=== PATIENT | male | born 1965 | race Caucasian/White ===

== ENCOUNTER 2016-08-02 16:49 | Emergency (ER) | payer SELFPAY ==
[~2016-08-02] VITALS: Ht 170.2 cm; Wt 97.5 kg
[~2016-08-02 16:49] MED LIST: CARV6.2579 PO; FURO40TA4 PO; POTA20TA96 PO
[2016-08-02 17:20] VITALS: Ht 170.2 cm; Wt 97.5 kg
[2016-08-03] MEDS ORDERED: DOXY100T20 PO (07:58)
== END 2016-08-02 18:42 | disposition left against medical advice (07) ==
LOC: E/R 16:49
DX: Z53.21 Procedure and treatment not carried out due to patient leaving prior to being seen by health care provider (principal)

== ENCOUNTER 2016-08-03 07:05 | Inpatient (IN) | payer MEDICAID ==
[~2016-08-03] VITALS: Ht 170.2 cm; Wt 97.5 kg
[~2016-08-03 07:05] MED LIST changes: +ETOMIDATE 20 MG INJ ONE; +VECURONIUM 10 MG VIAL ONE
[2016-08-03] MEDS ORDERED: DOXY100T20 PO (07:58)
[2016-08-03] MEDS ORDERED: KETOROLAC 15 MG INJ IV STA (08:29)
[2016-08-03] MEDS ORDERED: ASPIRIN 325 MG TAB PO ONE (08:30)
[2016-08-03] MEDS ORDERED: ENALAPRILAT 1.25 MG INJ IV ONE (08:30)
[2016-08-03] MEDS ORDERED: FUROSEMIDE 40 MG INJ IV ONE (08:30)
[2016-08-03 08:47] LABS: ADD SCAN DIFF NO
--- NOTE | 2016-08-03 08:54 | RADRPT ---
PROCEDURE: XR Chest. CLINICAL INDICATION: Chest pain TECHNIQUE: Chest AP portable. COMPARISON: 04/21/2016 FINDINGS: The mediastinal structures are unremarkable. There is moderate cardiomegaly. The pulmonary vascula rity is normal. There is bibasilar subsegmental atelectasis. No consolidation is identified. The pleural spaces are unremarkable. The axial skeleton is unremarkable. IMPRESSION: Moderate cardiomegaly Mild bibasilar subsegmental atelectasis RPTAT: HGDB .Ponce Mathew MD, MD Date Time Electronically viewed and signed by .Ponce Mathew MD, on 08/03/2016 08:53 .B/
[2016-08-03 08:57] LABS: BASOPHIL # 0.1 10^3/ul (0.0-0.1); BASOPHILS % 0.7 % (0.0-2.0); EOSINOPHILS # 0.2 10^3/ul (0.0-0.5); EOSINOPHILS % 2.2 % (0.0-7.0); HEMATOCRIT 44.9 % (42.0-52.0); HEMOGLOBIN 15.1 g/dl (14.0-18.0); LYMPHOCYTES # 2.3 10^3/ul (0.8-2.9); MEAN CORPUSCULAR HEMOGLOBIN 26.8 pg (29.0-33.0); MEAN CORPUSCULAR HGB CONC 33.6 g/dl (32.0-37.0); MEAN CORPUSCULAR VOLUME 79.8 fl (82.0-101.0); MEAN PLATELET VOLUME 10.6 fl (7.4-10.4); MONOCYTE # 1.2 10^3/ul (0.3-0.9); MONOCYTES % 12.1 % (0.0-11.0); NEUTROPHIL # 5.8 10^3/ul (1.6-7.5); NEUTROPHILS % 60.8 % (39.0-77.0); PLATELET COUNT 281 10^3/UL (140-415); RED BLOOD COUNT 5.63 10^6/ul (4.70-6.10); RED CELL DISTRIBUTION WIDTH 21.5 % (11.5-14.5); WHITE BLOOD COUNT 9.5 10^3/ul (4.8-10.8)
[2016-08-03 09:03] LABS: ALBUMIN 3.7 g/dl (3.3-4.9)
[2016-08-03 09:04] LABS: POTASSIUM 3.5 mmol/L (3.5-5.1)
[2016-08-03 09:06] LABS: ALBUMIN/GLOBULIN RATIO 0.88; BILIRUBIN,DIRECT 0.5 mg/dl (0.00-0.20); BILIRUBIN,INDIRECT 0.8 mg/dl (0-1.1); BILIRUBIN,TOTAL 1.3 mg/dl (0.2-1.3); CALCIUM 8.9 mg/dl (8.4-10.2); CREATININE 1.34 mg/dl (0.61-1.24); TOTAL PROTEIN 7.9 g/dl (6.1-8.1)
[2016-08-03 09:16] LABS: TROPONIN-I 0.064 ng/ml (0.00-0.12)
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
[2016-08-03] MEDS ORDERED: ONDANSETRON 4 MG TAB PO PRN (10:30)
[2016-08-03] MEDS ORDERED: NITROGLYCERIN (SL) 0.4 MG TAB SL PRN (10:30)
[2016-08-03] MEDS ORDERED: NACL 0.9% 3 ML SYG IV SCH (10:30)
[2016-08-03] MEDS ORDERED: DOCUSATE SODIUM 100 MG CAP PO PRN (10:30)
[2016-08-03] MEDS: ASPIRIN 81 MG TAB PO SCH (11:00)
[2016-08-03] MEDS ORDERED: FUROSEMIDE 40 MG TAB PO SCH (11:00)
[2016-08-03 11:40] LABS: INR 1.6; PROTIME 19.2 Sec (12.2-14.2); PT RATIO 1.5
[2016-08-03] MEDS: FAMOTIDINE 20 MG TAB PO SCH (11:54)
[2016-08-03] MEDS: SPIRONOLACTONE 25 MG TAB PO SCH (12:05)
[2016-08-03 13:34] VITALS: TEMP 98
[2016-08-03 14:46] LABS: CK-MB 4.06 ng/ml (0.0-2.4)
[2016-08-03 14:50] VITALS: BP 108/70; PULSE 78; RESP 18
--- NOTE | 2016-08-03 14:57 | CONS ---
DATE OF ADMISSION: 08/03/2016 DATE OF CONSULTATION: 08/03/2016 REASON FOR CONSULTATION: Congestive heart failure exacerbation, cardiomyopathy with severely depres sed left ventricular ejection fraction. REQUESTING PHYSICIAN: Dr. Holley from the hospitalist service. HISTORY OF PRESENT ILLNESS: Mr. Snell is a 50-year-old male well known to myself due to multiple [facility] admissions with a history of cardiomyopathy with last known ejection fraction approxim ately March 2016, history of polysubstance abuse with methamphetamines, hypertension, medical no ncompliance, who presents with complaints of worsening shortness of breath, lower extremity edema. Initially upon arrival this morning in the emergency department, temperature 98.1, blood pressure 13 6/80, pulse 114, respiratory rate 20, saturating 99%. The patient's labs revealed a white count of 9.5, hemoglobin 15.1, platelet count 281. Sodium 140, potassium 3.5, creatinine 1.34, BUN of 27, A ST 55, ALT 27. Troponin negative. INR 1.6. The patient underwent a chest x-ray revealing moderate cardiomegaly and mild bibasilar subsegmental atelectasis. Patient's electrocardiogram reveals sinu s tachycardia at a rate of 105 with left axis deviation and nonspecific ST-T abnormalities and a sin gle PVC. The patient thus far ____heart failure. The patient at this time remains in the emergency department and treated with a dose of Lasix 80 mg IV x1, aspirin, given a dose of IV push Vasotec and now awaits admit to the floor. At this time, the patient continues to have shortness breath. D enies chest pain. PAST MEDICAL HISTORY: As above in HPI. MEDICATIONS CURRENTLY IN HOSPITAL: 1. Lasix 20 mg IV b.i.d. 2. Aldactone 25 mg daily. 3. Aspirin 81 mg daily. 4. Ativan p.r.n. 5. Zofran p.r.n. 6. Sublingual nitroglycerin p.r.n. 7. Tylenol p.r.n. 8. Colace p.r.n. ALLERGIES: NO KNOWN DRUG ALLERGIES. SOCIAL HISTORY: Positive substance abuse with known methamphetamine use. FAMILY HISTORY: No history of sudden cardiac or early CAD. REVIEW OF SYSTEMS: As above in HPI. CONSTITUTIONAL: No fevers, chills. PULMONARY: Shortness of breath. CARDIOVASCULAR: Congestive heart failure, cardiomyopathy. GASTROINTESTINAL: No vomiting. GENITOURINARY: No hematuria. MUSCULOSKELETAL: Degenerative joint disease. PSYCHIATRIC: The patient denies depression. NEUROLOGIC: No documented history of CVA. ENDOCRINE: No documented history of thyroid disease, diabetes mellitus. PHYSICAL EXAMINATION: VITAL SIGNS: Temperature 98, blood pressure 93/71, pulse 92, respiratory rate 18, saturating 99%. GENERAL: Patient is sleeping but arousable. NECK: JVP approximately 9 to 10 cm water. CHEST: Bibasilar crackles. HEART: Regular rate and rhythm. Normal S1, increased S2. Laterally displaced PMI. ABDOMEN: Positive bowel sounds, soft, distended. EXTREMITIES: 1+ edema bilaterally. Erythema of the stent and lower extremities bilaterally, 1+ pul ses bilaterally, posterior tibial. LABORATORY DATA: As above in HPI. No further labs for my review at this time. IMAGING STUDIES: As above in HPI with chest x-ray revealing bibasilar infiltrates. IMPRESSION: 1. Congestive heart failure exacerbation, systolic, acute on chronic. 2. Cardiomyopathy with severely depressed left ventricular ejection fraction ____ approximately 15% . 3. Abnormal electrocardiogram, assess for acute coronary syndrome. 4. Hypotension, borderline. 5. Lower extremity edema. 6. Possible lower extremity cellulitis. 7. Renal failure. 8. Substance abuse. 9. Coagulopathy. RECOMMENDATIONS: 1. At this time, would admit patient to telemetry monitoring to follow rhythm and rate closely. 2. Would check serial EKGs to assess for any significant ongoing changes. EKG in the morning, EKG for any complaints of chest pain or change in rhythm. 3. Continue the patient's current Lasix diuresis along with Aldactone. 4. Continue the patient's aspirin at this time, but follow for any signs of bleeding complications, given coagulopathy. 5. Continue to follow the patient's coagulopathy and recheck an INR in a.m. 6. Will complete a rule out for myocardial infarction to ensure the patient's constellation of symp toms are not due to any recent acute coronary syndrome such as acute myocardial infarction. 7. Will initiate patient on low dose hydralazine afterload reduction and low-dose beta mary as t olerated, withhold parameters following closely. 8. Cessation of substance abuse. Thank you for allowing me to take part in the care of this patient. I will continue to follow along very closely with you. Further recommendations will be made as the patient progresses through his inpatient hospital clinical course. Dictated By: DEANA KEMP/ARMANDO Conf#: [id number] DID#: [id number] CC: JACEK HOLLEY MD;*End*
[2016-08-03 15:08] VITALS: Ht 170.2 cm; Wt 97.5 kg
[2016-08-03 17:15] VITALS: PULSE 93
--- NOTE | 2016-08-03 17:42 | HP ---
DATE OF ADMISSION: 08/03/2016 CARTON STENCILER: Abdirizak Richard MD, Cardiology. CHIEF COMPLAINT: Shortness of breath and abdominal distention. HISTORY OF PRESENT ILLNESS: This is a 50-year-old gentleman with past medical history of cardiomyop athy with ejection fraction of 15%, anxiety, substance abuse known as methamphetamine and heroin abu se, cirrhosis, congestive heart failure, pulmonary hypertension, who presents to [facility] secondary to having abdominal pain, abdominal distention and worsening of shortness of grecia ath and lower extremity edema. Initially upon arrival, he was found to have a temperature of 98.1, blood pressure 136/80, pulse of 114, respiratory rate 20, oxygen saturation 99%. The patient's WBC was 9.5, hemoglobin 15.1, platelets 281. Sodium 140, potassium 3.5, creatinine 1.34, BUN 27. INR 1 .06. Chest x-ray revealed moderate cardiomegaly and mild basilar segmental atelectasis. The patien t's EKG shows sinus tachycardia with a ventricular rate of 105, left axis deviation, nonspecific ST- T wave abnormality with single PVC. The patient was treated with diuresis via Lasix and has been ad mitted to telemetry floor for further evaluation and treatment. At this time, patient denies having any chest pain, although he does complain of having shortness of breath and abdominal discomfort. No fever, chills, weight gain, weight loss, anorexia. No chest pain, palpitations. Positive for ed karina bilateral lower extremities. No dysuria, hematuria, urgency, incontinence. His last drug use w as heroin, which he smoked yesterday. PAST MEDICAL AND SURGICAL HISTORY: As above per HPI. MEDICATIONS: 1. Doxycycline. 2. Lasix. 3. Potassium chloride. ALLERGIES: NO KNOWN DRUG ALLERGIES. FAMILY HISTORY: Noncontributory. SOCIAL HISTORY: Positive for drug abuse and smoking cigarettes. Denies any use of alcohol. He is noncompliant with medications REVIEW OF SYSTEMS: As above per HPI, otherwise 12 review of systems has been found to be negative PHYSICAL EXAMINATION VITAL SIGNS: Temperature 98.4, pulse 78, respirations 18, blood pressure 108/79, oxygen saturation 98% on room air. GENERAL APPEARANCE: The patient is lying in bed comfortably without any distress. He is awake, jose daniel rt, oriented. He is able to answer my questions properly. EYES AND ENT: Conjunctivae and lids are normal. Pupils are normal. Extraocular normal. Hearing g rossly normal. Lips, teeth and gums are normal. Oral mucosa is mildly dry. NECK: Supple. Trachea is midline. No lymphadenopathy. RESPIRATORY: Effort is normal. Clear to auscultation bilaterally. CARDIOVASCULAR: Normal S1, S2. Positive edema bilateral lower extremities. No gallop. ABDOMEN: Contour is morbidly obese and also the patient is found to have ascites. Bowel sounds are distant secondary to body habitus and ascites. No guarding, no rebound. GENITOURINARY: Deferred. MUSCULOSKELETAL: Upper and lower extremities within normal limits except edema bilateral lower extr emities. NEUROLOGIC: Cranial nerves II through XII are grossly intact. He is awake, alert, oriented. LABORATORY WORK WBC 9.5, hemoglobin 15.1, hematocrit 44.9, platelets 281. Sodium 140, potassium 3.5 , chloride 95, bicarbonate 29, BUN 27, creatinine 1.34, glucose 79. Total bilirubin 1.3, direct pipo irubin 0.5. Troponin is 0.064. ASSESSMENT AND PLAN: 1. Acute on chronic congestive heart failure. 2. Fluid overload. 3. Ascites. 4. Continued and current use of amphetamine and heroin. 4. Noncompliance with medications. 5. History of cirrhosis. The patient will be admitted to telemetry floor. Cardiology has been consulted. We will place the patient on diuretics such as Lasix and I also have placed the patient on Aldactone. We will follow cardiology recommendations. Regarding his abdominal distention and ascites, I have ordered an ultra sound-guided paracentesis and follow up the fluid. The patient is afebrile. We also will obtain he patitis panel. For deep venous thrombosis prophylaxis, place the patient on SCDs. The patient's IN R is greater than 1.5. Dictated By: JACEK PAGAN/NTS Conf#: [id number] DID#: [id number]
[2016-08-03] MEDS: LORAZEPAM 2 MG INJ IV PRN (18:44)
[2016-08-03] MEDS: FUROSEMIDE 20 MG INJ IV SCH (18:44)
[2016-08-03 18:49] LABS: TROPONIN-I 0.04 ng/ml (0.00-0.12)
[2016-08-03 18:53] LABS: CK-MB 3.28 ng/ml (0.0-2.4)
[2016-08-03 20:17] VITALS: PULSE 90
[2016-08-03 20:56] VITALS: BP 108/72; RESP 19
[2016-08-03] MEDS: ZOLPIDEM 5 MG TAB PO PRN (21:14)
[2016-08-03 23:00] LABS: TROPONIN-I 0.029 ng/ml (0.00-0.12)
[2016-08-03 23:01] LABS: CK-MB 3.24 ng/ml (0.0-2.4)
[2016-08-04] VITALS (10 sets, daily range): BP systolic 117–145; BP diastolic 63–79; PULSE 100–111; RESP 18–22
[2016-08-04] MEDS: LORAZEPAM 2 MG INJ IV PRN ×2 (00:46→23:33)
[2016-08-04 02:51] LABS: ADD SCAN DIFF NO; HAAIG REFLEX REFLEX FILED
[2016-08-04 03:35] LABS: POTASSIUM 3.3 mmol/L (3.5-5.1)
[2016-08-04 03:38] LABS: CREATININE 1.34 mg/dl (0.61-1.24)
[2016-08-04 03:39] LABS: CALCIUM 8.4 mg/dl (8.4-10.2); CHOL/HDL RATIO 11.9 RATIO; MAGNESIUM 1.7 mg/dl (1.7-2.5)
[2016-08-04 03:57] LABS: BASOPHIL # 0.1 10^3/ul (0.0-0.1); BASOPHILS % 0.7 % (0.0-2.0); EOSINOPHILS # 0.4 10^3/ul (0.0-0.5); EOSINOPHILS % 5.5 % (0.0-7.0); HEMATOCRIT 42.2 % (42.0-52.0); HEMOGLOBIN 13.6 g/dl (14.0-18.0); LYMPHOCYTES # 1.9 10^3/ul (0.8-2.9); LYMPHOCYTES % 23.1 % (15.0-51.0); MEAN CORPUSCULAR HEMOGLOBIN 26.2 pg (29.0-33.0); MEAN CORPUSCULAR HGB CONC 32.2 g/dl (32.0-37.0); MEAN CORPUSCULAR VOLUME 81.3 fl (82.0-101.0); MEAN PLATELET VOLUME 10.6 fl (7.4-10.4); MONOCYTE # 0.8 10^3/ul (0.3-0.9); MONOCYTES % 9.9 % (0.0-11.0); NEUTROPHIL # 4.9 10^3/ul (1.6-7.5); NEUTROPHILS % 60.4 % (39.0-77.0); PLATELET COUNT 276 10^3/UL (140-415); RED BLOOD COUNT 5.19 10^6/ul (4.70-6.10); RED CELL DISTRIBUTION WIDTH 21.7 % (11.5-14.5)
[2016-08-04] MEDS ORDERED: POTASSIUM CHLORIDE (SR) 20 MEQ TAB PO ONE (04:39)
[2016-08-04] MEDS ORDERED: LORAZEPAM 1 MG TAB PO ONE (05:00)
[2016-08-04] MEDS ORDERED: MAGNESIUM SULFATE 1 GM/D5W 100 ML IVPB ONE (05:00)
[2016-08-04 05:12] LABS: THYROID STIMULATING HORMONE 5.04 MIU/L (0.465-4.680)
[2016-08-04 05:25] LABS: HEPATITIS B CORE ANTIBODY NEGATIVE (NEGATIVE)
[2016-08-04] MEDS: FUROSEMIDE 20 MG INJ IV SCH ×2 (05:49→18:41)
[2016-08-04] MEDS ORDERED: LORAZEPAM 2 MG INJ IV ONE (06:30)
[2016-08-04] MEDS ORDERED: LORAZEPAM 2 MG INJ IV PRN ×2 (08:30→10:30)
[2016-08-04] MEDS: ASPIRIN 81 MG TAB PO SCH (08:40)
[2016-08-04] MEDS: FAMOTIDINE 20 MG TAB PO SCH (08:40)
[2016-08-04] MEDS: SPIRONOLACTONE 25 MG TAB PO SCH (08:40)
[2016-08-04 12:35] LABS: POTASSIUM 4.1 mmol/L (3.5-5.1)
[2016-08-04 12:38] LABS: MAGNESIUM 1.7 mg/dl (1.7-2.5)
--- NOTE | 2016-08-04 13:48 | RADRPT ---
PROCEDURE: US Abdomen. CLINICAL INDICATION: Ascites TECHNIQUE: Multiple real-time images were acquired of the patient's abdomen using a high resolutio n linear transducer. COMPARISON: February 02, 2016 FINDINGS: There are scattered, small pockets of fluid within the right lower and left lower quadrants of the a bdomen. The bowel loops are within 1-2 cm of the small pockets of fluid. In addition, the patient was combative, and climbing from the bed. At this time, it is not safe for the patient, for ultraso und-guided thoracentesis to be performed. IMPRESSION: Overall, mild scattered small pockets of fluid, adjacent to bowel loops. In addition, the patient w as combative, and climbing from his bed. At this time, it is not safe for the patient for ultrasoun d-guided thoracentesis to be performed. RPTAT: QQ .Allyssa Mann MD, Date Time Electronically viewed and signed by .Allyssa Mann MD, on 08/04/2016 11:56 .F/
--- NOTE | 2016-08-04 13:51 | PN ---
Date/Time of Note Date/Time of Note DATE: 08/04/16 TIME: 13:48 Assessment/Plan VTE Prophylaxis VTE Prophylaxis Intervention: SCD's Lines/Catheters IV [facility] Saline Lock Assessment/Plan Chief Complaint/Hosp Course ASSESSMENT AND PLAN: 1. Acute on chronic congestive heart failure. Cardiology has been consulted, continue diuresis 2. Fluid overload. 3. Ascites. Plan for paracentesis today 4. Continued and current use of amphetamine and heroin. Palliative care/pain management has been consulted 4. Noncompliance with medications. 5. History of cirrhosis. 6. Dyslipidemia. Patient is not a candidate for statin secondary to his history of cirrhosis For deep venous thrombosis prophylaxis, place the patient on SCDs. The patient 's INR is greater than 1.5. We will continue monitor patient closely for recommendation management treatment as clinical course Problems: Subjective 24 Hr Interval Summary Free Text/Dictation Patient denies of any chest pain or shortness of breath Although he complains of having agitation which is likely secondary to heroin withdrawal No nausea vomiting diarrhea Exam/Review of Systems Vital Signs Vitals Vital Signs Date Time Temp Pulse Resp B/P Pulse Ox O2 Delivery O2 Flow Rate FiO2 08/04/16 12:23 98.3 110 19 125/79 98 08/03/16 14:50 Room Air Intake and Output 08/03/16 08/03/16 08/04/16 14:59 22:59 06:59 Intake Total 400 ml 1400 ml Output Total 400 ml Balance 400 ml 1000 ml Exam General: The patient is well-developed, in minimal distress. HEENT: Atraumatic, normocephalic. The pupils are equal and round . Neck: Supple with full range of motion. Chest: Normal expansion of the thorax during inspiration Lungs: Clear to auscultation bilaterally Heart: Normal S1-S2, Regular rhythm and rate. Abdomen: Soft , nontender, distended , bowel sounds are present. Extremities: Normal to inspection, no edema no cyanosis Neurologic: ,The patient is awake, alert Results Result Diagram: 08/04/16 0238 08/04/16 1215 Results 24 hrs Laboratory Tests Test 08/03/16 17:37 08/03/16 22:08 08/04/16 02:38 08/04/16 12:15 Creatine Kinase 119 96 Creatine Kinase Index 2.8 3.4 Creatinine Kinase MB (Mass) 3.28 H 3.24 H Troponin I 0.040 0.029 Anion Gap 17 H Basophils # 0.1 Basophils % 0.7 Blood Urea Nitrogen 27 H Calcium Level 8.4 Carbon Dioxide Level 26 Chloride Level 100 Cholesterol Level 203 H Cholesterol/HDL Ratio 11.9 Creatinine 1.34 H Eosinophils # 0.4 Eosinophils % 5.5 Glucose Level 86 HDL Cholesterol 17 L Hematocrit 42.2 Hemoglobin 13.6 L Hepatitis B Core Total Antibody NEGATIVE Hepatitis B Surface Antigen NEGATIVE Hepatitis C Antibody NEGATIVE LDL Cholesterol, Calculated 168 Lymphocytes # 1.9 Lymphocytes % 23.1 Magnesium Level 1.7 1.7 Mean Corpuscular Hemoglobin 26.2 L Mean Corpuscular Hemoglobin Concent 32.2 Mean Corpuscular Volume 81.3 L Mean Platelet Volume 10.6 H Monocytes # 0.8 Monocytes % 9.9 Neutrophils # 4.9 Neutrophils % 60.4 Nucleated Red Blood Cells # 0.0 Nucleated Red Blood Cells % 0.0 Platelet Count 276 Potassium Level 3.3 L 4.1 Red Blood Count 5.19 Red Cell Distribution Width 21.7 H Sodium Level 140 Thyroid Stimulating Hormone (TSH) 5.040 H Triglycerides Level 91 White Blood Count 8.0 Medications Medications Current Medications Spironolactone (Aldactone) 25 mg DAILY PO Last administered on 08/04/16 08:40 ; Admin Dose 25 MG; Start 08/03/16 at 11:00 Ondansetron HCl (Zofran Tab) 4 mg Q6H PRN PO NAUSEA AND/OR VOMITING; Start 03/12 at 10:30 Aspirin (Aspirin) 81 mg DAILY PO Last administered on 08/04/16 08:40; Admin Dose 81 MG; Start 08/03/16 at 11:00 Nitroglycerin (Nitroglycerin (Sl Tab) 0.4 Mg) 1 tab Q5M PRN SL CHEST PAIN; Start 08/03/16 at 10:30 Acetaminophen (Tylenol Tab) 650 mg Q6H PRN PO PAIN LEVEL 1-3 OR FEVER; Start at 10:30 Docusate Sodium (Colace) 100 mg Q12H PRN PO CONSTIPATION; Start 08/03/16 at 10: 30 Famotidine (Pepcid) 20 mg DAILY PO Last administered on 08/04/16 08:40; Admin Dose 20 MG; Start 08/03/16 at 11:00 Hydralazine HCl (Apresoline) 10 mg Q8 PO Last administered on 08/04/16 05:49; Admin Dose 10 MG; Start 08/03/16 at 22:00 Carvedilol (Coreg) 3.125 mg BID PO Last administered on 08/04/16 08:41; Admin Dose 3.125 MG; Start 08/03/16 at 21:00 Zolpidem Tartrate (Ambien) 5 mg HS PRN PO INSOMNIA Last administered on 21:14; Admin Dose 5 MG; Start 08/03/16 at 21:00 Lorazepam (Ativan) 1 mg Q6H PRN IV ANXIETY Last administered on 08/04/16 08:41 ; Admin Dose 1 MG; Start 08/04/16 at 08:30 JACEK HOLLEY MD Aug 04, 2016 13:51
[2016-08-04] MEDS: METHADONE 10 MG TAB PO SCH (15:32)
--- NOTE | 2016-08-04 16:57 | CONS ---
Date/Time of Note Date/Time of Note DATE: 08/04/16 TIME: 16:53 Assessment/Plan Assessment/Plan Chief Complaint/Hosp Course IMPRESSION: 1. Congestive heart failure exacerbation, systolic, acute on chronic. 2. Cardiomyopathy with severely depressed left ventricular ejection fraction approximately 15%. 3. Abnormal electrocardiogram, assess for acute coronary syndrome.-negative troponin x 3 4. Hypotension, borderline. 5. Lower extremity edema. 6. Possible lower extremity cellulitis. 7. Renal failure. 8. Substance abuse-ongoing 9. Coagulopathy. 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 PULMONARY: mild sob CARDIOVASCULAR: No chest pain/palpitations GASTROINTESTINAL: No nausea/vomiting. GENITOURINARY: No hematuria/dysuria. MUSCULOSKELETAL: No myagias/arthalgias. PSYCHIATRIC: The patient denies depression. NEUROLOGIC: generalized weakness Constitutional: alert Psych: no complaints Head: normocephalic ENMT: mucosa pink and moist Neck: jvd (9 cm water), supple Respiratory: diminished breath sounds (at bases/B) Cardiovascular: regular rate and rhythm Gastrointestinal: non-tender, soft Musculoskeletal: muscle weakness (generalized) Extremities: edema (trace/B) Neurological: other (No focal deficits) Results Result Diagram: 08/04/16 0238 08/04/16 1215 Results 24 hrs Laboratory Tests Test 08/03/16 17:37 08/03/16 22:08 08/04/16 02:38 08/04/16 12:15 Creatine Kinase 119 96 Creatine Kinase Index 2.8 3.4 Creatinine Kinase MB (Mass) 3.28 H 3.24 H Troponin I 0.040 0.029 Anion Gap 17 H Basophils # 0.1 Basophils % 0.7 Blood Urea Nitrogen 27 H Calcium Level 8.4 Carbon Dioxide Level 26 Chloride Level 100 Cholesterol Level 203 H Cholesterol/HDL Ratio 11.9 Creatinine 1.34 H Eosinophils # 0.4 Eosinophils % 5.5 Glucose Level 86 HDL Cholesterol 17 L Hematocrit 42.2 Hemoglobin 13.6 L Hepatitis B Core Total Antibody NEGATIVE Hepatitis B Surface Antigen NEGATIVE Hepatitis C Antibody NEGATIVE LDL Cholesterol, Calculated 168 Lymphocytes # 1.9 Lymphocytes % 23.1 Magnesium Level 1.7 1.7 Mean Corpuscular Hemoglobin 26.2 L Mean Corpuscular Hemoglobin Concent 32.2 Mean Corpuscular Volume 81.3 L Mean Platelet Volume 10.6 H Monocytes # 0.8 Monocytes % 9.9 Neutrophils # 4.9 Neutrophils % 60.4 Nucleated Red Blood Cells # 0.0 Nucleated Red Blood Cells % 0.0 Platelet Count 276 Potassium Level 3.3 L 4.1 Red Blood Count 5.19 Red Cell Distribution Width 21.7 H Sodium Level 140 Thyroid Stimulating Hormone (TSH) 5.040 H Triglycerides Level 91 White Blood Count 8.0 Medications Medications Current Medications Spironolactone (Aldactone) 25 mg DAILY PO Last administered on 08/04/16 08:40 ; Admin Dose 25 MG; Start 08/03/16 at 11:00 Ondansetron HCl (Zofran Tab) 4 mg Q6H PRN PO NAUSEA AND/OR VOMITING; Start 03/12 at 10:30 Aspirin (Aspirin) 81 mg DAILY PO Last administered on 08/04/16 08:40; Admin Dose 81 MG; Start 08/03/16 at 11:00 Nitroglycerin (Nitroglycerin (Sl Tab) 0.4 Mg) 1 tab Q5M PRN SL CHEST PAIN; Start 08/03/16 at 10:30 Acetaminophen (Tylenol Tab) 650 mg Q6H PRN PO PAIN LEVEL 1-3 OR FEVER; Start at 10:30 Docusate Sodium (Colace) 100 mg Q12H PRN PO CONSTIPATION; Start 08/03/16 at 10: 30 Famotidine (Pepcid) 20 mg DAILY PO Last administered on 08/04/16 08:40; Admin Dose 20 MG; Start 08/03/16 at 11:00 Hydralazine HCl (Apresoline) 10 mg Q8 PO Last administered on 08/04/16 14:30; Admin Dose 10 MG; Start 08/03/16 at 22:00 Carvedilol (Coreg) 3.125 mg BID PO Last administered on 08/04/16 08:41; Admin Dose 3.125 MG; Start 08/03/16 at 21:00 Zolpidem Tartrate (Ambien) 5 mg HS PRN PO INSOMNIA Last administered on 21:14; Admin Dose 5 MG; Start 08/03/16 at 21:00 Methadone HCl (Methadone) 50 mg DAILY PO Last administered on 08/04/16 15:32; Admin Dose 50 MG; Start 08/04/16 at 15:15 Lorazepam (Ativan) 1 mg Q4 PRN IV ANXIETY; Start 08/04/16 at 17:00 DEANA ALBERTO Aug 04, 2016 16:57
--- NOTE | 2016-08-04 17:35 | RADRPT ---
Vent Rate: 111 bpm RR Interval: 0 msec AK Interval: 144 msec QRS Duration: 100 msec QT Interval: 354 msec QTC Interval: 481 msec P-R-T Bruce: 62 - -8 - 144 degrees Sinus tachycardia Anterolateral infarct , age undetermined Abnormal ECG Electronically Signed By: Abdirizak Richard [id number]
[2016-08-04] MEDS: ZOLPIDEM 5 MG TAB PO PRN (21:21)
[2016-08-05] VITALS (41 sets, daily range): BP systolic 84–151; BP diastolic 54–129; PULSE 93–110; RESP 12–25
[2016-08-05] MEDS: FUROSEMIDE 20 MG INJ IV SCH ×2 (05:17→18:26)
[2016-08-05 07:17] LABS: ADD SCAN DIFF NO
[2016-08-05 07:20] LABS: BASOPHIL # 0.1 10^3/ul (0.0-0.1); BASOPHILS % 0.7 % (0.0-2.0); EOSINOPHILS % 0.2 % (0.0-7.0); HEMATOCRIT 50.7 % (42.0-52.0); HEMOGLOBIN 16.5 g/dl (14.0-18.0); LYMPHOCYTES % 18.7 % (15.0-51.0); MEAN CORPUSCULAR HEMOGLOBIN 26.7 pg (29.0-33.0); MEAN CORPUSCULAR HGB CONC 32.5 g/dl (32.0-37.0); MEAN CORPUSCULAR VOLUME 82.2 fl (82.0-101.0); MEAN PLATELET VOLUME 10.6 fl (7.4-10.4); MONOCYTE # 1.2 10^3/ul (0.3-0.9); MONOCYTES % 11.2 % (0.0-11.0); NEUTROPHIL # 7.2 10^3/ul (1.6-7.5); NEUTROPHILS % 68.7 % (39.0-77.0); PLATELET COUNT 300 10^3/UL (140-415); RED BLOOD COUNT 6.17 10^6/ul (4.70-6.10); WHITE BLOOD COUNT 10.5 10^3/ul (4.8-10.8)
[2016-08-05 07:28] LABS: INR 2.09; PROTIME 23.7 Sec (12.2-14.2); PT RATIO 1.9
[2016-08-05 07:40] LABS: CHLORIDE 98 mmol/L (97-110)
[2016-08-05 07:41] LABS: ALBUMIN 3.5 g/dl (3.3-4.9); SODIUM 139 mmol/L (135-144)
[2016-08-05 07:42] LABS: POTASSIUM 5.9 mmol/L (3.5-5.1)
[2016-08-05 07:56] LABS: BILIRUBIN,TOTAL 2.1 mg/dl (0.2-1.3); CREATININE 1.79 mg/dl (0.61-1.24)
[2016-08-05 07:57] LABS: ALANINE AMINOTRANSFERASE 29 IU/L (13-69); ALBUMIN/GLOBULIN RATIO 0.81; ALKALINE PHOSPHATASE 263 IU/L (42-121); ANION GAP 24 (8-16); ASPARTATE AMINO TRANSFERASE 64 IU/L (15-46); BLOOD UREA NITROGEN 34 mg/dl (7-20); CARBON DIOXIDE 23 mmol/L (21-31); TOTAL PROTEIN 7.8 g/dl (6.1-8.1)
[2016-08-05 07:58] LABS: MAGNESIUM 1.9 mg/dl (1.7-2.5)
[2016-08-05 08:12] LABS: GLUCOSE < 20 mg/dl (70-220)
[2016-08-05] MEDS ORDERED: DEXTROSE 50% 50 ML SYRINGE ONE (08:13)
[2016-08-05 08:18] LABS: FREE T3 3.87 pg/ml (2.77-5.27)
[2016-08-05] MEDS ORDERED: DEXTROSE 5%-0.45% NACL 1,000 ML IV SCH (08:30)
[2016-08-05] MEDS: DEXTROSE 50% 50 ML SYRINGE IV PRN ×3 (08:34→09:47)
[2016-08-05] MEDS: ASPIRIN 81 MG TAB PO SCH (09:00)
[2016-08-05] MEDS: SPIRONOLACTONE 25 MG TAB PO SCH (09:00)
[2016-08-05] MEDS: FAMOTIDINE 20 MG TAB PO SCH (09:00)
[2016-08-05] MEDS: METHADONE 10 MG TAB PO SCH (09:00)
[2016-08-05] MEDS: ACCU-CHEK XX SCH ×4 (09:20→21:00)
[2016-08-05 10:05] LABS: Allen Test ACCEPTAB; Arterial Base Excess -9.1 mmol/L (-3.0-3); Arterial Fraction of Oxyhgb 88.5 % (93.0-99.0); Arterial MetHb 0.5 % (0.0-1.5); Arterial Total Hemglobin 14.9 g/dl (12.0-18.0); MODE HFFI
[2016-08-05] MEDS: PROPOFOL 100 ML IV SCH (10:48)
[2016-08-05] MEDS ORDERED: LIDOCAINE 1% (MDV) 20 ML INJ SC ONE (11:00)
--- NOTE | 2016-08-05 11:12 | RADRPT ---
PROCEDURE: XR Chest AP portable CLINICAL INDICATION: Status post intubation TECHNIQUE: An AP portable radiograph of the chest was submitted. COMPARISON: 08/03/2016 FINDINGS: Support Hardware: An endotracheal tube is in satisfactorily placed with the tip at the level of T3. An NG tube has been placed with the tip in the stomach. Cardiovascular: The heart remains moderately enlarged and the pulmonary vasculature now appears more congested. Lung Cruz: Subsegmental atelectasis or infiltrate is seen within both lung bases. Pleural Spaces: There is a small moderate right pleural fluid accumulation with fluid tracking into the minor fissure. No pneumothorax is evident. Osseous Structures: The osseous structures appear intact. Soft Tissues: The soft tissues appear unremarkable. IMPRESSION: 1. Interval satisfactory intubation and placement of an NG tube, 2. Moderate cardiomegaly with increasing pulmonary vascular congestion. 3. Development of bilateral lower lung zone infiltrate/atelectasis. 4. Development of a moderate right pleural fluid accumulation with fluid tracking into the minor fi ssure. Physician Georgi Date Time Electronically viewed and signed by Physician Georgi on 08/05/2016 11:11 /
[2016-08-05] MEDS: DEXTROSE 10% 1,000 ML IV SCH ×2 (11:52→22:01)
[2016-08-05 12:19] LABS: AADO2 Arterial 415.1 mmHg (7.0-24.0); Allen Test ACCEPTAB; Arterial Base Excess -8.8 mmol/L (-3.0-3); Arterial Fraction of Oxyhgb 94.7 % (93.0-99.0); Arterial HCO3 19.9 mmol/L (22.0-26.0); Arterial MetHb 0.4 % (0.0-1.5); Arterial Total Hemglobin 15.4 g/dl (12.0-18.0); MODE VENT - AC
--- NOTE | 2016-08-05 12:24 | CONS ---
Date/Time of Note Date/Time of Note DATE: 08/05/16 TIME: 12:15 Assessment/Plan Assessment/Plan Additional Assessment/Plan Chest x-ray was reviewed from yesterday which is showing cardio megaly without any overt CHF however chest x-ray after intubation was obtained revealed significant increase in congestive heart failure pattern. Next Current ventilator settings AC of 18, tidal volume 500, PEEP of 5, 80% FiO2. ABG was reviewed from today earlier prior to intubation which is showing acute respiratory failure with severe hypercapnia. Post intubation ABG revealing a respiratory and metabolic acidosis. Assessment recommendations; 1. Patient admitted for shortness of breath of underlying cardia myopathy then developing respiratory failure. 2. Underlying history of substance abuse. 3. Renal insufficiency. Likely from renal hypoperfusion. 4. Hyperkalemia. Continue current supportive care. Ventilator settings have been adjusted, assist control rate has been increased to 22, patient also given sodium bicarb for correction of acidosis. Will obtain a follow-up chest x-ray in 24 hours. Obtain follow-up serum chemistry to ascertain level of potassium. Prognosis is guarded. Consultation Date/Type/Reason Admit Date/Time Aug 03, 2016 at 14:46 Date of Consultation: Aug 05, 2016 Reason for Consultation Pulmonary consultation obtained for patient with impending respiratory failure. Next History presenting; patient is a 50-year-old male who came into the emergency room yesterday with complaints of not feeling well for the last 2 days. Upon evaluation chest x-ray was done which showed cardiomegaly the patient was found to be mild CHF was admitted to medical floor however the patient decompensated earlier this morning and was rushed over to ICU the patient was immediately attended to at bedside and because of respiratory failure was intubated without difficulty with 7.5 endotracheal tube. History was obtained from medical records. Next Past medical history; 1. History of substance abuse. With intravenous drug use as well . 2. Severe cardiac myopathy with EF of around 15%. 3. History of cholecystectomy as evidenced by right upper quadrant scar. Medications; were reviewed. Allergies; none. Social history; positive for substance abuse. Family history, occupational history are not available. Review of systems; unobtainable. General exam; young male, now orally intubated, sedated. Psychological: no complaints Past Surgical History Past Surgical Hx: cholecystectomy Social History Smoking Status: Current every day smoker Exam/Review of Systems Vital Signs Vitals Vital Signs Date Time Temp Pulse Resp B/P Pulse Ox O2 Delivery O2 Flow Rate FiO2 08/05/16 12:04 100 08/05/16 11:54 120 08/05/16 10:30 14 100 08/05/16 08:15 98.2 106/54 08/05/16 08:00 Nasal Cannula 2.0 Intake and Output 08/04/16 08/04/16 08/05/16 15:00 23:00 07:00 Intake Total 650 ml Balance 650 ml Exam H EENT exam is; supple neck, JVD difficult to see. No lymphadenopathy. Midsize pupils. Patient has fair dentition. No neck masses. Now orally intubated. Chest examination a micro diminished breath sounds throughout. S1-S2 audible, no murmurs. Regular rhythm. Abdomen examination; protuberant, no organomegaly. Bowel sounds audible. There is a well-healed right upper quadrant scar. Extremity exam is; no peripheral edema. Pulses are diminished in lower extremities. REGISTERED PHLEBOTOMIST PART TIME examination; patient is currently sedated. Results Result Diagram: 08/05/16 0615 08/05/16 0906 Results 24 hrs Laboratory Tests Test 08/05/16 06:15 08/05/16 08:07 08/05/16 08:30 08/05/16 08:42 Alanine Aminotransferase (ALT/SGPT) 29 Albumin 3.5 Albumin/Globulin Ratio 0.81 Alkaline Phosphatase 263 H Anion Gap 24 #H Aspartate Amino Transf (AST/SGOT) 64 H Basophils # 0.1 Basophils % 0.7 Blood Urea Nitrogen 34 H Calcium Level 9.0 Carbon Dioxide Level 23 Chloride Level 98 Creatinine 1.79 H Direct Bilirubin 1.10 #H Eosinophils # 0.0 Eosinophils % 0.2 Free Thyroxine 1.73 Free Triiodothyronine (T3) pg/mL 3.87 Globulin 4.30 H Glucose Level < 20 #*L Hematocrit 50.7 # Hemoglobin 16.5 # INR International Normalized Ratio 2.09 Indirect Bilirubin 1.0 Lymphocytes # 2.0 Lymphocytes % 18.7 Magnesium Level 1.9 Mean Corpuscular Hemoglobin 26.7 L Mean Corpuscular Hemoglobin Concent 32.5 Mean Corpuscular Volume 82.2 Mean Platelet Volume 10.6 H Monocytes # 1.2 H Monocytes % 11.2 H Neutrophils # 7.2 Neutrophils % 68.7 Nucleated Red Blood Cells # 0.0 Nucleated Red Blood Cells % 0.0 Platelet Count 300 Potassium Level 5.9 H Prothrombin Time 23.7 #H Prothrombin Time Ratio 1.9 Red Blood Count 6.17 H Red Cell Distribution Width 22.0 H Sodium Level 139 Total Bilirubin 2.1 H Total Protein 7.8 White Blood Count 10.5 # Bedside Glucose 17 *L 66 L 46 *L Test 08/05/16 08:57 08/05/16 09:06 08/05/16 09:29 08/05/16 09:47 Bedside Glucose 40 *L 100 69 L Glucose Level 36 #*L Test 08/05/16 09:50 08/05/16 09:52 08/05/16 10:58 Arterial Blood HCO3 23.0 Arterial Blood Base Excess -9.1 L Arterial Blood Oxygen Saturation 89.8 L Parviz Test ACCEPTAB Arterial Blood Gas Puncture Site Right Radial Arterial Blood Carboxyhemoglobin 1.0 Arterial Blood Date Drawn 08/05/2016 9:58:37 AM Arterial Blood Methemoglobin 0.5 Arterial Blood pCO2 (Temp correct) 81.5 *H Arterial Blood pH (Temp corrected) 7.068 *L Arterial Blood pO2 (Temp corrected) 80.5 Blood Gas A-a O2 Differential 551.0 H Blood Gas Critical Value Read Back DR PHLILIPS Blood Gas Modality [facility] Blood Gas Notified Time 08/05/2016 10:04:33 AM Blood Gas Notified Whom TM Blood Gas Specimen Source Blood arterial Blood Gas Temperature 37.0 FiO2 100.0 Oxyhemoglobin Percent 88.5 L Total Hemoglobin 14.9 Bedside Glucose 227 H 118 Medications Medications Current Medications Spironolactone (Aldactone) 25 mg DAILY PO Last administered on 08/04/16 08:40 ; Admin Dose 25 MG; Start 08/03/16 at 11:00 Ondansetron HCl (Zofran Tab) 4 mg Q6H PRN PO NAUSEA AND/OR VOMITING; Start 03/12 at 10:30 Aspirin (Aspirin) 81 mg DAILY PO Last administered on 08/04/16 08:40; Admin Dose 81 MG; Start 08/03/16 at 11:00 Nitroglycerin (Nitroglycerin (Sl Tab) 0.4 Mg) 1 tab Q5M PRN SL CHEST PAIN; Start 08/03/16 at 10:30 Acetaminophen (Tylenol Tab) 650 mg Q6H PRN PO PAIN LEVEL 1-3 OR FEVER; Start at 10:30 Docusate Sodium (Colace) 100 mg Q12H PRN PO CONSTIPATION; Start 08/03/16 at 10: 30 Famotidine (Pepcid) 20 mg DAILY PO Last administered on 08/04/16 08:40; Admin Dose 20 MG; Start 08/03/16 at 11:00 Hydralazine HCl (Apresoline) 10 mg Q8 PO Last administered on 08/05/16 05:17; Admin Dose 10 MG; Start 08/03/16 at 22:00 Carvedilol (Coreg) 3.125 mg BID PO Last administered on 08/04/16 21:22; Admin Dose 3.125 MG; Start 08/03/16 at 21:00 Zolpidem Tartrate (Ambien) 5 mg HS PRN PO INSOMNIA Last administered on 21:21; Admin Dose 5 MG; Start 08/03/16 at 21:00 Methadone HCl (Methadone) 50 mg DAILY PO Last administered on 08/04/16 15:32; Admin Dose 50 MG; Start 08/04/16 at 15:15 Lorazepam (Ativan) 1 mg Q4 PRN IV ANXIETY Last administered on 08/04/16 23:33 ; Admin Dose 1 MG; Start 08/04/16 at 17:00 Diagnostic Test (Pha) 1 ea 1 ea Q4 XX Last administered on 08/05/16 09:20; Admin Dose 1 EA; Start 08/05/16 at 09:00 Propofol 100 ml @ 2.925 mls/ hr Q12H IV Last administered on 08/05/16 10:48; Admin Dose 2.925 MLS/HR; Start 08/05/16 at 11:00 Dextrose (D10w) 1,000 ml @ 100 mls/hr Q10H IV Last administered on 08/05/16 11:52; Admin Dose 100 MLS/HR; Start 08/05/16 at 11:00 YOUSUF MILNER Aug 05, 2016 12:24
[2016-08-05] MEDS ORDERED: NA BICARBONATE 8.4% 50 ML SYG IV ONE ×2 (12:30)
--- NOTE | 2016-08-05 12:54 | CONS ---
Date/Time of Note Date/Time of Note DATE: 08/05/16 TIME: 12:49 Assessment/Plan Assessment/Plan Chief Complaint/Hosp Course IMPRESSION: 1. Congestive heart failure exacerbation, systolic, acute on chronic-worsening by cxr 2. Cardiomyopathy with severely depressed left ventricular ejection fraction approximately 15%. 3. Abnormal electrocardiogram, assess for acute coronary syndrome.-negative troponin x 3 4. Hypotension, borderline. 5. Lower extremity edema. 6. Possible lower extremity cellulitis. 7. Renal failureworsening 8. Substance abuse-ongoing 9. Coagulopathy. 10. Resp failure s/p intubation 11.Hypoglycemia-? etiology liver failure Recc: -Tele -Continue coreg/hydralazine as tolerated only -s/p dose of digoxin to increase contractility -Gentle daily lasix diuresis as tolerated only -Continue asa -Hold aldactone given hyperkalemia -possible need for pressor support -Follow BS closely Problems: Consultation Date/Type/Reason Admit Date/Time Aug 03, 2016 at 14:46 Initial Consult Date 08/03/2016 Type of Consultation: Cardiology Reason for Consultation CHF/cardiomyopathy Referring Provider: JACEK HOLLEY MD Exam/Review of Systems Vital Signs Vitals Vital Signs Date Time Temp Pulse Resp B/P Pulse Ox O2 Delivery O2 Flow Rate FiO2 08/05/16 12:39 93 22 99 80 08/05/16 12:30 88/63 Mechanical Ventilator 08/05/16 11:45 96.0 08/05/16 08:00 2.0 Intake and Output 08/04/16 08/04/16 08/05/16 15:00 23:00 07:00 Intake Total 650 ml Balance 650 ml Exam Review of Systems: CONSTITUTIONAL: No fevers, chills. PULMONARY: intubated CARDIOVASCULAR: No obvious chest pain/palpitations GASTROINTESTINAL: No nausea/vomiting. GENITOURINARY: No hematuria/dysuria. MUSCULOSKELETAL: No obvious myagias/arthalgias. PSYCHIATRIC: No documented depression. NEUROLOGIC: sedated Constitutional: other (sedated) ENMT: intubated Neck: jvd (10 cm water), supple Respiratory: diminished breath sounds (at bases/B) Cardiovascular: regular rate and rhythm Gastrointestinal: non-tender, soft Musculoskeletal: muscle tone (normal) Extremities: edema (trace/B) Neurological: other (sedATED) Results Result Diagram: 08/05/16 0615 08/05/16 0906 Results 24 hrs Laboratory Tests Test 08/05/16 06:15 08/05/16 08:07 08/05/16 08:30 08/05/16 08:42 Alanine Aminotransferase (ALT/SGPT) 29 Albumin 3.5 Albumin/Globulin Ratio 0.81 Alkaline Phosphatase 263 H Anion Gap 24 #H Aspartate Amino Transf (AST/SGOT) 64 H Basophils # 0.1 Basophils % 0.7 Blood Urea Nitrogen 34 H Calcium Level 9.0 Carbon Dioxide Level 23 Chloride Level 98 Creatinine 1.79 H Direct Bilirubin 1.10 #H Eosinophils # 0.0 Eosinophils % 0.2 Free Thyroxine 1.73 Free Triiodothyronine (T3) pg/mL 3.87 Globulin 4.30 H Glucose Level < 20 #*L Hematocrit 50.7 # Hemoglobin 16.5 # INR International Normalized Ratio 2.09 Indirect Bilirubin 1.0 Lymphocytes # 2.0 Lymphocytes % 18.7 Magnesium Level 1.9 Mean Corpuscular Hemoglobin 26.7 L Mean Corpuscular Hemoglobin Concent 32.5 Mean Corpuscular Volume 82.2 Mean Platelet Volume 10.6 H Monocytes # 1.2 H Monocytes % 11.2 H Neutrophils # 7.2 Neutrophils % 68.7 Nucleated Red Blood Cells # 0.0 Nucleated Red Blood Cells % 0.0 Platelet Count 300 Potassium Level 5.9 H Prothrombin Time 23.7 #H Prothrombin Time Ratio 1.9 Red Blood Count 6.17 H Red Cell Distribution Width 22.0 H Sodium Level 139 Total Bilirubin 2.1 H Total Protein 7.8 White Blood Count 10.5 # Bedside Glucose 17 *L 66 L 46 *L Test 08/05/16 08:57 08/05/16 09:06 08/05/16 09:29 08/05/16 09:47 Bedside Glucose 40 *L 100 69 L Glucose Level 36 #*L Test 08/05/16 09:50 08/05/16 09:52 08/05/16 10:58 08/05/16 12:00 Arterial Blood HCO3 23.0 19.9 L Arterial Blood Base Excess -9.1 L -8.8 L Arterial Blood Oxygen Saturation 89.8 L 96.0 Parviz Test ACCEPTAB ACCEPTAB Arterial Blood Gas Puncture Site Right Radial Right Radial Arterial Blood Carboxyhemoglobin 1.0 1.0 Arterial Blood Date Drawn 08/05/2016 9:58:37 AM 08/05/2016 12:00:51 PM Arterial Blood Methemoglobin 0.5 0.4 Arterial Blood pCO2 (Temp correct) 81.5 *H 53.4 H Arterial Blood pH (Temp corrected) 7.068 *L 7.189 *L Arterial Blood pO2 (Temp corrected) 80.5 99.2 Blood Gas A-a O2 Differential 551.0 H 415.1 H Blood Gas Critical Value Read Back DR JACQUELINE ESPINAL RN Blood Gas Modality [facility] V[facility] - AC Blood Gas Notified Time 08/05/2016 10:04:33 AM 08/05/2016 12:17:54 PM Blood Gas Notified Whom TM DTAYLOR Blood Gas Specimen Source Blood arterial Blood arterial Blood Gas Temperature 37.0 37.0 FiO2 100.0 80.0 Oxyhemoglobin Percent 88.5 L 94.7 Total Hemoglobin 14.9 15.4 Bedside Glucose 227 H 118 Blood Gas Actual Respiration Rate 17 Blood Gas Low PEEP Setting 5.0 Blood Gas Respiration Rate 14.0 Blood Gas Tidal Volume 500.0 Medications Medications Current Medications Spironolactone (Aldactone) 25 mg DAILY PO Last administered on 08/04/16 08:40 ; Admin Dose 25 MG; Start 08/03/16 at 11:00 Ondansetron HCl (Zofran Tab) 4 mg Q6H PRN PO NAUSEA AND/OR VOMITING; Start 03/12 at 10:30 Aspirin (Aspirin) 81 mg DAILY PO Last administered on 08/04/16 08:40; Admin Dose 81 MG; Start 08/03/16 at 11:00 Nitroglycerin (Nitroglycerin (Sl Tab) 0.4 Mg) 1 tab Q5M PRN SL CHEST PAIN; Start 08/03/16 at 10:30 Acetaminophen (Tylenol Tab) 650 mg Q6H PRN PO PAIN LEVEL 1-3 OR FEVER; Start at 10:30 Docusate Sodium (Colace) 100 mg Q12H PRN PO CONSTIPATION; Start 08/03/16 at 10: 30 Famotidine (Pepcid) 20 mg DAILY PO Last administered on 08/04/16 08:40; Admin Dose 20 MG; Start 08/03/16 at 11:00 Hydralazine HCl (Apresoline) 10 mg Q8 PO Last administered on 08/05/16 05:17; Admin Dose 10 MG; Start 08/03/16 at 22:00 Carvedilol (Coreg) 3.125 mg BID PO Last administered on 08/04/16 21:22; Admin Dose 3.125 MG; Start 08/03/16 at 21:00 Zolpidem Tartrate (Ambien) 5 mg HS PRN PO INSOMNIA Last administered on 21:21; Admin Dose 5 MG; Start 08/03/16 at 21:00 Methadone HCl (Methadone) 50 mg DAILY PO Last administered on 08/04/16 15:32; Admin Dose 50 MG; Start 08/04/16 at 15:15 Lorazepam (Ativan) 1 mg Q4 PRN IV ANXIETY Last administered on 08/04/16 23:33 ; Admin Dose 1 MG; Start 08/04/16 at 17:00 Diagnostic Test (Pha) 1 ea 1 ea Q4 XX Last administered on 08/05/16 09:20; Admin Dose 1 EA; Start 08/05/16 at 09:00 Propofol 100 ml @ 2.925 mls/ hr Q12H IV Last administered on 08/05/16 10:48; Admin Dose 2.925 MLS/HR; Start 08/05/16 at 11:00 Dextrose (D10w) 1,000 ml @ 100 mls/hr Q10H IV Last administered on 08/05/16 11:52; Admin Dose 100 MLS/HR; Start 08/05/16 at 11:00 Enoxaparin Sodium (Lovenox) 30 mg DAILY SC ; Start 08/06/16 at 09:00 DEANA ALBERTO Aug 05, 2016 12:53
[2016-08-05] MEDS: LORAZEPAM 2 MG INJ IV PRN (14:46)
[2016-08-05] MEDS ORDERED: VANCOMYCIN IV PER PHARMACY XX SCH (15:00)
[2016-08-05] MEDS: SOD CHLORIDE 0.9% 1,000 ML IV SCH (16:12)
--- NOTE | 2016-08-05 16:25 | PN ---
DATE: 08/05/2016 I was called to the patient by nursing staff because of severe hypoglycemia. SUBJECTIVE: Apparently, lab had reported a glucose level of 20, and the patient's daily labs, when nurses rechecked at the bedside, it was found to be 117. Based on this, the nurse had notified me, and I had given instructions to commence the hypoglycemia protocol, give 1 amp of D50, start patient on D5 infusion. I also rushed to the patient's bedside where I found him somewhat agonal, drooling pink-yellowish secretions from his mouth, and very quite obtunded, but will arouse by opening his e yes to deep stimulation without speech. It is my understanding that the patient was awake, alert, a nd conversant the day before. A repeat check of his blood sugar showed that it had come down to 69; whereas, before after the initial amp of D50, he had come up to just over 100. Based on this, I im mediately initiated a rapid response, and I ordered a repeat D50 amp to be given. Patient was aggre ssively suctioned. I also called for respiratory therapy to perform deep suctioning with a pink cat heter. Despite all our efforts, the patient's mentation never came back to baseline, and based on t hat, I made the decision that patient needed immediate endotracheal intubation, and I contacted the emergency room physician for that. Patient was immediately transferred to the intensive care unit w here he ended up being intubated by the guest service host. At this time, the patient is comfortable on the ventilator. He is requiring low dose pressor support, but not a lot of sedation. PHYSICAL EXAMINATION VITAL SIGNS: Temperature 96.4, pulse 100, respirations 14, blood pressure 105/53, saturations 100% on mechanical ventilator, requiring FIO2 of 80%. GENERAL: Obese male, not alert, intubated and sedated. CHEST: Diminished breath sounds with lots of secretions of crackly sounds. CARDIOVASCULAR: S1, S2 with grade III/ systolic murmur. ABDOMEN: Protuberant, soft, hypoactive bowel sounds. EXTREMITIES: Trace edema bilaterally. NEUROLOGIC: Obtunded. LABS: A review of his lab values today, sodium 139, potassium 5.9, which is high, BUN 34, creatinin e 1.7, which is up from 1.3 yesterday. As mentioned earlier, he was hypoglycemic with a glucose of less than 20. Magnesium was normal at 1.9, but his total bilirubin was elevated at 2.1, indirect 1. 1. AST was elevated at 64, increased from yesterday. AST 764, ALT was normal. Alkaline phosphatas e 263. CK-MB was elevated at 3.2. Total creatinine was normal. His troponin was normal as well. T otal cholesterol 203, HDL low at 17. TSH was elevated at 5, but his free T4 was normal, and triglyc erides are normal as well. Coag profile was consistent with a coagulopathy with an INR of 2.9. Hep atitis serology was negative. Blood gas that was done did come back with a pH of 7.0, pCO2 of 81, p O2 of 80. IMAGING STUDIES: He had a chest x-ray post-intubation that showed interval satisfactory intubation and placement of an NG tube, moderate cardiomegaly with increasing pulmonary vascular congestion, de velopment of bilateral lower lungs with infiltrates, atelectasis, development of moderate right-side d , with fluid tracking into the minor fissure. He did have cardiomegaly on arrival with mild bibasilar subsegmental atelectasis 2 days ago. ASSESSMENT: A 50-year-old unfortunate male who presented to the emergency room with shortness of br eath and abdominal distention, now admitted for the following. Also with a history of substance abus e and alcohol abuse. 1. Acute encephalopathy secondary to hypoglycemia. 2. Acute respiratory failure, now ventilator dependent, secondary to #1. 3. Acute on chronic congestive heart failure with fluid overload. 4. Chronic alcoholic with cirrhosis. 5. Chronic substance abuse with amphetamines and heroin. 6. Noncompliance with medication. 7. Subclinical hypothyroidism. 8. Dyslipidemia. 9. Chronic coagulopathy associated with cirrhosis. 10. Severe acidosis, likely respiratory. 11. Hypokalemia. 12. Bilateral infiltrates concerning for bilateral pneumonia. 13. Patient with active gastrointestinal bleed noted via suction catheter. PLAN: The patient is going to require intensive care unit care. 1. Intensive care unit monitoring and support. 2. Pulmonary consultation, ventilator management, sedation as indicated. 3. Commence broad spectrum antibiotics to cover for bilateral pneumonia. Send mathew-cultures blood, urine, and respiratory. 4. Continue diuresis per cardiology, and continue daily aspirin. All other medications as indicate d. 5. Hold methadone for now as patient is going to be on sedation and continue monitoring for withdra wal symptoms, which could have been the precipitant of hypoglycemia in the first place. 6. Hold Lovenox for active GI bleeding, coagulopathy, and use SCDs alone for deep venous thrombosis prophylaxis. Further interventions will depend on the patient's clinical course. Interventions have been institu lacy consistently. For further information, review the patient's chart and my orders. Evaluation ti me so far today has been more than an hour and a half, of which the whole time has been CRITICAL CAR E TIME. He is going to need a PICC line placed, in addition to all other measures instituted, and t his needs to be done medical necessity as patient has no family members available and is unable to g abhi consent. Dictated By: COLTON PHILLIPS MD BA/NTS Conf#: [id number] DID#: [id number]
--- NOTE | 2016-08-05 17:51 | QN ---
Documentation Comment To Whom It May Concern, Patient needs emergent lifesaving transfusion of blood and blood products. All attempt to reach family have been unsuccessful. Patient is unable to verbalize consent. To our knowledge after extensive research, patient has no conservator or DPOA, hence we will proceed with life saving interventions out of medical neccesity. COLTON PHILLIPS. Aug 05, 2016 17:51
--- NOTE | 2016-08-05 17:56 | RADRPT ---
PROCEDURE: XR Chest. CLINICAL INDICATION: PICC placement. TECHNIQUE: Chest x-ray, single view. COMPARISON: 08/05/2016 and 1040 hours. FINDINGS: The cardiac silhouette is enlarged and unchanged in size and configuration. Low lung volumes are pr esent. Basilar parenchymal opacification is present and unchanged. A left upper extremity PICC is in place and terminates at the SVC/right atrial junction , which is satisfactory in position. The endotracheal tube terminates within the mid trachea. The enteric tube enters the stomach. Skeletal structures and upper abdomen are unremarkable. IMPRESSION: Satisfactory positioning of left upper extremity PICC. Cardiomegaly with basilar opacification, unchanged. RPTAT: QQ .Jen Daly MD, MD Date Time Electronically viewed and signed by .Jen Daly MD, on 08/05/2016 17:55 .T/
[2016-08-05] MEDS ORDERED: VANCOMYCIN 2 GM in SOD CHLORIDE 0.9% 500 ML IVPB SCH (18:00)
[2016-08-05] MEDS: OCULAR LUBRICANT 3.5 GM OPH OINT BOTH EYES SCH ×2 (18:25→21:48)
[2016-08-05] MEDS: PANTOPRAZOLE 40 MG INJ IV SCH (18:26)
[2016-08-05] MEDS ORDERED: HEPARIN (10 UNITS/ML) 5ML SYG IV ONE (18:30)
[2016-08-05 18:38] LABS: AADO2 Arterial 297.6 mmHg (7.0-24.0); Allen Test ACCEPTAB; Arterial Base Excess -2.6 mmol/L (-3.0-3); Arterial COHb 0.6 % (0.0-3.0); Arterial Fraction of Oxyhgb 98.2 % (93.0-99.0); Arterial HCO3 22.3 mmol/L (22.0-26.0); Arterial MetHb 0.3 % (0.0-1.5); Arterial Total Hemglobin 14.7 g/dl (12.0-18.0); MODE VENT - AC
[2016-08-05] MEDS: CEFEPIME 1GM/50 ML (PMX) 50 ML IVPB SCH (21:48)
[2016-08-06] VITALS (90 sets, daily range): BP systolic 58–140; BP diastolic 28–98; PULSE 82–119; RESP 19–57
[2016-08-06] MEDS: ACCU-CHEK XX SCH ×6 (01:00→21:00)
[2016-08-06] MEDS: PROPOFOL 100 ML IV SCH ×3 (01:50→23:00)
[2016-08-06] MEDS ORDERED: NORepinephrine 4 MG INJ ONE (02:25)
[2016-08-06] MEDS ORDERED: NORepinephrine 8MG/250 ML (PMX 250 ML IV SCH (02:30)
[2016-08-06 02:40] LABS: Allen Test ACCEPTAB; Arterial Base Excess -11.1 mmol/L (-3.0-3); Arterial COHb 0.5 % (0.0-3.0); Arterial Fraction of Oxyhgb 88.4 % (93.0-99.0); Arterial HCO3 18.4 mmol/L (22.0-26.0); Arterial MetHb 0.4 % (0.0-1.5); Arterial Total Hemglobin 14.5 g/dl (12.0-18.0); MODE VENT - AC
[2016-08-06 04:41] LABS: ADD SCAN DIFF NO
[2016-08-06 04:51] LABS: ALBUMIN 2.7 g/dl (3.3-4.9)
[2016-08-06 04:52] LABS: POTASSIUM 4.6 mmol/L (3.5-5.1)
[2016-08-06 04:53] LABS: BASOPHIL # 0.1 10^3/ul (0.0-0.1); BASOPHILS % 0.3 % (0.0-2.0); EOSINOPHILS % 0.2 % (0.0-7.0); HEMATOCRIT 41.6 % (42.0-52.0); HEMOGLOBIN 13.6 g/dl (14.0-18.0); LYMPHOCYTES # 1.1 10^3/ul (0.8-2.9); MEAN CORPUSCULAR HEMOGLOBIN 26.6 pg (29.0-33.0); MEAN CORPUSCULAR HGB CONC 32.7 g/dl (32.0-37.0); MEAN CORPUSCULAR VOLUME 81.4 fl (82.0-101.0); MEAN PLATELET VOLUME 10.4 fl (7.4-10.4); MONOCYTE # 0.9 10^3/ul (0.3-0.9); MONOCYTES % 5.9 % (0.0-11.0); NEUTROPHIL # 13.6 10^3/ul (1.6-7.5); NEUTROPHILS % 86.1 % (39.0-77.0); PLATELET COUNT 182 10^3/UL (140-415); RED BLOOD COUNT 5.11 10^6/ul (4.70-6.10); RED CELL DISTRIBUTION WIDTH 20.9 % (11.5-14.5); WHITE BLOOD COUNT 15.8 10^3/ul (4.8-10.8)
[2016-08-06 04:54] LABS: ALBUMIN/GLOBULIN RATIO 0.84; BILIRUBIN,DIRECT 0.5 mg/dl (0.00-0.20); BILIRUBIN,INDIRECT 0.5 mg/dl (0-1.1); CREATININE 2.57 mg/dl (0.61-1.24); TOTAL PROTEIN 5.9 g/dl (6.1-8.1)
[2016-08-06 04:55] LABS: CALCIUM 8.6 mg/dl (8.4-10.2); MAGNESIUM 1.8 mg/dl (1.7-2.5)
[2016-08-06] MEDS: PANTOPRAZOLE 40 MG INJ IV SCH ×2 (06:38→17:47)
[2016-08-06] MEDS: FUROSEMIDE 20 MG INJ IV SCH ×2 (06:38→17:47)
[2016-08-06] MEDS: CEFEPIME 1GM/50 ML (PMX) 50 ML IVPB SCH (08:58)
[2016-08-06] MEDS: ASPIRIN 81 MG TAB PO SCH (08:58)
[2016-08-06] MEDS ORDERED: ENOXAPARIN 30 MG/0.3 ML SYG SC SCH (09:00)
[2016-08-06] MEDS: SOD CHLORIDE 0.9% 1,000 ML IV SCH (09:03)
[2016-08-06] MEDS: OCULAR LUBRICANT 3.5 GM OPH OINT BOTH EYES SCH ×3 (09:04→21:45)
--- NOTE | 2016-08-06 09:52 | RADRPT ---
PROCEDURE: XR Chest. CLINICAL INDICATION: CHF TECHNIQUE: Single frontal chest x-ray. COMPARISON: 08/05/2016 FINDINGS: Endotracheal tube, nasogastric tube and left-sided PICC line remain in place. There is stable moder ate cardiomegaly and mild pulmonary vascular congestion. Bibasilar atelectasis and/or mild to moder ate pleural effusions are grossly stable. No pneumothorax is identified. The osseous structures ar e unremarkable. IMPRESSION: 1. Lines and tubes remain in place. 2. Stable moderate cardiomegaly and mild pulmonary vascular congestion. 3. Grossly stable bibasilar atelectasis and/or mild to moderate pleural effusions. RPTAT: EE .Alistair Marino MD, MD Date Time Electronically viewed and signed by .Ailstair Marino MD, on 08/06/2016 09:51 .R/
[2016-08-06 10:56] LABS: AADO2 Arterial 242.5 mmHg (7.0-24.0); Allen Test ACCEPTAB; Arterial Base Excess 0 mmol/L (-3.0-3); Arterial COHb 0.7 % (0.0-3.0); Arterial Fraction of Oxyhgb 94.6 % (93.0-99.0); Arterial HCO3 22.8 mmol/L (22.0-26.0); Arterial MetHb 0.4 % (0.0-1.5); MODE VENT - AC
--- NOTE | 2016-08-06 11:47 | RADRPT ---
PROCEDURE: Ultrasound proximal upper extremity for PICC placement CLINICAL INDICATION: PICC placement TECHNIQUE: Sonographic evaluation of the proximal left upper extremity vessels was performed utilizi ng a high-frequency linear transducer. COMPARISON: None available FINDINGS: Limited evaluation of the proximal upper extremity for vascular access for PICC placement. Grossly, no abnormality is seen. IMPRESSION: 1. Unremarkable limited proximal left upper extremity ultrasound for PICC placement. RPTAT: EE .Alistair Marino MD, MD Date Time Electronically viewed and signed by .Alistair Marino MD, MD on 08/06/2016 11:46 .R/
[2016-08-06] MEDS: DEXTROSE 10% 1,000 ML IV SCH (11:59)
--- NOTE | 2016-08-06 12:07 | PN ---
DATE: 08/06/2016 PULMONARY FOLLOWUP NOTE The patient, Mr. Snell, remains intubated, stable on mechanical ventilation. PHYSICAL EXAMINATION: VITAL SIGNS: Temperature 98, pulse is 95, blood pressure 134/90, O2 saturation 96%, FIO2 of 40%. NECK: Supple. No JVD or lymphadenopathy. CARDIAC: S1, S2, no added sounds or murmurs. CHEST: Diminished air entry bilaterally. ABDOMEN: Soft, nontender. No guarding or rebound. EXTREMITIES: No cyanosis, clubbing, edema. NEUROLOGIC: Generalized weakness. LABORATORY DATA: White count 15.8, hemoglobin 13.6, platelets 182. BUN 46, creatinine 2.57. Arter ial blood gas pH 7.47, pCO2 of 32, PaO2 of 78. IMAGING: Chest x-ray was reviewed, shows cardiomegaly and vascular congestion, mild to moderate pipo ateral pleural effusions. IMPRESSION AND PLAN: 1. ____ respiratory failure. 2. Possible aspiration pneumonia. 3. Encephalopathy, toxic metabolic, likely secondary to polysubstance abuse. 4. History of cardiomyopathy. 5. Acute renal failure. Patient will need: 1. Continued mechanical ventilation. 2. Continue tube feeding. 3. Continue renal recommendations. 4. Deep vein thrombosis and GI prophylaxis. Overall prognosis remains guarded. Dictated By: POLO PALOMO/ARMANDO Conf#: [id number] DID#: [id number]
--- NOTE | 2016-08-06 14:56 | CONS ---
Date/Time of Note Date/Time of Note DATE: 08/06/16 TIME: 14:53 Assessment/Plan Assessment/Plan Chief Complaint/Hosp Course IMPRESSION: 1. Congestive heart failure exacerbation, systolic, acute on chronic-worsening by cxr 2. Cardiomyopathy with severely depressed left ventricular ejection fraction approximately 15%. 3. Abnormal electrocardiogram, assess for acute coronary syndrome.-negative troponin x 3 4. Hypotension, borderline. 5. Lower extremity edema. 6. Possible lower extremity cellulitis. 7. Renal failureworsening 8. Substance abuse-ongoing 9. Coagulopathy. 10. Resp failure s/p intubation 11.Hypoglycemia-? etiology liver failure Recc: -Tele -Continue coreg/hydralazine as tolerated only -s/p dose of digoxin to increase contractility -Gentle daily lasix diuresis as tolerated only -Continue asa -Holding aldactone in setting of ARF and prior hyperkalemia -Follow BS closely Problems: Consultation Date/Type/Reason Admit Date/Time Aug 03, 2016 at 14:46 Initial Consult Date 08/03/2016 Type of Consultation: Cardiology Reason for Consultation CHF Referring Provider: JACEK HOLLEY MD Exam/Review of Systems Vital Signs Vitals Vital Signs Date Time Temp Pulse Resp B/P Pulse Ox O2 Delivery O2 Flow Rate FiO2 08/06/16 14:15 91 22 118/82 99 08/06/16 13:21 50 08/06/16 12:00 99.1 08/06/16 08:00 Nasal Cannula 2.0 Intake and Output 08/05/16 08/05/16 08/06/16 15:00 23:00 07:00 Intake Total 217.62 ml 1059.32 ml 1139 ml Output Total 405 ml 205 ml 210 ml Balance -187.38 ml 854.32 ml 929 ml Exam Review of Systems: CONSTITUTIONAL: No fevers, chills. PULMONARY: intubated CARDIOVASCULAR: No obvious chest pain/palpitations GASTROINTESTINAL: No nausea/vomiting. GENITOURINARY: No hematuria/dysuria. MUSCULOSKELETAL: No obvious myagias/arthalgias. PSYCHIATRIC: The patient denies depression. NEUROLOGIC: sedated Constitutional: other (sedated) Psych: no complaints Head: normocephalic ENMT: mucosa pink and moist Neck: jvd (9-10 cm water), supple Respiratory: other (upper airway rhoncherous sounds) Cardiovascular: regular rate and rhythm Gastrointestinal: non-tender, soft Musculoskeletal: muscle tone (normal) Extremities: edema (trace/B) Neurological: other (sedated) Results Result Diagram: 08/06/16 0357 08/06/16 0357 Results 24 hrs Laboratory Tests Test 08/05/16 17:14 08/05/16 18:00 08/05/16 21:50 08/06/16 02:23 Bedside Glucose 127 93 101 Arterial Blood HCO3 22.3 Arterial Blood Base Excess -2.6 Arterial Blood Oxygen Saturation 99.1 H Parviz Test ACCEPTAB Arterial Blood Gas Puncture Site Right Radial Arterial Blood Carboxyhemoglobin 0.6 Arterial Blood Date Drawn 08/05/2016 6:20:00 PM Arterial Blood Methemoglobin 0.3 Arterial Blood pCO2 (Temp correct) 39.0 Arterial Blood pH (Temp corrected) 7.375 Arterial Blood pO2 (Temp corrected) 159.6 H Blood Gas A-a O2 Differential 297.6 H Blood Gas Actual Respiration Rate 23 Blood Gas Low PEEP Setting 5.0 Blood Gas Modality VENT - AC Blood Gas Notified Time 08/05/2016 6:37:59 PM Blood Gas Notified Whom DT Blood Gas Respiration Rate 22.0 Blood Gas Specimen Source Blood arterial Blood Gas Temperature 37.0 Blood Gas Tidal Volume 500.0 FiO2 70.0 Oxyhemoglobin Percent 98.2 Total Hemoglobin 14.7 Test 08/06/16 02:31 08/06/16 03:57 08/06/16 09:11 08/06/16 09:56 Arterial Blood HCO3 18.4 L 22.8 Arterial Blood Base Excess -11.1 L 0 Arterial Blood Oxygen Saturation 89.2 L 95.7 Parviz Test ACCEPTAB ACCEPTAB Arterial Blood Gas Puncture Site Right Radial Right Radial Arterial Blood Carboxyhemoglobin 0.5 0.7 Arterial Blood Date Drawn 08/06/2016 2:30:29 AM 08/06/2016 10:30:30 AM Arterial Blood Methemoglobin 0.4 0.4 Arterial Blood pCO2 (Temp correct) 55.9 H 32.0 L Arterial Blood pH (Temp corrected) 7.136 *L 7.470 H Arterial Blood pO2 (Temp corrected) 76.1 L 78.0 L Blood Gas A-a O2 Differential 581.0 H 242.5 H Blood Gas Actual Respiration Rate 22 24 Blood Gas Critical Value Read Back TERIKS RN Blood Gas Modality VENT - AC VENT - AC Blood Gas Notified Time 08/06/2016 2:40:42 AM 08/06/2016 10:56:16 AM Blood Gas Notified Whom RILEY HUFF Blood Gas Respiration Rate 22.0 22.0 Blood Gas Specimen Source Blood arterial Blood arterial Blood Gas Temperature 37.0 37.0 Blood Gas Tidal Volume 500.0 500.0 FiO2 100.0 50.0 Oxyhemoglobin Percent 88.4 L 94.6 Total Hemoglobin 14.5 15.0 Alanine Aminotransferase (ALT/SGPT) 559 H Albumin 2.7 L Albumin/Globulin Ratio 0.84 Alkaline Phosphatase 198 H Anion Gap 21 H Aspartate Amino Transf (AST/SGOT) Basophils # 0.1 Basophils % 0.3 Blood Urea Nitrogen 46 #H Calcium Level 8.6 Carbon Dioxide Level 24 Chloride Level 96 L Creatinine 2.57 H Direct Bilirubin 0.50 #H Eosinophils # 0.0 Eosinophils % 0.2 Globulin 3.20 Glucose Level 136 # Hematocrit 41.6 L Hemoglobin 13.6 L Indirect Bilirubin 0.5 Lymphocytes # 1.1 Lymphocytes % 7.0 L Magnesium Level 1.8 Mean Corpuscular Hemoglobin 26.6 L Mean Corpuscular Hemoglobin Concent 32.7 Mean Corpuscular Volume 81.4 L Mean Platelet Volume 10.4 Monocytes # 0.9 Monocytes % 5.9 Neutrophils # 13.6 H Neutrophils % 86.1 H Nucleated Red Blood Cells # 0.0 Nucleated Red Blood Cells % 0.0 Platelet Count 182 # Potassium Level 4.6 Red Blood Count 5.11 Red Cell Distribution Width 20.9 H Sodium Level 136 Total Bilirubin 1.0 Total Protein 5.9 #L White Blood Count 15.8 #H Bedside Glucose 150 Blood Gas Low PEEP Setting 5.0 Test 08/06/16 12:57 Bedside Glucose 120 Medications Medications Current Medications Spironolactone (Aldactone) 25 mg DAILY PO Last administered on 08/04/16 08:40 ; Admin Dose 25 MG; Start 08/03/16 at 11:00; Status Future Hold Ondansetron HCl (Zofran Tab) 4 mg Q6H PRN PO NAUSEA AND/OR VOMITING; Start 03/12 at 10:30 Aspirin (Aspirin) 81 mg DAILY PO Last administered on 08/06/16 08:58; Admin Dose 81 MG; Start 08/03/16 at 11:00 Nitroglycerin (Nitroglycerin (Sl Tab) 0.4 Mg) 1 tab Q5M PRN SL CHEST PAIN; Start 08/03/16 at 10:30 Acetaminophen (Tylenol Tab) 650 mg Q6H PRN PO PAIN LEVEL 1-3 OR FEVER; Start at 10:30 Docusate Sodium (Colace) 100 mg Q12H PRN PO CONSTIPATION; Start 08/03/16 at 10: 30 Hydralazine HCl (Apresoline) 10 mg Q8 PO Last administered on 08/06/16 14:32; Admin Dose 10 MG; Start 08/03/16 at 22:00 Carvedilol (Coreg) 3.125 mg BID PO Last administered on 08/06/16 08:57; Admin Dose 3.125 MG; Start 08/03/16 at 21:00 Zolpidem Tartrate (Ambien) 5 mg HS PRN PO INSOMNIA Last administered on 21:21; Admin Dose 5 MG; Start 08/03/16 at 21:00 Lorazepam (Ativan) 1 mg Q4 PRN IV ANXIETY Last administered on 08/05/16 14:46 ; Admin Dose 1 MG; Start 08/04/16 at 17:00 Diagnostic Test (Pha) 1 ea 1 ea Q4 XX Last administered on 08/06/16 01:00; Admin Dose 1 EA; Start 08/05/16 at 09:00 Propofol 100 ml @ 2.925 mls/ hr Q12H IV Last administered on 08/06/16 14:28; Admin Dose 5.85 MLS/HR; Start 08/05/16 at 11:00 Dextrose 1,000 ml @ 80 mls/hr [id number] IV Last administered on 08/06/16 11:59 ; Admin Dose 80 MLS/HR; Start 08/05/16 at 11:00 Norepinephrine/ Dextrose (Levophed/D5W) 500 ml @ 1.87 mls/hr TITRATE IV Last administered on 08/06/16 12:56; Admin Dose 30 MLS/HR; Start 08/05/16 at 13:00 Pantoprazole 40 mg 40 mg BID@,18 IV Last administered on 08/06/16 06:38; Admin Dose 40 MG; Start 3/12/17 at 18:00 Sodium Chloride (NS) 1,000 ml @ 60 mls/hr [id number] IV Last administered on 08/06 09:03; Admin Dose 60 MLS/HR; Start 08/05/16 at 15:30 Eye Lubricant 1 applic 1 applic TID BOTH EYES Last administered on 08/06/16 14 :29; Admin Dose 1 APPLIC; Start 08/05/16 at 16:00 Cefepime HCl 50 ml @ 100 mls/hr Q24H IVPB ; Start 08/07/16 at 09:00 Vancomycin HCl/ Sodium Chloride (Vancocin/NS) 250 ml @ 83.333 mls/ hr Q36H IVPB ; Start 08/07/16 at 06:00 DEANA ALBERTO Aug 06, 2016 14:56
--- NOTE | 2016-08-06 17:48 | PN ---
Date/Time of Note Date/Time of Note DATE: 08/06/16 TIME: 17:40 Assessment/Plan VTE Prophylaxis VTE Prophylaxis Intervention: SCD's Lines/Catheters IV Catheter Type (from Nrs): Peripheral IV Assessment/Plan Chief Complaint/Hosp Course 1. Acute encephalopathy secondary to hypoglycemia and substance abuse 2. Acute respiratory failure, now ventilator dependent, secondary to #1 and CHF exacerbation Pulmonology in the case, continue vent support 3. Acute on chronic congestive heart failure exacerbation with an ejection fraction of 15% Cardiology on the case, continue diuresis 4. Chronic alcoholic with cirrhosis and coagulopathy 5. Chronic substance abuse with amphetamines and heroin. 6. Leukocytosis possibly secondary to pneumonia Continue antibiotics for now 7. Subclinical hypothyroidism. Prophylaxis: SCDs Problems: Subjective 24 Hr Interval Summary Subjective hx not possible: pt non-verbal Exam/Review of Systems Vital Signs Vitals Vital Signs Date Time Temp Pulse Resp B/P Pulse Ox O2 Delivery O2 Flow Rate FiO2 08/06/16 17:32 85 22 98 50 08/06/16 17:15 106/68 08/06/16 16:00 98.3 08/06/16 08:00 Nasal Cannula 2.0 Intake and Output 08/05/16 08/05/16 08/06/16 15:00 23:00 07:00 Intake Total 217.62 ml 1059.32 ml 1139 ml Output Total 405 ml 205 ml 210 ml Balance -187.38 ml 854.32 ml 929 ml Exam Constitutional: non-verbal ENMT: intubated Respiratory: clear to auscultation Cardiovascular: regular rate and rhythm Gastrointestinal: soft, No distended Musculoskeletal: nl extremities to inspection Results Result Diagram: 08/06/16 0357 08/06/16 0357 Results 24 hrs Laboratory Tests Test 08/05/16 18:00 08/05/16 21:50 08/06/16 02:23 08/06/16 02:31 Arterial Blood HCO3 22.3 18.4 L Arterial Blood Base Excess -2.6 -11.1 L Arterial Blood Oxygen Saturation 99.1 H 89.2 L Parviz Test ACCEPTAB ACCEPTAB Arterial Blood Gas Puncture Site Right Radial Right Radial Arterial Blood Carboxyhemoglobin 0.6 0.5 Arterial Blood Date Drawn 08/05/2016 6:20:00 PM 08/06/2016 2:30:29 AM Arterial Blood Methemoglobin 0.3 0.4 Arterial Blood pCO2 (Temp correct) 39.0 55.9 H Arterial Blood pH (Temp corrected) 7.375 7.136 *L Arterial Blood pO2 (Temp corrected) 159.6 H 76.1 L Blood Gas A-a O2 Differential 297.6 H 581.0 H Blood Gas Actual Respiration Rate 23 22 Blood Gas Low PEEP Setting 5.0 Blood Gas Modality VENT - AC VENT - AC Blood Gas Notified Time 08/05/2016 6:37:59 PM 08/06/2016 2:40:42 AM Blood Gas Notified Whom DT MA Blood Gas Respiration Rate 22.0 22.0 Blood Gas Specimen Source Blood arterial Blood arterial Blood Gas Temperature 37.0 37.0 Blood Gas Tidal Volume 500.0 500.0 FiO2 70.0 100.0 Oxyhemoglobin Percent 98.2 88.4 L Total Hemoglobin 14.7 14.5 Bedside Glucose 93 101 Blood Gas Critical Value Read Back HUMAIRA RN Test 08/06/16 03:57 08/06/16 09:11 08/06/16 09:56 08/06/16 12:57 Alanine Aminotransferase (ALT/SGPT) 559 H Albumin 2.7 L Albumin/Globulin Ratio 0.84 Alkaline Phosphatase 198 H Anion Gap 21 H Aspartate Amino Transf (AST/SGOT) Basophils # 0.1 Basophils % 0.3 Blood Urea Nitrogen 46 #H Calcium Level 8.6 Carbon Dioxide Level 24 Chloride Level 96 L Creatinine 2.57 H Direct Bilirubin 0.50 #H Eosinophils # 0.0 Eosinophils % 0.2 Globulin 3.20 Glucose Level 136 # Hematocrit 41.6 L Hemoglobin 13.6 L Indirect Bilirubin 0.5 Lymphocytes # 1.1 Lymphocytes % 7.0 L Magnesium Level 1.8 Mean Corpuscular Hemoglobin 26.6 L Mean Corpuscular Hemoglobin Concent 32.7 Mean Corpuscular Volume 81.4 L Mean Platelet Volume 10.4 Monocytes # 0.9 Monocytes % 5.9 Neutrophils # 13.6 H Neutrophils % 86.1 H Nucleated Red Blood Cells # 0.0 Nucleated Red Blood Cells % 0.0 Platelet Count 182 # Potassium Level 4.6 Red Blood Count 5.11 Red Cell Distribution Width 20.9 H Sodium Level 136 Total Bilirubin 1.0 Total Protein 5.9 #L White Blood Count 15.8 #H Bedside Glucose 150 120 Arterial Blood HCO3 22.8 Arterial Blood Base Excess 0 Arterial Blood Oxygen Saturation 95.7 Parviz Test ACCEPTAB Arterial Blood Gas Puncture Site Right Radial Arterial Blood Carboxyhemoglobin 0.7 Arterial Blood Date Drawn 08/06/2016 10:30:30 AM Arterial Blood Methemoglobin 0.4 Arterial Blood pCO2 (Temp correct) 32.0 L Arterial Blood pH (Temp corrected) 7.470 H Arterial Blood pO2 (Temp corrected) 78.0 L Blood Gas A-a O2 Differential 242.5 H Blood Gas Actual Respiration Rate 24 Blood Gas Low PEEP Setting 5.0 Blood Gas Modality VENT - AC Blood Gas Notified Time 08/06/2016 10:56:16 AM Blood Gas Notified Whom JLD Blood Gas Respiration Rate 22.0 Blood Gas Specimen Source Blood arterial Blood Gas Temperature 37.0 Blood Gas Tidal Volume 500.0 FiO2 50.0 Oxyhemoglobin Percent 94.6 Total Hemoglobin 15.0 Test 08/06/16 17:06 Bedside Glucose 197 Medications Medications Current Medications Spironolactone (Aldactone) 25 mg DAILY PO Last administered on 08/04/16 08:40 ; Admin Dose 25 MG; Start 08/03/16 at 11:00; Status Future Hold Ondansetron HCl (Zofran Tab) 4 mg Q6H PRN PO NAUSEA AND/OR VOMITING; Start 03/12 at 10:30 Aspirin (Aspirin) 81 mg DAILY PO Last administered on 08/06/16 08:58; Admin Dose 81 MG; Start 08/03/16 at 11:00 Nitroglycerin (Nitroglycerin (Sl Tab) 0.4 Mg) 1 tab Q5M PRN SL CHEST PAIN; Start 08/03/16 at 10:30 Acetaminophen (Tylenol Tab) 650 mg Q6H PRN PO PAIN LEVEL 1-3 OR FEVER; Start at 10:30 Docusate Sodium (Colace) 100 mg Q12H PRN PO CONSTIPATION; Start 08/03/16 at 10: 30 Hydralazine HCl (Apresoline) 10 mg Q8 PO Last administered on 08/06/16 14:32; Admin Dose 10 MG; Start 08/03/16 at 22:00 Carvedilol (Coreg) 3.125 mg BID PO Last administered on 08/06/16 08:57; Admin Dose 3.125 MG; Start 08/03/16 at 21:00 Zolpidem Tartrate (Ambien) 5 mg HS PRN PO INSOMNIA Last administered on 21:21; Admin Dose 5 MG; Start 08/03/16 at 21:00 Lorazepam (Ativan) 1 mg Q4 PRN IV ANXIETY Last administered on 08/05/16 14:46 ; Admin Dose 1 MG; Start 08/04/16 at 17:00 Diagnostic Test (Pha) 1 ea 1 ea Q4 XX Last administered on 08/06/16 01:00; Admin Dose 1 EA; Start 08/05/16 at 09:00 Propofol 100 ml @ 2.925 mls/ hr Q12H IV Last administered on 08/06/16 14:28; Admin Dose 5.85 MLS/HR; Start 08/05/16 at 11:00 Dextrose 1,000 ml @ 80 mls/hr [id number] IV Last administered on 08/06/16 11:59 ; Admin Dose 80 MLS/HR; Start 08/05/16 at 11:00 Norepinephrine/ Dextrose (Levophed/D5W) 500 ml @ 1.87 mls/hr TITRATE IV Last administered on 08/06/16 12:56; Admin Dose 30 MLS/HR; Start 08/05/16 at 13:00 Pantoprazole 40 mg 40 mg BID@06,18 IV Last administered on 08/06/16 06:38; Admin Dose 40 MG; Start 08/05/16 at 18:00 Sodium Chloride (NS) 1,000 ml @ 60 mls/hr [id number] IV Last administered on 08/06 09:03; Admin Dose 60 MLS/HR; Start 08/05/16 at 15:30 Eye Lubricant 1 applic 1 applic TID BOTH EYES Last administered on 08/06/16 14 :29; Admin Dose 1 APPLIC; Start 08/05/16 at 16:00 Cefepime HCl 50 ml @ 100 mls/hr Q24H IVPB ; Start 08/07/16 at 09:00 Vancomycin HCl/ Sodium Chloride (Vancocin/NS) 250 ml @ 83.333 mls/ hr Q36H IVPB ; Start 08/07/16 at 06:00 OREN RODRIGUEZ Aug 06, 2016 17:48
[2016-08-06] MEDS ORDERED: VANCOMYCIN 1.25 GM in SOD CHLORIDE 0.9% 250 ML IVPB SCH (18:00)
[2016-08-07] VITALS (65 sets, daily range): BP systolic 90–139; BP diastolic 55–109; PULSE 86–163; RESP 19–29
[2016-08-07] MEDS: ACCU-CHEK XX SCH ×6 (01:00→21:00)
[2016-08-07] MEDS: PANTOPRAZOLE 40 MG INJ IV SCH ×2 (05:27→17:45)
[2016-08-07] MEDS: FUROSEMIDE 20 MG INJ IV SCH ×2 (05:27→17:45)
[2016-08-07 05:50] LABS: ADD SCAN DIFF NO
[2016-08-07] MEDS ORDERED: VANCOMYCIN 1.25 GM in SOD CHLORIDE 0.9% 250 ML IVPB SCH (06:00)
[2016-08-07 06:08] LABS: ALBUMIN 2.4 g/dl (3.3-4.9)
[2016-08-07] MEDS: DEXTROSE 10% 1,000 ML IV SCH ×2 (06:08→12:31)
[2016-08-07] MEDS: SOD CHLORIDE 0.9% 1,000 ML IV SCH ×2 (06:08→17:30)
[2016-08-07 06:11] LABS: BILIRUBIN,DIRECT 0.2 mg/dl (0.00-0.20); BILIRUBIN,INDIRECT 0.7 mg/dl (0-1.1); BILIRUBIN,TOTAL 0.9 mg/dl (0.2-1.3); CREATININE 2.31 mg/dl (0.61-1.24)
[2016-08-07 06:12] LABS: ALBUMIN/GLOBULIN RATIO 0.77; BASOPHIL # 0.1 10^3/ul (0.0-0.1); BASOPHILS % 0.5 % (0.0-2.0); CALCIUM 8.1 mg/dl (8.4-10.2); EOSINOPHILS # 0.3 10^3/ul (0.0-0.5); EOSINOPHILS % 2.6 % (0.0-7.0); HEMOGLOBIN 13.3 g/dl (14.0-18.0); LYMPHOCYTES # 1.3 10^3/ul (0.8-2.9); LYMPHOCYTES % 9.8 % (15.0-51.0); MEAN CORPUSCULAR HEMOGLOBIN 26.3 pg (29.0-33.0); MEAN CORPUSCULAR HGB CONC 34.1 g/dl (32.0-37.0); MEAN CORPUSCULAR VOLUME 77.1 fl (82.0-101.0); MEAN PLATELET VOLUME 11.3 fl (7.4-10.4); MONOCYTE # 1.2 10^3/ul (0.3-0.9); MONOCYTES % 9.1 % (0.0-11.0); NEUTROPHIL # 10.2 10^3/ul (1.6-7.5); NEUTROPHILS % 77.5 % (39.0-77.0); PLATELET COUNT 177 10^3/UL (140-415); RED BLOOD COUNT 5.06 10^6/ul (4.70-6.10); RED CELL DISTRIBUTION WIDTH 20.9 % (11.5-14.5); TOTAL PROTEIN 5.5 g/dl (6.1-8.1); WHITE BLOOD COUNT 13.1 10^3/ul (4.8-10.8)
[2016-08-07 08:17] LABS: AADO2 Arterial 234.9 mmHg (7.0-24.0); Allen Test ACCEPTAB; Arterial Base Excess 3.1 mmol/L (-3.0-3); Arterial COHb 1.1 % (0.0-3.0); Arterial Fraction of Oxyhgb 94.8 % (93.0-99.0); Arterial HCO3 26.1 mmol/L (22.0-26.0); Arterial MetHb 0.4 % (0.0-1.5); MODE VENT - AC
[2016-08-07] MEDS: OCULAR LUBRICANT 3.5 GM OPH OINT BOTH EYES SCH ×3 (09:17→21:14)
[2016-08-07] MEDS: ASPIRIN 81 MG TAB PO SCH (09:17)
--- NOTE | 2016-08-07 09:22 | CONS ---
Date/Time of Note Date/Time of Note DATE: 08/07/16 TIME: 09:20 Assessment/Plan Assessment/Plan Additional Assessment/Plan 1. Congestive heart failure exacerbation, systolic, acute on chronic-worsening by cxr - difficult to remove fluid with ARF - will diureses as tolerated. 2. Cardiomyopathy with severely depressed left ventricular ejection fraction approximately 15%. Con't to optimize fluid status. 3. Abnormal electrocardiogram, assess for acute coronary syndrome.-negative troponin x 3 4. Hypotension, borderline. 5. Lower extremity edema. 6. Possible lower extremity cellulitis - on anti-bx 7. Renal failureworsening- renal team follows 8. Substance abuse-ongoing 9. Coagulopathy. 10. Resp failure s/p intubation - con't resp care 11.Hypoglycemia-? etiology liver failure Consultation Date/Type/Reason Admit Date/Time Aug 03, 2016 at 14:46 Initial Consult Date 08/05/16 Type of Consultation: Cardiology Referring Provider: JACEK HOLLEY MD 24 HR Interval Summary Free Text/Dictation NO acute change- critically - con't resp rx - remove fluid as tolerated. ROS: No fever, no chills, no nausea, no vomiting, no diarrhea/constipation No recent weight changes No chest pain, no PND, no orthopnea No dizziness, blurred vision No thirst, no heat or cold intolerance (per nurse) Exam/Review of Systems Vital Signs Vitals Vital Signs Date Time Temp Pulse Resp B/P Pulse Ox O2 Delivery O2 Flow Rate FiO2 08/07/16 07:30 100.2 91 19 122/75 100 Mechanical Ventilator 08/07/16 04:43 50 08/06/16 20:25 2.0 Intake and Output 08/06/16 08/06/16 08/07/16 15:00 23:00 07:00 Intake Total 2078.40 ml 1885.90 ml 1609.683 ml Output Total 620 ml 540 ml 1535 ml Balance 1458.40 ml 1345.90 ml 74.683 ml Exam General: WN/WD/NAD, AOx 0 HEENT: Unicetric/atraumatic/EOMI (does not follow commands) NECK: JVD elevated, no thyromegaly, intub Lymph: no lymphadenopathy HEART: regular with no S3, II/ systolic murmur at apex LUNGS: Coarse sounds ABD: soft, NT, ND, +BS : Intact Neuro: non focal SKIN: chronic changes EXT: trace edema Results Result Diagram: 08/07/16 0530 08/07/16 0530 Results 24 hrs Laboratory Tests Test 08/06/16 09:56 08/06/16 12:57 08/06/16 17:06 08/06/16 23:26 Arterial Blood HCO3 22.8 Arterial Blood Base Excess 0 Arterial Blood Oxygen Saturation 95.7 Parviz Test ACCEPTAB Arterial Blood Gas Puncture Site Right Radial Arterial Blood Carboxyhemoglobin 0.7 Arterial Blood Date Drawn 08/06/2016 10:30:30 AM Arterial Blood Methemoglobin 0.4 Arterial Blood pCO2 (Temp correct) 32.0 L Arterial Blood pH (Temp corrected) 7.470 H Arterial Blood pO2 (Temp corrected) 78.0 L Blood Gas A-a O2 Differential 242.5 H Blood Gas Actual Respiration Rate 24 Blood Gas Low PEEP Setting 5.0 Blood Gas Modality VENT - AC Blood Gas Notified Time 08/06/2016 10:56:16 AM Blood Gas Notified Whom JLD Blood Gas Respiration Rate 22.0 Blood Gas Specimen Source Blood arterial Blood Gas Temperature 37.0 Blood Gas Tidal Volume 500.0 FiO2 50.0 Oxyhemoglobin Percent 94.6 Total Hemoglobin 15.0 Bedside Glucose 120 197 184 Test 08/07/16 01:38 08/07/16 05:30 08/07/16 05:51 08/07/16 07:00 Bedside Glucose 170 157 Alanine Aminotransferase (ALT/SGPT) 509 H Albumin 2.4 L Albumin/Globulin Ratio 0.77 Alkaline Phosphatase 191 H Anion Gap 12 # Aspartate Amino Transf (AST/SGOT) 1080 H Basophils # 0.1 Basophils % 0.5 Blood Urea Nitrogen 50 H Calcium Level 8.1 L Carbon Dioxide Level 30 Chloride Level 99 Creatinine 2.31 H Direct Bilirubin 0.20 # Eosinophils # 0.3 Eosinophils % 2.6 Globulin 3.10 Glucose Level 138 Hematocrit 39.0 L Hemoglobin 13.3 L Indirect Bilirubin 0.7 Lymphocytes # 1.3 Lymphocytes % 9.8 L Mean Corpuscular Hemoglobin 26.3 L Mean Corpuscular Hemoglobin Concent 34.1 Mean Corpuscular Volume 77.1 L Mean Platelet Volume 11.3 H Monocytes # 1.2 H Monocytes % 9.1 Neutrophils # 10.2 H Neutrophils % 77.5 H Nucleated Red Blood Cells # 0.0 Nucleated Red Blood Cells % 0.0 Platelet Count 177 Potassium Level 3.0 L Red Blood Count 5.06 Red Cell Distribution Width 20.9 H Sodium Level 138 Total Bilirubin 0.9 Total Protein 5.5 L White Blood Count 13.1 H Arterial Blood HCO3 26.1 H Arterial Blood Base Excess 3.1 H Arterial Blood Oxygen Saturation 96.2 Parviz Test ACCEPTAB Arterial Blood Gas Puncture Site Right Radial Arterial Blood Carboxyhemoglobin 1.1 Arterial Blood Date Drawn 08/07/2016 7:42:37 AM Arterial Blood Methemoglobin 0.4 Arterial Blood pCO2 (Temp correct) 35.1 Arterial Blood pH (Temp corrected) 7.490 H Arterial Blood pO2 (Temp corrected) 82.1 Blood Gas A-a O2 Differential 234.9 H Blood Gas Actual Respiration Rate 22 Blood Gas Low PEEP Setting 5.0 Blood Gas Modality VENT - AC Blood Gas Notified Time 08/07/2016 8:17:14 AM Blood Gas Notified Whom JLD Blood Gas Respiration Rate 22.0 Blood Gas Specimen Source Blood arterial Blood Gas Temperature 37.0 Blood Gas Tidal Volume 500.0 FiO2 50.0 Oxyhemoglobin Percent 94.8 Total Hemoglobin 15.0 Medications Medications Current Medications Spironolactone (Aldactone) 25 mg DAILY PO Last administered on 08/04/16 08:40 ; Admin Dose 25 MG; Start 08/03/16 at 11:00; Status Future Hold Ondansetron HCl (Zofran Tab) 4 mg Q6H PRN PO NAUSEA AND/OR VOMITING; Start 03/12 at 10:30 Aspirin (Aspirin) 81 mg DAILY PO Last administered on 08/07/16 09:17; Admin Dose 81 MG; Start 08/03/16 at 11:00 Nitroglycerin (Nitroglycerin (Sl Tab) 0.4 Mg) 1 tab Q5M PRN SL CHEST PAIN; Start 08/03/16 at 10:30 Acetaminophen (Tylenol Tab) 650 mg Q6H PRN PO PAIN LEVEL 1-3 OR FEVER; Start at 10:30 Docusate Sodium (Colace) 100 mg Q12H PRN PO CONSTIPATION; Start 08/03/16 at 10: 30 Hydralazine HCl (Apresoline) 10 mg Q8 PO Last administered on 08/06/16 14:32; Admin Dose 10 MG; Start 08/03/16 at 22:00 Carvedilol (Coreg) 3.125 mg BID PO Last administered on 08/06/16 08:57; Admin Dose 3.125 MG; Start 08/03/16 at 21:00 Zolpidem Tartrate (Ambien) 5 mg HS PRN PO INSOMNIA Last administered on 21:21; Admin Dose 5 MG; Start 08/03/16 at 21:00 Lorazepam (Ativan) 1 mg Q4 PRN IV ANXIETY Last administered on 08/05/16 14:46 ; Admin Dose 1 MG; Start 08/04/16 at 17:00 Diagnostic Test (Pha) 1 ea 1 ea Q4 XX Last administered on 08/07/16 05:00; Admin Dose 1 EA; Start 08/05/16 at 09:00 Propofol 100 ml @ 2.925 mls/ hr Q12H IV Last administered on 08/06/16 14:28; Admin Dose 5.85 MLS/HR; Start 08/05/16 at 11:00 Dextrose 1,000 ml @ 80 mls/hr [id number] IV Last administered on 08/07/16 06:08 ; Admin Dose 80 MLS/HR; Start 08/05/16 at 11:00 Norepinephrine/ Dextrose (Levophed/D5W) 500 ml @ 1.87 mls/hr TITRATE IV Last administered on 08/06/16 12:56; Admin Dose 30 MLS/HR; Start 08/05/16 at 13:00 Pantoprazole 40 mg 40 mg BID@06,18 IV Last administered on 08/07/16 05:27; Admin Dose 40 MG; Start 08/05/16 at 18:00 Sodium Chloride (NS) 1,000 ml @ 60 mls/hr [id number] IV Last administered on 08/07 06:08; Admin Dose 60 MLS/HR; Start 08/05/16 at 15:30 Eye Lubricant 1 applic 1 applic TID BOTH EYES Last administered on 08/07/16 09 :17; Admin Dose 1 APPLIC; Start 08/05/16 at 16:00 Cefepime HCl 50 ml @ 100 mls/hr Q24H IVPB ; Start 08/07/16 at 09:00 Vancomycin HCl 1.25 gm/Sodium Chloride 250 ml @ 83.333 mls/ hr Q36H IVPB Last administered on 08/07/16t 06:08; Admin Dose 83.333 MLS/HR; Start 08/07/16 at 06: 00 Potassium Chloride (KCl 40 MEQ/250 ML NS) 250 ml @ 62.5 mls/hr ONCE ONCE IVPB ; Start 08/07/16 at 09:30; Stop 08/07/16 at 13:29 ABDIFATAH JONES MD Aug 07, 2016 09:22
[2016-08-07] MEDS: CEFEPIME 2GM/50 ML IVPB SCH (09:26)
[2016-08-07] MEDS ORDERED: POTASSIUM CHLORIDE 250 ML IVPB ONE ×2 (09:30→21:00)
--- NOTE | 2016-08-07 09:54 | RADRPT ---
PROCEDURE: XR Chest 1 view. CLINICAL INDICATION: Shortness of breath TECHNIQUE: AP views of the chest were obtained. COMPARISON: Yesterday FINDINGS: The heart is large. Calcified atherosclerosis is noted in the aorta. Endotracheal and nasogastric t ubes are stable and appear in grossly appropriate location. Central pulmonary vascular congestion a nd interstitial prominence in both lungs is unchanged. Retrocardiac opacity is stable. Patchy alve olar infiltrates throughout the right lung combined with moderate pleural effusion are stable The o sseous structures are unchanged. IMPRESSION: Cardiomegaly with calcified atherosclerosis in the aorta. Stable central pulmonary vascular congestion and interstitial prominence in both lungs. Stable retrocardiac opacity that may reflect left lower lobe atelectasis or infiltrate combined with small pleural effusion. Stable infiltrates throughout the right lung combined with moderate pleural effusion. RPTAT: AA .Reese Cosby MD, Date Time Electronically viewed and signed by .Reese Cosby MD, on 08/07/2016 09:54 .P/
[2016-08-07] MEDS: PROPOFOL 100 ML IV SCH ×2 (11:00→19:56)
--- NOTE | 2016-08-07 11:08 | PN ---
DATE: 08/07/2016 SUBJECTIVE: The patient, Mr. Snell, is stable this morning, intubated on mechanical ventilation, c ontinues Levophed. Chest x-ray shows significant right pleural effusion. PHYSICAL EXAMINATION: VITAL SIGNS: Temperature 100.2, pulse is 91, blood pressure 122/75, O2 saturation 96%, FIO2 of 40%. NECK: Supple. No JVD or lymphadenopathy. CARDIAC: S1, S2, no added sounds or murmurs. CHEST: Diminished air entry bilaterally. ABDOMEN: Soft, nontender. No guarding or rebound. EXTREMITIES: No cyanosis, clubbing, 1+ edema. NEUROLOGIC: Unable to assess. LABORATORY DATA: White count 13.1, hemoglobin 13.3, platelets 177, BUN 50, creatinine 2.31. INR wa s 2.09. IMPRESSION AND PLAN: 1. Hypoxemic respiratory failure. 2. Aspiration pneumonia. 3. Progressive right pleural effusion. 4. History of polysubstance abuse. PLAN: 1. Continue mechanical ventilation. 2. Check coagulopathy. 3. May require correction of elevated INR. 4. Likely will require thoracentesis of right pleural effusion. 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 Dictated By: POLO PALOMO/ARMANDO Conf#: [id number] DID#: [id number]
[2016-08-07 12:16] LABS: INR 2.02; PARTIAL THROMBOPLASTIN TIME 34.9 Sec (25.0-35.0); PROTIME 23.1 Sec (12.2-14.2); PT RATIO 1.8; THROMBIN TIME 16.3 SEC (13.8-19.1)
[2016-08-07] MEDS: PHYTONADIONE 5 MG in DEXTROSE 5% 50 ML IVPB SCH (12:31)
--- NOTE | 2016-08-07 16:37 | PN ---
Date/Time of Note Date/Time of Note DATE: 08/07/16 TIME: 16:36 Assessment/Plan VTE Prophylaxis VTE Prophylaxis Intervention: SCD's Assessment/Plan Chief Complaint/Hosp Course 1. Acute encephalopathy secondary to hypoglycemia and substance abuse 2. Acute respiratory failure, now ventilator dependent, secondary to #1 and CHF exacerbation Pulmonology in the case, continue vent support 3. Acute on chronic congestive heart failure exacerbation with an ejection fraction of 15% Cardiology on the case, continue diuresis 4. Chronic alcoholic with cirrhosis and coagulopathy 5. Chronic substance abuse with amphetamines and heroin. 6. Leukocytosis possibly secondary to pneumonia Continue antibiotics for now 7. Subclinical hypothyroidism. Prophylaxis: SCDs Problems: Subjective 24 Hr Interval Summary Subjective hx not possible: pt non-verbal Exam/Review of Systems Vital Signs Vitals Vital Signs Date Time Temp Pulse Resp B/P Pulse Ox O2 Delivery O2 Flow Rate FiO2 08/07/16 14:30 97 25 101/82 100 Mechanical Ventilator 08/07/16 13:05 50 08/07/16 12:00 99.6 08/06/16 20:25 2.0 Intake and Output 08/06/16 08/06/16 08/07/16 15:00 23:00 07:00 Intake Total 2078.40 ml 1885.90 ml 1609.683 ml Output Total 620 ml 540 ml 1535 ml Balance 1458.40 ml 1345.90 ml 74.683 ml Exam Constitutional: non-verbal Respiratory: clear to auscultation Cardiovascular: regular rate and rhythm Gastrointestinal: soft, No distended Musculoskeletal: nl extremities to inspection Results Result Diagram: 08/07/16 1130 08/07/16 0530 Results 24 hrs Laboratory Tests Test 08/06/16 17:06 08/06/16 23:26 08/07/16 01:38 08/07/16 05:30 Bedside Glucose 197 184 170 Alanine Aminotransferase (ALT/SGPT) 509 H Albumin 2.4 L Albumin/Globulin Ratio 0.77 Alkaline Phosphatase 191 H Anion Gap 12 # Aspartate Amino Transf (AST/SGOT) 1080 H Basophils # 0.1 Basophils % 0.5 Blood Urea Nitrogen 50 H Calcium Level 8.1 L Carbon Dioxide Level 30 Chloride Level 99 Creatinine 2.31 H Direct Bilirubin 0.20 # Eosinophils # 0.3 Eosinophils % 2.6 Globulin 3.10 Glucose Level 138 Hematocrit 39.0 L Hemoglobin 13.3 L Indirect Bilirubin 0.7 Lymphocytes # 1.3 Lymphocytes % 9.8 L Mean Corpuscular Hemoglobin 26.3 L Mean Corpuscular Hemoglobin Concent 34.1 Mean Corpuscular Volume 77.1 L Mean Platelet Volume 11.3 H Monocytes # 1.2 H Monocytes % 9.1 Neutrophils # 10.2 H Neutrophils % 77.5 H Nucleated Red Blood Cells # 0.0 Nucleated Red Blood Cells % 0.0 Platelet Count 177 Potassium Level 3.0 L Red Blood Count 5.06 Red Cell Distribution Width 20.9 H Sodium Level 138 Total Bilirubin 0.9 Total Protein 5.5 L White Blood Count 13.1 H Test 08/07/16 05:51 08/07/16 07:00 08/07/16 09:27 08/07/16 11:30 Bedside Glucose 157 175 Arterial Blood HCO3 26.1 H Arterial Blood Base Excess 3.1 H Arterial Blood Oxygen Saturation 96.2 Parviz Test ACCEPTAB Arterial Blood Gas Puncture Site Right Radial Arterial Blood Carboxyhemoglobin 1.1 Arterial Blood Date Drawn 08/07/2016 7:42:37 AM Arterial Blood Methemoglobin 0.4 Arterial Blood pCO2 (Temp correct) 35.1 Arterial Blood pH (Temp corrected) 7.490 H Arterial Blood pO2 (Temp corrected) 82.1 Blood Gas A-a O2 Differential 234.9 H Blood Gas Actual Respiration Rate 22 Blood Gas Low PEEP Setting 5.0 Blood Gas Modality VENT - AC Blood Gas Notified Time 08/07/2016 8:17:14 AM Blood Gas Notified Whom JLD Blood Gas Respiration Rate 22.0 Blood Gas Specimen Source Blood arterial Blood Gas Temperature 37.0 Blood Gas Tidal Volume 500.0 FiO2 50.0 Oxyhemoglobin Percent 94.8 Total Hemoglobin 15.0 Activated Partial Thromboplast Time 34.9 INR International Normalized Ratio 2.02 Platelet Count 155 Prothrombin Time 23.1 H Prothrombin Time Ratio 1.8 Thrombin Time 16.3 Test 08/07/16 12:39 Bedside Glucose 118 Medications Medications Current Medications Spironolactone (Aldactone) 25 mg DAILY PO Last administered on 08/04/16t 08:40 ; Admin Dose 25 MG; Start 08/03/16 at 11:00; Status Future Hold Ondansetron HCl (Zofran Tab) 4 mg Q6H PRN PO NAUSEA AND/OR VOMITING; Start 03/12 at 10:30 Aspirin (Aspirin) 81 mg DAILY PO Last administered on 08/07/16 09:17; Admin Dose 81 MG; Start 08/03/16 at 11:00 Nitroglycerin (Nitroglycerin (Sl Tab) 0.4 Mg) 1 tab Q5M PRN SL CHEST PAIN; Start 08/03/16 at 10:30 Acetaminophen (Tylenol Tab) 650 mg Q6H PRN PO PAIN LEVEL 1-3 OR FEVER; Start at 10:30 Docusate Sodium (Colace) 100 mg Q12H PRN PO CONSTIPATION; Start 08/03/16 at 10: 30 Hydralazine HCl (Apresoline) 10 mg Q8 PO Last administered on 08/06/16 14:32; Admin Dose 10 MG; Start 08/03/16 at 22:00 Carvedilol (Coreg) 3.125 mg BID PO Last administered on 08/06/16 08:57; Admin Dose 3.125 MG; Start 08/03/16 at 21:00 Zolpidem Tartrate (Ambien) 5 mg HS PRN PO INSOMNIA Last administered on 21:21; Admin Dose 5 MG; Start 08/03/16 at 21:00 Lorazepam (Ativan) 1 mg Q4 PRN IV ANXIETY Last administered on 08/05/16 14:46 ; Admin Dose 1 MG; Start 08/04/16 at 17:00 Diagnostic Test (Pha) 1 ea 1 ea Q4 XX Last administered on 08/07/16 12:38; Admin Dose 1 EA; Start 08/05/16 at 09:00 Propofol 100 ml @ 2.925 mls/ hr Q12H IV Last administered on 08/06/16 14:28; Admin Dose 5.85 MLS/HR; Start 08/05/16 at 11:00 Dextrose 1,000 ml @ 80 mls/hr [id number] IV Last administered on 08/07/16 12:31 ; Admin Dose 80 MLS/HR; Start 08/05/16 at 11:00 Norepinephrine/ Dextrose (Levophed/D5W) 500 ml @ 1.87 mls/hr TITRATE IV Last administered on 08/06/16 12:56; Admin Dose 30 MLS/HR; Start 08/05/16 at 13:00 Pantoprazole 40 mg 40 mg BID@06,18 IV Last administered on 08/07/16 05:27; Admin Dose 40 MG; Start 08/05/16 at 18:00 Sodium Chloride (NS) 1,000 ml @ 60 mls/hr [id number] IV Last administered on 08/07 06:08; Admin Dose 60 MLS/HR; Start 08/05/16 at 15:30 Eye Lubricant 1 applic 1 applic TID BOTH EYES Last administered on 08/07/16 12 :32; Admin Dose 1 APPLIC; Start 08/05/16 at 16:00 Cefepime HCl 50 ml @ 100 mls/hr Q24H IVPB Last administered on 08/07/16 09:26 ; Admin Dose 100 MLS/HR; Start 08/07/16 at 09:00 Vancomycin HCl 1.25 gm/Sodium Chloride 250 ml @ 83.333 mls/ hr Q36H IVPB Last administered on 08/07/16 06:08; Admin Dose 83.333 MLS/HR; Start 08/07/16 at 06: 00 Phytonadione/ Dextrose (Vitamin K/D5W) 50.5 ml @ 101 mls/hr Q24H IVPB Last administered on 08/07/16 12:31; Admin Dose 101 MLS/HR; Start 08/07/16 at 12:00 ; Stop 08/09/16 at 12:29 OREN RODRIGUEZ Aug 07, 2016 16:37
[2016-08-07 20:18] LABS: POTASSIUM 2.9 mmol/L (3.5-5.1)
[2016-08-07 20:19] LABS: CREATININE 1.89 mg/dl (0.61-1.24)
[2016-08-07 20:20] LABS: CALCIUM 8.2 mg/dl (8.4-10.2); MAGNESIUM 1.6 mg/dl (1.7-2.5)
[2016-08-08] VITALS (34 sets, daily range): BP systolic 89–124; BP diastolic 51–110; PULSE 87–106; RESP 18–25
[2016-08-08] MEDS: ACCU-CHEK XX SCH ×6 (01:00→21:10)
[2016-08-08] MEDS: SOD CHLORIDE 0.9% 1,000 ML IV SCH (01:36)
[2016-08-08] MEDS: DEXTROSE 10% 1,000 ML IV SCH ×2 (01:36→12:23)
[2016-08-08 05:31] LABS: ADD SCAN DIFF NO
[2016-08-08 05:50] LABS: BASOPHIL # 0.1 10^3/ul (0.0-0.1); BASOPHILS % 0.5 % (0.0-2.0); EOSINOPHILS # 0.4 10^3/ul (0.0-0.5); EOSINOPHILS % 3.4 % (0.0-7.0); HEMATOCRIT 38.5 % (42.0-52.0); LYMPHOCYTES # 1.2 10^3/ul (0.8-2.9); LYMPHOCYTES % 11.3 % (15.0-51.0); MEAN CORPUSCULAR HEMOGLOBIN 26.4 pg (29.0-33.0); MEAN CORPUSCULAR HGB CONC 33.8 g/dl (32.0-37.0); MEAN CORPUSCULAR VOLUME 78.1 fl (82.0-101.0); MONOCYTE # 1.3 10^3/ul (0.3-0.9); MONOCYTES % 12.6 % (0.0-11.0); NEUTROPHIL # 7.5 10^3/ul (1.6-7.5); NEUTROPHILS % 71.6 % (39.0-77.0); PLATELET COUNT 145 10^3/UL (140-415); RED BLOOD COUNT 4.93 10^6/ul (4.70-6.10); RED CELL DISTRIBUTION WIDTH 20.2 % (11.5-14.5); WHITE BLOOD COUNT 10.5 10^3/ul (4.8-10.8)
[2016-08-08 05:57] LABS: INR 1.81; PROTIME 21.1 Sec (12.2-14.2); PT RATIO 1.6
[2016-08-08 05:58] LABS: PARTIAL THROMBOPLASTIN TIME 32.5 Sec (25.0-35.0)
[2016-08-08 06:03] LABS: MAGNESIUM 1.5 mg/dl (1.7-2.5); PHOSPHORUS 2.6 mg/dl (2.5-4.9)
[2016-08-08] MEDS: PANTOPRAZOLE 40 MG INJ IV SCH ×2 (06:33→18:05)
[2016-08-08] MEDS: FUROSEMIDE 20 MG INJ IV SCH ×2 (06:34→18:05)
[2016-08-08 06:36] LABS: ALBUMIN 2.3 g/dl (3.3-4.9); POTASSIUM 3.1 mmol/L (3.5-5.1)
[2016-08-08 06:38] LABS: CREATININE 1.56 mg/dl (0.61-1.24)
[2016-08-08 06:39] LABS: ALBUMIN/GLOBULIN RATIO 0.71; BILIRUBIN,DIRECT 0.4 mg/dl (0.00-0.20); BILIRUBIN,TOTAL 1.4 mg/dl (0.2-1.3); CALCIUM 7.6 mg/dl (8.4-10.2); TOTAL PROTEIN 5.5 g/dl (6.1-8.1)
[2016-08-08] MEDS ORDERED: POTASSIUM CHLORIDE 250 ML IVPB ONE (07:00)
[2016-08-08 07:04] LABS: THROMBIN TIME 17.6 SEC (13.8-19.1)
[2016-08-08] MEDS: OCULAR LUBRICANT 3.5 GM OPH OINT BOTH EYES SCH ×3 (08:43→21:24)
[2016-08-08] MEDS: ASPIRIN 81 MG TAB PO SCH (08:43)
[2016-08-08] MEDS: CEFEPIME 2GM/50 ML IVPB SCH ×2 (08:45→21:24)
--- NOTE | 2016-08-08 09:04 | RADRPT ---
PROCEDURE: XR Chest AP portable CLINICAL INDICATION: Pneumonia, CHF TECHNIQUE: An AP portable radiograph of the chest was submitted. COMPARISON: 08/07/2016 FINDINGS: Support Hardware: The endotracheal tube and the NG tube are stable in positioning. Cardiovascular: The heart remains mildly enlarged and the pulmonary vasculature appears congested. Lung Cruz: Infiltrate/atelectasis is again seen within both lower lung zones. Pleural Spaces: Bilateral pleural fluid accumulations cannot be excluded as the costophrenic angles are obscured. Osseous Structures: The osseous structures appear intact. Soft Tissues: The soft tissues appear generous. IMPRESSION: 1. The tubes and lines are stable in positioning. 2. Persistent cardiomegaly with pulmonary vascular congestion. 3. Worsening infiltrate/atelectasis involving the lower lobes bilaterally. Pleural fluid accumulat ions cannot be excluded. Physician Georgi Date Time Electronically viewed and signed by Physician Georgi on 08/08/2016 09:04 /
[2016-08-08] MEDS: PROPOFOL 100 ML IV SCH ×2 (10:25→21:31)
--- NOTE | 2016-08-08 11:03 | PN ---
DATE: 08/08/2016 SUBJECTIVE: The patient remains stable on mechanical ventilation, intubated, currently off vasopres sors. VITAL SIGNS: Temperature 98, pulse is 100, blood pressure 119/87, O2 saturation 99% on 50% FIO2, or ally intubated. HEENT: Dry mucous membranes. Pupils equal and reactive to light. CARDIAC: S1, S2, no added sounds or murmurs. CHEST: Diminished air entry bilaterally, right side greater than left. ABDOMEN: Distended, soft, nontender. No guarding or rebound. EXTREMITIES: No cyanosis, clubbing, 1+ edema. NEUROLOGIC: Generalized weakness. LABORATORY DATA: White count 10.5, hemoglobin 13.0, platelets of 145. BUN 37, creatinine 1.56. IN R was 1.81. IMAGING: Chest x-ray was reviewed, shows moderate right pleural effusions. IMPRESSION AND PLAN: 1. Right pleural effusion. 2. Aspiration pneumonia. 3. Hypoxemic respiratory failure. 4. Polysubstance abuse. 5. Encephalopathy, toxic metabolic, likely secondary to above. 6. History of cirrhosis with coagulopathy. The patient will require: 1. Continue vitamin K. 2. Thoracentesis right lung. 3. Continue mechanical ventilation. 4. Continue tube feeding as tolerated. 5. Attempt to contact next of kin regarding goals of care. Dictated By: POLO PALOMO/ARMANDO Conf#: [id number] DID#: [id number]
--- NOTE | 2016-08-08 11:22 | CONS ---
Date/Time of Note Date/Time of Note DATE: 08/08/16 TIME: 11:20 Assessment/Plan Assessment/Plan Chief Complaint/Hosp Course IMPRESSION: 1. Congestive heart failure exacerbation, systolic, acute on chronic-worsening by cxr 2. Cardiomyopathy with severely depressed left ventricular ejection fraction approximately 15%. 3. Abnormal electrocardiogram, assess for acute coronary syndrome.-negative troponin x 3 4. Hypotension, borderline. 5. Lower extremity edema. 6. Possible lower extremity cellulitis. 7. Renal failure-improving 8. Substance abuse-ongoing 9. Coagulopathy.receiving vit K 10. Resp failure s/p intubation 11.Hypoglycemia-? etiology liver failure Recc: -Tele -Continue coreg/hydralazine as tolerated only -s/p dose of digoxin to increase contractility -Gentle daily lasix diuresis as tolerated only -Continue asa -Holding aldactone in setting of ARF and prior hyperkalemia -Follow BS closely -Wean vent as tolerated Problems: Consultation Date/Type/Reason Admit Date/Time Aug 03, 2016 at 14:46 Initial Consult Date 08/03/2016 Type of Consultation: Cardiology Reason for Consultation Cardiomyopathy/CHF Referring Provider: JACEK HOLLEY MD 24 HR Interval Summary Subjective hx not possible: pt non-verbal Exam/Review of Systems Vital Signs Vitals Vital Signs Date Time Temp Pulse Resp B/P Pulse Ox O2 Delivery O2 Flow Rate FiO2 08/08/16 10:08 97 22 100 50 08/08/16 06:00 119/87 Mechanical Ventilator 08/08/16 04:00 97.7 08/06/16 20:25 2.0 Intake and Output 08/07/16 08/07/16 08/08/16 14:59 22:59 06:59 Intake Total 2081.253 ml 1460 ml 1660 ml Output Total 2375 ml 3375 ml 1400 ml Balance -293.747 ml -1915 ml 260 ml Exam Review of Systems: CONSTITUTIONAL: No fevers, chills. PULMONARY: intubated CARDIOVASCULAR: No chest pain/palpitations GASTROINTESTINAL: No nausea/vomiting. GENITOURINARY: No hematuria/dysuria. MUSCULOSKELETAL: No obvious myagias/arthalgias. PSYCHIATRIC: The patient denies depression. NEUROLOGIC: sedated Constitutional: other (sedated) Psych: no complaints Head: normocephalic ENMT: intubated Neck: jvd (9-10 cm water), supple Respiratory: other (upper airway rhonchi) Cardiovascular: regular rate and rhythm Gastrointestinal: non-tender, soft Musculoskeletal: muscle tone (normal) Extremities: edema (trace/B) Neurological: other (sedated) Results Result Diagram: 08/08/16 0500 08/08/16 0500 Results 24 hrs Laboratory Tests Test 08/07/16 11:30 08/07/16 12:39 08/07/16 17:44 08/07/16 19:49 Activated Partial Thromboplast Time 34.9 INR International Normalized Ratio 2.02 Platelet Count 155 Prothrombin Time 23.1 H Prothrombin Time Ratio 1.8 Thrombin Time 16.3 Bedside Glucose 118 103 Anion Gap 13 Blood Urea Nitrogen 43 H Calcium Level 8.2 L Carbon Dioxide Level 32 H Chloride Level 99 Creatinine 1.89 H Glucose Level 117 Magnesium Level 1.6 L Phosphorus Level 3.0 Potassium Level 2.9 *L Sodium Level 141 Test 08/08/16 01:32 08/08/16 05:00 08/08/16 08:14 Bedside Glucose 121 119 Activated Partial Thromboplast Time 32.5 Alanine Aminotransferase (ALT/SGPT) 390 H Albumin 2.3 L Albumin/Globulin Ratio 0.71 Alkaline Phosphatase 185 H Anion Gap 10 Aspartate Amino Transf (AST/SGOT) 645 H Basophils # 0.1 Basophils % 0.5 Blood Urea Nitrogen 37 H Calcium Level 7.6 L Carbon Dioxide Level 33 H Chloride Level 100 Creatinine 1.56 H Direct Bilirubin 0.40 #H Eosinophils # 0.4 Eosinophils % 3.4 Globulin 3.20 Glucose Level 118 Hematocrit 38.5 L Hemoglobin 13.0 L INR International Normalized Ratio 1.81 Indirect Bilirubin 1.0 Lactic Acid Level 1.8 Lymphocytes # 1.2 Lymphocytes % 11.3 L Magnesium Level 1.5 L Mean Corpuscular Hemoglobin 26.4 L Mean Corpuscular Hemoglobin Concent 33.8 Mean Corpuscular Volume 78.1 L Mean Platelet Volume 11.0 H Monocytes # 1.3 H Monocytes % 12.6 H Neutrophils # 7.5 Neutrophils % 71.6 Nucleated Red Blood Cells # 0.0 Nucleated Red Blood Cells % 0.0 Phosphorus Level 2.6 Platelet Count 148 Potassium Level 3.1 L Prothrombin Time 21.1 H Prothrombin Time Ratio 1.6 Red Blood Count 4.93 Red Cell Distribution Width 20.2 H Sodium Level 140 Thrombin Time 17.6 Total Bilirubin 1.4 H Total Protein 5.5 L White Blood Count 10.5 Medications Medications Current Medications Spironolactone (Aldactone) 25 mg DAILY PO Last administered on 08/04/16 08:40 ; Admin Dose 25 MG; Start 08/03/16 at 11:00; Status Future Hold Ondansetron HCl (Zofran Tab) 4 mg Q6H PRN PO NAUSEA AND/OR VOMITING; Start 03/12 at 10:30 Aspirin (Aspirin) 81 mg DAILY PO Last administered on 08/08/16 08:43; Admin Dose 81 MG; Start 08/03/16 at 11:00 Nitroglycerin (Nitroglycerin (Sl Tab) 0.4 Mg) 1 tab Q5M PRN SL CHEST PAIN; Start 08/03/16 at 10:30 Acetaminophen (Tylenol Tab) 650 mg Q6H PRN PO PAIN LEVEL 1-3 OR FEVER; Start at 10:30 Docusate Sodium (Colace) 100 mg Q12H PRN PO CONSTIPATION; Start 08/03/16 at 10: 30 Hydralazine HCl (Apresoline) 10 mg Q8 PO Last administered on 08/08/16 06:34; Admin Dose 10 MG; Start 08/03/16 at 22:00 Carvedilol (Coreg) 3.125 mg BID PO Last administered on 08/08/16 08:44; Admin Dose 3.125 MG; Start 08/03/16 at 21:00 Zolpidem Tartrate (Ambien) 5 mg HS PRN PO INSOMNIA Last administered on 21:21; Admin Dose 5 MG; Start 08/03/16 at 21:00 Lorazepam (Ativan) 1 mg Q4 PRN IV ANXIETY Last administered on 08/05/16 14:46 ; Admin Dose 1 MG; Start 08/04/16 at 17:00 Diagnostic Test (Pha) 1 ea 1 ea Q4 XX Last administered on 08/08/16 08:44; Admin Dose 1 EA; Start 08/05/16 at 09:00 Propofol 100 ml @ 2.925 mls/ hr Q12H IV Last administered on 08/06/16 14:28; Admin Dose 5.85 MLS/HR; Start 08/05/16 at 11:00 Dextrose 1,000 ml @ 80 mls/hr [id number] IV Last administered on 08/08/16 01:36 ; Admin Dose 80 MLS/HR; Start 08/05/16 at 11:00 Norepinephrine/ Dextrose (Levophed/D5W) 500 ml @ 1.87 mls/hr TITRATE IV Last administered on 08/06/16 12:56; Admin Dose 30 MLS/HR; Start 08/05/16 at 13:00 Pantoprazole 40 mg 40 mg BID@06,18 IV Last administered on 08/08/16 06:33; Admin Dose 40 MG; Start 08/05/16 at 18:00 Sodium Chloride (NS) 1,000 ml @ 60 mls/hr [id number] IV Last administered on 08/08 01:36; Admin Dose 60 MLS/HR; Start 08/05/16 at 15:30 Eye Lubricant 1 applic 1 applic TID BOTH EYES Last administered on 08/08/16 08 :43; Admin Dose 1 APPLIC; Start 08/05/16 at 16:00 Cefepime HCl 50 ml @ 100 mls/hr Q24H IVPB Last administered on 08/08/16 08:45 ; Admin Dose 100 MLS/HR; Start 08/07/16 at 09:00 Vancomycin HCl 1.25 gm/Sodium Chloride 250 ml @ 83.333 mls/ hr Q36H IVPB Last administered on 08/07/16 06:08; Admin Dose 83.333 MLS/HR; Start 08/07/16 at 06: 00 Phytonadione 5 mg/ Dextrose 50.5 ml @ 101 mls/hr Q24H IVPB Last administered on 08/07/16 12:31; Admin Dose 101 MLS/HR; Start 08/07/16 at 12:00; Stop at 12:29 Magnesium Sulfate (Magnesium Sulfate 4 Gm/100 ml) 100 ml @ 25 mls/hr ONCE ONCE IVPB ; Start 08/08/16 at 12:00; Stop 08/08/16 at 15:59 DEANA ALBERTO 15, 2017 11:22
[2016-08-08] MEDS ORDERED: MAGNESIUM SULFATE 4 GM/100 ML 100 ML IVPB ONE (12:00)
[2016-08-08] MEDS: PHYTONADIONE 5 MG in DEXTROSE 5% 50 ML IVPB SCH (12:23)
[2016-08-08] MEDS ORDERED: VANCOMYCIN 1.5 GM in SOD CHLORIDE 0.9% 250 ML IVPB SCH (13:00)
--- NOTE | 2016-08-08 14:00 | PN ---
Date/Time of Note Date/Time of Note DATE: 08/08/16 TIME: 13:59 Assessment/Plan VTE Prophylaxis VTE Prophylaxis Intervention: SCD's Assessment/Plan Chief Complaint/Hosp Course 1. Acute encephalopathy secondary to hypoglycemia and substance abuse 2. Acute respiratory failure, now ventilator dependent, secondary to #1 and CHF exacerbation Pulmonology in the case, continue vent support 3. Acute on chronic congestive heart failure exacerbation with an ejection fraction of 15% Cardiology on the case, continue diuresis 4. Chronic alcoholic with cirrhosis and coagulopathy 5. Chronic substance abuse with amphetamines and heroin. 6. Leukocytosis possibly secondary to pneumonia Continue antibiotics for now 7. Subclinical hypothyroidism. Prophylaxis: SCDs Problems: Subjective 24 Hr Interval Summary Subjective hx not possible: pt non-verbal Exam/Review of Systems Vital Signs Vitals Vital Signs Date Time Temp Pulse Resp B/P Pulse Ox O2 Delivery O2 Flow Rate FiO2 08/08/16 10:08 97 22 100 50 08/08/16 06:00 119/87 Mechanical Ventilator 08/08/16 04:00 97.7 08/06/16 20:25 2.0 Intake and Output 08/07/16 08/07/16 08/08/16 15:00 23:00 07:00 Intake Total 2029.57 ml 1460 ml 1490 ml Output Total 2500 ml 3375 ml 1100 ml Balance -470.43 ml -1915 ml 390 ml Exam Constitutional: non-verbal ENMT: intubated Respiratory: clear to auscultation Cardiovascular: regular rate and rhythm Gastrointestinal: soft, No distended Musculoskeletal: nl extremities to inspection Results Result Diagram: 08/08/16 0500 08/08/16 0500 Results 24 hrs Laboratory Tests Test 08/07/16 17:44 08/07/16 19:49 08/08/16 01:32 08/08/16 05:00 Bedside Glucose 103 121 Anion Gap 13 10 Blood Urea Nitrogen 43 H 37 H Calcium Level 8.2 L 7.6 L Carbon Dioxide Level 32 H 33 H Chloride Level 99 100 Creatinine 1.89 H 1.56 H Glucose Level 117 118 Magnesium Level 1.6 L 1.5 L Phosphorus Level 3.0 2.6 Potassium Level 2.9 *L 3.1 L Sodium Level 141 140 Activated Partial Thromboplast Time 32.5 Alanine Aminotransferase (ALT/SGPT) 390 H Albumin 2.3 L Albumin/Globulin Ratio 0.71 Alkaline Phosphatase 185 H Aspartate Amino Transf (AST/SGOT) 645 H Basophils # 0.1 Basophils % 0.5 Direct Bilirubin 0.40 #H Eosinophils # 0.4 Eosinophils % 3.4 Globulin 3.20 Hematocrit 38.5 L Hemoglobin 13.0 L INR International Normalized Ratio 1.81 Indirect Bilirubin 1.0 Lactic Acid Level 1.8 Lymphocytes # 1.2 Lymphocytes % 11.3 L Mean Corpuscular Hemoglobin 26.4 L Mean Corpuscular Hemoglobin Concent 33.8 Mean Corpuscular Volume 78.1 L Mean Platelet Volume 11.0 H Monocytes # 1.3 H Monocytes % 12.6 H Neutrophils # 7.5 Neutrophils % 71.6 Nucleated Red Blood Cells # 0.0 Nucleated Red Blood Cells % 0.0 Platelet Count 148 Prothrombin Time 21.1 H Prothrombin Time Ratio 1.6 Red Blood Count 4.93 Red Cell Distribution Width 20.2 H Thrombin Time 17.6 Total Bilirubin 1.4 H Total Protein 5.5 L White Blood Count 10.5 Test 08/08/16 08:14 08/08/16 11:25 08/08/16 12:40 Bedside Glucose 119 106 Ammonia < 9 L Medications Medications Current Medications Spironolactone (Aldactone) 25 mg DAILY PO Last administered on 08/04/16 08:40 ; Admin Dose 25 MG; Start 08/03/16 at 11:00; Status Future Hold Ondansetron HCl (Zofran Tab) 4 mg Q6H PRN PO NAUSEA AND/OR VOMITING; Start 03/12 at 10:30 Aspirin (Aspirin) 81 mg DAILY PO Last administered on 08/08/16 08:43; Admin Dose 81 MG; Start 08/03/16 at 11:00 Nitroglycerin (Nitroglycerin (Sl Tab) 0.4 Mg) 1 tab Q5M PRN SL CHEST PAIN; Start 08/03/16 at 10:30 Acetaminophen (Tylenol Tab) 650 mg Q6H PRN PO PAIN LEVEL 1-3 OR FEVER; Start at 10:30 Docusate Sodium (Colace) 100 mg Q12H PRN PO CONSTIPATION; Start 08/03/16 at 10: 30 Hydralazine HCl (Apresoline) 10 mg Q8 PO Last administered on 08/08/16 06:34; Admin Dose 10 MG; Start 08/03/16 at 22:00 Carvedilol (Coreg) 3.125 mg BID PO Last administered on 08/08/16 08:44; Admin Dose 3.125 MG; Start 08/03/16 at 21:00 Zolpidem Tartrate (Ambien) 5 mg HS PRN PO INSOMNIA Last administered on 21:21; Admin Dose 5 MG; Start 08/03/16 at 21:00 Lorazepam (Ativan) 1 mg Q4 PRN IV ANXIETY Last administered on 08/05/16 14:46 ; Admin Dose 1 MG; Start 08/04/16 at 17:00 Diagnostic Test (Pha) 1 ea 1 ea Q4 XX Last administered on 08/08/16 12:24; Admin Dose 1 EA; Start 08/05/16 at 09:00 Propofol 100 ml @ 2.925 mls/ hr Q12H IV Last administered on 08/06/16 14:28; Admin Dose 5.85 MLS/HR; Start 08/05/16 at 11:00 Dextrose 1,000 ml @ 80 mls/hr [id number] IV Last administered on 08/08/16 12:23 ; Admin Dose 80 MLS/HR; Start 08/05/16 at 11:00 Norepinephrine/ Dextrose (Levophed/D5W) 500 ml @ 1.87 mls/hr TITRATE IV Last administered on 08/06/16 12:56; Admin Dose 30 MLS/HR; Start 08/05/16 at 13:00 Pantoprazole 40 mg 40 mg BID@06,18 IV Last administered on 08/08/16 06:33; Admin Dose 40 MG; Start 08/05/16 at 18:00 Sodium Chloride (NS) 1,000 ml @ 60 mls/hr [id number] IV Last administered on 08/08 01:36; Admin Dose 60 MLS/HR; Start 08/05/16 at 15:30 Eye Lubricant 1 applic 1 applic TID BOTH EYES Last administered on 08/08/16 12 :24; Admin Dose 1 APPLIC; Start 08/05/16 at 16:00 Phytonadione 5 mg/ Dextrose 50.5 ml @ 101 mls/hr Q24H IVPB Last administered on 08/08/16 12:23; Admin Dose 101 MLS/HR; Start 08/07/16 at 12:00; Stop at 12:29 Magnesium Sulfate 100 ml @ 25 mls/hr ONCE ONCE IVPB Last administered on 08/08 12:23; Admin Dose 25 MLS/HR; Start 08/08/16 at 12:00; Stop 08/08/16 at 15: 59 Cefepime HCl 50 ml @ 100 mls/hr Q12 IVPB ; Start 08/08/16 at 21:00 Vancomycin HCl/ Sodium Chloride (Vancocin/NS) 250 ml @ 83.333 mls/ hr Q24H IVPB Last administered on 08/08/16 12:23; Admin Dose 83.333 MLS/HR; Start at 13:00 OREN RODRIGUEZ Aug 08, 2016 14:00
--- NOTE | 2016-08-08 17:25 | RADRPT ---
PROCEDURE: US Chest. CLINICAL INDICATION: Shortness of breath. TECHNIQUE: Ultrasound of the right hemithorax was performed in the axial and sagittal planes. COMPARISON: No prior study is available for comparison. FINDINGS: There is a very small right pleural effusion. There is not enough fluid to safely aspirate. Thorac entesis was not performed. IMPRESSION: 1. Very small right pleural effusion. Thoracentesis was not performed. RPTAT: QQ .Robson Tellez MD, MD Date Time Electronically viewed and signed by .Robson Tellez MD, on 08/08/2016 17:25 .R/
[2016-08-09] VITALS (36 sets, daily range): BP systolic 93–121; BP diastolic 54–90; PULSE 82–109; RESP 17–34
[2016-08-09] MEDS: DEXTROSE 10% 1,000 ML IV SCH ×2 (00:30→12:25)
[2016-08-09] MEDS: SOD CHLORIDE 0.9% 1,000 ML IV SCH ×2 (00:30→19:30)
[2016-08-09] MEDS: ACCU-CHEK XX SCH ×6 (00:38→21:06)
[2016-08-09 04:51] LABS: ADD SCAN DIFF NO
[2016-08-09 05:05] LABS: INR 1.56; PROTIME 18.8 Sec (12.2-14.2); PT RATIO 1.5
[2016-08-09 05:06] LABS: PARTIAL THROMBOPLASTIN TIME 30.3 Sec (25.0-35.0); THROMBIN TIME 17.7 SEC (13.8-19.1)
[2016-08-09 05:13] LABS: CREATININE 1.15 mg/dl (0.61-1.24)
[2016-08-09 05:14] LABS: CALCIUM 7.5 mg/dl (8.4-10.2); PHOSPHORUS 1.7 mg/dl (2.5-4.9)
[2016-08-09 05:19] LABS: POTASSIUM 2.6 mmol/L (3.5-5.1)
[2016-08-09 05:30] LABS: BASOPHIL # 0.1 10^3/ul (0.0-0.1); BASOPHILS % 0.7 % (0.0-2.0); EOSINOPHILS # 0.4 10^3/ul (0.0-0.5); EOSINOPHILS % 4.8 % (0.0-7.0); HEMATOCRIT 39.1 % (42.0-52.0); HEMOGLOBIN 13.3 g/dl (14.0-18.0); LYMPHOCYTES # 1.4 10^3/ul (0.8-2.9); MEAN CORPUSCULAR HEMOGLOBIN 26.6 pg (29.0-33.0); MEAN CORPUSCULAR VOLUME 78.2 fl (82.0-101.0); MEAN PLATELET VOLUME 11.6 fl (7.4-10.4); MONOCYTE # 1.3 10^3/ul (0.3-0.9); NEUTROPHILS % 65.2 % (39.0-77.0); PLATELET COUNT 167 10^3/UL (140-415); RED CELL DISTRIBUTION WIDTH 20.6 % (11.5-14.5); WHITE BLOOD COUNT 9.2 10^3/ul (4.8-10.8)
[2016-08-09] MEDS ORDERED: POTASSIUM CHLORIDE 250 ML IVPB ONE (05:30)
[2016-08-09] MEDS: PANTOPRAZOLE 40 MG INJ IV SCH ×2 (06:02→17:22)
[2016-08-09] MEDS: FUROSEMIDE 20 MG INJ IV SCH ×2 (06:03→17:22)
[2016-08-09] MEDS: OCULAR LUBRICANT 3.5 GM OPH OINT BOTH EYES SCH ×3 (08:39→21:04)
[2016-08-09] MEDS: ASPIRIN 81 MG TAB PO SCH (08:40)
[2016-08-09] MEDS: CEFEPIME 2GM/50 ML IVPB SCH ×2 (08:40→21:05)
--- NOTE | 2016-08-09 09:28 | RADRPT ---
PROCEDURE: XR Chest. CLINICAL INDICATION: Shortness of breath. TECHNIQUE: Single frontal view. COMPARISON: 08/08/2016. FINDINGS: The endotracheal tube, nasogastric tube, and left arm PICC line remain in satisfactory position. Pu lmonary edema and atelectasis at the lung bases is unchanged. The heart is enlarged. There are moderate bilateral pleural effusions. There is no pneumothorax. IMPRESSION: 1. No change from 08/08/2016. RPTAT: QQ .Robson Tellez MD, MD Date Time Electronically viewed and signed by .Robson Tellez MD, MD on 08/09/2016 09:28 .R/
[2016-08-09] MEDS ORDERED: POTASSIUM CHLORIDE 20 MEQ POWDER FOR ORAL SOLN NGT STA (09:57)
--- NOTE | 2016-08-09 09:57 | CONS ---
Date/Time of Note Date/Time of Note DATE: 08/09/16 TIME: 09:52 Assessment/Plan Assessment/Plan Additional Assessment/Plan Ventilator settings; AC of 22, tidal volume 500, PEEP of 5, 40% FiO2. Chest x-ray was reviewed from yesterday which is showing bibasilar infiltrative changes, cardio megaly, Assessment recommendations; 1. Patient admitted for respiratory failure. 2. History of cirrhosis of liver. 3. Alcoholic encephalopathy. 4. She has significant hyperkalemia and renal insufficiency on admission with interval correction. Next 5. Hypokalemia. Next 6. Congestive heart failure. Continue to hold sedation. Continue current ventilator settings. Continue other supportive measures. Obtain a serum ammonia level. Add lactulose 20 g 3 times daily. Potassium to be replaced. Prognosis is guarded. Consultation Date/Type/Reason Admit Date/Time Aug 03, 2016 at 14:46 Initial Consult Date 08/05/16 Type of Consultation: Pulmonary/critical care Referring Provider: JACEK HOLLEY MD 24 HR Interval Summary Free Text/Dictation Patient condition remains critical. Has been off sedation for more than 48 hours now with extremely poor mental status. Patient only grimaces on deep sternal rubbing. Patient however has remained hemodynamically stable. General exam; middle-aged man, orally intubated, unresponsive. Exam/Review of Systems Vital Signs Vitals Vital Signs Date Time Temp Pulse Resp B/P Pulse Ox O2 Delivery O2 Flow Rate FiO2 08/09/16 08:00 94 08/09/16 06:00 22 119/75 100 Mechanical Ventilator 08/09/16 05:35 40 08/09/16 04:00 99.6 08/06/16 20:25 2.0 Intake and Output 08/08/16 08/08/16 08/09/16 15:00 23:00 07:00 Intake Total 2110.5 ml 1340 ml 1120 ml Output Total 2775 ml 2970 ml 1005 ml Balance -664.5 ml -1630 ml 115 ml Exam H EENT exam is; supple neck, no JVD. No lymphadenopathy. Midline trachea. No thyromegaly. Patient is orally intubated. Dentition is fair. Pupils are midsize and reactive to light. Chest examination; diminished breath on lung bases bilaterally. S1-S2 audible, no murmurs. Regular rhythm. Upper lobes are clear to auscultation. Abdomen examination; soft, protuberant, no organomegaly. Bowel sounds are audible. Extremity exam is; 1+ anasarca. Pulses 1+ bilaterally. [employer] examination; patient remains unresponsive. Results Result Diagram: 08/09/16 0400 08/09/16 0400 Results 24 hrs Laboratory Tests Test 08/08/16 11:25 08/08/16 12:40 08/08/16 16:04 08/08/16 21:06 Ammonia < 9 L Bedside Glucose 106 96 136 Test 08/09/16 00:36 08/09/16 04:00 08/09/16 08:05 Bedside Glucose 114 118 Activated Partial Thromboplast Time 30.3 Anion Gap 12 Basophils # 0.1 Basophils % 0.7 Blood Urea Nitrogen 26 #H Calcium Level 7.5 L Carbon Dioxide Level 33 H Chloride Level 100 Creatinine 1.15 Eosinophils # 0.4 Eosinophils % 4.8 Glucose Level 129 Hematocrit 39.1 L Hemoglobin 13.3 L INR International Normalized Ratio 1.56 Lymphocytes # 1.4 Lymphocytes % 15.0 Magnesium Level 2.0 Mean Corpuscular Hemoglobin 26.6 L Mean Corpuscular Hemoglobin Concent 34.0 Mean Corpuscular Volume 78.2 L Mean Platelet Volume 11.6 H Monocytes # 1.3 H Monocytes % 14.0 H Neutrophils # 6.0 Neutrophils % 65.2 Nucleated Red Blood Cells # 0.0 Nucleated Red Blood Cells % 0.0 Phosphorus Level 1.7 L Platelet Count 170 Potassium Level 2.6 *L Prothrombin Time 18.8 H Prothrombin Time Ratio 1.5 Red Blood Count 5.00 Red Cell Distribution Width 20.6 H Sodium Level 142 Thrombin Time 17.7 White Blood Count 9.2 Medications Medications Current Medications Spironolactone (Aldactone) 25 mg DAILY PO Last administered on 08/04/16 08:40 ; Admin Dose 25 MG; Start 08/03/16 at 11:00; Status Future Hold Ondansetron HCl (Zofran Tab) 4 mg Q6H PRN PO NAUSEA AND/OR VOMITING; Start 03/12 at 10:30 Aspirin (Aspirin) 81 mg DAILY PO Last administered on 08/09/16 08:40; Admin Dose 81 MG; Start 08/03/16 at 11:00 Nitroglycerin (Nitroglycerin (Sl Tab) 0.4 Mg) 1 tab Q5M PRN SL CHEST PAIN; Start 08/03/16 at 10:30 Acetaminophen (Tylenol Tab) 650 mg Q6H PRN PO PAIN LEVEL 1-3 OR FEVER; Start at 10:30 Docusate Sodium (Colace) 100 mg Q12H PRN PO CONSTIPATION; Start 08/03/16 at 10: 30 Hydralazine HCl (Apresoline) 10 mg Q8 PO Last administered on 08/08/16 06:34; Admin Dose 10 MG; Start 08/03/16 at 22:00 Carvedilol (Coreg) 3.125 mg BID PO Last administered on 08/09/16 08:40; Admin Dose 3.125 MG; Start 08/03/16 at 21:00 Zolpidem Tartrate (Ambien) 5 mg HS PRN PO INSOMNIA Last administered on 21:21; Admin Dose 5 MG; Start 08/03/16 at 21:00 Lorazepam (Ativan) 1 mg Q4 PRN IV ANXIETY Last administered on 08/05/16 14:46 ; Admin Dose 1 MG; Start 08/04/16 at 17:00 Diagnostic Test (Pha) 1 ea 1 ea Q4 XX Last administered on 08/09/16 08:40; Admin Dose 1 EA; Start 08/05/16 at 09:00 Propofol 100 ml @ 2.925 mls/ hr Q12H IV Last administered on 08/06/16 14:28; Admin Dose 5.85 MLS/HR; Start 08/05/16 at 11:00 Dextrose 1,000 ml @ 80 mls/hr [id number] IV Last administered on 08/09/16 00:30 ; Admin Dose 80 MLS/HR; Start 08/05/16 at 11:00 Norepinephrine/ Dextrose (Levophed/D5W) 500 ml @ 1.87 mls/hr TITRATE IV Last administered on 08/06/16 12:56; Admin Dose 30 MLS/HR; Start 08/05/16 at 13:00 Pantoprazole 40 mg 40 mg BID@06,18 IV Last administered on 08/09/16 06:02; Admin Dose 40 MG; Start 08/05/16 at 18:00 Sodium Chloride (NS) 1,000 ml @ 60 mls/hr [id number] IV Last administered on 08/09 00:30; Admin Dose 60 MLS/HR; Start 08/05/16 at 15:30 Eye Lubricant 1 applic 1 applic TID BOTH EYES Last administered on 08/09/16 08 :39; Admin Dose 1 APPLIC; Start 08/05/16 at 16:00 Phytonadione 5 mg/ Dextrose 50.5 ml @ 101 mls/hr Q24H IVPB Last administered on 08/08/16 12:23; Admin Dose 101 MLS/HR; Start 08/07/16 at 12:00; Stop at 12:29 Cefepime HCl 50 ml @ 100 mls/hr Q12 IVPB Last administered on 08/09/16 08:40 ; Admin Dose 100 MLS/HR; Start 08/08/16 at 21:00 Vancomycin HCl/ Sodium Chloride (Vancocin/NS) 250 ml @ 83.333 mls/ hr Q24H IVPB Last administered on 08/08/16 12:23; Admin Dose 83.333 MLS/HR; Start at 13:00 YOUSUF MILNER Aug 09, 2016 09:57
--- NOTE | 2016-08-09 10:38 | CONS ---
Date/Time of Note Date/Time of Note DATE: 08/09/16 TIME: 10:35 Assessment/Plan Assessment/Plan Chief Complaint/Hosp Course IMPRESSION: 1. Congestive heart failure exacerbation, systolic, acute on chronic-worsening by cxr 2. Cardiomyopathy with severely depressed left ventricular ejection fraction approximately 15%. 3. Abnormal electrocardiogram, assess for acute coronary syndrome.-negative troponin x 3 4. Hypotension, borderline. 5. Lower extremity edema. 6. Possible lower extremity cellulitis. 7. Renal failure-improving 8. Substance abuse-ongoing 9. Coagulopathy.receiving vit K 10. Resp failure s/p intubation 11.Hypoglycemia-? etiology liver failure 12.Encephalopathy Recc: -Tele -Continue coreg/hydralazine as tolerated only -s/p dose of digoxin to increase contractility -Gentle lasix diuresis as tolerated only -Continue asa -Holding aldactone in setting of ARF and prior hyperkalemia -Follow BS closely -Wean vent as tolerated Problems: Consultation Date/Type/Reason Admit Date/Time Aug 03, 2016 at 14:46 Initial Consult Date 08/03/2016 Type of Consultation: Cardiology Reason for Consultation CHF Referring Provider: JACEK HOLLEY MD Exam/Review of Systems Vital Signs Vitals Vital Signs Date Time Temp Pulse Resp B/P Pulse Ox O2 Delivery O2 Flow Rate FiO2 08/09/16 09:15 83 22 96 40 08/09/16 06:00 119/75 Mechanical Ventilator 08/09/16 04:00 99.6 08/06/16 20:25 2.0 Intake and Output 08/08/16 08/08/16 08/09/16 15:00 23:00 07:00 Intake Total 2110.5 ml 1340 ml 1120 ml Output Total 2775 ml 2970 ml 1005 ml Balance -664.5 ml -1630 ml 115 ml Exam Review of Systems: CONSTITUTIONAL: No fevers, chills. PULMONARY: No sob CARDIOVASCULAR: No chest pain/palpitations GASTROINTESTINAL: No nausea/vomiting. GENITOURINARY: No hematuria/dysuria. MUSCULOSKELETAL: No myagias/arthalgias. PSYCHIATRIC: The patient denies depression. NEUROLOGIC: No weakness Constitutional: other (non-responsive) Psych: no complaints Head: normocephalic ENMT: intubated Neck: jvd, supple Respiratory: diminished breath sounds Cardiovascular: regular rate and rhythm Gastrointestinal: non-tender, soft Musculoskeletal: muscle tone Extremities: edema, normal pulses Neurological: unresponsive Results Result Diagram: 08/09/16 0400 08/09/16 0400 Results 24 hrs Laboratory Tests Test 08/08/16 11:25 08/08/16 12:40 08/08/16 16:04 08/08/16 21:06 Ammonia < 9 L Bedside Glucose 106 96 136 Test 08/09/16 00:36 08/09/16 04:00 08/09/16 08:05 Bedside Glucose 114 118 Activated Partial Thromboplast Time 30.3 Anion Gap 12 Basophils # 0.1 Basophils % 0.7 Blood Urea Nitrogen 26 #H Calcium Level 7.5 L Carbon Dioxide Level 33 H Chloride Level 100 Creatinine 1.15 Eosinophils # 0.4 Eosinophils % 4.8 Glucose Level 129 Hematocrit 39.1 L Hemoglobin 13.3 L INR International Normalized Ratio 1.56 Lymphocytes # 1.4 Lymphocytes % 15.0 Magnesium Level 2.0 Mean Corpuscular Hemoglobin 26.6 L Mean Corpuscular Hemoglobin Concent 34.0 Mean Corpuscular Volume 78.2 L Mean Platelet Volume 11.6 H Monocytes # 1.3 H Monocytes % 14.0 H Neutrophils # 6.0 Neutrophils % 65.2 Nucleated Red Blood Cells # 0.0 Nucleated Red Blood Cells % 0.0 Phosphorus Level 1.7 L Platelet Count 170 Potassium Level 2.6 *L Prothrombin Time 18.8 H Prothrombin Time Ratio 1.5 Red Blood Count 5.00 Red Cell Distribution Width 20.6 H Sodium Level 142 Thrombin Time 17.7 White Blood Count 9.2 Medications Medications Current Medications Spironolactone (Aldactone) 25 mg DAILY PO Last administered on 08/04/16 08:40 ; Admin Dose 25 MG; Start 08/03/16 at 11:00; Status Future Hold Ondansetron HCl (Zofran Tab) 4 mg Q6H PRN PO NAUSEA AND/OR VOMITING; Start 03/12 at 10:30 Aspirin (Aspirin) 81 mg DAILY PO Last administered on 08/09/16 08:40; Admin Dose 81 MG; Start 08/03/16 at 11:00 Nitroglycerin (Nitroglycerin (Sl Tab) 0.4 Mg) 1 tab Q5M PRN SL CHEST PAIN; Start 08/03/16 at 10:30 Acetaminophen (Tylenol Tab) 650 mg Q6H PRN PO PAIN LEVEL 1-3 OR FEVER; Start at 10:30 Docusate Sodium (Colace) 100 mg Q12H PRN PO CONSTIPATION; Start 08/03/16 at 10: 30 Hydralazine HCl (Apresoline) 10 mg Q8 PO Last administered on 08/08/16 06:34; Admin Dose 10 MG; Start 08/03/16 at 22:00 Carvedilol (Coreg) 3.125 mg BID PO Last administered on 08/09/16 08:40; Admin Dose 3.125 MG; Start 08/03/16 at 21:00 Zolpidem Tartrate (Ambien) 5 mg HS PRN PO INSOMNIA Last administered on 21:21; Admin Dose 5 MG; Start 08/03/16 at 21:00 Lorazepam (Ativan) 1 mg Q4 PRN IV ANXIETY Last administered on 08/05/16 14:46 ; Admin Dose 1 MG; Start 08/04/16 at 17:00 Diagnostic Test (Pha) 1 ea 1 ea Q4 XX Last administered on 08/09/16 08:40; Admin Dose 1 EA; Start 08/05/16 at 09:00 Propofol 100 ml @ 2.925 mls/ hr Q12H IV Last administered on 08/06/16 14:28; Admin Dose 5.85 MLS/HR; Start 08/05/16 at 11:00 Dextrose 1,000 ml @ 80 mls/hr [id number] IV Last administered on 08/09/16 00:30 ; Admin Dose 80 MLS/HR; Start 08/05/16 at 11:00 Norepinephrine/ Dextrose (Levophed/D5W) 500 ml @ 1.87 mls/hr TITRATE IV Last administered on 08/06/16 12:56; Admin Dose 30 MLS/HR; Start 08/05/16 at 13:00 Pantoprazole 40 mg 40 mg BID@06,18 IV Last administered on 08/09/16 06:02; Admin Dose 40 MG; Start 08/05/16 at 18:00 Sodium Chloride (NS) 1,000 ml @ 60 mls/hr [id number] IV Last administered on 08/09 00:30; Admin Dose 60 MLS/HR; Start 08/05/16 at 15:30 Eye Lubricant 1 applic 1 applic TID BOTH EYES Last administered on 08/09/16 08 :39; Admin Dose 1 APPLIC; Start 08/05/16 at 16:00 Phytonadione 5 mg/ Dextrose 50.5 ml @ 101 mls/hr Q24H IVPB Last administered on 08/08/16 12:23; Admin Dose 101 MLS/HR; Start 08/07/16 at 12:00; Stop at 12:29 Cefepime HCl (Maxipime 2gm/50 ml (Pmx)) 50 ml @ 100 mls/hr Q12 IVPB Last administered on 08/09/16 08:40; Admin Dose 100 MLS/HR; Start 08/08/16 at 21:00 Lactulose 20 gm 20 gm Q8 PO ; Start 08/09/16 at 10:00 Potassium Phosphate 40 meq/ Sodium Chloride 259.0909 ml @ 43.182 m... ONCE ONCE IVPB ; Start 08/09/16 at 11:00; Stop 08/09/16 at 16:59 Vancomycin HCl (Vancocin) 250 ml @ 125 mls/hr Q12H IVPB ; Start 08/09/16 at 11: 00 DEANA ALBERTO Aug 09, 2016 10:38
[2016-08-09] MEDS ORDERED: POTASSIUM PHOSPHATE 40 MEQ in SOD CHLORIDE 0.9% 250 ML IVPB ONE (11:00)
[2016-08-09] MEDS: PROPOFOL 100 ML IV SCH ×2 (11:00→20:34)
[2016-08-09] MEDS: LACTULOSE 30ML CUP PO SCH ×3 (11:02→21:04)
[2016-08-09] MEDS: VANCOMYCIN 1 GM in NS 250 ML IVPB SCH ×2 (11:32→22:59)
[2016-08-09] MEDS ORDERED: DILTIAZEM 25 MG INJ IV ONE (12:00)
[2016-08-09] MEDS: PHYTONADIONE 5 MG in DEXTROSE 5% 50 ML IVPB SCH (12:24)
--- NOTE | 2016-08-09 15:05 | PN ---
Date/Time of Note Date/Time of Note DATE: 08/09/16 TIME: 15:03 Assessment/Plan VTE Prophylaxis VTE Prophylaxis Intervention: SCD's Assessment/Plan Chief Complaint/Hosp Course 1. Acute encephalopathy secondary to hypoglycemia and substance abuse EEG and neuro consult 2. Acute respiratory failure, now ventilator dependent, secondary to #1 and CHF exacerbation Pulmonology in the case, continue vent support 3. Acute on chronic congestive heart failure exacerbation with an ejection fraction of 15% Cardiology on the case, continue diuresis 4. Chronic alcoholic with cirrhosis and coagulopathy 5. Chronic substance abuse with amphetamines and heroin. 6. Leukocytosis possibly secondary to pneumonia-resolved Continue antibiotics for now, consider discontinuation of antibiotics tomorrow as patient is still having low-grade fevers today 7. Subclinical hypothyroidism. Prophylaxis: SCDs Problems: Subjective 24 Hr Interval Summary Subjective hx not possible: pt non-verbal Exam/Review of Systems Vital Signs Vitals Vital Signs Date Time Temp Pulse Resp B/P Pulse Ox O2 Delivery O2 Flow Rate FiO2 08/09/16 12:00 93 08/09/16 09:15 22 96 40 08/09/16 06:00 119/75 Mechanical Ventilator 08/09/16 04:00 99.6 08/06/16 20:25 2.0 Intake and Output 08/08/16 08/08/16 08/09/16 15:00 23:00 07:00 Intake Total 2110.5 ml 1340 ml 1120 ml Output Total 2775 ml 2970 ml 1005 ml Balance -664.5 ml -1630 ml 115 ml Exam Constitutional: non-verbal ENMT: intubated Respiratory: clear to auscultation Cardiovascular: regular rate and rhythm Gastrointestinal: soft, No distended Musculoskeletal: nl extremities to inspection Results Result Diagram: 08/09/16 0400 08/09/16 0400 Results 24 hrs Laboratory Tests Test 08/08/16 16:04 08/08/16 21:06 08/09/16 00:36 08/09/16 04:00 Bedside Glucose 96 136 114 Activated Partial Thromboplast Time 30.3 Anion Gap 12 Basophils # 0.1 Basophils % 0.7 Blood Urea Nitrogen 26 #H Calcium Level 7.5 L Carbon Dioxide Level 33 H Chloride Level 100 Creatinine 1.15 Eosinophils # 0.4 Eosinophils % 4.8 Glucose Level 129 Hematocrit 39.1 L Hemoglobin 13.3 L INR International Normalized Ratio 1.56 Lymphocytes # 1.4 Lymphocytes % 15.0 Magnesium Level 2.0 Mean Corpuscular Hemoglobin 26.6 L Mean Corpuscular Hemoglobin Concent 34.0 Mean Corpuscular Volume 78.2 L Mean Platelet Volume 11.6 H Monocytes # 1.3 H Monocytes % 14.0 H Neutrophils # 6.0 Neutrophils % 65.2 Nucleated Red Blood Cells # 0.0 Nucleated Red Blood Cells % 0.0 Phosphorus Level 1.7 L Platelet Count 170 Potassium Level 2.6 *L Prothrombin Time 18.8 H Prothrombin Time Ratio 1.5 Red Blood Count 5.00 Red Cell Distribution Width 20.6 H Sodium Level 142 Thrombin Time 17.7 White Blood Count 9.2 Test 08/09/16 08:05 08/09/16 10:20 08/09/16 13:47 Bedside Glucose 118 137 Ammonia < 9 L Medications Medications Current Medications Spironolactone (Aldactone) 25 mg DAILY PO Last administered on 08/04/16 08:40 ; Admin Dose 25 MG; Start 08/03/16 at 11:00; Status Future Hold Ondansetron HCl (Zofran Tab) 4 mg Q6H PRN PO NAUSEA AND/OR VOMITING; Start 03/12 at 10:30 Aspirin (Aspirin) 81 mg DAILY PO Last administered on 08/09/16 08:40; Admin Dose 81 MG; Start 08/03/16 at 11:00 Nitroglycerin (Nitroglycerin (Sl Tab) 0.4 Mg) 1 tab Q5M PRN SL CHEST PAIN; Start 08/03/16 at 10:30 Acetaminophen (Tylenol Tab) 650 mg Q6H PRN PO PAIN LEVEL 1-3 OR FEVER; Start at 10:30 Docusate Sodium (Colace) 100 mg Q12H PRN PO CONSTIPATION; Start 08/03/16 at 10: 30 Hydralazine HCl (Apresoline) 10 mg Q8 PO Last administered on 08/09/16 14:20; Admin Dose 10 MG; Start 08/03/16 at 22:00 Carvedilol (Coreg) 3.125 mg BID PO Last administered on 08/09/16 08:40; Admin Dose 3.125 MG; Start 08/03/16 at 21:00 Zolpidem Tartrate (Ambien) 5 mg HS PRN PO INSOMNIA Last administered on 21:21; Admin Dose 5 MG; Start 08/03/16 at 21:00 Lorazepam (Ativan) 1 mg Q4 PRN IV ANXIETY Last administered on 08/05/16 14:46 ; Admin Dose 1 MG; Start 08/04/16 at 17:00 Diagnostic Test (Pha) 1 ea 1 ea Q4 XX Last administered on 08/09/16 12:24; Admin Dose 1 EA; Start 08/05/16 at 09:00 Propofol 100 ml @ 2.925 mls/ hr Q12H IV Last administered on 08/06/16 14:28; Admin Dose 5.85 MLS/HR; Start 08/05/16 at 11:00 Dextrose 1,000 ml @ 80 mls/hr [id number] IV Last administered on 08/09/16 12:25 ; Admin Dose 80 MLS/HR; Start 08/05/16 at 11:00 Norepinephrine/ Dextrose (Levophed/D5W) 500 ml @ 1.87 mls/hr TITRATE IV Last administered on 08/06/16 12:56; Admin Dose 30 MLS/HR; Start 08/05/16 at 13:00 Pantoprazole 40 mg 40 mg BID@06,18 IV Last administered on 08/09/16 06:02; Admin Dose 40 MG; Start 08/05/16 at 18:00 Sodium Chloride (NS) 1,000 ml @ 60 mls/hr [id number] IV Last administered on 08/09 00:30; Admin Dose 60 MLS/HR; Start 08/05/16 at 15:30 Eye Lubricant 1 applic 1 applic TID BOTH EYES Last administered on 08/09/16 12 :24; Admin Dose 1 APPLIC; Start 08/05/16 at 16:00 Cefepime HCl (Maxipime 2gm/50 ml (Pmx)) 50 ml @ 100 mls/hr Q12 IVPB Last administered on 08/09/16 08:40; Admin Dose 100 MLS/HR; Start 08/08/16 at 21:00 Lactulose 20 gm 20 gm Q8 PO Last administered on 08/09/16 14:19; Admin Dose 20 GM; Start 08/09/16 at 10:00 Potassium Phosphate 40 meq/ Sodium Chloride 259.0909 ml @ 43.182 m... ONCE ONCE IVPB Last administered on 08/09/16 11:32; Admin Dose 43.182 MLS/HR; Start 08/09/16 at 11:00; Stop 08/09/16 at 16:59 Vancomycin HCl (Vancocin) 250 ml @ 125 mls/hr Q12H IVPB Last administered on 11:32; Admin Dose 125 MLS/HR; Start 08/09/16 at 11:00 Miscellaneous Information (*Rx Drug Level Order Reminder*) VANCO TROUGH @ 1, 000 ON... ONCE ONCE XX ; Start 08/10/16 at 10:00; Stop 08/10/16 at 10:01 OREN RODRIGUEZ Aug 09, 2016 15:05
--- NOTE | 2016-08-09 19:20 | NEURPT ---
DATE: 08/08/2016 INDICATION: A 50-year-old with substance abuse; cardiomyopathy; respiratory failure, intubated; asc ites; cirrhosis; unresponsive. DESCRIPTION OF PROCEDURE: Routine EEG was recorded digitally. [id number] and irbvc-xt-tuj az ages were recorded and reviewed. All impedances were measured and recorded. Cap electrodes were pl aced in accordance to International 10-20 system of electrode placement. FINDINGS: Symmetrically distributed background activity ranging in frequency between 4 to 6 cycles per second of medium amplitude was seen most of the recording, at times slows down to 3 cycles per s econd, at times a little bit faster up to 8 cycles per second. No epileptiform transients were seen . No signs of ongoing electrographic seizures or lateralized slowing. IMPRESSION: Abnormal study secondary to background slowing which could reflect presence of encephal opathy, possibly toxic metabolic in etiology. Please correlate clinically. The EEG findings are no t specific. Dictated By: OG CAGLE/ARMANDO Conf#: [id number] DID#: [id number]
[2016-08-10] VITALS (38 sets, daily range): BP systolic 102–144; BP diastolic 60–108; PULSE 88–116; RESP 20–27
[2016-08-10] MEDS: ACCU-CHEK XX SCH ×6 (01:11→20:58)
[2016-08-10] MEDS: SOD CHLORIDE 0.9% 1,000 ML IV SCH (02:50)
[2016-08-10] MEDS: DEXTROSE 10% 1,000 ML IV SCH ×2 (02:51→15:31)
[2016-08-10 04:35] LABS: ADD SCAN DIFF NO
[2016-08-10 04:49] LABS: ABNORMAL IP MESSAGE 1; BASOPHIL # 0.1 10^3/ul (0.0-0.1); BASOPHILS % 0.7 % (0.0-2.0); EOSINOPHILS # 0.6 10^3/ul (0.0-0.5); EOSINOPHILS % 5.8 % (0.0-7.0); LYMPHOCYTES # 1.7 10^3/ul (0.8-2.9); LYMPHOCYTES % 16.7 % (15.0-51.0); MEAN CORPUSCULAR HEMOGLOBIN 26.5 pg (29.0-33.0); MEAN CORPUSCULAR HGB CONC 33.3 g/dl (32.0-37.0); MEAN CORPUSCULAR VOLUME 79.6 fl (82.0-101.0); MEAN PLATELET VOLUME 10.7 fl (7.4-10.4); MONOCYTE # 1.8 10^3/ul (0.3-0.9); MONOCYTES % 17.7 % (0.0-11.0); NEUTROPHILS % 58.7 % (39.0-77.0); PLATELET COUNT 174 10^3/UL (140-415); RED CELL DISTRIBUTION WIDTH 21.2 % (11.5-14.5); WHITE BLOOD COUNT 10.2 10^3/ul (4.8-10.8)
[2016-08-10 04:58] LABS: POTASSIUM 3.4 mmol/L (3.5-5.1)
[2016-08-10 05:00] LABS: CREATININE 1.02 mg/dl (0.61-1.24)
[2016-08-10 05:01] LABS: CALCIUM 7.4 mg/dl (8.4-10.2); MAGNESIUM 1.7 mg/dl (1.7-2.5); PHOSPHORUS 2.9 mg/dl (2.5-4.9)
[2016-08-10] MEDS ORDERED: POTASSIUM CHLORIDE 50 ML IVPB ONE (06:00)
[2016-08-10] MEDS: PANTOPRAZOLE 40 MG INJ IV SCH ×2 (06:19→17:36)
[2016-08-10] MEDS: FUROSEMIDE 20 MG INJ IV SCH ×2 (06:19→17:37)
[2016-08-10] MEDS: LACTULOSE 30ML CUP PO SCH ×3 (06:19→22:20)
--- NOTE | 2016-08-10 07:57 | CONS ---
Date/Time of Note Date/Time of Note DATE: 08/10/16 TIME: 07:54 Assessment/Plan Assessment/Plan Additional Assessment/Plan Ventilator settings are AC of 22, tidal volume 500, PEEP of 5, 40% FiO2. Assessment recommendations; 1. Patient admitted for respiratory failure, bilateral pneumonia and CHF. 2. Hepatic encephalopathy with poor mental status. 3. Poor mental status. Continue current treatment. Patient prognosis is poor. Neurology consult is pending. Consultation Date/Type/Reason Admit Date/Time Aug 03, 2016 at 14:46 Initial Consult Date 08/05/16 Type of Consultation: Pulmonary/critical care Referring Provider: JACEK HOLLEY MD 24 HR Interval Summary Free Text/Dictation Patient condition remains critical. Remains completely unresponsive. However has remained hemodynamically stable. General exam; middle-aged man, orally intubated, unresponsive. Currently in no distress. Exam/Review of Systems Vital Signs Vitals Vital Signs Date Time Temp Pulse Resp B/P Pulse Ox O2 Delivery O2 Flow Rate FiO2 08/10/16 07:21 94 22 97 40 08/10/16 06:00 144/108 Mechanical Ventilator 08/10/16 04:00 98.1 08/06/16 20:25 2.0 Intake and Output 08/09/16 08/09/16 08/10/16 15:00 23:00 07:00 Intake Total 2150.5 ml 1469 ml 1282 ml Output Total 1610 ml 1385 ml 725 ml Balance 540.5 ml 84 ml 557 ml Exam HEENT examination; supple neck, no JVD. No lymphadenopathy. Midline trachea. Pupils are small bilaterally. Patient has fair dentition, orally intubated. Chest exam is; diminished but clear breath sounds bilaterally. S1-S2 audible, no murmurs. Regular rhythm. Abdomen examination; is protuberant. Bowel sounds audible. No organomegaly. Extremity exam is; no peripheral edema. Pulses 1+ bilaterally. There is no clubbing. [employer] examination a micro patient remains unresponsive. Results Result Diagram: 08/10/16 0430 08/10/16 0430 Results 24 hrs Laboratory Tests Test 08/09/16 08:05 08/09/16 10:20 08/09/16 13:47 08/09/16 16:07 Bedside Glucose 118 137 136 Ammonia < 9 L Test 08/09/16 21:04 08/10/16 01:02 08/10/16 04:30 Bedside Glucose 135 113 Anion Gap 7 L Basophils # 0.1 Basophils % 0.7 Blood Urea Nitrogen 20 Calcium Level 7.4 L Carbon Dioxide Level 33 H Chloride Level 102 Creatinine 1.02 Eosinophils # 0.6 H Eosinophils % 5.8 Glucose Level 134 Hematocrit 39.0 L Hemoglobin 13.0 L Lymphocytes # 1.7 Lymphocytes % 16.7 Magnesium Level 1.7 Mean Corpuscular Hemoglobin 26.5 L Mean Corpuscular Hemoglobin Concent 33.3 Mean Corpuscular Volume 79.6 L Mean Platelet Volume 10.7 H Monocytes # 1.8 H Monocytes % 17.7 H Neutrophils # 6.0 Neutrophils % 58.7 Nucleated Red Blood Cells # 0.0 Nucleated Red Blood Cells % 0.0 Phosphorus Level 2.9 Platelet Count 174 Potassium Level 3.4 L Red Blood Count 4.90 Red Cell Distribution Width 21.2 H Sodium Level 139 White Blood Count 10.2 Medications Medications Current Medications Spironolactone (Aldactone) 25 mg DAILY PO Last administered on 08/04/16 08:40 ; Admin Dose 25 MG; Start 08/03/16 at 11:00; Status Future Hold Ondansetron HCl (Zofran Tab) 4 mg Q6H PRN PO NAUSEA AND/OR VOMITING; Start 03/12 at 10:30 Aspirin (Aspirin) 81 mg DAILY PO Last administered on 08/09/16 08:40; Admin Dose 81 MG; Start 08/03/16 at 11:00 Nitroglycerin (Nitroglycerin (Sl Tab) 0.4 Mg) 1 tab Q5M PRN SL CHEST PAIN; Start 08/03/16 at 10:30 Acetaminophen (Tylenol Tab) 650 mg Q6H PRN PO PAIN LEVEL 1-3 OR FEVER; Start at 10:30 Docusate Sodium (Colace) 100 mg Q12H PRN PO CONSTIPATION; Start 08/03/16 at 10: 30 Hydralazine HCl (Apresoline) 10 mg Q8 PO Last administered on 08/10/16 06:19; Admin Dose 10 MG; Start 08/03/16 at 22:00 Carvedilol (Coreg) 3.125 mg BID PO Last administered on 08/09/16 21:06; Admin Dose 3.125 MG; Start 08/03/16 at 21:00 Zolpidem Tartrate (Ambien) 5 mg HS PRN PO INSOMNIA Last administered on 21:21; Admin Dose 5 MG; Start 08/03/16 at 21:00 Lorazepam (Ativan) 1 mg Q4 PRN IV ANXIETY Last administered on 08/05/16 14:46 ; Admin Dose 1 MG; Start 08/04/16 at 17:00 Diagnostic Test (Pha) 1 ea 1 ea Q4 XX Last administered on 08/10/16 05:15; Admin Dose 1 EA; Start 08/05/16 at 09:00 Propofol 100 ml @ 2.925 mls/ hr Q12H IV Last administered on 08/06/16 14:28; Admin Dose 5.85 MLS/HR; Start 08/05/16 at 11:00 Dextrose 1,000 ml @ 80 mls/hr [id number] IV Last administered on 08/10/16 02:51 ; Admin Dose 80 MLS/HR; Start 08/05/16 at 11:00 Norepinephrine/ Dextrose (Levophed/D5W) 500 ml @ 1.87 mls/hr TITRATE IV Last administered on 08/06/16 12:56; Admin Dose 30 MLS/HR; Start 08/05/16 at 13:00 Pantoprazole 40 mg 40 mg BID@06,18 IV Last administered on 08/10/16 06:19; Admin Dose 40 MG; Start 08/05/16 at 18:00 Sodium Chloride (NS) 1,000 ml @ 60 mls/hr [id number] IV Last administered on 08/10 02:50; Admin Dose 60 MLS/HR; Start 08/05/16 at 15:30 Eye Lubricant 1 applic 1 applic TID BOTH EYES Last administered on 08/09/16 21 :04; Admin Dose 1 APPLIC; Start 08/05/16 at 16:00 Cefepime HCl (Maxipime 2gm/50 ml (Pmx)) 50 ml @ 100 mls/hr Q12 IVPB Last administered on 08/09/16 21:05; Admin Dose 100 MLS/HR; Start 08/08/16 at 21:00 Lactulose 20 gm 20 gm Q8 PO Last administered on 08/10/16 06:19; Admin Dose 20 GM; Start 08/09/16 at 10:00 Vancomycin HCl (Vancocin) 250 ml @ 125 mls/hr Q12H IVPB Last administered on 22:59; Admin Dose 125 MLS/HR; Start 08/09/16 at 11:00 Miscellaneous Information VANCO TROUGH @ 1,000 ON... ONCE ONCE XX ; Start at 10:00; Stop 08/10/16 at 10:01 Potassium Chloride (KCl 20 MEQ/50 ML SW) 50 ml @ 25 mls/hr ONCE ONCE IVPB Last administered on 08/10/16 06:19; Admin Dose 25 MLS/HR; Start 08/10/16 at 06 :00; Stop 08/10/16 at 07:59 YOUSUF MILNER 17, 2017 07:57
[2016-08-10] MEDS: CEFEPIME 2GM/50 ML IVPB SCH ×2 (09:03→20:57)
[2016-08-10] MEDS: OCULAR LUBRICANT 3.5 GM OPH OINT BOTH EYES SCH ×3 (09:04→20:57)
[2016-08-10] MEDS: ASPIRIN 81 MG TAB PO SCH (09:04)
--- NOTE | 2016-08-10 09:22 | RADRPT ---
PROCEDURE: XR Chest. CLINICAL INDICATION: Shortness of breath. TECHNIQUE: Single frontal view. COMPARISON: 08/09/2016. FINDINGS: The endotracheal tube, nasogastric tube, and left arm PICC line remain in satisfactory position. Pu lmonary edema and atelectasis at the lung bases is unchanged. The heart is enlarged. There are moderate bilateral pleural effusions. There is no pneumothorax. IMPRESSION: 1. No change from 08/09/2016. RPTAT: QQ .Robson Tellez MD, MD Date Time Electronically viewed and signed by .Robson Tellez MD, MD on 08/10/2016 09:22 .R/
[2016-08-10] MEDS: PROPOFOL 100 ML IV SCH ×2 (11:00→23:00)
--- NOTE | 2016-08-10 11:16 | CONS ---
Date/Time of Note Date/Time of Note DATE: 08/10/16 TIME: 11:11 Assessment/Plan Assessment/Plan Chief Complaint/Hosp Course IMPRESSION: 1. Congestive heart failure exacerbation, systolic, acute on chronic-worsening by cxr 2. Cardiomyopathy with severely depressed left ventricular ejection fraction approximately 15%. 3. Abnormal electrocardiogram, assess for acute coronary syndrome.-negative troponin x 3 4. Hypotension, borderline. 5. Lower extremity edema. 6. Possible lower extremity cellulitis. 7. Renal failure-improving 8. Substance abuse-ongoing 9. Coagulopathy 10. Resp failure s/p intubation 11.Hypoglycemia-? etiology liver failure 12.Encephalopathy Recc: -Tele -Continue coreg/hydralazine as tolerated only -Continue gentle lasix diuresis as tolerated only -Continue asa -Resume aldactone -Follow BS closely -Wean vent as tolerated Problems: Consultation Date/Type/Reason Admit Date/Time Aug 03, 2016 at 14:46 Initial Consult Date 08/03/2016 Type of Consultation: Cardiology Reason for Consultation CHF Referring Provider: JACEK HOLLEY MD Exam/Review of Systems Vital Signs Vitals Vital Signs Date Time Temp Pulse Resp B/P Pulse Ox O2 Delivery O2 Flow Rate FiO2 08/10/16 10:00 93 22 109/65 98 Mechanical Ventilator 08/10/16 09:40 40 08/10/16 08:00 98.8 08/06/16 20:25 2.0 Intake and Output 08/09/16 08/09/16 08/10/16 15:00 23:00 07:00 Intake Total 2150.5 ml 1469 ml 1282 ml Output Total 1610 ml 1385 ml 725 ml Balance 540.5 ml 84 ml 557 ml Exam Review of Systems: CONSTITUTIONAL: No fevers, chills. PULMONARY: intubated CARDIOVASCULAR: No obvious chest pain/palpitations GASTROINTESTINAL: No nausea/vomiting. GENITOURINARY: No hematuria/dysuria. MUSCULOSKELETAL: No obvious myagias/arthalgias. PSYCHIATRIC: The patient denies depression. NEUROLOGIC: encephalopathic Constitutional: other (encephalopathic) Head: normocephalic ENMT: mucosa pink and moist Neck: jvd (9 cm water), supple Respiratory: diminished breath sounds (at bases/B) Cardiovascular: regular rate and rhythm Gastrointestinal: non-tender, soft Musculoskeletal: muscle tone (normal) Extremities: pitting pedal edema (trace/B) Neurological: other (No focal deficits) Results Result Diagram: 08/10/16 0430 08/10/16 0430 Results 24 hrs Laboratory Tests Test 08/09/16 13:47 08/09/16 16:07 08/09/16 21:04 08/10/16 01:02 Bedside Glucose 137 136 135 113 Test 08/10/16 04:30 08/10/16 09:08 08/10/16 09:53 Anion Gap 7 L Basophils # 0.1 Basophils % 0.7 Blood Urea Nitrogen 20 Calcium Level 7.4 L Carbon Dioxide Level 33 H Chloride Level 102 Creatinine 1.02 Eosinophils # 0.6 H Eosinophils % 5.8 Glucose Level 134 Hematocrit 39.0 L Hemoglobin 13.0 L Lymphocytes # 1.7 Lymphocytes % 16.7 Magnesium Level 1.7 Mean Corpuscular Hemoglobin 26.5 L Mean Corpuscular Hemoglobin Concent 33.3 Mean Corpuscular Volume 79.6 L Mean Platelet Volume 10.7 H Monocytes # 1.8 H Monocytes % 17.7 H Neutrophils # 6.0 Neutrophils % 58.7 Nucleated Red Blood Cells # 0.0 Nucleated Red Blood Cells % 0.0 Phosphorus Level 2.9 Platelet Count 174 Potassium Level 3.4 L Red Blood Count 4.90 Red Cell Distribution Width 21.2 H Sodium Level 139 White Blood Count 10.2 Bedside Glucose 114 Vancomycin Level Trough 17.6 Medications Medications Current Medications Spironolactone (Aldactone) 25 mg DAILY PO Last administered on 08/04/16 08:40 ; Admin Dose 25 MG; Start 08/03/16 at 11:00; Status Future Hold Ondansetron HCl (Zofran Tab) 4 mg Q6H PRN PO NAUSEA AND/OR VOMITING; Start 03/12 at 10:30 Aspirin (Aspirin) 81 mg DAILY PO Last administered on 08/10/16 09:04; Admin Dose 81 MG; Start 08/03/16 at 11:00 Nitroglycerin (Nitroglycerin (Sl Tab) 0.4 Mg) 1 tab Q5M PRN SL CHEST PAIN; Start 08/03/16 at 10:30 Acetaminophen (Tylenol Tab) 650 mg Q6H PRN PO PAIN LEVEL 1-3 OR FEVER; Start at 10:30 Docusate Sodium (Colace) 100 mg Q12H PRN PO CONSTIPATION; Start 08/03/16 at 10: 30 Hydralazine HCl (Apresoline) 10 mg Q8 PO Last administered on 08/10/16 06:19; Admin Dose 10 MG; Start 08/03/16 at 22:00 Carvedilol (Coreg) 3.125 mg BID PO Last administered on 08/10/16 09:04; Admin Dose 3.125 MG; Start 08/03/16 at 21:00 Zolpidem Tartrate (Ambien) 5 mg HS PRN PO INSOMNIA Last administered on 21:21; Admin Dose 5 MG; Start 08/03/16 at 21:00 Lorazepam (Ativan) 1 mg Q4 PRN IV ANXIETY Last administered on 08/05/16 14:46 ; Admin Dose 1 MG; Start 08/04/16 at 17:00 Diagnostic Test (Pha) 1 ea 1 ea Q4 XX Last administered on 08/10/16 09:18; Admin Dose 1 EA; Start 08/05/16 at 09:00 Propofol 100 ml @ 2.925 mls/ hr Q12H IV Last administered on 08/06/16 14:28; Admin Dose 5.85 MLS/HR; Start 08/05/16 at 11:00 Dextrose 1,000 ml @ 80 mls/hr [id number] IV Last administered on 08/10/16 02:51 ; Admin Dose 80 MLS/HR; Start 08/05/16 at 11:00 Norepinephrine/ Dextrose (Levophed/D5W) 500 ml @ 1.87 mls/hr TITRATE IV Last administered on 08/06/16 12:56; Admin Dose 30 MLS/HR; Start 08/05/16 at 13:00 Pantoprazole 40 mg 40 mg BID@06,18 IV Last administered on 08/10/16 06:19; Admin Dose 40 MG; Start 08/05/16 at 18:00 Sodium Chloride (NS) 1,000 ml @ 60 mls/hr [id number] IV Last administered on 08/10 02:50; Admin Dose 60 MLS/HR; Start 08/05/16 at 15:30 Eye Lubricant 1 applic 1 applic TID BOTH EYES Last administered on 08/10/16 09 :04; Admin Dose 1 APPLIC; Start 08/05/16 at 16:00 Cefepime HCl (Maxipime 2gm/50 ml (Pmx)) 50 ml @ 100 mls/hr Q12 IVPB Last administered on 08/10/16 09:03; Admin Dose 100 MLS/HR; Start 08/08/16 at 21:00 Lactulose 20 gm 20 gm Q8 PO Last administered on 08/10/16 06:19; Admin Dose 20 GM; Start 08/09/16 at 10:00 Vancomycin HCl (Vancocin) 250 ml @ 125 mls/hr Q12H IVPB Last administered on 22:59; Admin Dose 125 MLS/HR; Start 08/09/16 at 11:00 DEANA ALBERTO Aug 10, 2016 11:15
[2016-08-10] MEDS: VANCOMYCIN 750 MG in SOD CHLORIDE 0.9% 150 ML IVPB SCH (13:15)
--- NOTE | 2016-08-10 15:16 | CONS ---
Date/Time of Note Date/Time of Note DATE: 08/10/16 TIME: 15:03 Assessment/Plan Assessment/Plan Chief Complaint/Hosp Course AMS Problems: Additional Assessment/Plan This is a 50-year-old male with past medical history of cardiomyopathy with ejection fraction of 15%, anxiety, substance abuse, methamphetamine and heroin abuse, cirrhosis, congestive heart failure, pulmonary hypertension, was brought in for abdominal pain, abdominal distention and worsening of shortness of breath and lower extremity edema. He was admitted for evaluation. He progressed to respiratory failure and is currently intubated. He was initially sedated with Diprivan and is currently off it. He has not been waking up. EEG showed generalized background bi hemispheric slowing suggesting encephalopathy. Neurology consult was called to evaluate his mental status. Examination was limited. Pupils are equally reacting, no withdrawal to noxious stimuli. Plan: 1. Avoid sedation 2. Ammonia level 3. CT brain today 4. MRI of brain 5. Will follow Consultation Date/Type/Reason Admit Date/Time Aug 03, 2016 at 14:46 Date of Consultation: Aug 10, 2016 Type of Consultation: Neurology Reason for Consultation Altered mental status Referring Provider: JACEK HOLLEY MD Hx of Present Illness This is a 50-year-old male with past medical history of cardiomyopathy with ejection fraction of 15%, anxiety, substance abuse, methamphetamine and heroin abuse, cirrhosis, congestive heart failure, pulmonary hypertension, was brought in for abdominal pain, abdominal distention and worsening of shortness of breath and lower extremity edema. He was admitted for evaluation. He progreaased to respiratory faluire and is currently intubated. He was initially sedated with Diprivan and is currently off it. He has not been waking up. EEG showed generalized background bi hemispheric slowing suggesting encephalopathy. neurology consult was called to evaluate his mental status. unjable to evaluate Psychological: no complaints Past Medical History Medical History: other (cirrhosis) Past Surgical History Past Surgical Hx: cholecystectomy Social History Smoking Status: Current every day smoker Drug Use: cocaine, heroin Exam/Review of Systems Vital Signs Vitals Vital Signs Date Time Temp Pulse Resp B/P Pulse Ox O2 Delivery O2 Flow Rate FiO2 08/10/16 13:30 91 22 98 40 08/10/16 13:00 102/77 Mechanical Ventilator 08/10/16 12:00 98.7 08/06/16 20:25 2.0 Intake and Output 08/09/16 08/09/16 08/10/16 15:00 23:00 07:00 Intake Total 2150.5 ml 1469 ml 1452 ml Output Total 1610 ml 1385 ml 1725 ml Balance 540.5 ml 84 ml -273 ml Exam Constitutional: other (Intubated, ventilated) Head: atraumatic, normocephalic Eyes: EOMI, nl conjunctiva, nl lids, nl sclera ENMT: nl external ears & nose, nl lips & teeth, nl nasal mucosa & septum Neck: non-tender, supple Respiratory: normal air movement Cardiovascular: nl pulses, regular rate and rhythm Gastrointestinal: soft Extremities: normal pulses, other (Limited exam, intubated, ventilated, pupils are equally reacting, does not follow commands, does not withdraw to noxious stimuli) Results Result Diagram: 08/10/16 0430 08/10/16 1025 Results 24 hrs Laboratory Tests Test 08/09/16 16:07 08/09/16 21:04 08/10/16 01:02 08/10/16 04:30 Bedside Glucose 136 135 113 Anion Gap 7 L Basophils # 0.1 Basophils % 0.7 Blood Urea Nitrogen 20 Calcium Level 7.4 L Carbon Dioxide Level 33 H Chloride Level 102 Creatinine 1.02 Eosinophils # 0.6 H Eosinophils % 5.8 Glucose Level 134 Hematocrit 39.0 L Hemoglobin 13.0 L Lymphocytes # 1.7 Lymphocytes % 16.7 Magnesium Level 1.7 Mean Corpuscular Hemoglobin 26.5 L Mean Corpuscular Hemoglobin Concent 33.3 Mean Corpuscular Volume 79.6 L Mean Platelet Volume 10.7 H Monocytes # 1.8 H Monocytes % 17.7 H Neutrophils # 6.0 Neutrophils % 58.7 Nucleated Red Blood Cells # 0.0 Nucleated Red Blood Cells % 0.0 Phosphorus Level 2.9 Platelet Count 174 Potassium Level 3.4 L Red Blood Count 4.90 Red Cell Distribution Width 21.2 H Sodium Level 139 White Blood Count 10.2 Test 08/10/16 09:08 08/10/16 09:53 08/10/16 10:25 08/10/16 13:19 Bedside Glucose 114 117 Vancomycin Level Trough 17.6 Potassium Level 3.6 Medications Medications Current Medications Spironolactone (Aldactone) 25 mg DAILY PO Last administered on 08/04/16t 08:40 ; Admin Dose 25 MG; Start 08/03/16 at 11:00; Status Future Hold Ondansetron HCl (Zofran Tab) 4 mg Q6H PRN PO NAUSEA AND/OR VOMITING; Start 03/12 at 10:30 Aspirin (Aspirin) 81 mg DAILY PO Last administered on 08/10/16 09:04; Admin Dose 81 MG; Start 08/03/16 at 11:00 Nitroglycerin (Nitroglycerin (Sl Tab) 0.4 Mg) 1 tab Q5M PRN SL CHEST PAIN; Start 08/03/16 at 10:30 Acetaminophen (Tylenol Tab) 650 mg Q6H PRN PO PAIN LEVEL 1-3 OR FEVER; Start at 10:30 Docusate Sodium (Colace) 100 mg Q12H PRN PO CONSTIPATION; Start 08/03/16 at 10: 30 Hydralazine HCl (Apresoline) 10 mg Q8 PO Last administered on 08/10/16 14:34; Admin Dose 10 MG; Start 08/03/16 at 22:00 Carvedilol (Coreg) 3.125 mg BID PO Last administered on 08/10/16 09:04; Admin Dose 3.125 MG; Start 08/03/16 at 21:00 Zolpidem Tartrate (Ambien) 5 mg HS PRN PO INSOMNIA Last administered on 21:21; Admin Dose 5 MG; Start 08/03/16 at 21:00 Lorazepam (Ativan) 1 mg Q4 PRN IV ANXIETY Last administered on 08/05/16 14:46 ; Admin Dose 1 MG; Start 08/04/16 at 17:00 Diagnostic Test (Pha) 1 ea 1 ea Q4 XX Last administered on 08/10/16 13:23; Admin Dose 1 EA; Start 08/05/16 at 09:00 Propofol 100 ml @ 2.925 mls/ hr Q12H IV Last administered on 08/06/16 14:28; Admin Dose 5.85 MLS/HR; Start 08/05/16 at 11:00 Dextrose 1,000 ml @ 80 mls/hr [id number] IV Last administered on 08/10/16 02:51 ; Admin Dose 80 MLS/HR; Start 08/05/16 at 11:00 Norepinephrine/ Dextrose (Levophed/D5W) 500 ml @ 1.87 mls/hr TITRATE IV Last administered on 08/06/16 12:56; Admin Dose 30 MLS/HR; Start 08/05/16 at 13:00 Pantoprazole 40 mg 40 mg BID@06,18 IV Last administered on 08/10/16 06:19; Admin Dose 40 MG; Start 08/05/16 at 18:00 Sodium Chloride (NS) 1,000 ml @ 60 mls/hr [id number] IV Last administered on 08/10 02:50; Admin Dose 60 MLS/HR; Start 08/05/16 at 15:30 Eye Lubricant 1 applic 1 applic TID BOTH EYES Last administered on 08/10/16 13 :15; Admin Dose 1 APPLIC; Start 08/05/16 at 16:00 Cefepime HCl (Maxipime 2gm/50 ml (Pmx)) 50 ml @ 100 mls/hr Q12 IVPB Last administered on 08/10/16 09:03; Admin Dose 100 MLS/HR; Start 08/08/16 at 21:00 Lactulose (Enulose) 20 gm Q8 PO Last administered on 08/10/16 14:32; Admin Dose 20 GM; Start 08/09/16 at 10:00 Spironolactone 12.5 mg 12.5 mg DAILY@06 PO ; Start 08/11/16 at 06:00 Vancomycin HCl/ Sodium Chloride (Vancocin/NS) 150 ml @ 75 mls/hr Q12H IVPB Last administered on 08/10/16 13:15; Admin Dose 75 MLS/HR; Start 08/10/16 at 13 :00 GARY KNOWLES MD Aug 10, 2016 15:15
--- NOTE | 2016-08-10 15:17 | PN ---
Date/Time of Note Date/Time of Note DATE: 08/10/16 TIME: 14:54 Assessment/Plan VTE Prophylaxis VTE Prophylaxis Intervention: SCD's Assessment/Plan Chief Complaint/Hosp Course 1. Acute encephalopathy secondary to hypoglycemia and substance abuse EEG suggests toxic metabolic encephalopathy, neuro consult Family conference held today, family does not feel that patient would have wanted to be trached, we will continue to monitor neuro status on a daily basis` 2. Acute respiratory failure, now ventilator dependent, secondary to #1 and CHF exacerbation Pulmonology in the case, continue vent support 3. Acute on chronic congestive heart failure exacerbation with an ejection fraction of 15% Cardiology on the case, continue diuresis 4. Chronic alcoholic with cirrhosis and coagulopathy 5. Chronic substance abuse with amphetamines and heroin. 6. Leukocytosis possibly secondary to pneumonia-resolved Continue antibiotics for now, consider discontinuation of antibiotics tomorrow as patient is still having low-grade fevers today 7. Subclinical hypothyroidism. Prophylaxis: SCDs Problems: Subjective 24 Hr Interval Summary Subjective hx not possible: pt non-verbal Exam/Review of Systems Vital Signs Vitals Vital Signs Date Time Temp Pulse Resp B/P Pulse Ox O2 Delivery O2 Flow Rate FiO2 08/10/16 13:00 92 22 102/77 98 Mechanical Ventilator 08/10/16 12:00 98.7 08/10/16 11:45 40 08/06/16 20:25 2.0 Intake and Output 08/09/16 08/09/16 08/10/16 15:00 23:00 07:00 Intake Total 2150.5 ml 1469 ml 1422 ml Output Total 1610 ml 1385 ml 725 ml Balance 540.5 ml 84 ml 697 ml Exam Constitutional: non-verbal Respiratory: clear to auscultation Cardiovascular: regular rate and rhythm Gastrointestinal: soft, No distended Musculoskeletal: nl extremities to inspection Results Result Diagram: 08/10/16 0430 08/10/16 1025 Results 24 hrs Laboratory Tests Test 08/09/16 16:07 08/09/16 21:04 08/10/16 01:02 08/10/16 04:30 Bedside Glucose 136 135 113 Anion Gap 7 L Basophils # 0.1 Basophils % 0.7 Blood Urea Nitrogen 20 Calcium Level 7.4 L Carbon Dioxide Level 33 H Chloride Level 102 Creatinine 1.02 Eosinophils # 0.6 H Eosinophils % 5.8 Glucose Level 134 Hematocrit 39.0 L Hemoglobin 13.0 L Lymphocytes # 1.7 Lymphocytes % 16.7 Magnesium Level 1.7 Mean Corpuscular Hemoglobin 26.5 L Mean Corpuscular Hemoglobin Concent 33.3 Mean Corpuscular Volume 79.6 L Mean Platelet Volume 10.7 H Monocytes # 1.8 H Monocytes % 17.7 H Neutrophils # 6.0 Neutrophils % 58.7 Nucleated Red Blood Cells # 0.0 Nucleated Red Blood Cells % 0.0 Phosphorus Level 2.9 Platelet Count 174 Potassium Level 3.4 L Red Blood Count 4.90 Red Cell Distribution Width 21.2 H Sodium Level 139 White Blood Count 10.2 Test 08/10/16 09:08 08/10/16 09:53 08/10/16 10:25 08/10/16 13:19 Bedside Glucose 114 117 Vancomycin Level Trough 17.6 Potassium Level 3.6 Medications Medications Current Medications Spironolactone (Aldactone) 25 mg DAILY PO Last administered on 08/04/16 08:40 ; Admin Dose 25 MG; Start 08/03/16 at 11:00; Status Future Hold Ondansetron HCl (Zofran Tab) 4 mg Q6H PRN PO NAUSEA AND/OR VOMITING; Start 03/12 at 10:30 Aspirin (Aspirin) 81 mg DAILY PO Last administered on 08/10/16 09:04; Admin Dose 81 MG; Start 08/03/16 at 11:00 Nitroglycerin (Nitroglycerin (Sl Tab) 0.4 Mg) 1 tab Q5M PRN SL CHEST PAIN; Start 08/03/16 at 10:30 Acetaminophen (Tylenol Tab) 650 mg Q6H PRN PO PAIN LEVEL 1-3 OR FEVER; Start at 10:30 Docusate Sodium (Colace) 100 mg Q12H PRN PO CONSTIPATION; Start 08/03/16 at 10: 30 Hydralazine HCl (Apresoline) 10 mg Q8 PO Last administered on 08/10/16 14:34; Admin Dose 10 MG; Start 08/03/16 at 22:00 Carvedilol (Coreg) 3.125 mg BID PO Last administered on 08/10/16 09:04; Admin Dose 3.125 MG; Start 08/03/16 at 21:00 Zolpidem Tartrate (Ambien) 5 mg HS PRN PO INSOMNIA Last administered on 21:21; Admin Dose 5 MG; Start 08/03/16 at 21:00 Lorazepam (Ativan) 1 mg Q4 PRN IV ANXIETY Last administered on 08/05/16 14:46 ; Admin Dose 1 MG; Start 08/04/16 at 17:00 Diagnostic Test (Pha) 1 ea 1 ea Q4 XX Last administered on 08/10/16 13:23; Admin Dose 1 EA; Start 08/05/16 at 09:00 Propofol 100 ml @ 2.925 mls/ hr Q12H IV Last administered on 08/06/16 14:28; Admin Dose 5.85 MLS/HR; Start 08/05/16 at 11:00 Dextrose 1,000 ml @ 80 mls/hr [id number] IV Last administered on 08/10/16 02:51 ; Admin Dose 80 MLS/HR; Start 08/05/16 at 11:00 Norepinephrine/ Dextrose (Levophed/D5W) 500 ml @ 1.87 mls/hr TITRATE IV Last administered on 08/06/16 12:56; Admin Dose 30 MLS/HR; Start 08/05/16 at 13:00 Pantoprazole 40 mg 40 mg BID@06,18 IV Last administered on 08/10/16 06:19; Admin Dose 40 MG; Start 08/05/16 at 18:00 Sodium Chloride (NS) 1,000 ml @ 60 mls/hr [id number] IV Last administered on 08/10 02:50; Admin Dose 60 MLS/HR; Start 08/05/16 at 15:30 Eye Lubricant 1 applic 1 applic TID BOTH EYES Last administered on 08/10/16 13 :15; Admin Dose 1 APPLIC; Start 08/05/16 at 16:00 Cefepime HCl (Maxipime 2gm/50 ml (Pmx)) 50 ml @ 100 mls/hr Q12 IVPB Last administered on 08/10/16 09:03; Admin Dose 100 MLS/HR; Start 08/08/16 at 21:00 Lactulose (Enulose) 20 gm Q8 PO Last administered on 08/10/16 14:32; Admin Dose 20 GM; Start 08/09/16 at 10:00 Spironolactone 12.5 mg 12.5 mg DAILY@06 PO ; Start 08/11/16 at 06:00 Vancomycin HCl/ Sodium Chloride (Vancocin/NS) 150 ml @ 75 mls/hr Q12H IVPB Last administered on 08/10/16t 13:15; Admin Dose 75 MLS/HR; Start 08/10/16 at 13 :00 OREN RODRIGUEZ Aug 10, 2016 15:16
--- NOTE | 2016-08-10 22:10 | RADRPT ---
PROCEDURE: CT Head without. CLINICAL INDICATION: Altered mental status. TECHNIQUE: The study was performed utilizing a multi-slice, multidetector CT scanner. Direct spira l 1 mm axial sections were obtained through the head without the use of intravenous contrast materia l. 1 or more of the following dose reduction techniques were utilized: Automated exposure control, adjustment of the mA and/or kV according to patient's size, iterative reconstruction technique. Co vinod and sagittal reformations were obtained. The images were reviewed on a PACS workstation. RADIATION DOSE: CTDIvol: 44.9 mGyDLP: 720.2 mGy-cm COMPARISON: No prior studies are available for comparison. FINDINGS: There is no intracranial hemorrhage, extra-axial fluid collection, mass lesion, midline shift or hyd rocephalus. There is mild prominence of the frontal horns, bodies and occipital horns of both later al ventricles. The temporal horns are normal in size. The cerebral sulci and basal cisterns are wi thin normal limits. The white matter is unremarkable. The pena-white matter differentiation is pre served. The basal cisterns are patent. The midline structures are intact. The orbits, calvarium a nd extracranial soft tissues are normal in appearance. The visualized paranasal sinuses, mastoid air cells and middle ear cavities are normally aerated. IMPRESSION: 1. No acute intracranial abnormality. No intracranial hemorrhage, extra-axial fluid collection, ma ss lesion or hydrocephalous. RPTAT: HGAS .Gaurang Umana MD, Date Time Electronically viewed and signed by .Gaurang Umana MD, MD on 08/10/2016 22:10 .S/
[2016-08-11] VITALS (44 sets, daily range): BP systolic 98–142; BP diastolic 61–106; PULSE 91–112; RESP 16–30
[2016-08-11] MEDS: ACCU-CHEK XX SCH ×6 (01:00→21:46)
[2016-08-11] MEDS: VANCOMYCIN 750 MG in SOD CHLORIDE 0.9% 150 ML IVPB SCH ×2 (01:13→13:13)
[2016-08-11] MEDS: SOD CHLORIDE 0.9% 1,000 ML IV SCH (01:30)
[2016-08-11] MEDS: DEXTROSE 10% 1,000 ML IV SCH (03:27)
[2016-08-11 05:51] LABS: ADD SCAN DIFF NO
[2016-08-11 05:57] LABS: ABNORMAL IP MESSAGE 1; BASOPHIL # 0.1 10^3/ul (0.0-0.1); BASOPHILS % 0.6 % (0.0-2.0); EOSINOPHILS # 0.6 10^3/ul (0.0-0.5); EOSINOPHILS % 4.8 % (0.0-7.0); HEMATOCRIT 42.6 % (42.0-52.0); HEMOGLOBIN 14.1 g/dl (14.0-18.0); LYMPHOCYTES % 15.7 % (15.0-51.0); MEAN CORPUSCULAR HEMOGLOBIN 26.5 pg (29.0-33.0); MEAN CORPUSCULAR HGB CONC 33.1 g/dl (32.0-37.0); MEAN CORPUSCULAR VOLUME 79.9 fl (82.0-101.0); MEAN PLATELET VOLUME 10.9 fl (7.4-10.4); NEUTROPHIL # 7.7 10^3/ul (1.6-7.5); NEUTROPHILS % 62.3 % (39.0-77.0); PLATELET COUNT 223 10^3/UL (140-415); RED BLOOD COUNT 5.33 10^6/ul (4.70-6.10); RED CELL DISTRIBUTION WIDTH 20.8 % (11.5-14.5); WHITE BLOOD COUNT 12.4 10^3/ul (4.8-10.8)
[2016-08-11 06:06] LABS: POTASSIUM 3.4 mmol/L (3.5-5.1)
[2016-08-11 06:09] LABS: CALCIUM 7.7 mg/dl (8.4-10.2); CREATININE 1.01 mg/dl (0.61-1.24)
[2016-08-11] MEDS: SPIRONOLACTONE 25 MG TAB PO SCH (06:26)
[2016-08-11] MEDS: PANTOPRAZOLE 40 MG INJ IV SCH ×2 (06:26→17:37)
[2016-08-11] MEDS: FUROSEMIDE 20 MG INJ IV SCH (06:26)
[2016-08-11] MEDS: LACTULOSE 30ML CUP PO SCH ×3 (06:27→21:43)
[2016-08-11] MEDS: ASPIRIN 81 MG TAB PO SCH (09:42)
[2016-08-11] MEDS: CEFEPIME 2GM/50 ML IVPB SCH ×2 (09:43→21:44)
[2016-08-11] MEDS: OCULAR LUBRICANT 3.5 GM OPH OINT BOTH EYES SCH ×3 (09:44→21:44)
[2016-08-11] MEDS ORDERED: POTASSIUM CHLORIDE 250 ML IVPB ONE (11:00)
[2016-08-11] MEDS: PROPOFOL 100 ML IV SCH ×2 (11:00→23:00)
--- NOTE | 2016-08-11 12:04 | PN ---
DATE: 08/11/2016 SUBJECTIVE: Patient Alis continues mechanical ventilation. He is largely somnolent. OBJECTIVE: VITAL SIGNS: Temperature 98, pulse is 96, blood pressure 124/75, O2 saturation 96%, FIO2 of 40%. NECK: Supple. No JVD or lymphadenopathy. CARDIAC: S1, S2, no added sounds or murmurs. CHEST: Diminished air entry bilaterally. ABDOMEN: Soft, nontender. No guarding or rebound. Obese. EXTREMITIES: No cyanosis, clubbing. 1+ edema. NEUROLOGIC: Generalized weakness. LABORATORY DATA: White count 12.4, hemoglobin 14.1, platelets of 223. BUN 20, creatinine 1.01. La st ABG: pH of 7.49, pCO2 of 35, pO2 of 82. INR 1.56. IMPRESSION AND PLAN: 1. Hypoxemic respiratory failure. 2. Aspiration pneumonia. 3. Polysubstance abuse. 4. Encephalopathy, toxic metabolic. 5. Pleural effusions with congestive cardiac failure. The patient will require 1. Continue mechanical ventilation. 2. Aspiration precautions. 3. Neuro recommendations. 4. Tube feedings as tolerated. 5. Broad-spectrum antibiotic coverage. 6. Gentle diuresis. 7. Deep venous thrombosis and gastrointestinal prophylaxis. Overall prognosis is guarded. Dictated By: POLO PALOMO/ARMANDO Conf#: [id number] DID#: [id number]
--- NOTE | 2016-08-11 12:22 | CONS ---
Date/Time of Note Date/Time of Note DATE: 08/11/16 TIME: 12:17 Assessment/Plan Assessment/Plan Additional Assessment/Plan 1. Congestive heart failure exacerbation, systolic, acute on chronic-worsening by cxr - stable, con't to optimize fluid status. 2. Cardiomyopathy with severely depressed left ventricular ejection fraction approximately 15% - no indication for ICD now. . 3. Abnormal electrocardiogram, assess for acute coronary syndrome.-negative troponin x 3 4. Hypotension, borderline - BP stable, con't Med Rx. 5. Lower extremity edema- con't to remove fluid as tolerated. 6. Possible lower extremity cellulitis. 7. Renal failure-improving 8. Substance abuse-ongoing 9. Coagulopathy 10. Resp failure s/p intubation - con't resp Rx. 11.Hypoglycemia-? etiology liver failure 12.Encephalopathy Consultation Date/Type/Reason Admit Date/Time Aug 03, 2016 at 14:46 Initial Consult Date 08/05/16 Type of Consultation: Neurology Referring Provider: JACEK HOLLEY MD 24 HR Interval Summary Free Text/Dictation NO acute change - occasional SVT - no intervention planned. ROS: No fever, no chills, no nausea, no vomiting, no diarrhea/constipation No recent weight changes No chest pain, no PND, no orthopnea No dizziness, blurred vision No thirst, no heat or cold intolerance (per nurse abasement) Exam/Review of Systems Vital Signs Vitals Vital Signs Date Time Temp Pulse Resp B/P Pulse Ox O2 Delivery O2 Flow Rate FiO2 08/11/16 11:00 98.5 93 23 118/70 98 Mechanical Ventilator 08/11/16 10:07 40 Intake and Output 08/10/16 08/10/16 08/11/16 15:00 23:00 07:00 Intake Total 1540 ml 1170 ml 1360 ml Output Total 2005 ml 2145 ml 575 ml Balance -465 ml -975 ml 785 ml Exam General: WN/WD/NAD, AOx 0 HEENT: Unicetric/atraumatic/EOMI (does not follow commands) NECK: JVD elevated, no thyromegaly, intub Lymph: no lymphadenopathy HEART: regular with no S3, II/ systolic murmur at apex LUNGS: Coarse sounds ABD: soft, NT, ND, +BS : Intact Neuro: non focal SKIN: chronic changes EXT: trace edema Results Result Diagram: 3/18/17 0445 08/11/16 0445 Results 24 hrs Laboratory Tests Test 08/10/16 13:19 08/10/16 17:36 08/10/16 20:33 08/11/16 01:14 Bedside Glucose 117 107 116 128 Test 08/11/16 04:45 08/11/16 04:51 08/11/16 09:43 Anion Gap 13 Basophils # 0.1 Basophils % 0.6 Blood Urea Nitrogen 20 Calcium Level 7.7 L Carbon Dioxide Level 31 Chloride Level 101 Creatinine 1.01 Eosinophils # 0.6 H Eosinophils % 4.8 Glucose Level 123 Hematocrit 42.6 Hemoglobin 14.1 Lymphocytes # 2.0 Lymphocytes % 15.7 Magnesium Level 1.8 Mean Corpuscular Hemoglobin 26.5 L Mean Corpuscular Hemoglobin Concent 33.1 Mean Corpuscular Volume 79.9 L Mean Platelet Volume 10.9 H Monocytes # 2.0 H Monocytes % 16.0 H Neutrophils # 7.7 H Neutrophils % 62.3 Nucleated Red Blood Cells # 0.0 Nucleated Red Blood Cells % 0.0 Platelet Count 223 # Potassium Level 3.4 L Red Blood Count 5.33 Red Cell Distribution Width 20.8 H Sodium Level 142 White Blood Count 12.4 #H Bedside Glucose 121 119 Medications Medications Current Medications Spironolactone (Aldactone) 25 mg DAILY PO Last administered on 08/04/16 08:40 ; Admin Dose 25 MG; Start 08/03/16 at 11:00; Status Future Hold Ondansetron HCl (Zofran Tab) 4 mg Q6H PRN PO NAUSEA AND/OR VOMITING; Start 03/12 at 10:30 Aspirin (Aspirin) 81 mg DAILY PO Last administered on 08/11/16 09:42; Admin Dose 81 MG; Start 08/03/16 at 11:00 Nitroglycerin (Nitroglycerin (Sl Tab) 0.4 Mg) 1 tab Q5M PRN SL CHEST PAIN; Start 08/03/16 at 10:30 Acetaminophen (Tylenol Tab) 650 mg Q6H PRN PO PAIN LEVEL 1-3 OR FEVER; Start at 10:30 Docusate Sodium (Colace) 100 mg Q12H PRN PO CONSTIPATION; Start 08/03/16 at 10: 30 Hydralazine HCl (Apresoline) 10 mg Q8 PO Last administered on 08/11/16 06:26; Admin Dose 10 MG; Start 08/03/16 at 22:00 Carvedilol (Coreg) 3.125 mg BID PO Last administered on 08/11/16 09:42; Admin Dose 3.125 MG; Start 08/03/16 at 21:00 Zolpidem Tartrate (Ambien) 5 mg HS PRN PO INSOMNIA Last administered on 21:21; Admin Dose 5 MG; Start 08/03/16 at 21:00 Lorazepam (Ativan) 1 mg Q4 PRN IV ANXIETY Last administered on 08/05/16 14:46 ; Admin Dose 1 MG; Start 08/04/16 at 17:00 Diagnostic Test (Pha) 1 ea 1 ea Q4 XX Last administered on 08/10/16 20:58; Admin Dose 1 EA; Start 08/05/16 at 09:00 Propofol 100 ml @ 2.925 mls/ hr Q12H IV Last administered on 08/06/16 14:28; Admin Dose 5.85 MLS/HR; Start 08/05/16 at 11:00 Norepinephrine/ Dextrose (Levophed/D5W) 500 ml @ 1.87 mls/hr TITRATE IV Last administered on 08/06/16 12:56; Admin Dose 30 MLS/HR; Start 08/05/16 at 13:00 Pantoprazole (Protonix Iv) 40 mg BID@06,18 IV Last administered on 08/11/16 06 :26; Admin Dose 40 MG; Start 08/05/16 at 18:00 Eye Lubricant 1 applic 1 applic TID BOTH EYES Last administered on 08/11/16 09 :44; Admin Dose 1 APPLIC; Start 08/05/16 at 16:00 Cefepime HCl (Maxipime 2gm/50 ml (Pmx)) 50 ml @ 100 mls/hr Q12 IVPB Last administered on 08/11/16 09:43; Admin Dose 100 MLS/HR; Start 08/08/16 at 21:00 Lactulose (Enulose) 20 gm Q8 PO Last administered on 08/11/16 06:27; Admin Dose 20 GM; Start 08/09/16 at 10:00 Spironolactone 12.5 mg 12.5 mg DAILY@06 PO Last administered on 08/11/16 06:26 ; Admin Dose 12.5 MG; Start 08/11/16 at 06:00 Vancomycin HCl 750 mg/Sodium Chloride 150 ml @ 75 mls/hr Q12H IVPB Last administered on 08/11/16 01:13; Admin Dose 75 MLS/HR; Start 08/10/16 at 13:00 Potassium Chloride (KCl 40 MEQ/250 ML NS) 250 ml @ 62.5 mls/hr ONCE ONCE IVPB Last administered on 08/11/16 11:08; Admin Dose 62.5 MLS/HR; Start 08/11/16 at 11:00; Stop 08/11/16 at 14:59 ABDIFATAH JONES MD Aug 11, 2016 12:21
--- NOTE | 2016-08-11 16:33 | CONS ---
Date/Time of Note Date/Time of Note DATE: 08/11/16 TIME: 16:29 Assessment/Plan Assessment/Plan Chief Complaint/Hosp Course AMS Problems: Additional Assessment/Plan This is a 50-year-old male with past medical history of cardiomyopathy with ejection fraction of 15%, anxiety, substance abuse, methamphetamine and heroin abuse, cirrhosis, congestive heart failure, pulmonary hypertension, was brought in for abdominal pain, abdominal distention and worsening of shortness of breath and lower extremity edema. He was admitted for evaluation. He progressed to respiratory failure and is currently intubated. He was initially sedated with Diprivan and is currently off it. He has not been waking up. EEG showed generalized background bi hemispheric slowing suggesting encephalopathy. Neurology consult was called to evaluate his mental status. Examination was limited. Pupils are equally reacting, no withdrawal to noxious stimuli. CT brain is un remarkable. MRI of brain is pending. Plan: 1. Avoid sedation 2. MRI of brain is pending 4. Will follow Consultation Date/Type/Reason Admit Date/Time Aug 03, 2016 at 14:46 Initial Consult Date 08/10/16 Type of Consultation: Neurology Referring Provider: JACEK HOLLEY MD 24 HR Interval Summary Free Text/Dictation Clinically unchanged. CT brain is unremarkable. MRI brain is pending. Exam/Review of Systems Vital Signs Vitals Vital Signs Date Time Temp Pulse Resp B/P Pulse Ox O2 Delivery O2 Flow Rate FiO2 08/11/16 15:00 98 22 122/86 98 Mechanical Ventilator 08/11/16 11:40 40 08/11/16 11:00 98.5 Intake and Output 08/10/16 08/10/16 08/11/16 15:00 23:00 07:00 Intake Total 1540 ml 1170 ml 1360 ml Output Total 2005 ml 2145 ml 575 ml Balance -465 ml -975 ml 785 ml Exam Constitutional: other (non communicative, intubated, ventilated) Head: atraumatic, normocephalic Eyes: EOMI, nl conjunctiva, nl lids, nl sclera ENMT: mucosa pink and moist, nl external ears & nose, nl lips & teeth, nl nasal mucosa & septum Neck: non-tender, supple Respiratory: clear to auscultation, normal air movement Cardiovascular: nl pulses, regular rate and rhythm Gastrointestinal: nl liver, spleen, non-tender, soft Extremities: normal pulses Neurological: other (Intubated, ventilated, corneal and gag reflexes are present, partial withdrwl to noxious stimuli) Results Result Diagram: 08/11/1644408/11/16 0445 Results 24 hrs Laboratory Tests Test 08/10/16 17:36 08/10/16 20:33 08/11/16 01:14 08/11/16 04:45 Bedside Glucose 107 116 128 Anion Gap 13 Basophils # 0.1 Basophils % 0.6 Blood Urea Nitrogen 20 Calcium Level 7.7 L Carbon Dioxide Level 31 Chloride Level 101 Creatinine 1.01 Eosinophils # 0.6 H Eosinophils % 4.8 Glucose Level 123 Hematocrit 42.6 Hemoglobin 14.1 Lymphocytes # 2.0 Lymphocytes % 15.7 Magnesium Level 1.8 Mean Corpuscular Hemoglobin 26.5 L Mean Corpuscular Hemoglobin Concent 33.1 Mean Corpuscular Volume 79.9 L Mean Platelet Volume 10.9 H Monocytes # 2.0 H Monocytes % 16.0 H Neutrophils # 7.7 H Neutrophils % 62.3 Nucleated Red Blood Cells # 0.0 Nucleated Red Blood Cells % 0.0 Platelet Count 223 # Potassium Level 3.4 L Red Blood Count 5.33 Red Cell Distribution Width 20.8 H Sodium Level 142 White Blood Count 12.4 #H Test 08/11/16 04:51 08/11/16 09:43 08/11/16 13:15 Bedside Glucose 121 119 106 Medications Medications Current Medications Spironolactone (Aldactone) 25 mg DAILY PO Last administered on 08/04/16 08:40 ; Admin Dose 25 MG; Start 08/03/16 at 11:00; Status Future Hold Ondansetron HCl (Zofran Tab) 4 mg Q6H PRN PO NAUSEA AND/OR VOMITING; Start 03/12 at 10:30 Aspirin (Aspirin) 81 mg DAILY PO Last administered on 08/11/16 09:42; Admin Dose 81 MG; Start 08/03/16 at 11:00 Nitroglycerin (Nitroglycerin (Sl Tab) 0.4 Mg) 1 tab Q5M PRN SL CHEST PAIN; Start 08/03/16 at 10:30 Acetaminophen (Tylenol Tab) 650 mg Q6H PRN PO PAIN LEVEL 1-3 OR FEVER; Start at 10:30 Docusate Sodium (Colace) 100 mg Q12H PRN PO CONSTIPATION; Start 08/03/16 at 10: 30 Hydralazine HCl (Apresoline) 10 mg Q8 PO Last administered on 08/11/16 14:47; Admin Dose 10 MG; Start 08/03/16 at 22:00 Carvedilol (Coreg) 3.125 mg BID PO Last administered on 08/11/16 09:42; Admin Dose 3.125 MG; Start 08/03/16 at 21:00 Zolpidem Tartrate (Ambien) 5 mg HS PRN PO INSOMNIA Last administered on 21:21; Admin Dose 5 MG; Start 08/03/16 at 21:00 Lorazepam (Ativan) 1 mg Q4 PRN IV ANXIETY Last administered on 08/05/16 14:46 ; Admin Dose 1 MG; Start 08/04/16 at 17:00 Diagnostic Test (Pha) 1 ea 1 ea Q4 XX Last administered on 08/10/16 20:58; Admin Dose 1 EA; Start 08/05/16 at 09:00 Propofol 100 ml @ 2.925 mls/ hr Q12H IV Last administered on 08/06/16 14:28; Admin Dose 5.85 MLS/HR; Start 08/05/16 at 11:00 Norepinephrine/ Dextrose (Levophed/D5W) 500 ml @ 1.87 mls/hr TITRATE IV Last administered on 08/06/16 12:56; Admin Dose 30 MLS/HR; Start 08/05/16 at 13:00 Pantoprazole (Protonix Iv) 40 mg BID@06,18 IV Last administered on 08/11/16 06 :26; Admin Dose 40 MG; Start 08/05/16 at 18:00 Eye Lubricant 1 applic 1 applic TID BOTH EYES Last administered on 08/11/16 13 :14; Admin Dose 1 APPLIC; Start 08/05/16 at 16:00 Cefepime HCl (Maxipime 2gm/50 ml (Pmx)) 50 ml @ 100 mls/hr Q12 IVPB Last administered on 08/11/16 09:43; Admin Dose 100 MLS/HR; Start 08/08/16 at 21:00 Lactulose (Enulose) 20 gm Q8 PO Last administered on 08/11/16 14:45; Admin Dose 20 GM; Start 08/09/16 at 10:00 Spironolactone 12.5 mg 12.5 mg DAILY@06 PO Last administered on 08/11/16 06:26 ; Admin Dose 12.5 MG; Start 08/11/16 at 06:00 Vancomycin HCl/ Sodium Chloride (Vancocin/NS) 150 ml @ 75 mls/hr Q12H IVPB Last administered on 08/11/16 13:13; Admin Dose 75 MLS/HR; Start 08/10/16 at 13 :00 GARY KNOWLES MD Aug 11, 2016 16:33
--- NOTE | 2016-08-11 16:54 | PN ---
Date/Time of Note Date/Time of Note DATE: 08/11/16 TIME: 16:52 Assessment/Plan VTE Prophylaxis VTE Prophylaxis Intervention: SCD's Assessment/Plan Chief Complaint/Hosp Course 1. Acute encephalopathy secondary to hypoglycemia and/or substance abuse EEG suggests toxic metabolic encephalopathy, neuro consult appreciated CT head shows no significant findings, follow-up with MRI Family conference held and family does not feel that patient would have wanted to be trached, we will continue to monitor neuro status on a daily basis` 2. Acute respiratory failure, now ventilator dependent, secondary to #1 and CHF exacerbation Pulmonology in the case, continue vent support 3. Acute on chronic congestive heart failure exacerbation with an ejection fraction of 15% Cardiology on the case, continue diuresis 4. Chronic alcoholic with cirrhosis and coagulopathy 5. Chronic substance abuse with amphetamines and heroin. 6. Leukocytosis possibly secondary to pneumonia-resolved Continue antibiotics for now, consider discontinuation of antibiotics tomorrow as patient is still having low-grade fevers today 7. Subclinical hypothyroidism. Prophylaxis: SCDs Problems: Subjective 24 Hr Interval Summary Subjective hx not possible: pt non-verbal Exam/Review of Systems Vital Signs Vitals Vital Signs Date Time Temp Pulse Resp B/P Pulse Ox O2 Delivery O2 Flow Rate FiO2 08/11/16 15:00 98 22 122/86 98 Mechanical Ventilator 08/11/16 11:40 40 08/11/16 11:00 98.5 Intake and Output 08/10/16 08/10/16 08/11/16 15:00 23:00 07:00 Intake Total 1540 ml 1170 ml 1360 ml Output Total 2005 ml 2145 ml 575 ml Balance -465 ml -975 ml 785 ml Exam Constitutional: non-verbal, No alert Respiratory: clear to auscultation Cardiovascular: regular rate and rhythm Gastrointestinal: soft, No distended Musculoskeletal: nl extremities to inspection Results Result Diagram: 08/11/16 0445 08/11/16 0445 Results 24 hrs Laboratory Tests Test 08/10/16 17:36 08/10/16 20:33 08/11/16 01:14 08/11/16 04:45 Bedside Glucose 107 116 128 Anion Gap 13 Basophils # 0.1 Basophils % 0.6 Blood Urea Nitrogen 20 Calcium Level 7.7 L Carbon Dioxide Level 31 Chloride Level 101 Creatinine 1.01 Eosinophils # 0.6 H Eosinophils % 4.8 Glucose Level 123 Hematocrit 42.6 Hemoglobin 14.1 Lymphocytes # 2.0 Lymphocytes % 15.7 Magnesium Level 1.8 Mean Corpuscular Hemoglobin 26.5 L Mean Corpuscular Hemoglobin Concent 33.1 Mean Corpuscular Volume 79.9 L Mean Platelet Volume 10.9 H Monocytes # 2.0 H Monocytes % 16.0 H Neutrophils # 7.7 H Neutrophils % 62.3 Nucleated Red Blood Cells # 0.0 Nucleated Red Blood Cells % 0.0 Platelet Count 223 # Potassium Level 3.4 L Red Blood Count 5.33 Red Cell Distribution Width 20.8 H Sodium Level 142 White Blood Count 12.4 #H Test 08/11/16 04:51 08/11/16 09:43 08/11/16 13:15 Bedside Glucose 121 119 106 Medications Medications Current Medications Spironolactone (Aldactone) 25 mg DAILY PO Last administered on 08/04/16 08:40 ; Admin Dose 25 MG; Start 08/03/16 at 11:00; Status Future Hold Ondansetron HCl (Zofran Tab) 4 mg Q6H PRN PO NAUSEA AND/OR VOMITING; Start 03/12 at 10:30 Aspirin (Aspirin) 81 mg DAILY PO Last administered on 08/11/16 09:42; Admin Dose 81 MG; Start 08/03/16 at 11:00 Nitroglycerin (Nitroglycerin (Sl Tab) 0.4 Mg) 1 tab Q5M PRN SL CHEST PAIN; Start 08/03/16 at 10:30 Acetaminophen (Tylenol Tab) 650 mg Q6H PRN PO PAIN LEVEL 1-3 OR FEVER; Start at 10:30 Docusate Sodium (Colace) 100 mg Q12H PRN PO CONSTIPATION; Start 08/03/16 at 10: 30 Hydralazine HCl (Apresoline) 10 mg Q8 PO Last administered on 08/11/16 14:47; Admin Dose 10 MG; Start 08/03/16 at 22:00 Carvedilol (Coreg) 3.125 mg BID PO Last administered on 08/11/16 09:42; Admin Dose 3.125 MG; Start 08/03/16 at 21:00 Zolpidem Tartrate (Ambien) 5 mg HS PRN PO INSOMNIA Last administered on 21:21; Admin Dose 5 MG; Start 08/03/16 at 21:00 Lorazepam (Ativan) 1 mg Q4 PRN IV ANXIETY Last administered on 08/05/16 14:46 ; Admin Dose 1 MG; Start 08/04/16 at 17:00 Diagnostic Test (Pha) 1 ea 1 ea Q4 XX Last administered on 08/10/16 20:58; Admin Dose 1 EA; Start 08/05/16 at 09:00 Propofol 100 ml @ 2.925 mls/ hr Q12H IV Last administered on 08/06/16 14:28; Admin Dose 5.85 MLS/HR; Start 08/05/16 at 11:00 Norepinephrine/ Dextrose (Levophed/D5W) 500 ml @ 1.87 mls/hr TITRATE IV Last administered on 08/06/16 12:56; Admin Dose 30 MLS/HR; Start 08/05/16 at 13:00 Pantoprazole (Protonix Iv) 40 mg BID@,18 IV Last administered on 08/11/16 06 :26; Admin Dose 40 MG; Start 08/05/16 at 18:00 Eye Lubricant 1 applic 1 applic TID BOTH EYES Last administered on 08/11/16 13 :14; Admin Dose 1 APPLIC; Start 08/05/16 at 16:00 Cefepime HCl (Maxipime 2gm/50 ml (Pmx)) 50 ml @ 100 mls/hr Q12 IVPB Last administered on 08/11/16 09:43; Admin Dose 100 MLS/HR; Start 08/08/16 at 21:00 Lactulose (Enulose) 20 gm Q8 PO Last administered on 08/11/16 14:45; Admin Dose 20 GM; Start 08/09/16 at 10:00 Spironolactone 12.5 mg 12.5 mg DAILY@06 PO Last administered on 08/11/16 06:26 ; Admin Dose 12.5 MG; Start 08/11/16 at 06:00 Vancomycin HCl/ Sodium Chloride (Vancocin/NS) 150 ml @ 75 mls/hr Q12H IVPB Last administered on 08/11/16 13:13; Admin Dose 75 MLS/HR; Start 08/10/16 at 13 :00 OREN RODRIGUEZ Aug 11, 2016 16:54
[2016-08-11] MEDS: FUROSEMIDE 40 MG INJ IV SCH (17:37)
[2016-08-12] VITALS (56 sets, daily range): BP systolic 96–131; BP diastolic 55–96; PULSE 84–110; RESP 21–26
[2016-08-12] MEDS: ACCU-CHEK XX SCH ×6 (01:00→21:23)
[2016-08-12] MEDS: VANCOMYCIN 750 MG in SOD CHLORIDE 0.9% 150 ML IVPB SCH ×2 (01:54→13:12)
[2016-08-12 04:52] LABS: ADD SCAN DIFF NO
[2016-08-12 05:01] LABS: ABNORMAL IP MESSAGE 1; BASOPHIL # 0.1 10^3/ul (0.0-0.1); BASOPHILS % 0.7 % (0.0-2.0); EOSINOPHILS # 0.6 10^3/ul (0.0-0.5); EOSINOPHILS % 5.1 % (0.0-7.0); HEMATOCRIT 41.2 % (42.0-52.0); HEMOGLOBIN 13.7 g/dl (14.0-18.0); LYMPHOCYTES # 1.7 10^3/ul (0.8-2.9); LYMPHOCYTES % 14.1 % (15.0-51.0); MEAN CORPUSCULAR HEMOGLOBIN 26.7 pg (29.0-33.0); MEAN CORPUSCULAR HGB CONC 33.3 g/dl (32.0-37.0); MEAN CORPUSCULAR VOLUME 80.2 fl (82.0-101.0); MEAN PLATELET VOLUME 10.1 fl (7.4-10.4); MONOCYTE # 1.6 10^3/ul (0.3-0.9); MONOCYTES % 13.7 % (0.0-11.0); NEUTROPHIL # 7.7 10^3/ul (1.6-7.5); NEUTROPHILS % 65.7 % (39.0-77.0); PLATELET COUNT 221 10^3/UL (140-415); RED BLOOD COUNT 5.14 10^6/ul (4.70-6.10); RED CELL DISTRIBUTION WIDTH 20.8 % (11.5-14.5); WHITE BLOOD COUNT 11.7 10^3/ul (4.8-10.8)
[2016-08-12] MEDS: SPIRONOLACTONE 25 MG TAB PO SCH (06:32)
[2016-08-12] MEDS: FUROSEMIDE 40 MG INJ IV SCH ×2 (06:32→17:41)
[2016-08-12] MEDS: LACTULOSE 30ML CUP PO SCH ×3 (06:33→21:17)
[2016-08-12] MEDS: PANTOPRAZOLE 40 MG INJ IV SCH ×2 (06:33→18:17)
[2016-08-12 06:42] LABS: POTASSIUM 3.5 mmol/L (3.5-5.1)
[2016-08-12 06:45] LABS: CREATININE 0.92 mg/dl (0.61-1.24)
[2016-08-12 06:46] LABS: CALCIUM 7.9 mg/dl (8.4-10.2); MAGNESIUM 1.8 mg/dl (1.7-2.5); PHOSPHORUS 2.3 mg/dl (2.5-4.9)
[2016-08-12] MEDS: ASPIRIN 81 MG TAB PO SCH (08:32)
[2016-08-12] MEDS: OCULAR LUBRICANT 3.5 GM OPH OINT BOTH EYES SCH ×3 (08:53→21:16)
[2016-08-12] MEDS: CEFEPIME 2GM/50 ML IVPB SCH ×2 (09:04→21:17)
[2016-08-12] MEDS ORDERED: POTASSIUM PHOSPHATE 20 MEQ in SOD CHLORIDE 0.9% 250 ML IVPB ONE (10:00)
[2016-08-12] MEDS: PROPOFOL 100 ML IV SCH ×2 (10:14→22:30)
--- NOTE | 2016-08-12 10:46 | RADRPT ---
PROCEDURE: XR Chest. CLINICAL INDICATION: Pneumonia follow up TECHNIQUE: Anterior chest x-ray. COMPARISON: 08/10/2016 FINDINGS: Endotracheal tube and nasogastric tube demonstrates stable and satisfactory position. Moderate size bilateral pleural effusions are unchanged from previous exam. Moderate bibasilar consolidation with obscured hemidiaphragm is unchanged from previous exam. The upper lung zones are clear. There is no evidence of pneumothorax. The heart size is large. The cardiomediastinal silhouette is otherwise unremarkable. The soft tissues are normal. Osseous structures are unremarkable. IMPRESSION: 1. Stable and satisfactory position of lines or lines. 2. Moderate size bilateral pleural effusions, unchanged. 3. Bibasilar atelectasis versus infiltrate, unchanged. RPTAT: QQ .Hiren Gonzalez MD, Date Time Electronically viewed and signed by .Hiren Gonzalez MD, on 08/12/2016 10:46 .M/
--- NOTE | 2016-08-12 12:18 | PN ---
Date/Time of Note Date/Time of Note DATE: 08/12/16 TIME: 12:15 Assessment/Plan VTE Prophylaxis VTE Prophylaxis Intervention: SCD's Assessment/Plan Chief Complaint/Hosp Course 1. Acute encephalopathy secondary to hypoglycemia and/or substance abuse-pt now opening eyes today but not following commands EEG suggests toxic metabolic encephalopathy, neuro consult appreciated CT head shows no significant findings, follow-up with MRI Family conference held and family does not feel that patient would have wanted to be trached, we will continue to monitor neuro status on a daily basis` 2. Acute respiratory failure, now ventilator dependent, secondary to #1 and CHF exacerbation Pulmonology in the case, continue vent support CXR this AM is unchanged 3. Acute on chronic congestive heart failure exacerbation with an ejection fraction of 15% Cardiology on the case, continue diuresis 4. Chronic alcoholic with cirrhosis and coagulopathy 5. Chronic substance abuse with amphetamines and heroin. 6. Leukocytosis possibly secondary to pneumonia-resolved Continue antibiotics for now, consider discontinuation of antibiotics tomorrow as patient is still having low-grade fevers today 7. Subclinical hypothyroidism. Prophylaxis: SCDs Problems: Subjective 24 Hr Interval Summary Subjective hx not possible: pt non-verbal Exam/Review of Systems Vital Signs Vitals Vital Signs Date Time Temp Pulse Resp B/P Pulse Ox O2 Delivery O2 Flow Rate FiO2 08/12/16 08:00 40 08/12/16 08:00 94 08/12/16 07:00 22 117/78 100 08/12/16 04:30 97.5 Mechanical Ventilator Intake and Output 08/11/16 08/11/16 08/12/16 15:00 23:00 07:00 Intake Total 910 ml 550 ml 440 ml Output Total 2250 ml 3100 ml Balance -1340 ml -2550 ml 440 ml Exam Constitutional: non-verbal Respiratory: clear to auscultation Cardiovascular: regular rate and rhythm Gastrointestinal: soft, No distended Musculoskeletal: nl extremities to inspection Results Result Diagram: 08/12/16 0400 08/12/16 0400 Results 24 hrs Laboratory Tests Test 08/11/16 13:15 08/11/16 17:14 08/11/16 21:01 08/12/16 02:00 Bedside Glucose 106 122 110 111 Test 08/12/16 04:00 08/12/16 08:18 Anion Gap 13 Basophils # 0.1 Basophils % 0.7 Blood Urea Nitrogen 21 H Calcium Level 7.9 L Carbon Dioxide Level 30 Chloride Level 104 Creatinine 0.92 Eosinophils # 0.6 H Eosinophils % 5.1 Glucose Level 119 Hematocrit 41.2 L Hemoglobin 13.7 L Lymphocytes # 1.7 Lymphocytes % 14.1 L Magnesium Level 1.8 Mean Corpuscular Hemoglobin 26.7 L Mean Corpuscular Hemoglobin Concent 33.3 Mean Corpuscular Volume 80.2 L Mean Platelet Volume 10.1 Monocytes # 1.6 H Monocytes % 13.7 H Neutrophils # 7.7 H Neutrophils % 65.7 Nucleated Red Blood Cells # 0.0 Nucleated Red Blood Cells % 0.0 Phosphorus Level 2.3 L Platelet Count 221 Potassium Level 3.5 Red Blood Count 5.14 Red Cell Distribution Width 20.8 H Sodium Level 143 White Blood Count 11.7 H Bedside Glucose 111 Medications Medications Current Medications Spironolactone (Aldactone) 25 mg DAILY PO Last administered on 08/04/16 08:40 ; Admin Dose 25 MG; Start 08/03/16 at 11:00; Status Future Hold Ondansetron HCl (Zofran Tab) 4 mg Q6H PRN PO NAUSEA AND/OR VOMITING; Start 03/12 at 10:30 Aspirin (Aspirin) 81 mg DAILY PO Last administered on 08/12/16 08:32; Admin Dose 81 MG; Start 08/03/16 at 11:00 Nitroglycerin (Nitroglycerin (Sl Tab) 0.4 Mg) 1 tab Q5M PRN SL CHEST PAIN; Start 08/03/16 at 10:30 Acetaminophen (Tylenol Tab) 650 mg Q6H PRN PO PAIN LEVEL 1-3 OR FEVER; Start at 10:30 Docusate Sodium (Colace) 100 mg Q12H PRN PO CONSTIPATION; Start 08/03/16 at 10: 30 Hydralazine HCl (Apresoline) 10 mg Q8 PO Last administered on 08/12/16 06:33; Admin Dose 10 MG; Start 08/03/16 at 22:00 Carvedilol (Coreg) 3.125 mg BID PO Last administered on 08/12/16 08:32; Admin Dose 3.125 MG; Start 08/03/16 at 21:00 Zolpidem Tartrate (Ambien) 5 mg HS PRN PO INSOMNIA Last administered on 21:21; Admin Dose 5 MG; Start 08/03/16 at 21:00 Lorazepam (Ativan) 1 mg Q4 PRN IV ANXIETY Last administered on 08/05/16 14:46 ; Admin Dose 1 MG; Start 08/04/16 at 17:00 Diagnostic Test (Pha) 1 ea 1 ea Q4 XX Last administered on 08/12/16 08:53; Admin Dose 1 EA; Start 08/05/16 at 09:00 Propofol 100 ml @ 2.925 mls/ hr Q12H IV Last administered on 08/06/16 14:28; Admin Dose 5.85 MLS/HR; Start 08/05/16 at 11:00 Norepinephrine/ Dextrose (Levophed/D5W) 500 ml @ 1.87 mls/hr TITRATE IV Last administered on 08/06/16 12:56; Admin Dose 30 MLS/HR; Start 08/05/16 at 13:00 Pantoprazole (Protonix Iv) 40 mg BID@06,18 IV Last administered on 08/12/16 06 :33; Admin Dose 40 MG; Start 08/05/16 at 18:00 Eye Lubricant 1 applic 1 applic TID BOTH EYES Last administered on 08/12/16 08 :53; Admin Dose 1 APPLIC; Start 08/05/16 at 16:00 Cefepime HCl (Maxipime 2gm/50 ml (Pmx)) 50 ml @ 100 mls/hr Q12 IVPB Last administered on 08/12/16 09:04; Admin Dose 100 MLS/HR; Start 08/08/16 at 21:00 Lactulose (Enulose) 20 gm Q8 PO Last administered on 08/12/16 06:33; Admin Dose 20 GM; Start 08/09/16 at 10:00 Spironolactone 12.5 mg 12.5 mg DAILY@06 PO Last administered on 08/12/16 06:32 ; Admin Dose 12.5 MG; Start 08/11/16 at 06:00 Vancomycin HCl 750 mg/Sodium Chloride 150 ml @ 75 mls/hr Q12H IVPB Last administered on 08/12/16 01:54; Admin Dose 75 MLS/HR; Start 08/10/16 at 13:00 Potassium Phosphate/Sodium Chloride (K Phos (Meq)/NS) 254.5455 ml @ 63.636 m... ONCE ONCE IVPB Last administered on 08/12/16t 10:14; Admin Dose 63.636 MLS/HR; Start 08/12/16 at 10:00; Stop 08/12/16 at 13:59 OREN RODRIGUEZ Aug 12, 2016 12:17
--- NOTE | 2016-08-12 12:55 | RADRPT ---
PROCEDURE: XR Abdomen CLINICAL INDICATION: Constipation TECHNIQUE: An AP supine radiograph of the abdomen was submitted. COMPARISON: None FINDINGS: An NG tube is seen to be satisfactorily positioned with the tip in the stomach. A Morales catheter is seen in the bladder. The bowel gas pattern reflects an ileus with considerable stool seen within the colon. No organomegaly or discrete mass is identified. No pathological calcification is identified. The osseous elements appear unremarkable. Extensive alveolar infiltrate projects to the heart with in the left lower lobe. IMPRESSION: 1. Extensive alveolar infiltrate involving the left lower lobe. 2. The bowel gas pattern reflects a mild ileus with stool seen to the colon. 3. An NG tube and a Morales catheter are seen to be in place. Physician Georgi Date Time Electronically viewed and signed by Physician Georgi on 08/12/2016 12:55 /
--- NOTE | 2016-08-12 15:13 | PN ---
DATE: 08/12/2016 SUBJECTIVE: The patient Alis remains intubated on mechanical ventilation, slowly opening eyes, bu t not following commands. PHYSICAL EXAMINATION: VITAL SIGNS: Temperature 98, pulse is 100, blood pressure 117/70, O2 saturation 96%, FIO2 of 40%, o rally intubated. NECK: Supple. No JVD or lymphadenopathy. CARDIAC: S1, S2, no added sounds or murmurs. CHEST: Diminished air entry bilaterally. ABDOMEN: Soft, nontender. No guarding or rebound. EXTREMITIES: No cyanosis, clubbing, edema. NEUROLOGIC: Generalized weakness. LABORATORY DATA: White count 11.7, hemoglobin 13.7, platelets of 221. BUN 21, creatinine 0.21. IMAGING: Chest x-ray was reviewed, shows moderate right pleural effusion greater than left, bibasil ar atelectasis. IMPRESSION AND PLAN: 1. Polysubstance abuse. 2. Hypoxemic respiratory failure. 3. Pneumonia and pleural effusions. 4. Encephalopathy, toxic metabolic. PLAN: 1. Continue vent support. 2. Add diuretics as tolerated. 3. Antibiotics. 4. Vasopressors as needed. 5. DVT and GI prophylaxis. Dictated By: POLO PALOMO/ARMANDO Conf#: [id number] DID#: [id number]
--- NOTE | 2016-08-12 16:05 | CONS ---
Date/Time of Note Date/Time of Note DATE: 08/12/16 TIME: 16:02 Assessment/Plan Assessment/Plan Chief Complaint/Hosp Course AMS Problems: Additional Assessment/Plan This is a 50-year-old male with past medical history of cardiomyopathy with ejection fraction of 15%, anxiety, substance abuse, methamphetamine and heroin abuse, cirrhosis, congestive heart failure, pulmonary hypertension, was brought in for abdominal pain, abdominal distention and worsening of shortness of breath and lower extremity edema. He was admitted for evaluation. He progressed to respiratory failure and is currently intubated. He was initially sedated with Diprivan and is currently off it. He has not been waking up. EEG showed generalized background bi hemispheric slowing suggesting encephalopathy. Neurology consult was called to evaluate his mental status. Examination was limited. Pupils are equally reacting, no withdrawal to noxious stimuli. CT brain is un remarkable. MRI of brain is pending. Plan: 1. Avoid sedation 2. MRI of brain is pending 4. Will follow Consultation Date/Type/Reason Admit Date/Time Aug 03, 2016 at 14:46 Initial Consult Date 08/10/16 Type of Consultation: Neurology Referring Provider: JACEK HOLLEY MD 24 HR Interval Summary Free Text/Dictation More awake. Does not follow commands. Still intubated and ventilated. MRI of brain is pending. Exam/Review of Systems Vital Signs Vitals Vital Signs Date Time Temp Pulse Resp B/P Pulse Ox O2 Delivery O2 Flow Rate FiO2 08/12/16 15:00 94 24 113/78 100 Mechanical Ventilator 08/12/16 12:00 98.6 08/12/16 08:00 40 Intake and Output 08/11/16 08/11/16 08/12/16 15:00 23:00 07:00 Intake Total 910 ml 550 ml 470 ml Output Total 2250 ml 3100 ml 1000 ml Balance -1340 ml -2550 ml -530 ml Exam Constitutional: other (Intubated and ventilated) Head: atraumatic, normocephalic Eyes: EOMI, nl conjunctiva, nl lids, nl sclera ENMT: mucosa pink and moist, nl external ears & nose, nl lips & teeth, nl nasal mucosa & septum Neck: non-tender, supple Respiratory: clear to auscultation, normal air movement Cardiovascular: regular rate and rhythm Gastrointestinal: nl liver, spleen, non-tender, soft Musculoskeletal: nl extremities to inspection Extremities: normal pulses Neurological: other (Intubated, ventilated, eyes open but does not follow commands, limited exam) Skin: nl turgor, rash or lesions Lymph: nl lymph nodes Results Result Diagram: 08/12/16 0400 08/12/16 0400 Results 24 hrs Laboratory Tests Test 08/11/16 17:14 08/11/16 21:01 08/12/16 02:00 08/12/16 04:00 Bedside Glucose 122 110 111 Anion Gap 13 Basophils # 0.1 Basophils % 0.7 Blood Urea Nitrogen 21 H Calcium Level 7.9 L Carbon Dioxide Level 30 Chloride Level 104 Creatinine 0.92 Eosinophils # 0.6 H Eosinophils % 5.1 Glucose Level 119 Hematocrit 41.2 L Hemoglobin 13.7 L Lymphocytes # 1.7 Lymphocytes % 14.1 L Magnesium Level 1.8 Mean Corpuscular Hemoglobin 26.7 L Mean Corpuscular Hemoglobin Concent 33.3 Mean Corpuscular Volume 80.2 L Mean Platelet Volume 10.1 Monocytes # 1.6 H Monocytes % 13.7 H Neutrophils # 7.7 H Neutrophils % 65.7 Nucleated Red Blood Cells # 0.0 Nucleated Red Blood Cells % 0.0 Phosphorus Level 2.3 L Platelet Count 221 Potassium Level 3.5 Red Blood Count 5.14 Red Cell Distribution Width 20.8 H Sodium Level 143 White Blood Count 11.7 H Test 08/12/16 08:18 08/12/16 12:43 Bedside Glucose 111 110 Medications Medications Current Medications Spironolactone (Aldactone) 25 mg DAILY PO Last administered on 08/04/16 08:40 ; Admin Dose 25 MG; Start 08/03/16 at 11:00; Status Future Hold Ondansetron HCl (Zofran Tab) 4 mg Q6H PRN PO NAUSEA AND/OR VOMITING; Start 03/12 at 10:30 Aspirin (Aspirin) 81 mg DAILY PO Last administered on 08/12/16 08:32; Admin Dose 81 MG; Start 08/03/16 at 11:00 Nitroglycerin (Nitroglycerin (Sl Tab) 0.4 Mg) 1 tab Q5M PRN SL CHEST PAIN; Start 08/03/16 at 10:30 Acetaminophen (Tylenol Tab) 650 mg Q6H PRN PO PAIN LEVEL 1-3 OR FEVER; Start at 10:30 Docusate Sodium (Colace) 100 mg Q12H PRN PO CONSTIPATION; Start 08/03/16 at 10: 30 Hydralazine HCl (Apresoline) 10 mg Q8 PO Last administered on 08/12/16 13:49; Admin Dose 10 MG; Start 08/03/16 at 22:00 Carvedilol (Coreg) 3.125 mg BID PO Last administered on 08/12/16 08:32; Admin Dose 3.125 MG; Start 08/03/16 at 21:00 Zolpidem Tartrate (Ambien) 5 mg HS PRN PO INSOMNIA Last administered on 21:21; Admin Dose 5 MG; Start 08/03/16 at 21:00 Lorazepam (Ativan) 1 mg Q4 PRN IV ANXIETY Last administered on 08/05/16 14:46 ; Admin Dose 1 MG; Start 08/04/16 at 17:00 Diagnostic Test (Pha) 1 ea 1 ea Q4 XX Last administered on 08/12/16 13:12; Admin Dose 1 EA; Start 08/05/16 at 09:00 Propofol 100 ml @ 2.925 mls/ hr Q12H IV Last administered on 08/06/16 14:28; Admin Dose 5.85 MLS/HR; Start 08/05/16 at 11:00 Norepinephrine/ Dextrose (Levophed/D5W) 500 ml @ 1.87 mls/hr TITRATE IV Last administered on 08/06/16 12:56; Admin Dose 30 MLS/HR; Start 08/05/16 at 13:00 Pantoprazole (Protonix Iv) 40 mg BID@06,18 IV Last administered on 08/12/16 06 :33; Admin Dose 40 MG; Start 08/05/16 at 18:00 Eye Lubricant 1 applic 1 applic TID BOTH EYES Last administered on 08/12/16 13 :11; Admin Dose 1 APPLIC; Start 08/05/16 at 16:00 Cefepime HCl (Maxipime 2gm/50 ml (Pmx)) 50 ml @ 100 mls/hr Q12 IVPB Last administered on 08/12/16 09:04; Admin Dose 100 MLS/HR; Start 08/08/16 at 21:00 Lactulose (Enulose) 20 gm Q8 PO Last administered on 08/12/16 13:49; Admin Dose 20 GM; Start 08/09/16 at 10:00 Spironolactone 12.5 mg 12.5 mg DAILY@06 PO Last administered on 08/12/16 06:32 ; Admin Dose 12.5 MG; Start 08/11/16 at 06:00 Vancomycin HCl/ Sodium Chloride (Vancocin/NS) 150 ml @ 75 mls/hr Q12H IVPB Last administered on 08/12/16 13:12; Admin Dose 75 MLS/HR; Start 08/10/16 at 13 :00 GARY KNOWLES MD Aug 12, 2016 16:04
--- NOTE | 2016-08-12 17:20 | CONS ---
Date/Time of Note Date/Time of Note DATE: 08/12/16 TIME: 17:18 Assessment/Plan Assessment/Plan Additional Assessment/Plan 1. Congestive heart failure exacerbation, systolic, acute on chronic-worsening by cxr - stable, con't to optimize fluid status. STABLE. 2. Cardiomyopathy with severely depressed left ventricular ejection fraction approximately 15% - no indication for ICD now. . 3. Abnormal electrocardiogram, assess for acute coronary syndrome.-negative troponin x 3 4. Hypotension, borderline - BP stable, con't Med Rx. 5. Lower extremity edema- con't to remove fluid as tolerated. 6. Possible lower extremity celluliti- ON ANTiBX now 7. Renal failure-improving 8. Substance abuse-ongoing 9. Coagulopathy 10. Resp failure s/p intubation - con't resp Rx. 11.Hypoglycemia-? etiology liver failure 12.Encephalopathy Consultation Date/Type/Reason Admit Date/Time Aug 03, 2016 at 14:46 Initial Consult Date 08/05/16 Type of Consultation: Neurology Referring Provider: JACEK HOLLEY MD 24 HR Interval Summary Free Text/Dictation No acuter change - overall critically ill. ROS: No fever, no chills, no nausea, no vomiting, no diarrhea/constipation No recent weight changes No chest pain, no PND, no orthopnea No dizziness, blurred vision No thirst, no heat or cold intolerance (per nurse) Exam/Review of Systems Vital Signs Vitals Vital Signs Date Time Temp Pulse Resp B/P Pulse Ox O2 Delivery O2 Flow Rate FiO2 08/12/16 15:00 94 24 113/78 100 Mechanical Ventilator 08/12/16 12:00 98.6 08/12/16 08:00 40 Intake and Output 08/11/16 08/11/16 08/12/16 14:59 22:59 06:59 Intake Total 1050 ml 550 ml 440 ml Output Total 2050 ml 3250 ml 250 ml Balance -1000 ml -2700 ml 190 ml Exam General: WN/WD/NAD, AOx 0 HEENT: Unicetric/atraumatic/EOMI (does not follow commands) NECK: JVD elevated, no thyromegaly Lymph: no lymphadenopathy HEART: regular with no S3, II/ systolic murmur at apex LUNGS: Coarse sounds ABD: soft, NT, ND, +BS : Intact Neuro: non focal SKIN: chronic changes EXT: trace edema Results Result Diagram: 08/12/16 0400 08/12/16 0400 Results 24 hrs Laboratory Tests Test 08/11/16 21:01 08/12/16 02:00 08/12/16 04:00 08/12/16 08:18 Bedside Glucose 110 111 111 Anion Gap 13 Basophils # 0.1 Basophils % 0.7 Blood Urea Nitrogen 21 H Calcium Level 7.9 L Carbon Dioxide Level 30 Chloride Level 104 Creatinine 0.92 Eosinophils # 0.6 H Eosinophils % 5.1 Glucose Level 119 Hematocrit 41.2 L Hemoglobin 13.7 L Lymphocytes # 1.7 Lymphocytes % 14.1 L Magnesium Level 1.8 Mean Corpuscular Hemoglobin 26.7 L Mean Corpuscular Hemoglobin Concent 33.3 Mean Corpuscular Volume 80.2 L Mean Platelet Volume 10.1 Monocytes # 1.6 H Monocytes % 13.7 H Neutrophils # 7.7 H Neutrophils % 65.7 Nucleated Red Blood Cells # 0.0 Nucleated Red Blood Cells % 0.0 Phosphorus Level 2.3 L Platelet Count 221 Potassium Level 3.5 Red Blood Count 5.14 Red Cell Distribution Width 20.8 H Sodium Level 143 White Blood Count 11.7 H Test 08/12/16 12:43 Bedside Glucose 110 Medications Medications Current Medications Spironolactone (Aldactone) 25 mg DAILY PO Last administered on 08/04/16 08:40 ; Admin Dose 25 MG; Start 08/03/16 at 11:00; Status Future Hold Ondansetron HCl (Zofran Tab) 4 mg Q6H PRN PO NAUSEA AND/OR VOMITING; Start 03/12 at 10:30 Aspirin (Aspirin) 81 mg DAILY PO Last administered on 08/12/16 08:32; Admin Dose 81 MG; Start 08/03/16 at 11:00 Nitroglycerin (Nitroglycerin (Sl Tab) 0.4 Mg) 1 tab Q5M PRN SL CHEST PAIN; Start 08/03/16 at 10:30 Acetaminophen (Tylenol Tab) 650 mg Q6H PRN PO PAIN LEVEL 1-3 OR FEVER; Start at 10:30 Docusate Sodium (Colace) 100 mg Q12H PRN PO CONSTIPATION; Start 08/03/16 at 10: 30 Hydralazine HCl (Apresoline) 10 mg Q8 PO Last administered on 08/12/16 13:49; Admin Dose 10 MG; Start 08/03/16 at 22:00 Carvedilol (Coreg) 3.125 mg BID PO Last administered on 08/12/16 08:32; Admin Dose 3.125 MG; Start 08/03/16 at 21:00 Zolpidem Tartrate (Ambien) 5 mg HS PRN PO INSOMNIA Last administered on 21:21; Admin Dose 5 MG; Start 08/03/16 at 21:00 Lorazepam (Ativan) 1 mg Q4 PRN IV ANXIETY Last administered on 08/05/16 14:46 ; Admin Dose 1 MG; Start 08/04/16 at 17:00 Diagnostic Test (Pha) 1 ea 1 ea Q4 XX Last administered on 08/12/16 13:12; Admin Dose 1 EA; Start 08/05/16 at 09:00 Propofol 100 ml @ 2.925 mls/ hr Q12H IV Last administered on 08/06/16 14:28; Admin Dose 5.85 MLS/HR; Start 08/05/16 at 11:00 Norepinephrine/ Dextrose (Levophed/D5W) 500 ml @ 1.87 mls/hr TITRATE IV Last administered on 08/06/16 12:56; Admin Dose 30 MLS/HR; Start 08/05/16 at 13:00 Pantoprazole (Protonix Iv) 40 mg BID@06,18 IV Last administered on 08/12/16 06 :33; Admin Dose 40 MG; Start 08/05/16 at 18:00 Eye Lubricant 1 applic 1 applic TID BOTH EYES Last administered on 08/12/16 13 :11; Admin Dose 1 APPLIC; Start 08/05/16 at 16:00 Cefepime HCl (Maxipime 2gm/50 ml (Pmx)) 50 ml @ 100 mls/hr Q12 IVPB Last administered on 08/12/16 09:04; Admin Dose 100 MLS/HR; Start 08/08/16 at 21:00 Lactulose (Enulose) 20 gm Q8 PO Last administered on 08/12/16 13:49; Admin Dose 20 GM; Start 08/09/16 at 10:00 Spironolactone 12.5 mg 12.5 mg DAILY@06 PO Last administered on 08/12/16 06:32 ; Admin Dose 12.5 MG; Start 08/11/16 at 06:00 Vancomycin HCl/ Sodium Chloride (Vancocin/NS) 150 ml @ 75 mls/hr Q12H IVPB Last administered on 08/12/16 13:12; Admin Dose 75 MLS/HR; Start 08/10/16 at 13 :00 Miscellaneous Information (*Rx Drug Level Order Reminder*) VANCOMYCIN TROUGH AT 0000 ONCE ONCE XX ; Start 08/13/16 at 00:00; Stop 08/13/16 at 00:01 ABDIFATAH JONES MD Aug 12, 2016 17:19
[2016-08-12] MEDS ORDERED: NA PHOSPHATE/BIPHOS 133 ML ENEMA PR ONE ×2 (23:00)
[2016-08-13] VITALS (56 sets, daily range): BP systolic 91–120; BP diastolic 52–82; PULSE 87–115; RESP 22–29
[2016-08-13] MEDS ORDERED: ALTEPLASE (CATHFLO) 2 MG INJ CATHETER PRN (00:30)
[2016-08-13] MEDS: VANCOMYCIN 750 MG in SOD CHLORIDE 0.9% 150 ML IVPB SCH (01:23)
[2016-08-13] MEDS: ACCU-CHEK XX SCH ×6 (01:23→20:32)
[2016-08-13] MEDS: PANTOPRAZOLE 40 MG INJ IV SCH ×2 (05:42→17:44)
[2016-08-13] MEDS: LACTULOSE 30ML CUP PO SCH ×3 (05:43→22:34)
[2016-08-13] MEDS: FUROSEMIDE 40 MG INJ IV SCH ×2 (05:43→17:44)
[2016-08-13] MEDS: SPIRONOLACTONE 25 MG TAB PO SCH (05:43)
[2016-08-13 05:53] LABS: ADD SCAN DIFF NO
[2016-08-13 05:57] LABS: ABNORMAL IP MESSAGE 1; BASOPHIL # 0.1 10^3/ul (0.0-0.1); BASOPHILS % 0.8 % (0.0-2.0); EOSINOPHILS # 0.6 10^3/ul (0.0-0.5); EOSINOPHILS % 4.7 % (0.0-7.0); HEMATOCRIT 42.8 % (42.0-52.0); HEMOGLOBIN 14.1 g/dl (14.0-18.0); LYMPHOCYTES # 1.8 10^3/ul (0.8-2.9); MEAN CORPUSCULAR HEMOGLOBIN 26.7 pg (29.0-33.0); MEAN CORPUSCULAR HGB CONC 32.9 g/dl (32.0-37.0); MEAN CORPUSCULAR VOLUME 80.9 fl (82.0-101.0); MEAN PLATELET VOLUME 10.7 fl (7.4-10.4); MONOCYTE # 1.6 10^3/ul (0.3-0.9); NEUTROPHILS % 65.9 % (39.0-77.0); PLATELET COUNT 248 10^3/UL (140-415); RED BLOOD COUNT 5.29 10^6/ul (4.70-6.10); RED CELL DISTRIBUTION WIDTH 21.5 % (11.5-14.5); WHITE BLOOD COUNT 12.2 10^3/ul (4.8-10.8)
[2016-08-13 06:09] LABS: POTASSIUM 3.3 mmol/L (3.5-5.1)
[2016-08-13 06:11] LABS: CREATININE 0.94 mg/dl (0.61-1.24)
[2016-08-13 06:12] LABS: CALCIUM 8.2 mg/dl (8.4-10.2); MAGNESIUM 1.9 mg/dl (1.7-2.5); PHOSPHORUS 3.6 mg/dl (2.5-4.9)
--- NOTE | 2016-08-13 07:41 | RADRPT ---
PROCEDURE: XR Chest. CLINICAL INDICATION: Shortness of breath. TECHNIQUE: Single frontal view. COMPARISON: 08/12/2016. FINDINGS: The endotracheal tube, nasogastric tube, and left arm PICC line are in satisfactory position. Pulmo nary edema and bibasilar atelectasis is unchanged. The heart is enlarged. There are moderate bilateral pleural effusions. There is no pneumothorax. IMPRESSION: 1. No change from 08/12/2016. RPTAT: QQ .Robson Tellez MD, MD Date Time Electronically viewed and signed by .Robson Tellez MD, MD on 08/13/2016 07:41 .R/
[2016-08-13] MEDS: CEFEPIME 2GM/50 ML IVPB SCH ×2 (09:00→20:44)
[2016-08-13] MEDS: ASPIRIN 81 MG TAB PO SCH (09:00)
[2016-08-13] MEDS: OCULAR LUBRICANT 3.5 GM OPH OINT BOTH EYES SCH ×3 (09:00→20:32)
[2016-08-13] MEDS: DOCUSATE SODIUM 10 MG/ML (10ML CUP) NGT SCH ×2 (09:00→20:32)
--- NOTE | 2016-08-13 10:05 | PN ---
Date/Time of Note Date/Time of Note DATE: 08/13/16 TIME: 10:02 Assessment/Plan VTE Prophylaxis VTE Prophylaxis Intervention: SCD's Lines/Catheters IV Catheter Type (from Nrs): PICC Line Central line still needed: Yes Urinary Cath still in place: Yes Reason Cath still needed: other (indicate) Assessment/Plan Chief Complaint/Hosp Course Chief Complaint/Hosp Course 1. Acute encephalopathy secondary to hypoglycemia and/or substance abuse-pt now opening eyes today but not following commands EEG suggests toxic metabolic encephalopathy, neuro consult appreciated CT head shows no significant findings, follow-up with MRI Family conference held and family does not feel that patient would have wanted to be trached, we will continue to monitor neuro status on a daily basis` 2. Acute respiratory failure, now ventilator dependent, secondary to #1 and CHF exacerbation Pulmonology in the case, continue vent support CXR this AM is unchanged 3. Acute on chronic congestive heart failure exacerbation with an ejection fraction of 15% Cardiology on the case, continue diuresis 4. Chronic alcoholic with cirrhosis and coagulopathy 5. Chronic substance abuse with amphetamines and heroin. 6. Leukocytosis possibly secondary to pneumonia-resolved Continue antibiotics for now, consider discontinuation of antibiotics tomorrow as patient is still having low-grade fevers today 7. Subclinical hypothyroidism. Prophylaxis: SCDs Problems: Subjective 24 Hr Interval Summary Free Text/Dictation No acute changes Remains intubated No meaningful neurologic examination finding Exam/Review of Systems Vital Signs Vitals Vital Signs Date Time Temp Pulse Resp B/P Pulse Ox O2 Delivery O2 Flow Rate FiO2 08/13/16 09:30 98 23 109/64 98 Mechanical Ventilator 08/13/16 09:05 40 08/13/16 08:00 98.9 Intake and Output 08/12/16 08/12/16 08/13/16 15:00 23:00 07:00 Intake Total 430 ml 1285 ml 490 ml Output Total 3070 ml 2700 ml 1980 ml Balance -2640 ml -1415 ml -1490 ml Exam General: The patient is intubated HEENT: Atraumatic, normocephalic. The pupils are sluggish to light Chest: Normal expansion of the thorax during inspiration Lungs: Clear to auscultation bilaterally Heart: Normal S1-S2, Regular rhythm and rate. Abdomen: Soft , nontender, nondistended , bowel sounds are present. Extremities: Normal to inspection, no edema no cyanosis Neurologic: Patient responds to pain stimuli although does not respond to verbal stimuli Results Result Diagram: 08/13/16 0500 08/13/16 0500 Results 24 hrs Laboratory Tests Test 08/12/16 12:43 08/12/16 17:54 08/12/16 21:28 08/13/16 00:00 Bedside Glucose 110 124 120 Vancomycin Level Trough 18.3 Test 08/13/16 01:23 08/13/16 05:00 08/13/16 05:18 08/13/16 08:11 Bedside Glucose 101 96 114 Anion Gap 14 Basophils # 0.1 Basophils % 0.8 Blood Urea Nitrogen 23 H Calcium Level 8.2 L Carbon Dioxide Level 31 Chloride Level 105 Creatinine 0.94 Eosinophils # 0.6 H Eosinophils % 4.7 Glucose Level 102 Hematocrit 42.8 Hemoglobin 14.1 Lymphocytes # 1.8 Lymphocytes % 15.0 Magnesium Level 1.9 Mean Corpuscular Hemoglobin 26.7 L Mean Corpuscular Hemoglobin Concent 32.9 Mean Corpuscular Volume 80.9 L Mean Platelet Volume 10.7 H Monocytes # 1.6 H Monocytes % 13.0 H Neutrophils # 8.0 H Neutrophils % 65.9 Nucleated Red Blood Cells # 0.0 Nucleated Red Blood Cells % 0.0 Phosphorus Level 3.6 Platelet Count 248 Potassium Level 3.3 L Red Blood Count 5.29 Red Cell Distribution Width 21.5 H Sodium Level 147 H White Blood Count 12.2 H Medications Medications Current Medications Spironolactone (Aldactone) 25 mg DAILY PO Last administered on 08/04/16 08:40 ; Admin Dose 25 MG; Start 08/03/16 at 11:00; Status Future Hold Ondansetron HCl (Zofran Tab) 4 mg Q6H PRN PO NAUSEA AND/OR VOMITING; Start 03/12 at 10:30 Aspirin (Aspirin) 81 mg DAILY PO Last administered on 08/13/16 09:00; Admin Dose 81 MG; Start 08/03/16 at 11:00 Nitroglycerin (Nitroglycerin (Sl Tab) 0.4 Mg) 1 tab Q5M PRN SL CHEST PAIN; Start 08/03/16 at 10:30 Acetaminophen (Tylenol Tab) 650 mg Q6H PRN PO PAIN LEVEL 1-3 OR FEVER; Start at 10:30 Hydralazine HCl (Apresoline) 10 mg Q8 PO Last administered on 08/13/16 05:43; Admin Dose 10 MG; Start 08/03/16 at 22:00 Carvedilol (Coreg) 3.125 mg BID PO Last administered on 08/13/16 09:00; Admin Dose 3.125 MG; Start 08/03/16 at 21:00 Zolpidem Tartrate (Ambien) 5 mg HS PRN PO INSOMNIA Last administered on 21:21; Admin Dose 5 MG; Start 08/03/16 at 21:00 Lorazepam (Ativan) 1 mg Q4 PRN IV ANXIETY Last administered on 08/05/16 14:46 ; Admin Dose 1 MG; Start 08/04/16 at 17:00 Diagnostic Test (Pha) 1 ea 1 ea Q4 XX Last administered on 08/13/16 09:00; Admin Dose 1 EA; Start 08/05/16 at 09:00 Propofol 100 ml @ 2.925 mls/ hr Q12H IV Last administered on 08/06/16 14:28; Admin Dose 5.85 MLS/HR; Start 08/05/16 at 11:00 Norepinephrine/ Dextrose (Levophed/D5W) 500 ml @ 1.87 mls/hr TITRATE IV Last administered on 08/06/16 12:56; Admin Dose 30 MLS/HR; Start 08/05/16 at 13:00 Pantoprazole (Protonix Iv) 40 mg BID@06,18 IV Last administered on 08/13/16 05 :42; Admin Dose 40 MG; Start 08/05/16 at 18:00 Eye Lubricant 1 applic 1 applic TID BOTH EYES Last administered on 08/13/16 09 :00; Admin Dose 1 APPLIC; Start 08/05/16 at 16:00 Cefepime HCl (Maxipime 2gm/50 ml (Pmx)) 50 ml @ 100 mls/hr Q12 IVPB Last administered on 08/13/16 09:00; Admin Dose 100 MLS/HR; Start 08/08/16 at 21:00 Lactulose (Enulose) 20 gm Q8 PO Last administered on 08/13/16 05:43; Admin Dose 20 GM; Start 08/09/16 at 10:00 Spironolactone 12.5 mg 12.5 mg DAILY@06 PO Last administered on 08/13/16 05:43 ; Admin Dose 12.5 MG; Start 08/11/16 at 06:00 Vancomycin HCl/ Sodium Chloride (Vancocin/NS) 150 ml @ 75 mls/hr Q12H IVPB Last administered on 08/13/16 01:23; Admin Dose 75 MLS/HR; Start 08/10/16 at 13 :00 Docusate Sodium (Colace Liquid Cup) 100 mg BID NGT Last administered on 09:00; Admin Dose 100 MG; Start 08/13/16 at 09:00 JACEK HOLLEY MD Aug 13, 2016 10:05
--- NOTE | 2016-08-13 10:24 | CONS ---
Date/Time of Note Date/Time of Note DATE: 08/13/16 TIME: 10:19 Assessment/Plan Assessment/Plan Chief Complaint/Hosp Course IMPRESSION: 1. Congestive heart failure exacerbation, systolic, acute on chronic 2. Cardiomyopathy with severely depressed left ventricular ejection fraction approximately 15%. 3. Abnormal electrocardiogram, assess for acute coronary syndrome.-negative troponin x 3 4. Hypotension, borderline. 5. Lower extremity edema. 6. Possible lower extremity cellulitis. 7. Renal failure-improving 8. Substance abuse-ongoing 9. Coagulopathy 10. Resp failure s/p intubation 11.Hypoglycemia-? etiology liver failure 12.Encephalopathy-ongoing off sedation/unresponsive Recc: -Tele -Continue coreg/hydralazine as tolerated only -Continue gentle lasix diuresis as tolerated only -Continue asa -Contineu aldactone -Follow BS closely -Wean vent as tolerated -Ongoing family discussion about trach/code status Problems: Consultation Date/Type/Reason Admit Date/Time Aug 03, 2016 at 14:46 Initial Consult Date 08/03/2016 Type of Consultation: Cardiology Reason for Consultation CHF/cmy Referring Provider: JACEK HOLLEY MD Exam/Review of Systems Vital Signs Vitals Vital Signs Date Time Temp Pulse Resp B/P Pulse Ox O2 Delivery O2 Flow Rate FiO2 08/13/16 09:30 98 23 109/64 98 Mechanical Ventilator 08/13/16 09:05 40 08/13/16 08:00 98.9 Intake and Output 08/12/16 08/12/16 08/13/16 15:00 23:00 07:00 Intake Total 430 ml 1285 ml 490 ml Output Total 3070 ml 2700 ml 1980 ml Balance -2640 ml -1415 ml -1490 ml Exam Review of Systems: CONSTITUTIONAL: No fevers, chills. PULMONARY: No sob CARDIOVASCULAR: No chest pain/palpitations GASTROINTESTINAL: No nausea/vomiting. GENITOURINARY: No hematuria/dysuria. MUSCULOSKELETAL: No myagias/arthalgias. PSYCHIATRIC: The patient denies depression. NEUROLOGIC: No weakness Constitutional: alert, oriented Psych: no complaints Head: normocephalic ENMT: mucosa pink and moist Neck: jvd (9 cm water), supple Respiratory: diminished breath sounds (at bases/B) Cardiovascular: regular rate and rhythm Gastrointestinal: non-tender, soft Musculoskeletal: muscle tone (normal) Extremities: edema (trace/B) Neurological: unresponsive Results Result Diagram: 08/13/16 0500 08/13/16 0500 Results 24 hrs Laboratory Tests Test 08/12/16 12:43 08/12/16 17:54 08/12/16 21:28 08/13/16 00:00 Bedside Glucose 110 124 120 Vancomycin Level Trough 18.3 Test 08/13/16 01:23 08/13/16 05:00 08/13/16 05:18 08/13/16 08:11 Bedside Glucose 101 96 114 Anion Gap 14 Basophils # 0.1 Basophils % 0.8 Blood Urea Nitrogen 23 H Calcium Level 8.2 L Carbon Dioxide Level 31 Chloride Level 105 Creatinine 0.94 Eosinophils # 0.6 H Eosinophils % 4.7 Glucose Level 102 Hematocrit 42.8 Hemoglobin 14.1 Lymphocytes # 1.8 Lymphocytes % 15.0 Magnesium Level 1.9 Mean Corpuscular Hemoglobin 26.7 L Mean Corpuscular Hemoglobin Concent 32.9 Mean Corpuscular Volume 80.9 L Mean Platelet Volume 10.7 H Monocytes # 1.6 H Monocytes % 13.0 H Neutrophils # 8.0 H Neutrophils % 65.9 Nucleated Red Blood Cells # 0.0 Nucleated Red Blood Cells % 0.0 Phosphorus Level 3.6 Platelet Count 248 Potassium Level 3.3 L Red Blood Count 5.29 Red Cell Distribution Width 21.5 H Sodium Level 147 H White Blood Count 12.2 H Medications Medications Current Medications Spironolactone (Aldactone) 25 mg DAILY PO Last administered on 08/04/16 08:40 ; Admin Dose 25 MG; Start 08/03/16 at 11:00; Status Future Hold Ondansetron HCl (Zofran Tab) 4 mg Q6H PRN PO NAUSEA AND/OR VOMITING; Start 03/12 at 10:30 Aspirin (Aspirin) 81 mg DAILY PO Last administered on 08/13/16 09:00; Admin Dose 81 MG; Start 08/03/16 at 11:00 Nitroglycerin (Nitroglycerin (Sl Tab) 0.4 Mg) 1 tab Q5M PRN SL CHEST PAIN; Start 08/03/16 at 10:30 Acetaminophen (Tylenol Tab) 650 mg Q6H PRN PO PAIN LEVEL 1-3 OR FEVER; Start at 10:30 Hydralazine HCl (Apresoline) 10 mg Q8 PO Last administered on 08/13/16 05:43; Admin Dose 10 MG; Start 08/03/16 at 22:00 Carvedilol (Coreg) 3.125 mg BID PO Last administered on 08/13/16 09:00; Admin Dose 3.125 MG; Start 08/03/16 at 21:00 Zolpidem Tartrate (Ambien) 5 mg HS PRN PO INSOMNIA Last administered on 21:21; Admin Dose 5 MG; Start 08/03/16 at 21:00 Lorazepam (Ativan) 1 mg Q4 PRN IV ANXIETY Last administered on 08/05/16 14:46 ; Admin Dose 1 MG; Start 08/04/16 at 17:00 Diagnostic Test (Pha) 1 ea 1 ea Q4 XX Last administered on 08/13/16 09:00; Admin Dose 1 EA; Start 08/05/16 at 09:00 Propofol 100 ml @ 2.925 mls/ hr Q12H IV Last administered on 08/06/16 14:28; Admin Dose 5.85 MLS/HR; Start 08/05/16 at 11:00 Norepinephrine/ Dextrose (Levophed/D5W) 500 ml @ 1.87 mls/hr TITRATE IV Last administered on 08/06/16 12:56; Admin Dose 30 MLS/HR; Start 08/05/16 at 13:00 Pantoprazole (Protonix Iv) 40 mg BID@06,18 IV Last administered on 08/13/16 05 :42; Admin Dose 40 MG; Start 08/05/16 at 18:00 Eye Lubricant 1 applic 1 applic TID BOTH EYES Last administered on 08/13/16 09 :00; Admin Dose 1 APPLIC; Start 08/05/16 at 16:00 Cefepime HCl (Maxipime 2gm/50 ml (Pmx)) 50 ml @ 100 mls/hr Q12 IVPB Last administered on 08/13/16 09:00; Admin Dose 100 MLS/HR; Start 08/08/16 at 21:00 Lactulose (Enulose) 20 gm Q8 PO Last administered on 08/13/16 05:43; Admin Dose 20 GM; Start 08/09/16 at 10:00 Spironolactone 12.5 mg 12.5 mg DAILY@06 PO Last administered on 08/13/16 05:43 ; Admin Dose 12.5 MG; Start 08/11/16 at 06:00 Vancomycin HCl/ Sodium Chloride (Vancocin/NS) 150 ml @ 75 mls/hr Q12H IVPB Last administered on 08/13/16 01:23; Admin Dose 75 MLS/HR; Start 08/10/16 at 13 :00 Docusate Sodium (Colace Liquid Cup) 100 mg BID NGT Last administered on 09:00; Admin Dose 100 MG; Start 08/13/16 at 09:00 DEANA ALBERTO Aug 13, 2016 10:23
[2016-08-13] MEDS: PROPOFOL 100 ML IV SCH ×2 (11:00→23:00)
--- NOTE | 2016-08-13 12:56 | CONS ---
Date/Time of Note Date/Time of Note DATE: 08/13/16 TIME: 12:53 Consult Date/Type/Reason Admit Date/Time Aug 03, 2016 at 14:46 Initial Consult Date 08/10/16 Type of Consultation: Neurology Reason for Consultation respiratory failure substance abuse, hx seizures Ordering Provider: JACEK HOLLEY MD Subjective remains intubated off sedation, no improvement in neurologic exam Objective Vital Signs Date Time Temp Pulse Resp B/P Pulse Ox O2 Delivery O2 Flow Rate FiO2 08/13/16 10:55 94 22 98 40 08/13/16 09:30 109/64 Mechanical Ventilator 08/13/16 08:00 98.9 Intake and Output 08/12/16 08/12/16 08/13/16 14:59 22:59 06:59 Intake Total 460 ml 1285 ml 490 ml Output Total 3995 ml 2575 ml 1280 ml Balance -3535 ml -1290 ml -790 ml Exam Constitutional: other (Intubated and ventilated) Head: atraumatic, normocephalic Eyes: EOMI, nl conjunctiva, nl lids, nl sclera ENMT: mucosa pink and moist, nl external ears & nose, nl lips & teeth, nl nasal mucosa & septum Neck: non-tender, supple Respiratory: clear to auscultation, normal air movement Cardiovascular: regular rate and rhythm Gastrointestinal: nl liver, spleen, non-tender, soft Musculoskeletal: nl extremities to inspection Extremities: normal pulses Neurological: other (Intubated, ventilated, eyes unable to open today to command) Skin: nl turgor, rash or lesions Lymph: nl lymph nodes Results/Medications Result Diagram: 08/13/16 0500 08/13/16 0500 Results 24 hrs Laboratory Tests Test 08/12/16 17:54 08/12/16 21:28 08/13/16 00:00 08/13/16 01:23 Bedside Glucose 124 120 101 Vancomycin Level Trough 18.3 Test 08/13/16 05:00 08/13/16 05:18 08/13/16 08:11 08/13/16 11:55 Anion Gap 14 Basophils # 0.1 Basophils % 0.8 Blood Urea Nitrogen 23 H Calcium Level 8.2 L Carbon Dioxide Level 31 Chloride Level 105 Creatinine 0.94 Eosinophils # 0.6 H Eosinophils % 4.7 Glucose Level 102 Hematocrit 42.8 Hemoglobin 14.1 Lymphocytes # 1.8 Lymphocytes % 15.0 Magnesium Level 1.9 Mean Corpuscular Hemoglobin 26.7 L Mean Corpuscular Hemoglobin Concent 32.9 Mean Corpuscular Volume 80.9 L Mean Platelet Volume 10.7 H Monocytes # 1.6 H Monocytes % 13.0 H Neutrophils # 8.0 H Neutrophils % 65.9 Nucleated Red Blood Cells # 0.0 Nucleated Red Blood Cells % 0.0 Phosphorus Level 3.6 Platelet Count 248 Potassium Level 3.3 L Red Blood Count 5.29 Red Cell Distribution Width 21.5 H Sodium Level 147 H White Blood Count 12.2 H Bedside Glucose 96 114 111 Medications Current Medications Spironolactone (Aldactone) 25 mg DAILY PO Last administered on 08/04/16 08:40 ; Admin Dose 25 MG; Start 08/03/16 at 11:00; Status Future Hold Ondansetron HCl (Zofran Tab) 4 mg Q6H PRN PO NAUSEA AND/OR VOMITING; Start 03/12 at 10:30 Aspirin (Aspirin) 81 mg DAILY PO Last administered on 08/13/16 09:00; Admin Dose 81 MG; Start 08/03/16 at 11:00 Nitroglycerin (Nitroglycerin (Sl Tab) 0.4 Mg) 1 tab Q5M PRN SL CHEST PAIN; Start 08/03/16 at 10:30 Acetaminophen (Tylenol Tab) 650 mg Q6H PRN PO PAIN LEVEL 1-3 OR FEVER; Start at 10:30 Hydralazine HCl (Apresoline) 10 mg Q8 PO Last administered on 08/13/16 05:43; Admin Dose 10 MG; Start 08/03/16 at 22:00 Carvedilol (Coreg) 3.125 mg BID PO Last administered on 08/13/16 09:00; Admin Dose 3.125 MG; Start 08/03/16 at 21:00 Zolpidem Tartrate (Ambien) 5 mg HS PRN PO INSOMNIA Last administered on 21:21; Admin Dose 5 MG; Start 08/03/16 at 21:00 Lorazepam (Ativan) 1 mg Q4 PRN IV ANXIETY Last administered on 08/05/16 14:46 ; Admin Dose 1 MG; Start 08/04/16 at 17:00 Diagnostic Test (Pha) 1 ea 1 ea Q4 XX Last administered on 08/13/16 09:00; Admin Dose 1 EA; Start 08/05/16 at 09:00 Propofol 100 ml @ 2.925 mls/ hr Q12H IV Last administered on 08/06/16 14:28; Admin Dose 5.85 MLS/HR; Start 08/05/16 at 11:00 Norepinephrine/ Dextrose (Levophed/D5W) 500 ml @ 1.87 mls/hr TITRATE IV Last administered on 08/06/16 12:56; Admin Dose 30 MLS/HR; Start 08/05/16 at 13:00 Pantoprazole (Protonix Iv) 40 mg BID@06,18 IV Last administered on 08/13/16 05 :42; Admin Dose 40 MG; Start 08/05/16 at 18:00 Eye Lubricant 1 applic 1 applic TID BOTH EYES Last administered on 08/13/16 09 :00; Admin Dose 1 APPLIC; Start 08/05/16 at 16:00 Cefepime HCl (Maxipime 2gm/50 ml (Pmx)) 50 ml @ 100 mls/hr Q12 IVPB Last administered on 08/13/16 09:00; Admin Dose 100 MLS/HR; Start 08/08/16 at 21:00 Lactulose (Enulose) 20 gm Q8 PO Last administered on 08/13/16 05:43; Admin Dose 20 GM; Start 08/09/16 at 10:00 Spironolactone (Aldactone) 12.5 mg DAILY@06 PO Last administered on 08/13/16 05:43; Admin Dose 12.5 MG; Start 08/11/16 at 06:00 Docusate Sodium 100 mg 100 mg BID NGT Last administered on 08/13/16 09:00; Admin Dose 100 MG; Start 08/13/16 at 09:00 Vancomycin HCl (Vancocin) 100 ml @ 100 mls/hr Q12H IVPB ; Start 08/13/16 at 15: 00 Assessment/Plan Chief Complaint/Hosp Course 50 year old male hx of cardiomyopathy EF:15%, anxiety, polysubstance abuse, cirrhosis, admitted with CHF exacerbation, respiratory failure with poor mental status. EEG showed generalized background slowing c/w encephalopathy. CTH unrevealing, MRI is pending. continue to avoid sedation, continue neurochecks off sedation MRI Brain w/o contrast still pending Problems: JUSTIN HERRERA MD Aug 13, 2016 12:56
[2016-08-13] MEDS: ACETAMINOPHEN 325 MG TAB PO PRN (13:23)
[2016-08-13] MEDS: VANCOMYCIN 500MG/NS (PMX) 100 ML IVPB SCH (14:10)
--- NOTE | 2016-08-13 17:13 | PN ---
DATE: 08/13/2016 Mr. Snell with no significant changes overnight, grimaces to painful stimuli. VITAL SIGNS: Temperature 98, pulse is 98, blood pressure 109/64, O2 saturation 96% on 40% FIO2. HEENT: Orally intubated. Dry mucous membranes, pupils equal, round, and reactive to light. CARDIAC: S1, S2, no added sounds or murmurs. CHEST: Diminished air entry bilaterally. ABDOMEN: Soft, nontender, no guarding, no rebound. EXTREMITIES: No cyanosis, clubbing, 2+ edema. NEUROLOGIC: Generalized weakness. LABORATORY DATA: White count 12.2, hemoglobin 14.1, platelets 248, BUN 23, creatinine 0.94. IMPRESSION AND PLAN: 1. Vent dependent respiratory failure. 2. Likely aspiration pneumonia. 3. Pleural effusions. 4. Cardiomyopathy with significantly decreased ejection fraction. 5. History of polysubstance abuse. PLAN: 1. Continue mechanical ventilation. 2. Diuresis as tolerated. 3. Tube feeding. 4. Deep venous thrombosis and gastrointestinal prophylaxis. Per chart, it appears that the family wishes to continue current supportive measures; however, if the patient is not weanable from mechani bishop ventilation they would request terminal extubation. Dictated By: POLO PALOMO/ARMANDO Conf#: [id number] DID#: [id number]
[2016-08-14] VITALS (54 sets, daily range): BP systolic 100–132; BP diastolic 54–93; PULSE 92–150; RESP 20–29
[2016-08-14] MEDS: ACCU-CHEK XX SCH ×6 (01:19→21:27)
[2016-08-14] MEDS: VANCOMYCIN 500MG/NS (PMX) 100 ML IVPB SCH (03:10)
[2016-08-14 04:46] LABS: ADD SCAN DIFF NO
[2016-08-14 05:44] LABS: ABNORMAL IP MESSAGE 1; BASOPHIL # 0.1 10^3/ul (0.0-0.1); BASOPHILS % 0.9 % (0.0-2.0); EOSINOPHILS # 0.7 10^3/ul (0.0-0.5); EOSINOPHILS % 5.6 % (0.0-7.0); HEMATOCRIT 44.2 % (42.0-52.0); HEMOGLOBIN 14.2 g/dl (14.0-18.0); LYMPHOCYTES # 2.1 10^3/ul (0.8-2.9); LYMPHOCYTES % 15.6 % (15.0-51.0); MEAN CORPUSCULAR HEMOGLOBIN 26.2 pg (29.0-33.0); MEAN CORPUSCULAR HGB CONC 32.1 g/dl (32.0-37.0); MEAN CORPUSCULAR VOLUME 81.5 fl (82.0-101.0); MEAN PLATELET VOLUME 10.9 fl (7.4-10.4); MONOCYTE # 1.9 10^3/ul (0.3-0.9); MONOCYTES % 14.3 % (0.0-11.0); NEUTROPHIL # 8.3 10^3/ul (1.6-7.5); NEUTROPHILS % 63.1 % (39.0-77.0); PLATELET COUNT 278 10^3/UL (140-415); RED BLOOD COUNT 5.42 10^6/ul (4.70-6.10); RED CELL DISTRIBUTION WIDTH 21.3 % (11.5-14.5); WHITE BLOOD COUNT 13.1 10^3/ul (4.8-10.8)
[2016-08-14 05:48] LABS: CALCIUM 8.4 mg/dl (8.4-10.2); CREATININE 0.98 mg/dl (0.61-1.24)
[2016-08-14] MEDS: SPIRONOLACTONE 25 MG TAB PO SCH (06:09)
[2016-08-14] MEDS: LACTULOSE 30ML CUP PO SCH ×3 (06:10→21:27)
[2016-08-14] MEDS: FUROSEMIDE 40 MG INJ IV SCH ×2 (06:10→17:22)
[2016-08-14] MEDS: PANTOPRAZOLE 40 MG INJ IV SCH ×2 (06:10→17:21)
[2016-08-14 06:17] LABS: POTASSIUM 3.3 mmol/L (3.5-5.1)
--- NOTE | 2016-08-14 08:10 | RADRPT ---
PROCEDURE: XR Chest AP portable CLINICAL INDICATION: Pneumonia, CHF TECHNIQUE: An AP portable radiograph of the chest was submitted. COMPARISON: 08/13/2016 FINDINGS: Support Hardware: The endotracheal tube and the NG tube remain satisfactorily positioned. Cardiovascular: The heart remains mildly enlarged and the pulmonary vasculature appears mildly conge sted. Lung Cabral: Infiltrate/atelectasis again projects to the heart with in the left lower lobe and ther e is improving atelectasis at the right lung base with mild interstitial infiltrate seen diffusely t hrough both lung cabral. Pleural Spaces: The left costophrenic angle is obscured to a study small pleural fluid accumulation cannot be excluded. No pneumothorax is evident. Osseous Structures: The osseous structures appear intact. Soft Tissues: The soft tissues appear unremarkable. IMPRESSION: 1. The endotracheal tube and NG tube are stable and positioning. 2. Persistent mild cardiomegaly with mild pulmonary vascular congestion and interstitial edema. 3. Persistent atelectasis/infiltrate of of the left lower lobe with slightly improving atelectatic change at the right lung base. 4. Small left pleural fluid accumulation cannot be excluded. Physician Georgi Date Time Electronically viewed and signed by Physician Georgi on 08/14/2016 08:10 /
[2016-08-14] MEDS: DOCUSATE SODIUM 10 MG/ML (10ML CUP) NGT SCH ×2 (08:42→19:48)
[2016-08-14] MEDS: OCULAR LUBRICANT 3.5 GM OPH OINT BOTH EYES SCH ×3 (08:42→19:49)
[2016-08-14] MEDS: ASPIRIN 81 MG TAB PO SCH (08:42)
[2016-08-14] MEDS: CEFEPIME 2GM/50 ML IVPB SCH ×2 (08:42→21:27)
--- NOTE | 2016-08-14 10:18 | CONS ---
DATE OF ADMISSION: 08/03/2016 DATE OF CONSULTATION: 08/13/2016 HISTORY OF PRESENT ILLNESS: This is an unfortunate 50-year-old gentleman who was admitted to [facility] with a history of severe cardiomyopathy with an ejection fraction of 15% and substance abuse, which according to family members, he has been using methamphetamine, smoking it f or many, many years prior to this hospitalization and just recently started to use heroin, smoking t hat also. It is not known whether or not patient has been shooting up intravenous methamphetamine a nd heroin. Family members have not seen him in approximately 3 months prior to this hospitalization . He also has a history of pulmonary hypertension. He presented to the emergency room at [facility] with acute on chronic respiratory failure secondary to congestive heart failure. He was admitted to [facility] and was found to be profoundly hypoglycemic during the hospitalization, with a blood sugar of 20. He w as transferred to the intensive care unit. Shortly thereafter, within the next 24 hours, the patien t had a cardiopulmonary arrest with PEA. He underwent cardiopulmonary resuscitation and since that period of time, he has been in the intensive care unit and has not significantly improved from a cog nitive neurological standpoint. I am asked to speak to family members with Dr. Maury Vergara and assist with any psychosocial care that I can give. MEDICATIONS: Please refer to reconciliation sheet. ALLERGIES: NO KNOWN DRUG ALLERGIES. MAJOR MEDICAL PROBLEMS IN THE PAST: Entirely per history of present illness. SOCIAL HISTORY: Unknown except which is as per history of present illness. FAMILY HISTORY: The patient has a twin. Father is alive, unknown health history. Incomplete datab ase. REVIEW OF SYSTEMS: Cannot be obtained. PHYSICAL EXAMINATION: GENERAL: Shows an intubated male who is nonresponsive to any verbal or tactile stimulation off gertrudis tion. HEENT: He is normocephalic and atraumatic. Anicteric, acyanotic. CHEST: Shows bilateral clear breath sounds throughout both lung cabral. COR: S1, S2, without S3, S4, murmur, gallop, rub. Normal rate, normal rhythm. ABDOMEN: Grossly benign. LABORATORY DATA: Have been reviewed. I have had a consultation with family. Brother at the [facility] e and [id number]. The brother was very tearful. There is another brother who has been visiting the patient additionally. The brother who was here yesterday gave me an entire history of present i llness and patient's longstanding history of drug use. They are considering their options in the ev ent that the patient does not improve from a neurological standpoint and have been given the difficu lt information that they have to process at this time of whether or not they want to have him PEG/tr ached if he is in a vegetative condition. There is clearly no indication that he is going to improv e cognitively the future. I have told them that he will still receive the level of care he is recei ving right now and will continue to have ongoing conversations today is day 11 of intubation post PE A cardiopulmonary arrest. Dictated By: PATRICIO FERNANDES MD, LP/ARMANDO Conf#: [id number] DID#: [id number]
--- NOTE | 2016-08-14 10:35 | CONS ---
Date/Time of Note Date/Time of Note DATE: 08/14/16 TIME: 10:33 Assessment/Plan Assessment/Plan Additional Assessment/Plan 1. Congestive heart failure exacerbation, systolic, acute on chronic-worsening by cxr - stable, con't to optimize fluid status. MED RX. 2. Cardiomyopathy with severely depressed left ventricular ejection fraction approximately 15% - no indication for ICD now. 3. Abnormal electrocardiogram, assess for acute coronary syndrome.-negative troponin x 3 4. Hypotension, borderline - BP stable, con't Med Rx - con't supportive care. 5. Lower extremity edema- con't to remove fluid as tolerated. 6. Possible lower extremity cellulitis. 7. Renal failure renal team follow. 8. Substance abuse-ongoing 9. Coagulopathy 10. Resp failure s/p intubation - con't resp Rx. 11.Hypoglycemia-? etiology liver failure 12.Encephalopathy Consultation Date/Type/Reason Admit Date/Time Aug 03, 2016 at 14:46 Initial Consult Date 08/05/16 Type of Consultation: Neurology Referring Provider: JACEK HOLLEY MD 24 HR Interval Summary Free Text/Dictation NO acute change - con't Resp Rx. ROS: No fever, no chills, no nausea, no vomiting, no diarrhea/constipation No recent weight changes No chest pain, no PND, no orthopnea No dizziness, blurred vision No thirst, no heat or cold intolerance (per nurse) Exam/Review of Systems Vital Signs Vitals Vital Signs Date Time Temp Pulse Resp B/P Pulse Ox O2 Delivery O2 Flow Rate FiO2 08/14/16 09:35 107 23 99 40 08/14/16 08:00 98.8 111/66 Mechanical Ventilator Intake and Output 08/13/16 08/13/16 08/14/16 15:00 23:00 07:00 Intake Total 480 ml 490 ml 510 ml Output Total 1615 ml 2275 ml 775 ml Balance -1135 ml -1785 ml -265 ml Exam General: WN/WD/NAD, AOx 0 HEENT: Unicetric/atraumatic/EOMI (does not follow commands) NECK: JVD elevated, no thyromegaly, intub Lymph: no lymphadenopathy HEART: regular with no S3, II/ systolic murmur at apex LUNGS: Coarse sounds ABD: soft, NT, ND, +BS : Intact Neuro: non focal SKIN: chronic changes EXT: trace edema Results Result Diagram: 08/14/16 0400 08/14/16 0400 Results 24 hrs Laboratory Tests Test 08/13/16 11:55 08/13/16 16:03 08/13/16 20:30 08/14/16 01:10 Bedside Glucose 111 104 115 105 Test 08/14/16 04:00 08/14/16 06:16 08/14/16 08:17 Anion Gap 13 Basophils # 0.1 Basophils % 0.9 Blood Urea Nitrogen 24 H Calcium Level 8.4 Carbon Dioxide Level 33 H Chloride Level 105 Creatinine 0.98 Eosinophils # 0.7 H Eosinophils % 5.6 Glucose Level 103 Hematocrit 44.2 Hemoglobin 14.2 Lymphocytes # 2.1 Lymphocytes % 15.6 Mean Corpuscular Hemoglobin 26.2 L Mean Corpuscular Hemoglobin Concent 32.1 Mean Corpuscular Volume 81.5 L Mean Platelet Volume 10.9 H Monocytes # 1.9 H Monocytes % 14.3 H Neutrophils # 8.3 H Neutrophils % 63.1 Nucleated Red Blood Cells # 0.0 Nucleated Red Blood Cells % 0.0 Platelet Count 278 Potassium Level 3.3 L Red Blood Count 5.42 Red Cell Distribution Width 21.3 H Sodium Level 148 H White Blood Count 13.1 H Bedside Glucose 125 101 Medications Medications Current Medications Spironolactone (Aldactone) 25 mg DAILY PO Last administered on 08/04/16 08:40 ; Admin Dose 25 MG; Start 08/03/16 at 11:00; Status Future Hold Ondansetron HCl (Zofran Tab) 4 mg Q6H PRN PO NAUSEA AND/OR VOMITING; Start 03/12 at 10:30 Aspirin (Aspirin) 81 mg DAILY PO Last administered on 08/14/16 08:42; Admin Dose 81 MG; Start 08/03/16 at 11:00 Nitroglycerin (Nitroglycerin (Sl Tab) 0.4 Mg) 1 tab Q5M PRN SL CHEST PAIN; Start 08/03/16 at 10:30 Acetaminophen (Tylenol Tab) 650 mg Q6H PRN PO PAIN LEVEL 1-3 OR FEVER Last administered on 08/13/16 13:23; Admin Dose 650 MG; Start 08/03/16 at 10:30 Hydralazine HCl (Apresoline) 10 mg Q8 PO Last administered on 08/14/16 06:09; Admin Dose 10 MG; Start 08/03/16 at 22:00 Carvedilol (Coreg) 3.125 mg BID PO Last administered on 08/14/16 08:43; Admin Dose 3.125 MG; Start 08/03/16 at 21:00 Zolpidem Tartrate (Ambien) 5 mg HS PRN PO INSOMNIA Last administered on 21:21; Admin Dose 5 MG; Start 08/03/16 at 21:00 Lorazepam (Ativan) 1 mg Q4 PRN IV ANXIETY Last administered on 08/05/16 14:46 ; Admin Dose 1 MG; Start 08/04/16 at 17:00 Diagnostic Test (Pha) 1 ea 1 ea Q4 XX Last administered on 08/14/16 08:43; Admin Dose 1 EA; Start 08/05/16 at 09:00 Propofol 100 ml @ 2.925 mls/ hr Q12H IV Last administered on 08/06/16 14:28; Admin Dose 5.85 MLS/HR; Start 08/05/16 at 11:00 Norepinephrine/ Dextrose (Levophed/D5W) 500 ml @ 1.87 mls/hr TITRATE IV Last administered on 08/06/16 12:56; Admin Dose 30 MLS/HR; Start 08/05/16 at 13:00 Pantoprazole (Protonix Iv) 40 mg BID@06,18 IV Last administered on 08/14/16 06 :10; Admin Dose 40 MG; Start 08/05/16 at 18:00 Eye Lubricant 1 applic 1 applic TID BOTH EYES Last administered on 08/14/16 08 :42; Admin Dose 1 APPLIC; Start 08/05/16 at 16:00 Cefepime HCl (Maxipime 2gm/50 ml (Pmx)) 50 ml @ 100 mls/hr Q12 IVPB Last administered on 08/14/16 08:42; Admin Dose 100 MLS/HR; Start 08/08/16 at 21:00 Lactulose (Enulose) 20 gm Q8 PO Last administered on 08/14/16 06:10; Admin Dose 20 GM; Start 08/09/16 at 10:00 Spironolactone (Aldactone) 12.5 mg DAILY@06 PO Last administered on 08/14/16 06:09; Admin Dose 12.5 MG; Start 08/11/16 at 06:00 Docusate Sodium 100 mg 100 mg BID NGT Last administered on 08/14/16 08:42; Admin Dose 100 MG; Start 08/13/16 at 09:00 Vancomycin HCl (Vancocin) 100 ml @ 100 mls/hr Q12H IVPB Last administered on 03:10; Admin Dose 100 MLS/HR; Start 08/13/16 at 15:00 ABDIFATAH JONES MD Aug 14, 2016 10:35
--- NOTE | 2016-08-14 10:55 | PN ---
Date/Time of Note Date/Time of Note DATE: 08/14/16 TIME: 10:52 Assessment/Plan VTE Prophylaxis VTE Prophylaxis Intervention: SCD's Lines/Catheters IV [facility] PICC Line Central line still needed: Yes Urinary Cath still in place: Yes Reason Cath still needed: other (indicate) Assessment/Plan Chief Complaint/Hosp Course Chief Complaint/Hosp Course 1. Acute encephalopathy secondary to hypoglycemia and/or substance abuse-pt now opening eyes today but not following commands EEG suggests toxic metabolic encephalopathy, neuro consult appreciated CT head shows no significant findings, follow-up with MRI Family conference held and family does not feel that patient would have wanted to be trached, we will continue to monitor neuro status on a daily basis` 2. Acute respiratory failure, now ventilator dependent, secondary to #1 and CHF exacerbation Pulmonology in the case, continue vent support CXR this AM is unchanged 3. Acute on chronic congestive heart failure exacerbation with an ejection fraction of 15% Cardiology on the case, continue diuresis 4. Chronic alcoholic with cirrhosis and coagulopathy 5. Chronic substance abuse with amphetamines and heroin. 6. Leukocytosis possibly secondary to pneumonia-resolved Continue antibiotics for now, consider discontinuation of antibiotics tomorrow as patient is still having low-grade fevers today 7. Subclinical hypothyroidism. Prophylaxis: SCDs Problems: Subjective 24 Hr Interval Summary Free Text/Dictation No acute changes Intubated Met with patient's brother on 08/13/2016 and all the questions were answered Exam/Review of Systems Vital Signs Vitals Vital Signs Date Time Temp Pulse Resp B/P Pulse Ox O2 Delivery O2 Flow Rate FiO2 08/14/16 09:35 107 23 99 40 08/14/16 08:00 98.8 111/66 Mechanical Ventilator Intake and Output 08/13/16 08/13/16 08/14/16 15:00 23:00 07:00 Intake Total 480 ml 490 ml 510 ml Output Total 1615 ml 2275 ml 775 ml Balance -1135 ml -1785 ml -265 ml Exam General: The patient is not in acute distress HEENT: Atraumatic, normocephalic. The pupils are sluggish Neck: Supple Chest: Normal expansion of the thorax during inspiration Lungs: Clear to auscultation bilaterally Heart: Normal S1-S2, Regular rhythm and rate. Abdomen: Soft , nontender, nondistended , bowel sounds are present. Extremities: Normal to inspection, +2 edema no cyanosis Neurologic: No meaningful neurologic examination finding Results Result Diagram: 08/14/16 04008/14/16 040 Results 24 hrs Laboratory Tests Test 08/13/16 11:55 08/13/16 16:03 08/13/16 20:30 08/14/16 01:10 Bedside Glucose 111 104 115 105 Test 08/14/16 04:00 08/14/16 06:16 08/14/16 08:17 Anion Gap 13 Basophils # 0.1 Basophils % 0.9 Blood Urea Nitrogen 24 H Calcium Level 8.4 Carbon Dioxide Level 33 H Chloride Level 105 Creatinine 0.98 Eosinophils # 0.7 H Eosinophils % 5.6 Glucose Level 103 Hematocrit 44.2 Hemoglobin 14.2 Lymphocytes # 2.1 Lymphocytes % 15.6 Mean Corpuscular Hemoglobin 26.2 L Mean Corpuscular Hemoglobin Concent 32.1 Mean Corpuscular Volume 81.5 L Mean Platelet Volume 10.9 H Monocytes # 1.9 H Monocytes % 14.3 H Neutrophils # 8.3 H Neutrophils % 63.1 Nucleated Red Blood Cells # 0.0 Nucleated Red Blood Cells % 0.0 Platelet Count 278 Potassium Level 3.3 L Red Blood Count 5.42 Red Cell Distribution Width 21.3 H Sodium Level 148 H White Blood Count 13.1 H Bedside Glucose 125 101 Medications Medications Current Medications Spironolactone (Aldactone) 25 mg DAILY PO Last administered on 08/04/16 08:40 ; Admin Dose 25 MG; Start 08/03/16 at 11:00; Status Future Hold Ondansetron HCl (Zofran Tab) 4 mg Q6H PRN PO NAUSEA AND/OR VOMITING; Start 03/12 at 10:30 Aspirin (Aspirin) 81 mg DAILY PO Last administered on 08/14/16 08:42; Admin Dose 81 MG; Start 08/03/16 at 11:00 Nitroglycerin (Nitroglycerin (Sl Tab) 0.4 Mg) 1 tab Q5M PRN SL CHEST PAIN; Start 08/03/16 at 10:30 Acetaminophen (Tylenol Tab) 650 mg Q6H PRN PO PAIN LEVEL 1-3 OR FEVER Last administered on 08/13/16 13:23; Admin Dose 650 MG; Start 08/03/16 at 10:30 Hydralazine HCl (Apresoline) 10 mg Q8 PO Last administered on 08/14/16 06:09; Admin Dose 10 MG; Start 08/03/16 at 22:00 Carvedilol (Coreg) 3.125 mg BID PO Last administered on 08/14/16 08:43; Admin Dose 3.125 MG; Start 08/03/16 at 21:00 Zolpidem Tartrate (Ambien) 5 mg HS PRN PO INSOMNIA Last administered on 21:21; Admin Dose 5 MG; Start 08/03/16 at 21:00 Lorazepam (Ativan) 1 mg Q4 PRN IV ANXIETY Last administered on 08/05/16 14:46 ; Admin Dose 1 MG; Start 08/04/16 at 17:00 Diagnostic Test (Pha) 1 ea 1 ea Q4 XX Last administered on 08/14/16 08:43; Admin Dose 1 EA; Start 08/05/16 at 09:00 Propofol 100 ml @ 2.925 mls/ hr Q12H IV Last administered on 08/06/16 14:28; Admin Dose 5.85 MLS/HR; Start 08/05/16 at 11:00 Norepinephrine/ Dextrose (Levophed/D5W) 500 ml @ 1.87 mls/hr TITRATE IV Last administered on 08/06/16 12:56; Admin Dose 30 MLS/HR; Start 08/05/16 at 13:00 Pantoprazole (Protonix Iv) 40 mg BID@06,18 IV Last administered on 08/14/16 06 :10; Admin Dose 40 MG; Start 08/05/16 at 18:00 Eye Lubricant 1 applic 1 applic TID BOTH EYES Last administered on 08/14/16 08 :42; Admin Dose 1 APPLIC; Start 08/05/16 at 16:00 Cefepime HCl (Maxipime 2gm/50 ml (Pmx)) 50 ml @ 100 mls/hr Q12 IVPB Last administered on 08/14/16 08:42; Admin Dose 100 MLS/HR; Start 08/08/16 at 21:00 Lactulose (Enulose) 20 gm Q8 PO Last administered on 08/14/16 06:10; Admin Dose 20 GM; Start 08/09/16 at 10:00 Spironolactone (Aldactone) 12.5 mg DAILY@06 PO Last administered on 08/14/16 06:09; Admin Dose 12.5 MG; Start 08/11/16 at 06:00 Docusate Sodium 100 mg 100 mg BID NGT Last administered on 08/14/16 08:42; Admin Dose 100 MG; Start 08/13/16 at 09:00 Vancomycin HCl 100 ml @ 100 mls/hr Q12H IVPB Last administered on 08/14/16 03 :10; Admin Dose 100 MLS/HR; Start 08/13/16 at 15:00 Potassium Chloride (KCl 20 MEQ/50 ML SW) 50 ml @ 25 mls/hr ONCE ONCE IVPB ; Start 08/14/16 at 11:00; Stop 08/14/16 at 12:59; Status JACEK WARREN MD Aug 14, 2016 10:55
[2016-08-14] MEDS ORDERED: POTASSIUM CHLORIDE 50 ML IVPB ONE (11:00)
[2016-08-14] MEDS: PROPOFOL 100 ML IV SCH ×2 (11:00→23:00)
--- NOTE | 2016-08-14 11:02 | PN ---
DATE: 08/14/2016 SUBJECTIVE: Patient remains mostly somnolent on mechanical ventilation, not opening eyes or followi ng commands. No sedation at present. PHYSICAL EXAMINATION: VITAL SIGNS: Temperature 98, pulse is 107, blood pressure 111/66, O2 saturation 96%, FIO2 of 40%, o rally intubated. NECK: Supple, no JVD or lymphadenopathy. CARDIAC: S1, S2, no added sounds or murmurs. CHEST: Diminished air entry bilaterally. ABDOMEN: Soft, nontender. No guarding or rebound. EXTREMITIES: No cyanosis, clubbing, edema. NEUROLOGIC: Generalized weakness. LABORATORY DATA: White count 13.1, hemoglobin 14.2, platelets of 278, BUN 24, creatinine 0.98. [address] st x-ray was reviewed, shows improved aeration, still evidence of mild congestive cardiac failure. IMPRESSION AND PLAN: 1. Hypoxemic respiratory failure. 2. Likely aspiration pneumonia. 3. Congestive cardiac failure. 4. Ischemic cardiomyopathy with significantly reduced ejection fraction. 5. History of polysubstance abuse. 6. Encephalopathy, likely toxic metabolic. PLAN: 1. Continue mechanical ventilation. 2. Continue vent support. 3. Continue GI recommendations pending MRI. Overall prognosis is guarded secondary to neurological status. Patient may not be weanable and fami ly have expressed wish not to continue prolonged life support if this is the case. Dictated By: POLO PALOMO/ARMANDO Conf#: [id number] DID#: [id number]
--- NOTE | 2016-08-14 11:58 | CONS ---
Date/Time of Note Date/Time of Note DATE: 08/14/16 TIME: 11:56 Consult Date/Type/Reason Admit Date/Time Aug 03, 2016 at 14:46 Initial Consult Date 08/10/16 Type of Consultation: Neurology Ordering Provider: JACEK HOLLEY MD Subjective remains unresponsive intubated off sedation Objective Vital Signs Date Time Temp Pulse Resp B/P Pulse Ox O2 Delivery O2 Flow Rate FiO2 08/14/16 11:25 96 22 100 40 08/14/16 10:30 111/64 08/14/16 10:00 Mechanical Ventilator 08/14/16 08:00 98.8 Intake and Output 08/13/16 08/13/16 08/14/16 15:00 23:00 07:00 Intake Total 480 ml 490 ml 510 ml Output Total 1615 ml 2275 ml 775 ml Balance -1135 ml -1785 ml -265 ml Exam when eyes are forced open he maintains eyes open without tracking examiner, does not follow commands intubated off sedation unable to open his eyes spontaneously no spontaneous movement noted, no withdrawal to noxious stimuli Results/Medications Result Diagram: 08/14/16 0400 08/14/16 0400 Results 24 hrs Laboratory Tests Test 08/13/16 16:03 08/13/16 20:30 08/14/16 01:10 08/14/16 04:00 Bedside Glucose 104 115 105 Anion Gap 13 Basophils # 0.1 Basophils % 0.9 Blood Urea Nitrogen 24 H Calcium Level 8.4 Carbon Dioxide Level 33 H Chloride Level 105 Creatinine 0.98 Eosinophils # 0.7 H Eosinophils % 5.6 Glucose Level 103 Hematocrit 44.2 Hemoglobin 14.2 Lymphocytes # 2.1 Lymphocytes % 15.6 Mean Corpuscular Hemoglobin 26.2 L Mean Corpuscular Hemoglobin Concent 32.1 Mean Corpuscular Volume 81.5 L Mean Platelet Volume 10.9 H Monocytes # 1.9 H Monocytes % 14.3 H Neutrophils # 8.3 H Neutrophils % 63.1 Nucleated Red Blood Cells # 0.0 Nucleated Red Blood Cells % 0.0 Platelet Count 278 Potassium Level 3.3 L Red Blood Count 5.42 Red Cell Distribution Width 21.3 H Sodium Level 148 H White Blood Count 13.1 H Test 08/14/16 06:16 08/14/16 08:17 Bedside Glucose 125 101 Medications Current Medications Spironolactone (Aldactone) 25 mg DAILY PO Last administered on 08/04/16 08:40 ; Admin Dose 25 MG; Start 08/03/16 at 11:00; Status Future Hold Ondansetron HCl (Zofran Tab) 4 mg Q6H PRN PO NAUSEA AND/OR VOMITING; Start 03/12 at 10:30 Aspirin (Aspirin) 81 mg DAILY PO Last administered on 08/14/16 08:42; Admin Dose 81 MG; Start 08/03/16 at 11:00 Nitroglycerin (Nitroglycerin (Sl Tab) 0.4 Mg) 1 tab Q5M PRN SL CHEST PAIN; Start 08/03/16 at 10:30 Acetaminophen (Tylenol Tab) 650 mg Q6H PRN PO PAIN LEVEL 1-3 OR FEVER Last administered on 08/13/16 13:23; Admin Dose 650 MG; Start 08/03/16 at 10:30 Hydralazine HCl (Apresoline) 10 mg Q8 PO Last administered on 08/14/16 06:09; Admin Dose 10 MG; Start 08/03/16 at 22:00 Carvedilol (Coreg) 3.125 mg BID PO Last administered on 08/14/16 08:43; Admin Dose 3.125 MG; Start 08/03/16 at 21:00 Zolpidem Tartrate (Ambien) 5 mg HS PRN PO INSOMNIA Last administered on 21:21; Admin Dose 5 MG; Start 08/03/16 at 21:00 Lorazepam (Ativan) 1 mg Q4 PRN IV ANXIETY Last administered on 08/05/16 14:46 ; Admin Dose 1 MG; Start 08/04/16 at 17:00 Diagnostic Test (Pha) 1 ea 1 ea Q4 XX Last administered on 08/14/16 08:43; Admin Dose 1 EA; Start 08/05/16 at 09:00 Propofol 100 ml @ 2.925 mls/ hr Q12H IV Last administered on 08/06/16 14:28; Admin Dose 5.85 MLS/HR; Start 08/05/16 at 11:00 Norepinephrine/ Dextrose (Levophed/D5W) 500 ml @ 1.87 mls/hr TITRATE IV Last administered on 08/06/16 12:56; Admin Dose 30 MLS/HR; Start 08/05/16 at 13:00 Pantoprazole (Protonix Iv) 40 mg BID@06,18 IV Last administered on 08/14/16 06 :10; Admin Dose 40 MG; Start 08/05/16 at 18:00 Eye Lubricant 1 applic 1 applic TID BOTH EYES Last administered on 08/14/16 08 :42; Admin Dose 1 APPLIC; Start 08/05/16 at 16:00 Cefepime HCl (Maxipime 2gm/50 ml (Pmx)) 50 ml @ 100 mls/hr Q12 IVPB Last administered on 08/14/16 08:42; Admin Dose 100 MLS/HR; Start 08/08/16 at 21:00 Lactulose (Enulose) 20 gm Q8 PO Last administered on 08/14/16 06:10; Admin Dose 20 GM; Start 08/09/16 at 10:00 Spironolactone (Aldactone) 12.5 mg DAILY@06 PO Last administered on 08/14/16 06:09; Admin Dose 12.5 MG; Start 08/11/16 at 06:00 Docusate Sodium 100 mg 100 mg BID NGT Last administered on 08/14/16 08:42; Admin Dose 100 MG; Start 08/13/16 at 09:00 Potassium Chloride (KCl 20 MEQ/50 ML SW) 50 ml @ 25 mls/hr ONCE ONCE IVPB ; Start 08/14/16 at 11:00; Stop 08/14/16 at 12:59 Assessment/Plan Chief Complaint/Hosp Course 50 year old male hx of cardiomyopathy EF:15%, anxiety, polysubstance abuse, cirrhosis, admitted with CHF exacerbation, respiratory failure with poor mental status. EEG showed generalized background slowing c/w encephalopathy. CTH unrevealing, MRI is pending. MRI Brain w/o contrast still pending to evaluate for hypoxic injury poor prognosis advised to family members Problems: JUSTIN HERRERA MD Aug 14, 2016 11:58
--- NOTE | 2016-08-14 21:19 | RADRPT ---
PROCEDURE: MR Brain without contrast. CLINICAL INDICATION: Altered mental status. Cardiac arrest with hypoxia 1 week ago. TECHNIQUE: MRI brain without contrast was performed. Examination was performed on the high field MRI with the following sequences: Coronal gradient echo, sagittal T1-weighted, fast spin echo axial T2-weighted, axial FLAIR, axial diffusion-weighted images, and axial ADC map images. COMPARISON: CT scan of the brain dated 08/10/2016. FINDINGS: There is mild enlargement of the ventricles and subarachnoid spaces consistent with atrophy, more th an expected for age. The diffusion weighted images demonstrate no evidence of acute infarct. The b favian ganglia are normal. The pena-white matter differentiation is preserved. No abnormal intra-axi al or extra-axial fluid collection or mass lesion is identified. No hemorrhage or midline shift is seen. The clivus, sella turcica, corpus callosum, and midline structures are all unremarkable. The brainstem and posterior fossa structures are unremarkable. The cerebellopontine angle regions are c lear. No skull base abnormality is seen. The surrounding bony calvarium and soft tissue scalp is unremarkable. The orbits, as visualized, ar e unremarkable. The paranasal sinuses are clear IMPRESSION: 1. Atrophy, out of proportion for age. 2. No evidence of acute infarct. 3. Normal basal ganglia with no evidence of hypoxic injury. 4. Otherwise unremarkable noncontrast MRI of the brain. RPTAT: QQ .Robson Tellez MD, MD Date Time Electronically viewed and signed by .Robson Tellez MD, on 08/14/2016 21:18 .R/
[2016-08-15] VITALS (46 sets, daily range): BP systolic 80–124; BP diastolic 40–104; PULSE 79–107; RESP 20–24
[2016-08-15] MEDS: ACCU-CHEK XX SCH ×6 (01:24→20:49)
[2016-08-15 04:38] LABS: ADD SCAN DIFF NO
[2016-08-15 04:53] LABS: ABNORMAL IP MESSAGE 1; BASOPHIL # 0.1 10^3/ul (0.0-0.1); BASOPHILS % 0.7 % (0.0-2.0); EOSINOPHILS # 0.4 10^3/ul (0.0-0.5); EOSINOPHILS % 3.2 % (0.0-7.0); HEMATOCRIT 42.4 % (42.0-52.0); HEMOGLOBIN 13.7 g/dl (14.0-18.0); LYMPHOCYTES # 1.9 10^3/ul (0.8-2.9); LYMPHOCYTES % 15.1 % (15.0-51.0); MEAN CORPUSCULAR HEMOGLOBIN 26.4 pg (29.0-33.0); MEAN CORPUSCULAR HGB CONC 32.3 g/dl (32.0-37.0); MEAN CORPUSCULAR VOLUME 81.9 fl (82.0-101.0); MEAN PLATELET VOLUME 10.8 fl (7.4-10.4); MONOCYTE # 1.6 10^3/ul (0.3-0.9); MONOCYTES % 12.5 % (0.0-11.0); NEUTROPHIL # 8.7 10^3/ul (1.6-7.5); NEUTROPHILS % 68.1 % (39.0-77.0); PLATELET COUNT 279 10^3/UL (140-415); RED BLOOD COUNT 5.18 10^6/ul (4.70-6.10); RED CELL DISTRIBUTION WIDTH 20.9 % (11.5-14.5); WHITE BLOOD COUNT 12.8 10^3/ul (4.8-10.8)
[2016-08-15 04:59] LABS: POTASSIUM 3.3 mmol/L (3.5-5.1)
[2016-08-15 05:02] LABS: CALCIUM 8.6 mg/dl (8.4-10.2)
[2016-08-15] MEDS: PANTOPRAZOLE 40 MG INJ IV SCH ×2 (06:09→17:45)
[2016-08-15] MEDS: LACTULOSE 30ML CUP PO SCH ×3 (06:09→22:25)
[2016-08-15] MEDS: SPIRONOLACTONE 25 MG TAB PO SCH (06:09)
[2016-08-15] MEDS: FUROSEMIDE 40 MG INJ IV SCH ×2 (06:10→17:46)
[2016-08-15] MEDS: DOCUSATE SODIUM 10 MG/ML (10ML CUP) NGT SCH ×2 (08:31→20:01)
[2016-08-15] MEDS: ASPIRIN 81 MG TAB PO SCH (08:31)
[2016-08-15] MEDS: OCULAR LUBRICANT 3.5 GM OPH OINT BOTH EYES SCH ×3 (08:31→20:02)
[2016-08-15] MEDS: CEFEPIME 2GM/50 ML IVPB SCH ×2 (08:31→20:01)
[2016-08-15] MEDS: ACETAMINOPHEN 325 MG TAB PO PRN (08:32)
--- NOTE | 2016-08-15 09:45 | CONS ---
Date/Time of Note Date/Time of Note DATE: 08/15/16 TIME: 09:42 Assessment/Plan Assessment/Plan Chief Complaint/Hosp Course IMPRESSION: 1. Congestive heart failure exacerbation, systolic, acute on chronic 2. Cardiomyopathy with severely depressed left ventricular ejection fraction approximately 15%. 3. Abnormal electrocardiogram, assess for acute coronary syndrome.-negative troponin x 3 4. Hypotension, borderline. 5. Lower extremity edema. 6. Possible lower extremity cellulitis. 7. Renal failure-improving 8. Substance abuse-ongoing 9. Coagulopathy 10. Resp failure s/p intubation 11.Hypoglycemia-? etiology liver failure 12.Encephalopathy-ongoing off sedation/unresponsive Recc: -Tele -Continue coreg/hydralazine as tolerated only -Continue gentle lasix diuresis as tolerated only -Continue asa -Continue aldactone -Follow BS closely -Wean vent as tolerated -Ongoing family discussion about trach/code status Problems: Consultation Date/Type/Reason Admit Date/Time Aug 03, 2016 at 14:46 Initial Consult Date 08/03/2016 Type of Consultation: Cardiology Reason for Consultation Hypotension Referring Provider: JACEK HOLLEY MD Exam/Review of Systems Vital Signs Vitals Vital Signs Date Time Temp Pulse Resp B/P Pulse Ox O2 Delivery O2 Flow Rate FiO2 08/15/16 08:00 102 08/15/16 06:00 22 107/64 99 Mechanical Ventilator 08/15/16 05:33 40 08/15/16 04:00 99.2 Intake and Output 08/14/16 08/14/16 08/15/16 15:00 23:00 07:00 Intake Total 340 ml 390 ml 410 ml Output Total 2210 ml 2150 ml 500 ml Balance -1870 ml -1760 ml -90 ml Exam Review of Systems: CONSTITUTIONAL: No fevers, chills. PULMONARY: No sob CARDIOVASCULAR: No chest pain/palpitations GASTROINTESTINAL: No nausea/vomiting. GENITOURINARY: No hematuria/dysuria. MUSCULOSKELETAL: No myagias/arthalgias. PSYCHIATRIC: The patient denies depression. NEUROLOGIC: No weakness Constitutional: alert Psych: no complaints Head: normocephalic ENMT: intubated, mucosa pink and moist Neck: jvd (9 cm water), supple Respiratory: other (upper airway rhonchi) Cardiovascular: regular rate and rhythm Gastrointestinal: non-tender, soft Musculoskeletal: muscle tone Extremities: edema (none) Neurological: other (No focal deficits) Results Result Diagram: 08/15/16 0415 08/15/16 0415 Results 24 hrs Laboratory Tests Test 08/14/16 12:34 08/14/16 17:27 08/14/16 21:26 08/15/16 01:32 Bedside Glucose 90 113 92 117 Test 08/15/16 04:15 08/15/16 07:13 08/15/16 09:18 Anion Gap 14 Basophils # 0.1 Basophils % 0.7 Blood Urea Nitrogen 27 H Calcium Level 8.6 Carbon Dioxide Level 32 H Chloride Level 108 Creatinine 1.00 Eosinophils # 0.4 Eosinophils % 3.2 Glucose Level 115 Hematocrit 42.4 Hemoglobin 13.7 L Lymphocytes # 1.9 Lymphocytes % 15.1 Mean Corpuscular Hemoglobin 26.4 L Mean Corpuscular Hemoglobin Concent 32.3 Mean Corpuscular Volume 81.9 L Mean Platelet Volume 10.8 H Monocytes # 1.6 H Monocytes % 12.5 H Neutrophils # 8.7 H Neutrophils % 68.1 Nucleated Red Blood Cells # 0.0 Nucleated Red Blood Cells % 0.0 Platelet Count 279 Potassium Level 3.3 L Red Blood Count 5.18 Red Cell Distribution Width 20.9 H Sodium Level 151 H White Blood Count 12.8 H Bedside Glucose 148 107 Medications Medications Current Medications Spironolactone (Aldactone) 25 mg DAILY PO Last administered on 08/04/16 08:40 ; Admin Dose 25 MG; Start 08/03/16 at 11:00; Status Future Hold Ondansetron HCl (Zofran Tab) 4 mg Q6H PRN PO NAUSEA AND/OR VOMITING; Start 03/12 at 10:30 Aspirin (Aspirin) 81 mg DAILY PO Last administered on 08/15/16 08:31; Admin Dose 81 MG; Start 08/03/16 at 11:00 Nitroglycerin (Nitroglycerin (Sl Tab) 0.4 Mg) 1 tab Q5M PRN SL CHEST PAIN; Start 08/03/16 at 10:30 Acetaminophen (Tylenol Tab) 650 mg Q6H PRN PO PAIN LEVEL 1-3 OR FEVER Last administered on 08/15/16 08:32; Admin Dose 650 MG; Start 08/03/16 at 10:30 Hydralazine HCl (Apresoline) 10 mg Q8 PO Last administered on 08/15/16 06:09; Admin Dose 10 MG; Start 08/03/16 at 22:00 Carvedilol (Coreg) 3.125 mg BID PO Last administered on 08/15/16 08:35; Admin Dose 3.125 MG; Start 08/03/16 at 21:00 Zolpidem Tartrate (Ambien) 5 mg HS PRN PO INSOMNIA Last administered on 21:21; Admin Dose 5 MG; Start 08/03/16 at 21:00 Lorazepam (Ativan) 1 mg Q4 PRN IV ANXIETY Last administered on 08/05/16 14:46 ; Admin Dose 1 MG; Start 08/04/16 at 17:00 Diagnostic Test (Pha) 1 ea 1 ea Q4 XX Last administered on 08/15/16 05:00; Admin Dose 1 EA; Start 08/05/16 at 09:00 Propofol 100 ml @ 2.925 mls/ hr Q12H IV Last administered on 08/06/16 14:28; Admin Dose 5.85 MLS/HR; Start 08/05/16 at 11:00 Norepinephrine/ Dextrose (Levophed/D5W) 500 ml @ 1.87 mls/hr TITRATE IV Last administered on 08/06/16 12:56; Admin Dose 30 MLS/HR; Start 08/05/16 at 13:00 Pantoprazole (Protonix Iv) 40 mg BID@06,18 IV Last administered on 08/15/16 06 :09; Admin Dose 40 MG; Start 08/05/16 at 18:00 Eye Lubricant 1 applic 1 applic TID BOTH EYES Last administered on 08/15/16 08 :31; Admin Dose 1 APPLIC; Start 08/05/16 at 16:00 Cefepime HCl (Maxipime 2gm/50 ml (Pmx)) 50 ml @ 100 mls/hr Q12 IVPB Last administered on 08/15/16 08:31; Admin Dose 100 MLS/HR; Start 08/08/16 at 21:00 Lactulose (Enulose) 20 gm Q8 PO Last administered on 08/15/16 06:09; Admin Dose 20 GM; Start 08/09/16 at 10:00 Spironolactone (Aldactone) 12.5 mg DAILY@06 PO Last administered on 08/15/16 06:09; Admin Dose 12.5 MG; Start 08/11/16 at 06:00 Docusate Sodium (Colace Liquid Cup) 100 mg BID NGT Last administered on 08:31; Admin Dose 100 MG; Start 08/13/16 at 09:00 DEANA ALBERTO Aug 15, 2016 09:45
--- NOTE | 2016-08-15 09:55 | CONS ---
Date/Time of Note Date/Time of Note DATE: 08/15/16 TIME: 09:53 Consult Date/Type/Reason Admit Date/Time Aug 03, 2016 at 14:46 Initial Consult Date 08/10/16 Type of Consultation: pulmonary Ordering Provider: JACEK HOLLEY MD Subjective Patient's febrile this morning Continues mechanical ventilation Neurologically unchanged somnolent without sedation Objective Vital Signs Date Time Temp Pulse Resp B/P Pulse Ox O2 Delivery O2 Flow Rate FiO2 08/15/16 08:00 102 08/15/16 06:00 22 107/64 99 Mechanical Ventilator 08/15/16 05:33 40 08/15/16 04:00 99.2 Intake and Output 08/14/16 08/14/16 08/15/16 15:00 23:00 07:00 Intake Total 340 ml 390 ml 410 ml Output Total 2210 ml 2150 ml 500 ml Balance -1870 ml -1760 ml -90 ml PHYSICAL EXAMINATION: VITAL SIGNS: As above NECK: Supple, no JVD or lymphadenopathy. CARDIAC: S1, S2, no added sounds or murmurs. CHEST: Diminished air entry bilaterally. ABDOMEN: Soft, nontender. No guarding or rebound. EXTREMITIES: No cyanosis, clubbing, edema. NEUROLOGIC: Generalized weakness. Results/Medications Result Diagram: 08/15/16 0415 08/15/16 0415 Results 24 hrs Laboratory Tests Test 08/14/16 12:34 08/14/16 17:27 08/14/16 21:26 08/15/16 01:32 Bedside Glucose 90 113 92 117 Test 08/15/16 04:15 08/15/16 07:13 08/15/16 09:18 Anion Gap 14 Basophils # 0.1 Basophils % 0.7 Blood Urea Nitrogen 27 H Calcium Level 8.6 Carbon Dioxide Level 32 H Chloride Level 108 Creatinine 1.00 Eosinophils # 0.4 Eosinophils % 3.2 Glucose Level 115 Hematocrit 42.4 Hemoglobin 13.7 L Lymphocytes # 1.9 Lymphocytes % 15.1 Mean Corpuscular Hemoglobin 26.4 L Mean Corpuscular Hemoglobin Concent 32.3 Mean Corpuscular Volume 81.9 L Mean Platelet Volume 10.8 H Monocytes # 1.6 H Monocytes % 12.5 H Neutrophils # 8.7 H Neutrophils % 68.1 Nucleated Red Blood Cells # 0.0 Nucleated Red Blood Cells % 0.0 Platelet Count 279 Potassium Level 3.3 L Red Blood Count 5.18 Red Cell Distribution Width 20.9 H Sodium Level 151 H White Blood Count 12.8 H Bedside Glucose 148 107 Medications Current Medications Spironolactone (Aldactone) 25 mg DAILY PO Last administered on 08/04/16 08:40 ; Admin Dose 25 MG; Start 08/03/16 at 11:00; Status Future Hold Ondansetron HCl (Zofran Tab) 4 mg Q6H PRN PO NAUSEA AND/OR VOMITING; Start 03/12 at 10:30 Aspirin (Aspirin) 81 mg DAILY PO Last administered on 08/15/16 08:31; Admin Dose 81 MG; Start 08/03/16 at 11:00 Nitroglycerin (Nitroglycerin (Sl Tab) 0.4 Mg) 1 tab Q5M PRN SL CHEST PAIN; Start 08/03/16 at 10:30 Acetaminophen (Tylenol Tab) 650 mg Q6H PRN PO PAIN LEVEL 1-3 OR FEVER Last administered on 08/15/16 08:32; Admin Dose 650 MG; Start 08/03/16 at 10:30 Hydralazine HCl (Apresoline) 10 mg Q8 PO Last administered on 08/15/16 06:09; Admin Dose 10 MG; Start 08/03/16 at 22:00 Carvedilol (Coreg) 3.125 mg BID PO Last administered on 08/15/16 08:35; Admin Dose 3.125 MG; Start 08/03/16 at 21:00 Zolpidem Tartrate (Ambien) 5 mg HS PRN PO INSOMNIA Last administered on 21:21; Admin Dose 5 MG; Start 08/03/16 at 21:00 Lorazepam (Ativan) 1 mg Q4 PRN IV ANXIETY Last administered on 08/05/16 14:46 ; Admin Dose 1 MG; Start 08/04/16 at 17:00 Diagnostic Test (Pha) 1 ea 1 ea Q4 XX Last administered on 08/15/16 05:00; Admin Dose 1 EA; Start 08/05/16 at 09:00 Propofol 100 ml @ 2.925 mls/ hr Q12H IV Last administered on 08/06/16 14:28; Admin Dose 5.85 MLS/HR; Start 08/05/16 at 11:00 Norepinephrine/ Dextrose (Levophed/D5W) 500 ml @ 1.87 mls/hr TITRATE IV Last administered on 08/06/16 12:56; Admin Dose 30 MLS/HR; Start 08/05/16 at 13:00 Pantoprazole (Protonix Iv) 40 mg BID@06,18 IV Last administered on 08/15/16 06 :09; Admin Dose 40 MG; Start 08/05/16 at 18:00 Eye Lubricant 1 applic 1 applic TID BOTH EYES Last administered on 08/15/16 08 :31; Admin Dose 1 APPLIC; Start 08/05/16 at 16:00 Cefepime HCl (Maxipime 2gm/50 ml (Pmx)) 50 ml @ 100 mls/hr Q12 IVPB Last administered on 08/15/16 08:31; Admin Dose 100 MLS/HR; Start 08/08/16 at 21:00 Lactulose (Enulose) 20 gm Q8 PO Last administered on 08/15/16 06:09; Admin Dose 20 GM; Start 08/09/16 at 10:00 Spironolactone (Aldactone) 12.5 mg DAILY@06 PO Last administered on 08/15/16 06:09; Admin Dose 12.5 MG; Start 08/11/16 at 06:00 Docusate Sodium 100 mg 100 mg BID NGT Last administered on 08/15/16 08:31; Admin Dose 100 MG; Start 08/13/16 at 09:00 Potassium Chloride/Sodium Chloride (KCl/NS) 110 ml @ 55 mls/hr ONCE ONCE IVPB ; Start 08/15/16 at 11:00; Stop 08/15/16 at 12:59 Assessment/Plan Chief Complaint/Hosp Course IMPRESSION AND PLAN: 1. Hypoxemic respiratory failure. 2. Likely aspiration pneumonia. 3. Congestive cardiac failure. 4. Cardiomyopathy with significantly reduced ejection fraction. 5. History of polysubstance abuse. 6. Encephalopathy, likely toxic metabolic. PLAN: 1. Continue mechanical ventilation. 2. Continue vent support. 3. Currently patient is not amenable to mechanical ventilation given neurological status Overall prognosis is very poor. Family discussion today regarding goals of care Anticipate terminal extubation by the end of this week. Problems: POLO HARRIS MD, [facility] Aug 15, 2016 09:55
--- NOTE | 2016-08-15 10:11 | PN ---
Date/Time of Note Date/Time of Note DATE: 08/15/16 TIME: 10:06 Assessment/Plan VTE Prophylaxis VTE Prophylaxis Intervention: SCD's Lines/Catheters IV Catheter Type (from Nrs): PICC Line Central line still needed: Yes Urinary Cath still in place: Yes Reason Cath still needed: other (indicate) Assessment/Plan Chief Complaint/Hosp Course Chief Complaint/Hosp Course 1. Acute encephalopathy secondary to hypoglycemia and/or substance abuse-pt does not follow commands EEG suggests toxic metabolic encephalopathy, neuro consult appreciated CT head shows no significant findings, MRI with global hypertrophy and no evidence of anoxic brain injury Family conference held and family does not feel that patient would have wanted to be trached, we will continue to monitor neuro status on a daily basis` 2. Acute respiratory failure, now ventilator dependent, secondary to #1 and CHF exacerbation Pulmonology in the case, continue vent support CXR this AM is unchanged 3. Acute on chronic congestive heart failure exacerbation with an ejection fraction of 15% Cardiology on the case, continue diuresis 4. Chronic alcoholic with cirrhosis and coagulopathy 5. Chronic substance abuse with amphetamines and heroin. 6. Leukocytosis possibly secondary to pneumonia-resolved Continue antibiotics for now, 7. Congestive heart failure, cards consulted, follow the recommendations 7. Subclinical hypothyroidism. Prophylaxis: SCDs Prognosis: Guarded Medical management and prognosis was discussed with the family at the bedside Problems: Subjective 24 Hr Interval Summary Free Text/Dictation No acute changes No meaningful response to pain or verbal stimuli Intubated Tolerating NG tube feeding Exam/Review of Systems Vital Signs Vitals Vital Signs Date Time Temp Pulse Resp B/P Pulse Ox O2 Delivery O2 Flow Rate FiO2 08/15/16 08:00 102 08/15/16 06:00 22 107/64 99 Mechanical Ventilator 08/15/16 05:33 40 08/15/16 04:00 99.2 Intake and Output 08/14/16 08/14/16 08/15/16 15:00 23:00 07:00 Intake Total 340 ml 390 ml 410 ml Output Total 2210 ml 2150 ml 500 ml Balance -1870 ml -1760 ml -90 ml Exam General: The patient is intubated, not sedated HEENT: Atraumatic, normocephalic. The pupils are equal and sluggish Neck: Supple Chest: Normal Lungs: Clear to auscultation bilaterally Heart: Normal S1-S2, Regular rhythm and rate. Abdomen: Soft , nontender, nondistended , bowel sounds are present. Extremities: Normal to inspection, trace edema no cyanosis Neurologic: No meaningful neurologic examination finding, no response to pain or verbal stimuli Results Result Diagram: 08/15/16 0415 08/15/16 0415 Results 24 hrs Laboratory Tests Test 08/14/16 12:34 08/14/16 17:27 08/14/16 21:26 08/15/16 01:32 Bedside Glucose 90 113 92 117 Test 08/15/16 04:15 08/15/16 07:13 08/15/16 09:18 White Blood Count 12.8 H Red Blood Count 5.18 Hemoglobin 13.7 L Hematocrit 42.4 Mean Corpuscular Volume 81.9 L Mean Corpuscular Hemoglobin 26.4 L Mean Corpuscular Hemoglobin Concent 32.3 Red Cell Distribution Width 20.9 H Platelet Count 279 Mean Platelet Volume 10.8 H Neutrophils % 68.1 Lymphocytes % 15.1 Monocytes % 12.5 H Eosinophils % 3.2 Basophils % 0.7 Nucleated Red Blood Cells % 0.0 Neutrophils # 8.7 H Lymphocytes # 1.9 Monocytes # 1.6 H Eosinophils # 0.4 Basophils # 0.1 Nucleated Red Blood Cells # 0.0 Sodium Level 151 H Potassium Level 3.3 L Chloride Level 108 Carbon Dioxide Level 32 H Anion Gap 14 Blood Urea Nitrogen 27 H Creatinine 1.00 Glucose Level 115 Calcium Level 8.6 Bedside Glucose 148 107 Medications Medications Current Medications Spironolactone (Aldactone) 25 mg DAILY PO Last administered on 08/04/16 08:40 ; Admin Dose 25 MG; Start 08/03/16 at 11:00; Status Future Hold Ondansetron HCl (Zofran Tab) 4 mg Q6H PRN PO NAUSEA AND/OR VOMITING; Start 03/12 at 10:30 Aspirin (Aspirin) 81 mg DAILY PO Last administered on 08/15/16 08:31; Admin Dose 81 MG; Start 08/03/16 at 11:00 Nitroglycerin (Nitroglycerin (Sl Tab) 0.4 Mg) 1 tab Q5M PRN SL CHEST PAIN; Start 08/03/16 at 10:30 Acetaminophen (Tylenol Tab) 650 mg Q6H PRN PO PAIN LEVEL 1-3 OR FEVER Last administered on 08/15/16 08:32; Admin Dose 650 MG; Start 08/03/16 at 10:30 Hydralazine HCl (Apresoline) 10 mg Q8 PO Last administered on 08/15/16 06:09; Admin Dose 10 MG; Start 08/03/16 at 22:00 Carvedilol (Coreg) 3.125 mg BID PO Last administered on 08/15/16 08:35; Admin Dose 3.125 MG; Start 08/03/16 at 21:00 Zolpidem Tartrate (Ambien) 5 mg HS PRN PO INSOMNIA Last administered on 21:21; Admin Dose 5 MG; Start 08/03/16 at 21:00 Lorazepam (Ativan) 1 mg Q4 PRN IV ANXIETY Last administered on 08/05/16 14:46 ; Admin Dose 1 MG; Start 08/04/16 at 17:00 Diagnostic Test (Pha) 1 ea 1 ea Q4 XX Last administered on 08/15/16 05:00; Admin Dose 1 EA; Start 08/05/16 at 09:00 Propofol 100 ml @ 2.925 mls/ hr Q12H IV Last administered on 08/06/16 14:28; Admin Dose 5.85 MLS/HR; Start 08/05/16 at 11:00 Norepinephrine/ Dextrose (Levophed/D5W) 500 ml @ 1.87 mls/hr TITRATE IV Last administered on 08/06/16 12:56; Admin Dose 30 MLS/HR; Start 08/05/16 at 13:00 Pantoprazole (Protonix Iv) 40 mg BID@06,18 IV Last administered on 08/15/16 06 :09; Admin Dose 40 MG; Start 08/05/16 at 18:00 Eye Lubricant 1 applic 1 applic TID BOTH EYES Last administered on 08/15/16 08 :31; Admin Dose 1 APPLIC; Start 08/05/16 at 16:00 Cefepime HCl (Maxipime 2gm/50 ml (Pmx)) 50 ml @ 100 mls/hr Q12 IVPB Last administered on 08/15/16 08:31; Admin Dose 100 MLS/HR; Start 08/08/16 at 21:00 Lactulose (Enulose) 20 gm Q8 PO Last administered on 08/15/16 06:09; Admin Dose 20 GM; Start 08/09/16 at 10:00 Spironolactone (Aldactone) 12.5 mg DAILY@06 PO Last administered on 08/15/16 06:09; Admin Dose 12.5 MG; Start 08/11/16 at 06:00 Docusate Sodium 100 mg 100 mg BID NGT Last administered on 08/15/16 08:31; Admin Dose 100 MG; Start 08/13/16 at 09:00 Potassium Chloride/Sodium Chloride (KCl/NS) 110 ml @ 55 mls/hr ONCE ONCE IVPB ; Start 08/15/16 at 11:00; Stop 08/15/16 at 12:59 JACEK HOLLEY MD Aug 15, 2016 10:11
[2016-08-15] MEDS: PROPOFOL 100 ML IV SCH ×2 (10:38→23:00)
[2016-08-15] MEDS ORDERED: POTASSIUM CHLORIDE 20 MEQ in SOD CHLORIDE 0.9% 100 ML IVPB ONE (11:00)
--- NOTE | 2016-08-15 12:45 | CONS ---
Date/Time of Note Date/Time of Note DATE: 08/15/16 TIME: 12:43 Consult Date/Type/Reason Admit Date/Time Aug 03, 2016 at 14:46 Initial Consult Date 08/10/16 Type of Consultation: neurology Reason for Consultation encephalopathy Ordering Provider: JACEK HOLLEY MD Subjective appears more awake today, sustains eye opening without tracking examiner or following commands family at bedside Objective Vital Signs Date Time Temp Pulse Resp B/P Pulse Ox O2 Delivery O2 Flow Rate FiO2 08/15/16 11:30 82 22 108/69 100 08/15/16 11:00 Mechanical Ventilator 08/15/16 10:00 99.7 08/15/16 09:30 40 Intake and Output 08/14/16 08/14/16 08/15/16 15:00 23:00 07:00 Intake Total 340 ml 390 ml 440 ml Output Total 2210 ml 2150 ml 850 ml Balance -1870 ml -1760 ml -410 ml Exam maintains eye opening, upgaze preferred unable to track examiner decreased blink to threat not following commands motor no purposeful movements in extremities Results/Medications Result Diagram: 08/15/16 0415 08/15/16 0415 Results 24 hrs Laboratory Tests Test 08/14/16 17:27 08/14/16 21:26 08/15/16 01:32 08/15/16 04:15 Bedside Glucose 113 92 117 White Blood Count 12.8 H Red Blood Count 5.18 Hemoglobin 13.7 L Hematocrit 42.4 Mean Corpuscular Volume 81.9 L Mean Corpuscular Hemoglobin 26.4 L Mean Corpuscular Hemoglobin Concent 32.3 Red Cell Distribution Width 20.9 H Platelet Count 279 Mean Platelet Volume 10.8 H Neutrophils % 68.1 Lymphocytes % 15.1 Monocytes % 12.5 H Eosinophils % 3.2 Basophils % 0.7 Nucleated Red Blood Cells % 0.0 Neutrophils # 8.7 H Lymphocytes # 1.9 Monocytes # 1.6 H Eosinophils # 0.4 Basophils # 0.1 Nucleated Red Blood Cells # 0.0 Sodium Level 151 H Potassium Level 3.3 L Chloride Level 108 Carbon Dioxide Level 32 H Anion Gap 14 Blood Urea Nitrogen 27 H Creatinine 1.00 Glucose Level 115 Calcium Level 8.6 Test 08/15/16 07:13 08/15/16 09:18 Bedside Glucose 148 107 Medications Current Medications Spironolactone (Aldactone) 25 mg DAILY PO Last administered on 08/04/16 08:40 ; Admin Dose 25 MG; Start 08/03/16 at 11:00; Status Future Hold Ondansetron HCl (Zofran Tab) 4 mg Q6H PRN PO NAUSEA AND/OR VOMITING; Start 03/12 at 10:30 Aspirin (Aspirin) 81 mg DAILY PO Last administered on 08/15/16 08:31; Admin Dose 81 MG; Start 08/03/16 at 11:00 Nitroglycerin (Nitroglycerin (Sl Tab) 0.4 Mg) 1 tab Q5M PRN SL CHEST PAIN; Start 08/03/16 at 10:30 Acetaminophen (Tylenol Tab) 650 mg Q6H PRN PO PAIN LEVEL 1-3 OR FEVER Last administered on 08/15/16 08:32; Admin Dose 650 MG; Start 08/03/16 at 10:30 Hydralazine HCl (Apresoline) 10 mg Q8 PO Last administered on 08/15/16 06:09; Admin Dose 10 MG; Start 08/03/16 at 22:00 Carvedilol (Coreg) 3.125 mg BID PO Last administered on 08/15/16 08:35; Admin Dose 3.125 MG; Start 08/03/16 at 21:00 Zolpidem Tartrate (Ambien) 5 mg HS PRN PO INSOMNIA Last administered on 21:21; Admin Dose 5 MG; Start 08/03/16 at 21:00 Lorazepam (Ativan) 1 mg Q4 PRN IV ANXIETY Last administered on 08/05/16 14:46 ; Admin Dose 1 MG; Start 08/04/16 at 17:00 Diagnostic Test (Pha) 1 ea 1 ea Q4 XX Last administered on 08/15/16 05:00; Admin Dose 1 EA; Start 08/05/16 at 09:00 Propofol 100 ml @ 2.925 mls/ hr Q12H IV Last administered on 08/06/16 14:28; Admin Dose 5.85 MLS/HR; Start 08/05/16 at 11:00 Norepinephrine/ Dextrose (Levophed/D5W) 500 ml @ 1.87 mls/hr TITRATE IV Last administered on 08/06/16 12:56; Admin Dose 30 MLS/HR; Start 08/05/16 at 13:00 Pantoprazole (Protonix Iv) 40 mg BID@06,18 IV Last administered on 08/15/16 06 :09; Admin Dose 40 MG; Start 08/05/16 at 18:00 Eye Lubricant 1 applic 1 applic TID BOTH EYES Last administered on 08/15/16 08 :31; Admin Dose 1 APPLIC; Start 08/05/16 at 16:00 Cefepime HCl (Maxipime 2gm/50 ml (Pmx)) 50 ml @ 100 mls/hr Q12 IVPB Last administered on 08/15/16 08:31; Admin Dose 100 MLS/HR; Start 08/08/16 at 21:00 Lactulose (Enulose) 20 gm Q8 PO Last administered on 08/15/16 06:09; Admin Dose 20 GM; Start 08/09/16 at 10:00 Spironolactone (Aldactone) 12.5 mg DAILY@06 PO Last administered on 08/15/16 06:09; Admin Dose 12.5 MG; Start 08/11/16 at 06:00 Docusate Sodium 100 mg 100 mg BID NGT Last administered on 08/15/16 08:31; Admin Dose 100 MG; Start 08/13/16 at 09:00 Potassium Chloride/Sodium Chloride (KCl/NS) 110 ml @ 55 mls/hr ONCE ONCE IVPB Last administered on 08/15/16 11:28; Admin Dose 55 MLS/HR; Start 08/15/16 at 11:00; Stop 08/15/16 at 12:59 Assessment/Plan Chief Complaint/Hosp Course 50 year old male hx of cardiomyopathy EF:15%, anxiety, polysubstance abuse, cirrhosis, admitted with CHF exacerbation, respiratory failure with poor mental status. EEG showed generalized background slowing c/w encephalopathy. CTH unrevealing, MRI is pending. MRI Brain shows no areas of hypoxia overall prognosis remains poor due to comorbid medical issues will continue to follow and reexamine tomorrow Problems: JUSTIN HERRERA MD Aug 15, 2016 12:45
[2016-08-16] VITALS (36 sets, daily range): BP systolic 87–121; BP diastolic 51–109; PULSE 83–105; RESP 21–27
[2016-08-16] MEDS: ACCU-CHEK XX SCH ×6 (01:00→21:00)
[2016-08-16 04:38] LABS: ADD SCAN DIFF NO
[2016-08-16 04:42] LABS: ABNORMAL IP MESSAGE 1; BASOPHIL # 0.1 10^3/ul (0.0-0.1); BASOPHILS % 0.8 % (0.0-2.0); EOSINOPHILS # 0.7 10^3/ul (0.0-0.5); EOSINOPHILS % 4.9 % (0.0-7.0); HEMATOCRIT 44.3 % (42.0-52.0); LYMPHOCYTES % 14.9 % (15.0-51.0); MEAN CORPUSCULAR HEMOGLOBIN 26.2 pg (29.0-33.0); MEAN CORPUSCULAR HGB CONC 31.6 g/dl (32.0-37.0); MEAN CORPUSCULAR VOLUME 82.8 fl (82.0-101.0); MEAN PLATELET VOLUME 11.5 fl (7.4-10.4); MONOCYTE # 1.6 10^3/ul (0.3-0.9); MONOCYTES % 11.9 % (0.0-11.0); NEUTROPHIL # 8.9 10^3/ul (1.6-7.5); NEUTROPHILS % 67.1 % (39.0-77.0); PLATELET COUNT 292 10^3/UL (140-415); RED BLOOD COUNT 5.35 10^6/ul (4.70-6.10); WHITE BLOOD COUNT 13.2 10^3/ul (4.8-10.8)
[2016-08-16 04:54] LABS: POTASSIUM 3.4 mmol/L (3.5-5.1)
[2016-08-16 04:56] LABS: CREATININE 0.95 mg/dl (0.61-1.24)
[2016-08-16 04:57] LABS: CALCIUM 8.6 mg/dl (8.4-10.2); MAGNESIUM 2.3 mg/dl (1.7-2.5)
[2016-08-16] MEDS: PANTOPRAZOLE 40 MG INJ IV SCH ×2 (05:58→17:26)
[2016-08-16] MEDS: SPIRONOLACTONE 25 MG TAB PO SCH (05:58)
[2016-08-16] MEDS: LACTULOSE 30ML CUP PO SCH ×3 (05:58→21:09)
[2016-08-16] MEDS: FUROSEMIDE 40 MG INJ IV SCH ×2 (05:58→17:34)
[2016-08-16] MEDS: ACETAMINOPHEN 325 MG TAB PO PRN ×2 (06:19→09:30)
[2016-08-16] MEDS: CEFEPIME 2GM/50 ML IVPB SCH (09:30)
[2016-08-16] MEDS: DOCUSATE SODIUM 10 MG/ML (10ML CUP) NGT SCH ×2 (09:30→21:10)
[2016-08-16] MEDS: OCULAR LUBRICANT 3.5 GM OPH OINT BOTH EYES SCH ×3 (09:30→21:09)
[2016-08-16] MEDS: ASPIRIN 81 MG TAB PO SCH (09:30)
--- NOTE | 2016-08-16 10:45 | CONS ---
Date/Time of Note Date/Time of Note DATE: 08/16/16 TIME: 10:42 Consult Date/Type/Reason Admit Date/Time Aug 03, 2016 at 14:46 Initial Consult Date 08/10/16 Type of Consultation: pulmonary Ordering Provider: JACEK HOLLEY MD Subjective Patient remains intubated on mechanical ventilation Grimaces to painful sternal abdomen not opening eyes or following commands Currently he remains hemodynamic stable Objective Vital Signs Date Time Temp Pulse Resp B/P Pulse Ox O2 Delivery O2 Flow Rate FiO2 08/16/16 08:00 40 08/16/16 08:00 100 08/16/16 08:00 100.6 22 113/77 100 Mechanical Ventilator Intake and Output 08/15/16 08/15/16 08/16/16 15:00 23:00 07:00 Intake Total 475 ml 390 ml 440 ml Output Total 850 ml 1275 ml 850 ml Balance -375 ml -885 ml -410 ml Exam PHYSICAL EXAMINATION GENERAL: Chronically ill-appearing gentleman intubated on mechanical ventilation VITAL SIGNS: see below. HEENT: Pupils equal, round, and reactive to light. Orally intubated dry mucous membranes CARDIAC: S1, S2, no added sounds or murmurs CHEST: Diminished air entry bilaterally. ABDOMEN: Mildly distended. Bowel sounds present no guarding or rebound EXTREMITIES: No cyanosis, clubbing edema +1 NEUROLOGIC: Significant neurological weakness Results/Medications Result Diagram: 08/16/16 0330 08/16/16 0330 Results 24 hrs Laboratory Tests Test 08/15/16 12:56 08/15/16 17:38 08/15/16 20:50 08/16/16 00:58 Bedside Glucose 116 115 125 109 Test 08/16/16 03:30 08/16/16 05:29 08/16/16 09:38 White Blood Count 13.2 H Red Blood Count 5.35 Hemoglobin 14.0 Hematocrit 44.3 Mean Corpuscular Volume 82.8 Mean Corpuscular Hemoglobin 26.2 L Mean Corpuscular Hemoglobin Concent 31.6 L Red Cell Distribution Width 21.0 H Platelet Count 292 Mean Platelet Volume 11.5 H Neutrophils % 67.1 Lymphocytes % 14.9 L Monocytes % 11.9 H Eosinophils % 4.9 Basophils % 0.8 Nucleated Red Blood Cells % 0.0 Neutrophils # 8.9 H Lymphocytes # 2.0 Monocytes # 1.6 H Eosinophils # 0.7 H Basophils # 0.1 Nucleated Red Blood Cells # 0.0 Sodium Level 151 H Potassium Level 3.4 L Chloride Level 106 Carbon Dioxide Level 33 H Anion Gap 15 Blood Urea Nitrogen 31 H Creatinine 0.95 Glucose Level 101 Calcium Level 8.6 Magnesium Level 2.3 Bedside Glucose 99 99 Medications Current Medications Spironolactone (Aldactone) 25 mg DAILY PO Last administered on 08/04/16 08:40 ; Admin Dose 25 MG; Start 08/03/16 at 11:00; Status Future Hold Ondansetron HCl (Zofran Tab) 4 mg Q6H PRN PO NAUSEA AND/OR VOMITING; Start 03/12 at 10:30 Aspirin (Aspirin) 81 mg DAILY PO Last administered on 08/16/16 09:30; Admin Dose 81 MG; Start 08/03/16 at 11:00 Nitroglycerin (Nitroglycerin (Sl Tab) 0.4 Mg) 1 tab Q5M PRN SL CHEST PAIN; Start 08/03/16 at 10:30 Hydralazine HCl (Apresoline) 10 mg Q8 PO Last administered on 08/16/16 05:58; Admin Dose 10 MG; Start 08/03/16 at 22:00 Carvedilol (Coreg) 3.125 mg BID PO Last administered on 08/16/16 09:32; Admin Dose 3.125 MG; Start 08/03/16 at 21:00 Zolpidem Tartrate (Ambien) 5 mg HS PRN PO INSOMNIA Last administered on 21:21; Admin Dose 5 MG; Start 08/03/16 at 21:00 Lorazepam (Ativan) 1 mg Q4 PRN IV ANXIETY Last administered on 08/05/16 14:46 ; Admin Dose 1 MG; Start 08/04/16 at 17:00 Diagnostic Test (Pha) 1 ea 1 ea Q4 XX Last administered on 08/16/16 09:39; Admin Dose 1 EA; Start 08/05/16 at 09:00 Propofol 100 ml @ 2.925 mls/ hr Q12H IV Last administered on 08/06/16 14:28; Admin Dose 5.85 MLS/HR; Start 08/05/16 at 11:00 Norepinephrine/ Dextrose (Levophed/D5W) 500 ml @ 1.87 mls/hr TITRATE IV Last administered on 08/06/16 12:56; Admin Dose 30 MLS/HR; Start 08/05/16 at 13:00 Pantoprazole (Protonix Iv) 40 mg BID@06,18 IV Last administered on 08/16/16 05 :58; Admin Dose 40 MG; Start 08/05/16 at 18:00 Eye Lubricant (Akwa Oint) 1 applic TID BOTH EYES Last administered on 09:30; Admin Dose 1 APPLIC; Start 08/05/16 at 16:00 Lactulose (Enulose) 20 gm Q8 PO Last administered on 08/16/16 05:58; Admin Dose 20 GM; Start 08/09/16 at 10:00 Spironolactone (Aldactone) 12.5 mg DAILY@06 PO Last administered on 08/16/16 05:58; Admin Dose 12.5 MG; Start 08/11/16 at 06:00 Docusate Sodium (Colace Liquid Cup) 100 mg BID NGT Last administered on 09:30; Admin Dose 100 MG; Start 08/13/16 at 09:00 Acetaminophen 650 mg 650 mg Q8H PRN PO PAIN LEVEL 1-3 OR FEVER; Start 08/16/16 at 12:30 Cefotaxime Sodium (Claforan 1gm/50 ml (Pmx)) 50 ml @ 100 mls/hr Q8 IVPB ; Start 08/16/16 at 14:00; Status UNV Assessment/Plan Chief Complaint/Hosp Course IMPRESSION AND PLAN: 1. Hypoxemic respiratory failure. 2. Likely aspiration pneumonia. 3. Congestive cardiac failure. 4. Cardiomyopathy with significantly reduced ejection fraction. 5. History of polysubstance abuse. 6. Encephalopathy, likely toxic metabolic. PLAN: 1. Continue mechanical ventilation. 2. Continue vent support. 3. Currently patient is not amenable to mechanical ventilation given neurological status Overall prognosis is very poor. Family still considering tracheostomy and PEG tube versus comfort care Problems: POLO HARRIS MD, [facility] Aug 16, 2016 10:44
--- NOTE | 2016-08-16 10:48 | PN ---
Date/Time of Note Date/Time of Note DATE: 08/16/16 TIME: 10:37 Assessment/Plan VTE Prophylaxis VTE Prophylaxis Intervention: SCD's Lines/Catheters IV Catheter Type (from Nrs): PICC Line Central line still needed: Yes Urinary Cath still in place: Yes Reason Cath still needed: other (indicate) Assessment/Plan Chief Complaint/Hosp Course Chief Complaint/Hosp Course 1. Acute encephalopathy secondary to hypoglycemia and/or substance abuse-pt does not follow commands EEG suggests toxic metabolic encephalopathy, neuro consult appreciated CT head shows no significant findings, MRI with global hypertrophy and no evidence of anoxic brain injury Family conference held and family does not feel that patient would have wanted to be trached, we will continue to monitor neuro status on a daily basis` 2. Acute respiratory failure, now ventilator dependent, secondary to #1 and CHF exacerbation Pulmonology in the case, continue vent support CXR this AM is unchanged 3. Acute on chronic congestive heart failure exacerbation with an ejection fraction of 15% Cardiology on the case, continue diuresis 4. Chronic alcoholic with cirrhosis and coagulopathy 5. Chronic substance abuse with amphetamines and heroin. 6. Leukocytosis possibly secondary to pneumonia-resolved Continue antibiotics for now, 7. Congestive heart failure, cards consulted, follow the recommendations 7. Subclinical hypothyroidism. Prophylaxis: SCDs Prognosis: Guarded Medical management and prognosis was discussed with the family at the bedside Family meeting was done today , prognosis and further plan was discussed Problems: Subjective 24 Hr Interval Summary Free Text/Dictation Patient was found to open his eyes spontaneously yesterday He does not respond to any verbal or pain stimuli He moves his upper and lower extremities minimally although spontaneously Exam/Review of Systems Vital Signs Vitals Vital Signs Date Time Temp Pulse Resp B/P Pulse Ox O2 Delivery O2 Flow Rate FiO2 08/16/16 08:00 40 08/16/16 08:00 100.6 99 22 113/77 100 Mechanical Ventilator Intake and Output 08/15/16 08/15/16 08/16/16 15:00 23:00 07:00 Intake Total 475 ml 390 ml 440 ml Output Total 850 ml 1275 ml 850 ml Balance -375 ml -885 ml -410 ml Exam General: The patient is not in acute distress. NG tube in place, intubated HEENT: Atraumatic, normocephalic. The pupils are equal although sluggish Neck: Supple Chest: Normal expansion of the thorax during inspiration Lungs: Clear to auscultation bilaterally Heart: Normal S1-S2, Regular rhythm and rate. Abdomen: Soft , nontender, minimally distended , bowel sounds are present. Extremities: Normal to inspection, trace edema no cyanosis Neurologic: Patient is not arousable, does not respond to pain or verbal stimuli Results Result Diagram: 08/16/16 0330 08/16/16 0330 Results 24 hrs Laboratory Tests Test 08/15/16 12:56 08/15/16 17:38 08/15/16 20:50 08/16/16 00:58 Bedside Glucose 116 115 125 109 Test 08/16/16 03:30 08/16/16 05:29 08/16/16 09:38 White Blood Count 13.2 H Red Blood Count 5.35 Hemoglobin 14.0 Hematocrit 44.3 Mean Corpuscular Volume 82.8 Mean Corpuscular Hemoglobin 26.2 L Mean Corpuscular Hemoglobin Concent 31.6 L Red Cell Distribution Width 21.0 H Platelet Count 292 Mean Platelet Volume 11.5 H Neutrophils % 67.1 Lymphocytes % 14.9 L Monocytes % 11.9 H Eosinophils % 4.9 Basophils % 0.8 Nucleated Red Blood Cells % 0.0 Neutrophils # 8.9 H Lymphocytes # 2.0 Monocytes # 1.6 H Eosinophils # 0.7 H Basophils # 0.1 Nucleated Red Blood Cells # 0.0 Sodium Level 151 H Potassium Level 3.4 L Chloride Level 106 Carbon Dioxide Level 33 H Anion Gap 15 Blood Urea Nitrogen 31 H Creatinine 0.95 Glucose Level 101 Calcium Level 8.6 Magnesium Level 2.3 Bedside Glucose 99 99 Medications Medications Current Medications Spironolactone (Aldactone) 25 mg DAILY PO Last administered on 08/04/16 08:40 ; Admin Dose 25 MG; Start 08/03/16 at 11:00; Status Future Hold Ondansetron HCl (Zofran Tab) 4 mg Q6H PRN PO NAUSEA AND/OR VOMITING; Start 03/12 at 10:30 Aspirin (Aspirin) 81 mg DAILY PO Last administered on 08/16/16 09:30; Admin Dose 81 MG; Start 08/03/16 at 11:00 Nitroglycerin (Nitroglycerin (Sl Tab) 0.4 Mg) 1 tab Q5M PRN SL CHEST PAIN; Start 08/03/16 at 10:30 Hydralazine HCl (Apresoline) 10 mg Q8 PO Last administered on 08/16/16 05:58; Admin Dose 10 MG; Start 08/03/16 at 22:00 Carvedilol (Coreg) 3.125 mg BID PO Last administered on 08/16/16 09:32; Admin Dose 3.125 MG; Start 08/03/16 at 21:00 Zolpidem Tartrate (Ambien) 5 mg HS PRN PO INSOMNIA Last administered on 21:21; Admin Dose 5 MG; Start 08/03/16 at 21:00 Lorazepam (Ativan) 1 mg Q4 PRN IV ANXIETY Last administered on 08/05/16 14:46 ; Admin Dose 1 MG; Start 08/04/16 at 17:00 Diagnostic Test (Pha) 1 ea 1 ea Q4 XX Last administered on 08/16/16 09:39; Admin Dose 1 EA; Start 08/05/16 at 09:00 Propofol 100 ml @ 2.925 mls/ hr Q12H IV Last administered on 08/06/16 14:28; Admin Dose 5.85 MLS/HR; Start 08/05/16 at 11:00 Norepinephrine/ Dextrose (Levophed/D5W) 500 ml @ 1.87 mls/hr TITRATE IV Last administered on 08/06/16 12:56; Admin Dose 30 MLS/HR; Start 08/05/16 at 13:00 Pantoprazole (Protonix Iv) 40 mg BID@06,18 IV Last administered on 08/16/16 05 :58; Admin Dose 40 MG; Start 08/05/16 at 18:00 Eye Lubricant 1 applic 1 applic TID BOTH EYES Last administered on 08/16/16 09 :30; Admin Dose 1 APPLIC; Start 08/05/16 at 16:00 Cefepime HCl (Maxipime 2gm/50 ml (Pmx)) 50 ml @ 100 mls/hr Q12 IVPB Last administered on 08/16/16 09:30; Admin Dose 100 MLS/HR; Start 08/08/16 at 21:00 Lactulose (Enulose) 20 gm Q8 PO Last administered on 08/16/16 05:58; Admin Dose 20 GM; Start 08/09/16 at 10:00 Spironolactone (Aldactone) 12.5 mg DAILY@06 PO Last administered on 08/16/16 05:58; Admin Dose 12.5 MG; Start 08/11/16 at 06:00 Docusate Sodium (Colace Liquid Cup) 100 mg BID NGT Last administered on 09:30; Admin Dose 100 MG; Start 08/13/16 at 09:00 Acetaminophen (Tylenol Tab) 650 mg Q8H PRN PO PAIN LEVEL 1-3 OR FEVER; Start at 12:30 JACEK HOLLEY MD Aug 16, 2016 10:47
[2016-08-16] MEDS: PROPOFOL 100 ML IV SCH ×2 (11:00→23:00)
[2016-08-16] MEDS ORDERED: POTASSIUM CHLORIDE (SR) 20 MEQ TAB PO STA (11:39)
--- NOTE | 2016-08-16 11:39 | CONS ---
Date/Time of Note Date/Time of Note DATE: 08/16/16 TIME: 11:34 Assessment/Plan Assessment/Plan Chief Complaint/Hosp Course IMPRESSION: 1. Congestive heart failure exacerbation, systolic, acute on chronic 2. Cardiomyopathy with severely depressed left ventricular ejection fraction approximately 15%. 3. Abnormal electrocardiogram, assess for acute coronary syndrome.-negative troponin x 3 4. Hypotension, borderline. 5. Lower extremity edema. 6. Possible lower extremity cellulitis. 7. Renal failure-improving 8. Substance abuse-ongoing 9. Coagulopathy 10. Resp failure s/p intubation 11.Hypoglycemia-? etiology liver failure 12.Encephalopathy-ongoing off sedation/unresponsive Recc: -Tele -Continue coreg/hydralazine as tolerated only -Continue gentle lasix diuresis as tolerated only -Continue asa -Continue aldactone but increase to 25mg -gentle repletion of K -Follow BS closely -Wean vent as tolerated -Ongoing family discussion about trach/code status Problems: Consultation Date/Type/Reason Admit Date/Time Aug 03, 2016 at 14:46 Initial Consult Date 08/03/2016 Type of Consultation: Cardiology Reason for Consultation CHF/Cardiomyopathy Referring Provider: JACEK HOLLEY MD Exam/Review of Systems Vital Signs Vitals Vital Signs Date Time Temp Pulse Resp B/P Pulse Ox O2 Delivery O2 Flow Rate FiO2 08/16/16 11:00 84 22 87/51 99 Mechanical Ventilator 08/16/16 08:00 40 08/16/16 08:00 100.6 Intake and Output 08/15/16 08/15/16 08/16/16 15:00 23:00 07:00 Intake Total 475 ml 390 ml 440 ml Output Total 850 ml 1275 ml 850 ml Balance -375 ml -885 ml -410 ml Exam Review of Systems: CONSTITUTIONAL: No fevers, chills. PULMONARY: No sob CARDIOVASCULAR: No chest pain/palpitations GASTROINTESTINAL: No nausea/vomiting. GENITOURINARY: No hematuria/dysuria. MUSCULOSKELETAL: No myagias/arthalgias. PSYCHIATRIC: The patient denies depression. NEUROLOGIC: Encephalopathic Constitutional: alert Psych: no complaints Head: normocephalic ENMT: mucosa pink and moist Neck: jvd (9cm), supple Respiratory: diminished breath sounds (at bases/B) Cardiovascular: regular rate and rhythm Gastrointestinal: non-tender, soft Musculoskeletal: muscle weakness Extremities: edema (trace/B) Neurological: other (No focal deficits) Results Result Diagram: 08/16/16 0330 08/16/16 0330 Results 24 hrs Laboratory Tests Test 08/15/16 12:56 08/15/16 17:38 08/15/16 20:50 08/16/16 00:58 Bedside Glucose 116 115 125 109 Test 08/16/16 03:30 08/16/16 05:29 08/16/16 09:38 White Blood Count 13.2 H Red Blood Count 5.35 Hemoglobin 14.0 Hematocrit 44.3 Mean Corpuscular Volume 82.8 Mean Corpuscular Hemoglobin 26.2 L Mean Corpuscular Hemoglobin Concent 31.6 L Red Cell Distribution Width 21.0 H Platelet Count 292 Mean Platelet Volume 11.5 H Neutrophils % 67.1 Lymphocytes % 14.9 L Monocytes % 11.9 H Eosinophils % 4.9 Basophils % 0.8 Nucleated Red Blood Cells % 0.0 Neutrophils # 8.9 H Lymphocytes # 2.0 Monocytes # 1.6 H Eosinophils # 0.7 H Basophils # 0.1 Nucleated Red Blood Cells # 0.0 Sodium Level 151 H Potassium Level 3.4 L Chloride Level 106 Carbon Dioxide Level 33 H Anion Gap 15 Blood Urea Nitrogen 31 H Creatinine 0.95 Glucose Level 101 Calcium Level 8.6 Magnesium Level 2.3 Bedside Glucose 99 99 Medications Medications Current Medications Spironolactone (Aldactone) 25 mg DAILY PO Last administered on 08/04/16 08:40 ; Admin Dose 25 MG; Start 08/03/16 at 11:00; Status Future Hold Ondansetron HCl (Zofran Tab) 4 mg Q6H PRN PO NAUSEA AND/OR VOMITING; Start 03/12 at 10:30 Aspirin (Aspirin) 81 mg DAILY PO Last administered on 08/16/16 09:30; Admin Dose 81 MG; Start 08/03/16 at 11:00 Nitroglycerin (Nitroglycerin (Sl Tab) 0.4 Mg) 1 tab Q5M PRN SL CHEST PAIN; Start 08/03/16 at 10:30 Hydralazine HCl (Apresoline) 10 mg Q8 PO Last administered on 08/16/16 05:58; Admin Dose 10 MG; Start 08/03/16 at 22:00 Carvedilol (Coreg) 3.125 mg BID PO Last administered on 08/16/16 09:32; Admin Dose 3.125 MG; Start 08/03/16 at 21:00 Zolpidem Tartrate (Ambien) 5 mg HS PRN PO INSOMNIA Last administered on 21:21; Admin Dose 5 MG; Start 08/03/16 at 21:00 Lorazepam (Ativan) 1 mg Q4 PRN IV ANXIETY Last administered on 08/05/16 14:46 ; Admin Dose 1 MG; Start 08/04/16 at 17:00 Diagnostic Test (Pha) 1 ea 1 ea Q4 XX Last administered on 08/16/16 09:39; Admin Dose 1 EA; Start 08/05/16 at 09:00 Propofol 100 ml @ 2.925 mls/ hr Q12H IV Last administered on 08/06/16 14:28; Admin Dose 5.85 MLS/HR; Start 08/05/16 at 11:00 Norepinephrine/ Dextrose (Levophed/D5W) 500 ml @ 1.87 mls/hr TITRATE IV Last administered on 08/06/16 12:56; Admin Dose 30 MLS/HR; Start 08/05/16 at 13:00 Pantoprazole (Protonix Iv) 40 mg BID@06,18 IV Last administered on 08/16/16 05 :58; Admin Dose 40 MG; Start 08/05/16 at 18:00 Eye Lubricant (Akwa Oint) 1 applic TID BOTH EYES Last administered on 09:30; Admin Dose 1 APPLIC; Start 08/05/16 at 16:00 Lactulose (Enulose) 20 gm Q8 PO Last administered on 08/16/16 05:58; Admin Dose 20 GM; Start 08/09/16 at 10:00 Spironolactone (Aldactone) 12.5 mg DAILY@06 PO Last administered on 08/16/16 05:58; Admin Dose 12.5 MG; Start 08/11/16 at 06:00 Docusate Sodium (Colace Liquid Cup) 100 mg BID NGT Last administered on 09:30; Admin Dose 100 MG; Start 08/13/16 at 09:00 Acetaminophen 650 mg 650 mg Q8H PRN PO PAIN LEVEL 1-3 OR FEVER; Start 08/16/16 at 12:30 Cefotaxime Sodium (Claforan 1gm/50 ml (Pmx)) 50 ml @ 100 mls/hr Q8 IVPB ; Start 08/16/16 at 14:00 DEANA ALBERTO Aug 16, 2016 11:39
--- NOTE | 2016-08-16 11:50 | CONS ---
Date/Time of Note Date/Time of Note DATE: 08/16/16 TIME: 11:47 Consult Date/Type/Reason Admit Date/Time Aug 03, 2016 at 14:46 Initial Consult Date 08/10/16 Type of Consultation: Neurology Ordering Provider: JACEK HOLLEY MD Subjective unarousable today not opening his eyes spontaneously, not following commands Objective Vital Signs Date Time Temp Pulse Resp B/P Pulse Ox O2 Delivery O2 Flow Rate FiO2 08/16/16 11:00 84 22 87/51 99 Mechanical Ventilator 08/16/16 08:00 40 08/16/16 08:00 100.6 Intake and Output 08/15/16 08/15/16 08/16/16 15:00 23:00 07:00 Intake Total 475 ml 390 ml 440 ml Output Total 850 ml 1275 ml 850 ml Balance -375 ml -885 ml -410 ml Exam intubated off sedation unable to open his eyes to command no spontaneous opening no spontaneous movement in extremities Results/Medications Result Diagram: 08/16/16 0330 08/16/16 0330 Results 24 hrs Laboratory Tests Test 08/15/16 12:56 08/15/16 17:38 08/15/16 20:50 08/16/16 00:58 Bedside Glucose 116 115 125 109 Test 08/16/16 03:30 08/16/16 05:29 08/16/16 09:38 White Blood Count 13.2 H Red Blood Count 5.35 Hemoglobin 14.0 Hematocrit 44.3 Mean Corpuscular Volume 82.8 Mean Corpuscular Hemoglobin 26.2 L Mean Corpuscular Hemoglobin Concent 31.6 L Red Cell Distribution Width 21.0 H Platelet Count 292 Mean Platelet Volume 11.5 H Neutrophils % 67.1 Lymphocytes % 14.9 L Monocytes % 11.9 H Eosinophils % 4.9 Basophils % 0.8 Nucleated Red Blood Cells % 0.0 Neutrophils # 8.9 H Lymphocytes # 2.0 Monocytes # 1.6 H Eosinophils # 0.7 H Basophils # 0.1 Nucleated Red Blood Cells # 0.0 Sodium Level 151 H Potassium Level 3.4 L Chloride Level 106 Carbon Dioxide Level 33 H Anion Gap 15 Blood Urea Nitrogen 31 H Creatinine 0.95 Glucose Level 101 Calcium Level 8.6 Magnesium Level 2.3 Bedside Glucose 99 99 Medications Current Medications Ondansetron HCl (Zofran Tab) 4 mg Q6H PRN PO NAUSEA AND/OR VOMITING; Start 03/12 at 10:30 Aspirin (Aspirin) 81 mg DAILY PO Last administered on 08/16/16 09:30; Admin Dose 81 MG; Start 08/03/16 at 11:00 Nitroglycerin (Nitroglycerin (Sl Tab) 0.4 Mg) 1 tab Q5M PRN SL CHEST PAIN; Start 08/03/16 at 10:30 Carvedilol (Coreg) 3.125 mg BID PO Last administered on 08/16/16 09:32; Admin Dose 3.125 MG; Start 08/03/16 at 21:00 Zolpidem Tartrate (Ambien) 5 mg HS PRN PO INSOMNIA Last administered on 21:21; Admin Dose 5 MG; Start 08/03/16 at 21:00 Lorazepam (Ativan) 1 mg Q4 PRN IV ANXIETY Last administered on 08/05/16 14:46 ; Admin Dose 1 MG; Start 08/04/16 at 17:00 Diagnostic Test (Pha) 1 ea 1 ea Q4 XX Last administered on 08/16/16 09:39; Admin Dose 1 EA; Start 08/05/16 at 09:00 Propofol 100 ml @ 2.925 mls/ hr Q12H IV Last administered on 08/06/16 14:28; Admin Dose 5.85 MLS/HR; Start 08/05/16 at 11:00 Norepinephrine/ Dextrose (Levophed/D5W) 500 ml @ 1.87 mls/hr TITRATE IV Last administered on 08/06/16 12:56; Admin Dose 30 MLS/HR; Start 08/05/16 at 13:00 Pantoprazole (Protonix Iv) 40 mg BID@06,18 IV Last administered on 08/16/16 05 :58; Admin Dose 40 MG; Start 08/05/16 at 18:00 Eye Lubricant (Akwa Oint) 1 applic TID BOTH EYES Last administered on 09:30; Admin Dose 1 APPLIC; Start 08/05/16 at 16:00 Lactulose (Enulose) 20 gm Q8 PO Last administered on 08/16/16 05:58; Admin Dose 20 GM; Start 08/09/16 at 10:00 Docusate Sodium (Colace Liquid Cup) 100 mg BID NGT Last administered on t 09:30; Admin Dose 100 MG; Start 08/13/16 at 09:00 Acetaminophen 650 mg 650 mg Q8H PRN PO PAIN LEVEL 1-3 OR FEVER; Start 08/16/16 at 12:30 Cefotaxime Sodium (Claforan 1gm/50 ml (Pmx)) 50 ml @ 100 mls/hr Q8 IVPB ; Start 08/16/16 at 14:00 Spironolactone (Aldactone) 25 mg DAILY@06 PO ; Start 08/17/16 at 06:00; Status UNV Lisinopril (Zestril) 2.5 mg DAILY PO ; Start 08/17/16 at 09:00; Status UNV Assessment/Plan Chief Complaint/Hosp Course 50 year old male hx of cardiomyopathy EF:15%, anxiety, polysubstance abuse, cirrhosis, admitted with CHF exacerbation, respiratory failure with poor mental status. EEG showed generalized background slowing c/w encephalopathy. CTH unrevealing, MRI shows no areas of hypoxia. overall prognosis remains poor due to comorbid medical issues family deciding regarding comfort care vs. trach/peg depending Problems: JUSTIN HERRERA MD Aug 16, 2016 11:50
[2016-08-16] MEDS ORDERED: POTASSIUM CHLORIDE 20 MEQ POWDER FOR ORAL SOLN NGT ONE (12:30)
[2016-08-16] MEDS: CEFOTAXIME 1 GM/50 ML (PMX) 50 ML IVPB SCH ×2 (13:33→21:09)
[2016-08-16] MEDS: DEXTROSE 5% 1,000 ML IV SCH (17:26)
[2016-08-17] VITALS (37 sets, daily range): BP systolic 93–121; BP diastolic 62–99; PULSE 91–111; RESP 17–27
[2016-08-17] MEDS: ACCU-CHEK XX SCH ×6 (00:14→20:44)
[2016-08-17 05:29] LABS: ADD SCAN DIFF NO
[2016-08-17] MEDS: SPIRONOLACTONE 25 MG TAB PO SCH (05:33)
[2016-08-17] MEDS: CEFOTAXIME 1 GM/50 ML (PMX) 50 ML IVPB SCH ×3 (05:33→21:15)
[2016-08-17] MEDS: FUROSEMIDE 40 MG INJ IV SCH ×2 (05:33→17:53)
[2016-08-17] MEDS: PANTOPRAZOLE 40 MG INJ IV SCH ×2 (05:33→17:52)
[2016-08-17] MEDS: LACTULOSE 30ML CUP PO SCH ×3 (05:34→21:11)
[2016-08-17 05:46] LABS: ABNORMAL IP MESSAGE 1; BASOPHIL # 0.1 10^3/ul (0.0-0.1); BASOPHILS % 0.7 % (0.0-2.0); EOSINOPHILS # 0.7 10^3/ul (0.0-0.5); EOSINOPHILS % 5.1 % (0.0-7.0); HEMATOCRIT 44.5 % (42.0-52.0); HEMOGLOBIN 14.1 g/dl (14.0-18.0); LYMPHOCYTES # 2.2 10^3/ul (0.8-2.9); LYMPHOCYTES % 16.3 % (15.0-51.0); MEAN CORPUSCULAR HEMOGLOBIN 26.3 pg (29.0-33.0); MEAN CORPUSCULAR HGB CONC 31.7 g/dl (32.0-37.0); MEAN CORPUSCULAR VOLUME 82.9 fl (82.0-101.0); MEAN PLATELET VOLUME 11.7 fl (7.4-10.4); MONOCYTE # 1.6 10^3/ul (0.3-0.9); NEUTROPHIL # 8.9 10^3/ul (1.6-7.5); NEUTROPHILS % 65.8 % (39.0-77.0); PLATELET COUNT 299 10^3/UL (140-415); RED BLOOD COUNT 5.37 10^6/ul (4.70-6.10); RED CELL DISTRIBUTION WIDTH 21.3 % (11.5-14.5); WHITE BLOOD COUNT 13.5 10^3/ul (4.8-10.8)
[2016-08-17 05:58] LABS: ALBUMIN 3.2 g/dl (3.3-4.9)
[2016-08-17 05:59] LABS: POTASSIUM 3.4 mmol/L (3.5-5.1)
[2016-08-17 06:01] LABS: BILIRUBIN,INDIRECT 0.6 mg/dl (0-1.1); BILIRUBIN,TOTAL 0.6 mg/dl (0.2-1.3); CREATININE 0.95 mg/dl (0.61-1.24)
[2016-08-17 06:02] LABS: ALBUMIN/GLOBULIN RATIO 0.76; CALCIUM 8.7 mg/dl (8.4-10.2); MAGNESIUM 2.4 mg/dl (1.7-2.5); TOTAL PROTEIN 7.4 g/dl (6.1-8.1)
[2016-08-17 06:18] LABS: MONOCYTES % 11.8 % (0.0-11.0)
[2016-08-17] MEDS: DOCUSATE SODIUM 10 MG/ML (10ML CUP) NGT SCH ×2 (08:57→21:11)
[2016-08-17] MEDS: ASPIRIN 81 MG TAB PO SCH (08:57)
[2016-08-17] MEDS: OCULAR LUBRICANT 3.5 GM OPH OINT BOTH EYES SCH ×3 (08:57→21:14)
[2016-08-17] MEDS: LISINOPRIL 5 MG TAB PO SCH (08:59)
--- NOTE | 2016-08-17 10:39 | CONS ---
Date/Time of Note Date/Time of Note DATE: 08/17/16 TIME: 10:35 Assessment/Plan Assessment/Plan Chief Complaint/Hosp Course IMPRESSION: 1. Congestive heart failure exacerbation, systolic, acute on chronic 2. Cardiomyopathy with severely depressed left ventricular ejection fraction approximately 15%. 3. Abnormal electrocardiogram, assess for acute coronary syndrome.-negative troponin x 3 4. Hypotension, borderline. 5. Lower extremity edema. 6. Possible lower extremity cellulitis. 7. Renal failure-improving 8. Substance abuse-ongoing prior to presentation for current admit 9. Coagulopathy 10. Resp failure s/p intubation 11.Hypoglycemia-? etiology liver failure 12.Encephalopathy-ongoing off sedation/unresponsive Recc: -Tele -Continue coreg/zestril as tolerated only -Continue gentle lasix diuresis as tolerated only -Continue asa -Continue aldactone -Follow BS closely -Wean vent as tolerated -Ongoing family discussion about trach/code status -Continue lactulose and follow MS closely -Continue abx's and f/u cx data Problems: Consultation Date/Type/Reason Admit Date/Time Aug 03, 2016 at 14:46 Initial Consult Date 08/03/2016 Type of Consultation: Cardiology Reason for Consultation cardiomyopathy/CHF Referring Provider: JACEK HOLLEY MD Exam/Review of Systems Vital Signs Vitals Vital Signs Date Time Temp Pulse Resp B/P Pulse Ox O2 Delivery O2 Flow Rate FiO2 08/17/16 08:30 97 22 100 08/17/16 08:00 100.2 114/75 Mechanical Ventilator 08/17/16 05:13 40 Intake and Output 08/16/16 08/16/16 08/17/16 15:00 23:00 07:00 Intake Total 660 ml 540 ml 555 ml Output Total 1015 ml 1480 ml 320 ml Balance -355 ml -940 ml 235 ml Exam Review of Systems: CONSTITUTIONAL: No fevers, chills. PULMONARY: intubated CARDIOVASCULAR: No obvious chest pain/palpitations GASTROINTESTINAL: No nausea/vomiting. GENITOURINARY: No hematuria/dysuria. MUSCULOSKELETAL: No myagias/arthalgias. PSYCHIATRIC: The patient denies depression. NEUROLOGIC: Encephalopathy Constitutional: other (nonresponsive) Head: normocephalic ENMT: mucosa pink and moist Neck: jvd (9 cm water), supple Respiratory: diminished breath sounds (at bases/B) Cardiovascular: regular rate and rhythm Gastrointestinal: non-tender, soft Musculoskeletal: muscle tone (normal) Extremities: edema (trace) Neurological: unresponsive Results Result Diagram: 08/17/16 0400 08/17/16 0400 Results 24 hrs Laboratory Tests Test 08/16/16 12:38 08/16/16 17:28 08/16/16 19:48 08/16/16 23:46 Bedside Glucose 103 99 120 120 Test 08/17/16 04:00 08/17/16 09:03 White Blood Count 13.5 H Red Blood Count 5.37 Hemoglobin 14.1 Hematocrit 44.5 Mean Corpuscular Volume 82.9 Mean Corpuscular Hemoglobin 26.3 L Mean Corpuscular Hemoglobin Concent 31.7 L Red Cell Distribution Width 21.3 H Platelet Count 299 Mean Platelet Volume 11.7 H Neutrophils % 65.8 Lymphocytes % 16.3 Monocytes % 11.8 H Eosinophils % 5.1 Basophils % 0.7 Nucleated Red Blood Cells % 0.0 Neutrophils # 8.9 H Lymphocytes # 2.2 Monocytes # 1.6 H Eosinophils # 0.7 H Basophils # 0.1 Nucleated Red Blood Cells # 0.0 Sodium Level 152 H Potassium Level 3.4 L Chloride Level 107 Carbon Dioxide Level 31 Anion Gap 17 H Blood Urea Nitrogen 32 H Creatinine 0.95 Glucose Level 111 Calcium Level 8.7 Magnesium Level 2.4 Total Bilirubin 0.6 Direct Bilirubin 0.00 Indirect Bilirubin 0.6 Aspartate Amino Transf (AST/SGOT) 71 H Alanine Aminotransferase (ALT/SGPT) 59 Alkaline Phosphatase 233 H Total Protein 7.4 Albumin 3.2 L Globulin 4.20 H Albumin/Globulin Ratio 0.76 Bedside Glucose 120 Medications Medications Current Medications Ondansetron HCl (Zofran Tab) 4 mg Q6H PRN PO NAUSEA AND/OR VOMITING; Start 03/12 at 10:30 Aspirin (Aspirin) 81 mg DAILY PO Last administered on 08/17/16 08:57; Admin Dose 81 MG; Start 08/03/16 at 11:00 Nitroglycerin (Nitroglycerin (Sl Tab) 0.4 Mg) 1 tab Q5M PRN SL CHEST PAIN; Start 08/03/16 at 10:30 Carvedilol (Coreg) 3.125 mg BID PO Last administered on 08/16/16 09:32; Admin Dose 3.125 MG; Start 08/03/16 at 21:00 Zolpidem Tartrate (Ambien) 5 mg HS PRN PO INSOMNIA Last administered on 21:21; Admin Dose 5 MG; Start 08/03/16 at 21:00 Lorazepam (Ativan) 1 mg Q4 PRN IV ANXIETY Last administered on 08/05/16 14:46 ; Admin Dose 1 MG; Start 08/04/16 at 17:00 Diagnostic Test (Pha) 1 ea 1 ea Q4 XX Last administered on 08/17/16 00:14; Admin Dose 1 EA; Start 08/05/16 at 09:00 Propofol 100 ml @ 2.925 mls/ hr Q12H IV Last administered on 08/06/16 14:28; Admin Dose 5.85 MLS/HR; Start 08/05/16 at 11:00 Norepinephrine/ Dextrose (Levophed/D5W) 500 ml @ 1.87 mls/hr TITRATE IV Last administered on 08/06/16 12:56; Admin Dose 30 MLS/HR; Start 08/05/16 at 13:00 Pantoprazole (Protonix Iv) 40 mg BID@06,18 IV Last administered on 08/17/16 05 :33; Admin Dose 40 MG; Start 08/05/16 at 18:00 Eye Lubricant (Akwa Oint) 1 applic TID BOTH EYES Last administered on 08:57; Admin Dose 1 APPLIC; Start 08/05/16 at 16:00 Lactulose (Enulose) 20 gm Q8 PO Last administered on 08/17/16 05:34; Admin Dose 20 GM; Start 08/09/16 at 10:00 Docusate Sodium (Colace Liquid Cup) 100 mg BID NGT Last administered on 08:57; Admin Dose 100 MG; Start 08/13/16 at 09:00 Acetaminophen 650 mg 650 mg Q8H PRN PO PAIN LEVEL 1-3 OR FEVER; Start 08/16/16 at 12:30 Cefotaxime Sodium (Claforan 1gm/50 ml (Pmx)) 50 ml @ 100 mls/hr Q8 IVPB Last administered on 08/17/16 05:33; Admin Dose 100 MLS/HR; Start 08/16/16 at 14:00 Spironolactone (Aldactone) 25 mg DAILY@06 PO Last administered on 08/17/16 05: 33; Admin Dose 25 MG; Start 08/17/16 at 06:00 Lisinopril 2.5 mg 2.5 mg DAILY PO Last administered on 08/17/16 08:59; Admin Dose 2.5 MG; Start 08/17/16 at 09:00 Dextrose (D5W) 1,000 ml @ 30 mls/hr Q24H IV Last administered on 08/16/16 17: 26; Admin Dose 30 MLS/HR; Start 08/16/16 at 17:00; Stop 08/18/16 at 02:19 DEANA ALBERTO Aug 17, 2016 10:39
[2016-08-17] MEDS: ACETAMINOPHEN 325 MG TAB PO PRN (10:40)
--- NOTE | 2016-08-17 10:52 | PN ---
Date/Time of Note Date/Time of Note DATE: 08/17/16 TIME: 10:49 Assessment/Plan VTE Prophylaxis VTE Prophylaxis Intervention: SCD's Lines/Catheters IV Catheter Type (from Nrs): PICC Line Central line still needed: Yes Urinary Cath still in place: Yes Reason Cath still needed: other (indicate) Assessment/Plan Chief Complaint/Hosp Course Chief Complaint/Hosp Course 1. Acute encephalopathy secondary to hypoglycemia and/or substance abuse-pt does not follow commands EEG suggests toxic metabolic encephalopathy, neuro consult appreciated CT head shows no significant findings, MRI with global hypertrophy and no evidence of anoxic brain injury Family conference held and family does not feel that patient would have wanted to be trached, we will continue to monitor neuro status on a daily basis` 2. Acute respiratory failure, now ventilator dependent, secondary to #1 and CHF exacerbation Pulmonology in the case, continue vent support CXR this AM is unchanged 3. Acute on chronic congestive heart failure exacerbation with an ejection fraction of 15% Cardiology on the case, continue diuresis 4. Chronic alcoholic with cirrhosis and coagulopathy 5. Chronic substance abuse with amphetamines and heroin. 6. Leukocytosis possibly secondary to pneumonia-resolved Continue antibiotics for now, 7. Congestive heart failure, cards consulted, follow the recommendations 7. Subclinical hypothyroidism. Prophylaxis: SCDs Prognosis: Guarded Medical management and prognosis was discussed with the family at the bedside Family meeting was done today , prognosis and further plan was discussed Problems: Subjective 24 Hr Interval Summary Free Text/Dictation No acute changes Patient was noted to open his eyes spontaneously although he was not able to track Does not follow any commands Does not respond to pain or verbal stimuli Exam/Review of Systems Vital Signs Vitals Vital Signs Date Time Temp Pulse Resp B/P Pulse Ox O2 Delivery O2 Flow Rate FiO2 08/17/16 08:30 97 22 100 08/17/16 08:00 100.2 114/75 Mechanical Ventilator 08/17/16 05:13 40 Intake and Output 08/16/16 08/16/16 08/17/16 15:00 23:00 07:00 Intake Total 660 ml 540 ml 555 ml Output Total 1015 ml 1480 ml 320 ml Balance -355 ml -940 ml 235 ml Exam General: The patient is intubated with NG tube, no response to pain or verbal stimuli HEENT: Atraumatic, normocephalic. The pupils are equal and sluggish Neck: Supple Chest: Normal Lungs: Clear to auscultation bilaterally Heart: Normal S1-S2, Regular rhythm and rate. Abdomen: Soft , nontender, minimally distended , bowel sounds are present. Extremities: Normal to inspection, no edema no cyanosis Neurologic: No response to pain or verbal stimuli no meaningful neurologic examination finding. Results Result Diagram: 08/17/16 0400 08/17/16 0400 Results 24 hrs Laboratory Tests Test 08/16/16 12:38 08/16/16 17:28 08/16/16 19:48 08/16/16 23:46 Bedside Glucose 103 99 120 120 Test 08/17/16 04:00 08/17/16 09:03 White Blood Count 13.5 H Red Blood Count 5.37 Hemoglobin 14.1 Hematocrit 44.5 Mean Corpuscular Volume 82.9 Mean Corpuscular Hemoglobin 26.3 L Mean Corpuscular Hemoglobin Concent 31.7 L Red Cell Distribution Width 21.3 H Platelet Count 299 Mean Platelet Volume 11.7 H Neutrophils % 65.8 Lymphocytes % 16.3 Monocytes % 11.8 H Eosinophils % 5.1 Basophils % 0.7 Nucleated Red Blood Cells % 0.0 Neutrophils # 8.9 H Lymphocytes # 2.2 Monocytes # 1.6 H Eosinophils # 0.7 H Basophils # 0.1 Nucleated Red Blood Cells # 0.0 Sodium Level 152 H Potassium Level 3.4 L Chloride Level 107 Carbon Dioxide Level 31 Anion Gap 17 H Blood Urea Nitrogen 32 H Creatinine 0.95 Glucose Level 111 Calcium Level 8.7 Magnesium Level 2.4 Total Bilirubin 0.6 Direct Bilirubin 0.00 Indirect Bilirubin 0.6 Aspartate Amino Transf (AST/SGOT) 71 H Alanine Aminotransferase (ALT/SGPT) 59 Alkaline Phosphatase 233 H Total Protein 7.4 Albumin 3.2 L Globulin 4.20 H Albumin/Globulin Ratio 0.76 Bedside Glucose 120 Medications Medications Current Medications Ondansetron HCl (Zofran Tab) 4 mg Q6H PRN PO NAUSEA AND/OR VOMITING; Start 03/12 at 10:30 Aspirin (Aspirin) 81 mg DAILY PO Last administered on 08/17/16t 08:57; Admin Dose 81 MG; Start 08/03/16 at 11:00 Nitroglycerin (Nitroglycerin (Sl Tab) 0.4 Mg) 1 tab Q5M PRN SL CHEST PAIN; Start 08/03/16 at 10:30 Carvedilol (Coreg) 3.125 mg BID PO Last administered on 08/16/16 09:32; Admin Dose 3.125 MG; Start 08/03/16 at 21:00 Zolpidem Tartrate (Ambien) 5 mg HS PRN PO INSOMNIA Last administered on 21:21; Admin Dose 5 MG; Start 08/03/16 at 21:00 Lorazepam (Ativan) 1 mg Q4 PRN IV ANXIETY Last administered on 08/05/16 14:46 ; Admin Dose 1 MG; Start 08/04/16 at 17:00 Diagnostic Test (Pha) 1 ea 1 ea Q4 XX Last administered on 08/17/16 00:14; Admin Dose 1 EA; Start 08/05/16 at 09:00 Propofol 100 ml @ 2.925 mls/ hr Q12H IV Last administered on 08/06/16 14:28; Admin Dose 5.85 MLS/HR; Start 08/05/16 at 11:00 Norepinephrine/ Dextrose (Levophed/D5W) 500 ml @ 1.87 mls/hr TITRATE IV Last administered on 08/06/16 12:56; Admin Dose 30 MLS/HR; Start 08/05/16 at 13:00 Pantoprazole (Protonix Iv) 40 mg BID@06,18 IV Last administered on 08/17/16 05 :33; Admin Dose 40 MG; Start 08/05/16 at 18:00 Eye Lubricant (Akwa Oint) 1 applic TID BOTH EYES Last administered on 08:57; Admin Dose 1 APPLIC; Start 08/05/16 at 16:00 Lactulose (Enulose) 20 gm Q8 PO Last administered on 08/17/16 05:34; Admin Dose 20 GM; Start 08/09/16 at 10:00 Docusate Sodium (Colace Liquid Cup) 100 mg BID NGT Last administered on 08:57; Admin Dose 100 MG; Start 08/13/16 at 09:00 Acetaminophen 650 mg 650 mg Q8H PRN PO PAIN LEVEL 1-3 OR FEVER Last administered on 08/17/16 10:40; Admin Dose 650 MG; Start 08/16/16 at 12:30 Cefotaxime Sodium (Claforan 1gm/50 ml (Pmx)) 50 ml @ 100 mls/hr Q8 IVPB Last administered on 08/17/16 05:33; Admin Dose 100 MLS/HR; Start 08/16/16 at 14:00 Spironolactone (Aldactone) 25 mg DAILY@06 PO Last administered on 08/17/16 05: 33; Admin Dose 25 MG; Start 08/17/16 at 06:00 Lisinopril 2.5 mg 2.5 mg DAILY PO Last administered on 08/17/16 08:59; Admin Dose 2.5 MG; Start 08/17/16 at 09:00 Dextrose (D5W) 1,000 ml @ 30 mls/hr Q24H IV Last administered on 08/16/16 17: 26; Admin Dose 30 MLS/HR; Start 08/16/16 at 17:00; Stop 08/18/16 at 02:19 Potassium Chloride (Potassium Chloride Pwd/Soln) 40 meq ONCE ONCE PO ; Start at 11:00; Stop 08/17/16 at 11:01 JACEK HOLLEY MD Aug 17, 2016 10:52
--- NOTE | 2016-08-17 10:57 | CONS ---
Date/Time of Note Date/Time of Note DATE: 08/17/16 TIME: 10:52 Assessment/Plan Assessment/Plan Additional Assessment/Plan Ventilator settings are AC of 22, tidal volume 500, PEEP of 5, 40% FiO2. Assessment recommendations; 1. Patient admitted for poorly substance drug abuse leading to respiratory failure. 2. Aspiration pneumonia. 3. Cardiopathy. 4. History of alcoholism. 5. Toxic/metabolic encephalopathy. 6. Mild hypernatremia. Continue current supportive care. Family still has not decided about possible terminal extubation versus tracheostomy and G-tube placement. Prognosis remains extremely poor. Consultation Date/Type/Reason Admit Date/Time Aug 03, 2016 at 14:46 Initial Consult Date 08/05/16 Type of Consultation: Pulmonary/critical care Referring Provider: JACEK HOLLEY MD 24 HR Interval Summary Free Text/Dictation Patient condition remains critical. Remains essentially unresponsive. Other than minimal grimacing on deep sternal rubbing. Patient however has remained hemodynamically stable now off pressor support. General exam; middle-aged man, orally intubated, unresponsive. Currently in no distress. Exam/Review of Systems Vital Signs Vitals Vital Signs Date Time Temp Pulse Resp B/P Pulse Ox O2 Delivery O2 Flow Rate FiO2 08/17/16 08:30 97 22 100 08/17/16 08:00 100.2 114/75 Mechanical Ventilator 08/17/16 05:13 40 Intake and Output 08/16/16 08/16/16 08/17/16 15:00 23:00 07:00 Intake Total 660 ml 540 ml 555 ml Output Total 1015 ml 1480 ml 320 ml Balance -355 ml -940 ml 235 ml Exam HEENT examination; supple neck, no JVD. No lymphadenopathy. Midline trachea. No thyromegaly. Or intubated. Small pupils bilaterally. Fair dentition. Chest examination; diminished but clear breath sounds bilaterally. S1-S2 audible, no murmurs. Regular rhythm. Abdomen examination; soft, no organomegaly. Bowel sounds audible. Extremity examination no peripheral edema. 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 Results Result Diagram: 08/17/16 0400 08/17/16 0400 Results 24 hrs Laboratory Tests Test 08/16/16 12:38 08/16/16 17:28 08/16/16 19:48 08/16/16 23:46 Bedside Glucose 103 99 120 120 Test 08/17/16 04:00 08/17/16 09:03 White Blood Count 13.5 H Red Blood Count 5.37 Hemoglobin 14.1 Hematocrit 44.5 Mean Corpuscular Volume 82.9 Mean Corpuscular Hemoglobin 26.3 L Mean Corpuscular Hemoglobin Concent 31.7 L Red Cell Distribution Width 21.3 H Platelet Count 299 Mean Platelet Volume 11.7 H Neutrophils % 65.8 Lymphocytes % 16.3 Monocytes % 11.8 H Eosinophils % 5.1 Basophils % 0.7 Nucleated Red Blood Cells % 0.0 Neutrophils # 8.9 H Lymphocytes # 2.2 Monocytes # 1.6 H Eosinophils # 0.7 H Basophils # 0.1 Nucleated Red Blood Cells # 0.0 Sodium Level 152 H Potassium Level 3.4 L Chloride Level 107 Carbon Dioxide Level 31 Anion Gap 17 H Blood Urea Nitrogen 32 H Creatinine 0.95 Glucose Level 111 Calcium Level 8.7 Magnesium Level 2.4 Total Bilirubin 0.6 Direct Bilirubin 0.00 Indirect Bilirubin 0.6 Aspartate Amino Transf (AST/SGOT) 71 H Alanine Aminotransferase (ALT/SGPT) 59 Alkaline Phosphatase 233 H Total Protein 7.4 Albumin 3.2 L Globulin 4.20 H Albumin/Globulin Ratio 0.76 Bedside Glucose 120 Medications Medications Current Medications Ondansetron HCl (Zofran Tab) 4 mg Q6H PRN PO NAUSEA AND/OR VOMITING; Start 03/12 at 10:30 Aspirin (Aspirin) 81 mg DAILY PO Last administered on 08/17/16 08:57; Admin Dose 81 MG; Start 08/03/16 at 11:00 Nitroglycerin (Nitroglycerin (Sl Tab) 0.4 Mg) 1 tab Q5M PRN SL CHEST PAIN; Start 08/03/16 at 10:30 Carvedilol (Coreg) 3.125 mg BID PO Last administered on 08/16/16 09:32; Admin Dose 3.125 MG; Start 08/03/16 at 21:00 Zolpidem Tartrate (Ambien) 5 mg HS PRN PO INSOMNIA Last administered on 21:21; Admin Dose 5 MG; Start 08/03/16 at 21:00 Lorazepam (Ativan) 1 mg Q4 PRN IV ANXIETY Last administered on 08/05/16 14:46 ; Admin Dose 1 MG; Start 08/04/16 at 17:00 Diagnostic Test (Pha) 1 ea 1 ea Q4 XX Last administered on 08/17/16 00:14; Admin Dose 1 EA; Start 08/05/16 at 09:00 Propofol 100 ml @ 2.925 mls/ hr Q12H IV Last administered on 08/06/16 14:28; Admin Dose 5.85 MLS/HR; Start 08/05/16 at 11:00 Norepinephrine/ Dextrose (Levophed/D5W) 500 ml @ 1.87 mls/hr TITRATE IV Last administered on 08/06/16 12:56; Admin Dose 30 MLS/HR; Start 08/05/16 at 13:00 Pantoprazole (Protonix Iv) 40 mg BID@06,18 IV Last administered on 08/17/16 05 :33; Admin Dose 40 MG; Start 08/05/16 at 18:00 Eye Lubricant (Akwa Oint) 1 applic TID BOTH EYES Last administered on 08:57; Admin Dose 1 APPLIC; Start 08/05/16 at 16:00 Lactulose (Enulose) 20 gm Q8 PO Last administered on 08/17/16 05:34; Admin Dose 20 GM; Start 08/09/16 at 10:00 Docusate Sodium (Colace Liquid Cup) 100 mg BID NGT Last administered on 08:57; Admin Dose 100 MG; Start 08/13/16 at 09:00 Acetaminophen 650 mg 650 mg Q8H PRN PO PAIN LEVEL 1-3 OR FEVER Last administered on 08/17/16 10:40; Admin Dose 650 MG; Start 08/16/16 at 12:30 Cefotaxime Sodium (Claforan 1gm/50 ml (Pmx)) 50 ml @ 100 mls/hr Q8 IVPB Last administered on 08/17/16 05:33; Admin Dose 100 MLS/HR; Start 08/16/16 at 14:00 Spironolactone (Aldactone) 25 mg DAILY@06 PO Last administered on 08/17/16 05: 33; Admin Dose 25 MG; Start 08/17/16 at 06:00 Lisinopril 2.5 mg 2.5 mg DAILY PO Last administered on 08/17/16 08:59; Admin Dose 2.5 MG; Start 08/17/16 at 09:00 Dextrose (D5W) 1,000 ml @ 30 mls/hr Q24H IV Last administered on 08/16/16 17: 26; Admin Dose 30 MLS/HR; Start 08/16/16 at 17:00; Stop 08/18/16 at 02:19 Potassium Chloride (Potassium Chloride Pwd/Soln) 40 meq ONCE ONCE PO ; Start at 11:00; Stop 08/17/16 at 11:01 YOUSUF MILNER Aug 17, 2016 10:57
[2016-08-17] MEDS: PROPOFOL 100 ML IV SCH ×2 (11:00→20:07)
[2016-08-17] MEDS ORDERED: POTASSIUM CHLORIDE 20 MEQ POWDER FOR ORAL SOLN PO ONE (11:00)
[2016-08-18] VITALS (37 sets, daily range): BP systolic 90–122; BP diastolic 55–79; PULSE 94–112; RESP 20–24
[2016-08-18] MEDS: ACCU-CHEK XX SCH ×6 (01:00→20:08)
[2016-08-18 04:33] LABS: ADD SCAN DIFF NO
[2016-08-18 04:36] LABS: BASOPHIL # 0.1 10^3/ul (0.0-0.1); BASOPHILS % 0.8 % (0.0-2.0); EOSINOPHILS # 0.4 10^3/ul (0.0-0.5); EOSINOPHILS % 3.1 % (0.0-7.0); HEMATOCRIT 45.4 % (42.0-52.0); HEMOGLOBIN 14.5 g/dl (14.0-18.0); LYMPHOCYTES # 1.9 10^3/ul (0.8-2.9); MEAN CORPUSCULAR HEMOGLOBIN 26.5 pg (29.0-33.0); MEAN CORPUSCULAR HGB CONC 31.9 g/dl (32.0-37.0); MEAN CORPUSCULAR VOLUME 82.8 fl (82.0-101.0); MEAN PLATELET VOLUME 11.4 fl (7.4-10.4); MONOCYTE # 1.4 10^3/ul (0.3-0.9); MONOCYTES % 11.3 % (0.0-11.0); NEUTROPHIL # 8.1 10^3/ul (1.6-7.5); NEUTROPHILS % 68.4 % (39.0-77.0); PLATELET COUNT 309 10^3/UL (140-415); RED BLOOD COUNT 5.48 10^6/ul (4.70-6.10); RED CELL DISTRIBUTION WIDTH 20.5 % (11.5-14.5); WHITE BLOOD COUNT 11.9 10^3/ul (4.8-10.8)
[2016-08-18 04:48] LABS: CALCIUM 8.7 mg/dl (8.4-10.2)
[2016-08-18 05:31] LABS: POTASSIUM 3.5 mmol/L (3.5-5.1)
[2016-08-18 05:39] LABS: CREATININE 0.98 mg/dl (0.61-1.24)
[2016-08-18] MEDS: SPIRONOLACTONE 25 MG TAB PO SCH (05:59)
[2016-08-18] MEDS: PANTOPRAZOLE 40 MG INJ IV SCH ×2 (06:00→17:52)
[2016-08-18] MEDS: FUROSEMIDE 40 MG INJ IV SCH ×2 (06:00→17:52)
[2016-08-18] MEDS: LACTULOSE 30ML CUP PO SCH ×3 (06:01→21:52)
[2016-08-18] MEDS: CEFOTAXIME 1 GM/50 ML (PMX) 50 ML IVPB SCH ×3 (06:01→21:52)
[2016-08-18] MEDS: DEXTROSE 5% 1,000 ML IV SCH (06:09)
[2016-08-18] MEDS: ASPIRIN 81 MG TAB PO SCH (08:52)
[2016-08-18] MEDS: OCULAR LUBRICANT 3.5 GM OPH OINT BOTH EYES SCH ×3 (08:52→20:03)
[2016-08-18] MEDS: DOCUSATE SODIUM 10 MG/ML (10ML CUP) NGT SCH ×2 (08:55→20:03)
[2016-08-18] MEDS: LISINOPRIL 5 MG TAB PO SCH (10:00)
[2016-08-18] MEDS: PROPOFOL 100 ML IV SCH (11:00)
--- NOTE | 2016-08-18 11:05 | PN ---
Date/Time of Note Date/Time of Note DATE: 08/18/16 TIME: 11:01 Assessment/Plan VTE Prophylaxis VTE Prophylaxis Intervention: SCD's Lines/Catheters [facility] Peripheral IV Urinary Cath still in place: Yes Reason Cath still needed: other (indicate) Assessment/Plan Chief Complaint/Hosp Course Chief Complaint/Hosp Course 1. Acute encephalopathy secondary to hypoglycemia and/or substance abuse-pt does not follow commands EEG suggests toxic metabolic encephalopathy, neuro consult appreciated CT head shows no significant findings, MRI with global hypertrophy and no evidence of anoxic brain injury Family conference held and family does not feel that patient would have wanted to be trached, we will continue to monitor neuro status on a daily basis` 2. Acute respiratory failure, now ventilator dependent, secondary to #1 and CHF exacerbation Pulmonology in the case, continue vent support CXR this AM is unchanged 3. Acute on chronic congestive heart failure exacerbation with an ejection fraction of 15% Cardiology on the case, continue diuresis 4. Chronic alcoholic with cirrhosis and coagulopathy 5. Chronic substance abuse with amphetamines and heroin. 6. Leukocytosis possibly secondary to pneumonia-resolved Continue antibiotics for now, 7. Congestive heart failure, cards consulted, follow the recommendations 7. Subclinical hypothyroidism. 8. Hypernatremia, improving status post D5W and free water through G-tube Prophylaxis: SCDs Prognosis: Guarded Medical management and prognosis was discussed with the family at the bedside Family meeting was done today , prognosis and further plan was discussed Problems: Subjective 24 Hr Interval Summary Free Text/Dictation Patient spontaneously opens his eyes today although he does not track or does not follow any commands Intubated not sedated Tolerating NG tube feeding Family has decided to proceed with possible comfort measures tomorrow 08/19/2016 Exam/Review of Systems Vital Signs Vitals Vital Signs Date Time Temp Pulse Resp B/P Pulse Ox O2 Delivery O2 Flow Rate FiO2 08/18/16 08:00 107 08/18/16 07:19 100.4 22 98 08/18/16 07:00 122/77 Mechanical Ventilator 08/18/16 05:55 30 Intake and Output 08/17/16 08/17/16 08/18/16 14:59 22:59 06:59 Intake Total 780 ml 815 ml 880 ml Output Total 1430 ml 1125 ml 490 ml Balance -650 ml -310 ml 390 ml Exam General: The patient is intubated HEENT: Atraumatic, normocephalic. The pupils are equal sluggish Neck: Supple Chest: Normal expansion of the thorax during inspiration Lungs: Clear to auscultation bilaterally Heart: Normal S1-S2, Regular rhythm and rate. Abdomen: Soft , nontender, minimally distended , bowel sounds are present. Extremities: Normal to inspection, trace edema no cyanosis Neurologic: Open his eyes spontaneously although does not track, does not follow any commands Results Result Diagram: 08/18/16 04008/18/16 040 Results 24 hrs Laboratory Tests Test 08/17/16 12:57 08/17/16 17:51 08/17/16 20:38 08/18/16 01:44 Bedside Glucose 105 103 124 103 Test 08/18/16 04:00 08/18/16 09:07 White Blood Count 11.9 H Red Blood Count 5.48 Hemoglobin 14.5 Hematocrit 45.4 Mean Corpuscular Volume 82.8 Mean Corpuscular Hemoglobin 26.5 L Mean Corpuscular Hemoglobin Concent 31.9 L Red Cell Distribution Width 20.5 H Platelet Count 309 Mean Platelet Volume 11.4 H Neutrophils % 68.4 Lymphocytes % 16.0 Monocytes % 11.3 H Eosinophils % 3.1 Basophils % 0.8 Nucleated Red Blood Cells % 0.0 Neutrophils # 8.1 H Lymphocytes # 1.9 Monocytes # 1.4 H Eosinophils # 0.4 Basophils # 0.1 Nucleated Red Blood Cells # 0.0 Sodium Level 150 H Potassium Level 3.5 Chloride Level 105 Carbon Dioxide Level 31 Anion Gap 18 H Blood Urea Nitrogen 32 H Creatinine 0.98 Glucose Level 145 Calcium Level 8.7 Bedside Glucose 114 Medications Medications Current Medications Ondansetron HCl (Zofran Tab) 4 mg Q6H PRN PO NAUSEA AND/OR VOMITING; Start 03/12 at 10:30 Aspirin (Aspirin) 81 mg DAILY PO Last administered on 08/18/16 08:52; Admin Dose 81 MG; Start 08/03/16 at 11:00 Nitroglycerin (Nitroglycerin (Sl Tab) 0.4 Mg) 1 tab Q5M PRN SL CHEST PAIN; Start 08/03/16 at 10:30 Carvedilol (Coreg) 3.125 mg BID PO Last administered on 08/18/16 08:52; Admin Dose 3.125 MG; Start 08/03/16 at 21:00 Zolpidem Tartrate (Ambien) 5 mg HS PRN PO INSOMNIA Last administered on 21:21; Admin Dose 5 MG; Start 08/03/16 at 21:00 Lorazepam (Ativan) 1 mg Q4 PRN IV ANXIETY Last administered on 08/05/16 14:46 ; Admin Dose 1 MG; Start 08/04/16 at 17:00 Diagnostic Test (Pha) 1 ea 1 ea Q4 XX Last administered on 08/18/16 01:00; Admin Dose 1 EA; Start 08/05/16 at 09:00 Propofol 100 ml @ 2.925 mls/ hr Q12H IV Last administered on 08/06/16 14:28; Admin Dose 5.85 MLS/HR; Start 08/05/16 at 11:00 Norepinephrine/ Dextrose (Levophed/D5W) 500 ml @ 1.87 mls/hr TITRATE IV Last administered on 08/06/16 12:56; Admin Dose 30 MLS/HR; Start 08/05/16 at 13:00 Pantoprazole (Protonix Iv) 40 mg BID@06,18 IV Last administered on 08/18/16 06 :00; Admin Dose 40 MG; Start 08/05/16 at 18:00 Eye Lubricant (Akwa Oint) 1 applic TID BOTH EYES Last administered on 08:52; Admin Dose 1 APPLIC; Start 08/05/16 at 16:00 Lactulose (Enulose) 20 gm Q8 PO Last administered on 08/18/16 06:01; Admin Dose 20 GM; Start 08/09/16 at 10:00 Docusate Sodium (Colace Liquid Cup) 100 mg BID NGT Last administered on 08:55; Admin Dose 100 MG; Start 08/13/16 at 09:00 Acetaminophen 650 mg 650 mg Q8H PRN PO PAIN LEVEL 1-3 OR FEVER Last administered on 08/17/16 10:40; Admin Dose 650 MG; Start 08/16/16 at 12:30 Cefotaxime Sodium (Claforan 1gm/50 ml (Pmx)) 50 ml @ 100 mls/hr Q8 IVPB Last administered on 08/18/16 06:01; Admin Dose 100 MLS/HR; Start 08/16/16 at 14:00 Spironolactone (Aldactone) 25 mg DAILY@06 PO Last administered on 08/18/16 05: 59; Admin Dose 25 MG; Start 08/17/16 at 06:00 Lisinopril (Zestril) 2.5 mg DAILY PO Last administered on 08/17/16 08:59; Admin Dose 2.5 MG; Start 08/17/16 at 09:00 JACEK HOLLEY MD Aug 18, 2016 11:04
--- NOTE | 2016-08-18 13:33 | CONS ---
Date/Time of Note Date/Time of Note DATE: 08/18/16 TIME: 13:30 Assessment/Plan Assessment/Plan Additional Assessment/Plan Ventilator settings are AC of 22 tidal volume 500, PEEP of 5, 30% FiO2. Assessment recommendations; 1. Patient admitted for pneumonia and sepsis. 2. History of cirrhosis of liver. 3. Extremely poor mental status. 4. Hypernatremia with slight interval improvement. Continue current treatment, continue current antibiotics and other supportive measures. Will obtain follow-up chest x-ray tomorrow morning. Prognosis remains very poor. Patient likely may need to have a tracheostomy and G-tube placement. Consultation Date/Type/Reason Admit Date/Time Aug 03, 2016 at 14:46 Initial Consult Date 08/05/16 Type of Consultation: Pulmonary/critical care Referring Provider: JACEK HOLLEY MD 24 HR Interval Summary Free Text/Dictation Patient condition remains critical. Remains completely unresponsive. Patient however has remained hemodynamically stable. General exam; middle-aged man, orally intubated, unresponsive. Currently in no distress. Exam/Review of Systems Vital Signs Vitals Vital Signs Date Time Temp Pulse Resp B/P Pulse Ox O2 Delivery O2 Flow Rate FiO2 08/18/16 12:00 101 08/18/16 11:20 24 98 30 08/18/16 11:00 97/66 Mechanical Ventilator 08/18/16 07:19 100.4 Intake and Output 08/17/16 08/17/16 08/18/16 15:00 23:00 07:00 Intake Total 780 ml 815 ml 820 ml Output Total 1480 ml 1135 ml 430 ml Balance -700 ml -320 ml 390 ml Exam HEENT examination; supple neck, no JVD. No lymphadenopathy. Midline trachea. No thyromegaly. There was a small bilaterally. Orally intubated. Chest examination; diminished but clear breath sounds bilaterally. S1-S2 audible, no murmurs. Regular rhythm. Abdomen examination; soft, no organomegaly. Bowel sounds audible. Extremity examination; no peripheral edema. 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 Results Result Diagram: 08/18/16 0400 08/18/16 0400 Results 24 hrs Laboratory Tests Test 08/17/16 17:51 08/17/16 20:38 08/18/16 01:44 08/18/16 04:00 Bedside Glucose 103 124 103 White Blood Count 11.9 H Red Blood Count 5.48 Hemoglobin 14.5 Hematocrit 45.4 Mean Corpuscular Volume 82.8 Mean Corpuscular Hemoglobin 26.5 L Mean Corpuscular Hemoglobin Concent 31.9 L Red Cell Distribution Width 20.5 H Platelet Count 309 Mean Platelet Volume 11.4 H Neutrophils % 68.4 Lymphocytes % 16.0 Monocytes % 11.3 H Eosinophils % 3.1 Basophils % 0.8 Nucleated Red Blood Cells % 0.0 Neutrophils # 8.1 H Lymphocytes # 1.9 Monocytes # 1.4 H Eosinophils # 0.4 Basophils # 0.1 Nucleated Red Blood Cells # 0.0 Sodium Level 150 H Potassium Level 3.5 Chloride Level 105 Carbon Dioxide Level 31 Anion Gap 18 H Blood Urea Nitrogen 32 H Creatinine 0.98 Glucose Level 145 Calcium Level 8.7 Test 08/18/16 09:07 08/18/16 12:26 Bedside Glucose 114 121 Medications Medications Current Medications Ondansetron HCl (Zofran Tab) 4 mg Q6H PRN PO NAUSEA AND/OR VOMITING; Start 03/12 at 10:30 Aspirin (Aspirin) 81 mg DAILY PO Last administered on 08/18/16 08:52; Admin Dose 81 MG; Start 08/03/16 at 11:00 Nitroglycerin (Nitroglycerin (Sl Tab) 0.4 Mg) 1 tab Q5M PRN SL CHEST PAIN; Start 08/03/16 at 10:30 Carvedilol (Coreg) 3.125 mg BID PO Last administered on 08/18/16 08:52; Admin Dose 3.125 MG; Start 08/03/16 at 21:00 Zolpidem Tartrate (Ambien) 5 mg HS PRN PO INSOMNIA Last administered on 21:21; Admin Dose 5 MG; Start 08/03/16 at 21:00 Lorazepam (Ativan) 1 mg Q4 PRN IV ANXIETY Last administered on 08/05/16 14:46 ; Admin Dose 1 MG; Start 08/04/16 at 17:00 Diagnostic Test (Pha) 1 ea 1 ea Q4 XX Last administered on 08/18/16 01:00; Admin Dose 1 EA; Start 08/05/16 at 09:00 Norepinephrine/ Dextrose (Levophed/D5W) 500 ml @ 1.87 mls/hr TITRATE IV Last administered on 08/06/16 12:56; Admin Dose 30 MLS/HR; Start 08/05/16 at 13:00 Pantoprazole (Protonix Iv) 40 mg BID@06,18 IV Last administered on 08/18/16 06 :00; Admin Dose 40 MG; Start 08/05/16 at 18:00 Eye Lubricant (Akwa Oint) 1 applic TID BOTH EYES Last administered on 08:52; Admin Dose 1 APPLIC; Start 08/05/16 at 16:00 Lactulose (Enulose) 20 gm Q8 PO Last administered on 08/18/16 06:01; Admin Dose 20 GM; Start 08/09/16 at 10:00 Docusate Sodium (Colace Liquid Cup) 100 mg BID NGT Last administered on 08:55; Admin Dose 100 MG; Start 08/13/16 at 09:00 Acetaminophen 650 mg 650 mg Q8H PRN PO PAIN LEVEL 1-3 OR FEVER Last administered on 08/17/16 10:40; Admin Dose 650 MG; Start 08/16/16 at 12:30 Cefotaxime Sodium (Claforan 1gm/50 ml (Pmx)) 50 ml @ 100 mls/hr Q8 IVPB Last administered on 08/18/16 06:01; Admin Dose 100 MLS/HR; Start 08/16/16 at 14:00 Spironolactone (Aldactone) 25 mg DAILY@06 PO Last administered on 08/18/16 05: 59; Admin Dose 25 MG; Start 08/17/16 at 06:00 Lisinopril (Zestril) 2.5 mg DAILY PO Last administered on 08/17/16 08:59; Admin Dose 2.5 MG; Start 08/17/16 at 09:00 YOUSUF MILNER Aug 18, 2016 13:33
--- NOTE | 2016-08-18 14:02 | PN ---
DATE: 08/18/2016 SUBJECTIVE: The patient offers no complaints and is unresponsive. VITAL SIGNS: He is intubated. Blood pressure 132/77 maximum and the minimum was 97/66. The heart rate is from 98 to 109. HEAD: Facial asymmetry. NECK: JVP not traced. CHEST: Bilaterally symmetrical and nontender. HEART: PMI localized in the fourth intercostal space in the mid-clavicular line, S1 and S2 are regu lar. A I/ systolic murmur heard at the apex. LUNGS: Clear to percussion and auscultation anteriorly. ABDOMEN: Soft, nontender belly. EXTREMITIES: No pedal edema, no clubbing, no cyanosis. LABORATORIES: White count is 11.9 today, and the platelet count is ____. Chemistries today show th at sodium is elevated to 150, potassium is 3.5, BUN and creatinine 32 and 0.98 respectively. His telemetry is revealing sinus rhythm. IMPRESSION: 1. Congestive heart failure which seems to be compensated at this stage clinically. 2. Cardiomyopathy with ejection fraction of 10%. 3. Borderline blood pressure. 4. Encephalopathy. RECOMMENDATIONS: Continue same treatment cardiologically with careful monitoring of the blood press ure and the urine. Dictated By: MILTON PEDERSON MD, RA/ARMANDO Conf#: [id number] DID#: [id number]
[2016-08-18] MEDS: ACETAMINOPHEN 325 MG TAB PO PRN (18:12)
[2016-08-19] VITALS (43 sets, daily range): BP systolic 91–113; BP diastolic 61–80; PULSE 93–112; RESP 15–30
[2016-08-19] MEDS: ACCU-CHEK XX SCH ×6 (01:55→21:00)
[2016-08-19] MEDS: PANTOPRAZOLE 40 MG INJ IV SCH ×2 (05:40→17:13)
[2016-08-19] MEDS: LACTULOSE 30ML CUP PO SCH ×3 (05:40→20:51)
[2016-08-19] MEDS: CEFOTAXIME 1 GM/50 ML (PMX) 50 ML IVPB SCH ×3 (05:40→20:52)
[2016-08-19] MEDS: FUROSEMIDE 40 MG INJ IV SCH ×2 (05:41→17:13)
[2016-08-19] MEDS: SPIRONOLACTONE 25 MG TAB PO SCH (05:41)
[2016-08-19] MEDS: ASPIRIN 81 MG TAB PO SCH (08:20)
[2016-08-19] MEDS: OCULAR LUBRICANT 3.5 GM OPH OINT BOTH EYES SCH ×3 (08:20→20:51)
[2016-08-19] MEDS: DOCUSATE SODIUM 10 MG/ML (10ML CUP) NGT SCH ×2 (08:20→20:51)
[2016-08-19] MEDS: ACETAMINOPHEN 325 MG TAB PO PRN (08:32)
[2016-08-19 09:33] LABS: ABNORMAL IP MESSAGE 1; ADD SCAN DIFF NO; BASOPHIL # 0.1 10^3/ul (0.0-0.1); EOSINOPHILS # 0.6 10^3/ul (0.0-0.5); HEMATOCRIT 48.3 % (42.0-52.0); HEMOGLOBIN 15.4 g/dl (14.0-18.0); LYMPHOCYTES # 2.2 10^3/ul (0.8-2.9); LYMPHOCYTES % 16.2 % (15.0-51.0); MEAN CORPUSCULAR HEMOGLOBIN 26.5 pg (29.0-33.0); MEAN CORPUSCULAR HGB CONC 31.9 g/dl (32.0-37.0); MEAN PLATELET VOLUME 12.2 fl (7.4-10.4); MONOCYTE # 1.6 10^3/ul (0.3-0.9); MONOCYTES % 11.9 % (0.0-11.0); NEUTROPHIL # 9.1 10^3/ul (1.6-7.5); NEUTROPHILS % 66.5 % (39.0-77.0); PLATELET COUNT 310 10^3/UL (140-415); RED BLOOD COUNT 5.82 10^6/ul (4.70-6.10); RED CELL DISTRIBUTION WIDTH 21.2 % (11.5-14.5); WHITE BLOOD COUNT 13.7 10^3/ul (4.8-10.8)
[2016-08-19 09:40] LABS: INR 1.22; PROTIME 15.5 Sec (12.2-14.2); PT RATIO 1.2
[2016-08-19 09:41] LABS: PARTIAL THROMBOPLASTIN TIME 29.8 Sec (25.0-35.0)
[2016-08-19 09:42] LABS: POTASSIUM 3.6 mmol/L (3.5-5.1)
[2016-08-19 09:44] LABS: CREATININE 1.03 mg/dl (0.61-1.24)
[2016-08-19 09:45] LABS: CALCIUM 8.6 mg/dl (8.4-10.2); MAGNESIUM 2.5 mg/dl (1.7-2.5); PHOSPHORUS 4.5 mg/dl (2.5-4.9)
[2016-08-19] MEDS: LISINOPRIL 5 MG TAB PO SCH (10:00)
--- NOTE | 2016-08-19 10:10 | RADRPT ---
PROCEDURE: XR Chest. CLINICAL INDICATION: Respiratory failure TECHNIQUE: Single frontal chest x-ray. COMPARISON: 08/14/2016 FINDINGS: The endotracheal tube lies 5 cm above the vernell. The enteric tube courses below the diaphragm and may have been slightly retracted. Left-sided PICC line in place. There is no acute infiltrate or pneumothorax. Mild blunting of the left costophrenic angle is seen suggesting small pleural effusion. Improved aeration left lung base. The aortic arch is calcified. The cardiac silhouette. IMPRESSION: 1. Improved aeration left lung. 2. Enlarged cardiac silhouette with improved congestive heart failure/fluid overload. 3. Supporting tubes and lines in satisfactory position without evidence of pneumothorax. RPTAT: QQ .Vladislav Arcos MD, Date Time Electronically viewed and signed by .Vladislav Arcos MD, MD on 08/19/2016 10:10 .d/
--- NOTE | 2016-08-19 10:25 | CONS ---
Date/Time of Note Date/Time of Note DATE: 08/19/16 TIME: 10:23 Assessment/Plan Assessment/Plan Additional Assessment/Plan Ventilator settings are 7 assessment of 22, tidal volume 550, PEEP of 5, 30% FiO2. Chest x-ray was reviewed from today which is totally clear. Assessment recommendations; 1. Admitted with severe sepsis and pneumonia with significant radiological improvement. 2. Persistently extremely poor mental status. 3. Hypernatremia with interval resolution. 4. History of alcoholic cirrhosis. Continue current treatment. The patient's family likely will opt for terminal expiration sometime today. Prognosis is dismal. Consultation Date/Type/Reason Admit Date/Time Aug 03, 2016 at 14:46 Initial Consult Date 08/05/16 Type of Consultation: Pulmonary/critical care Referring Provider: JACEK HOLLEY MD 24 HR Interval Summary Free Text/Dictation Patient condition remains critical. Remains completely unresponsive. General exam; middle-aged man, orally intubated, unresponsive. Exam/Review of Systems Vital Signs Vitals Vital Signs Date Time Temp Pulse Resp B/P Pulse Ox O2 Delivery O2 Flow Rate FiO2 08/19/16 08:45 98 22 98 08/19/16 08:00 109/68 Mechanical Ventilator 08/19/16 07:30 100.1 08/19/16 05:17 30 Intake and Output 08/18/16 08/18/16 08/19/16 15:00 23:00 07:00 Intake Total 490 ml 490 ml 410 ml Output Total 850 ml 560 ml 455 ml Balance -360 ml -70 ml -45 ml Exam HEENT examination; supple neck, no JVD. No lymphadenopathy. Midline trachea. Pupils are small bilaterally. Orally intubated. Chest examination; clear to auscultation bilaterally. S1-S2 audible, no murmurs. Regular rhythm. Abdomen examination; soft, no organomegaly. Bowel sounds audible. Extremity examination; no peripheral edema. MSWS examination; patient remains totally unresponsive. Results Result Diagram: 08/19/1621 08/19/16 0921 Results 24 hrs Laboratory Tests Test 08/18/16 12:26 08/18/16 17:51 08/18/16 20:04 08/19/16 01:52 Bedside Glucose 121 109 108 126 Test 08/19/16 05:38 08/19/16 08:47 08/19/16 09:21 Bedside Glucose 114 112 White Blood Count 13.7 H Red Blood Count 5.82 Hemoglobin 15.4 Hematocrit 48.3 Mean Corpuscular Volume 83.0 Mean Corpuscular Hemoglobin 26.5 L Mean Corpuscular Hemoglobin Concent 31.9 L Red Cell Distribution Width 21.2 H Platelet Count 310 Mean Platelet Volume 12.2 H Neutrophils % 66.5 Lymphocytes % 16.2 Monocytes % 11.9 H Eosinophils % 4.0 Basophils % 1.0 Nucleated Red Blood Cells % 0.0 Neutrophils # 9.1 H Lymphocytes # 2.2 Monocytes # 1.6 H Eosinophils # 0.6 H Basophils # 0.1 Nucleated Red Blood Cells # 0.0 Prothrombin Time 15.5 H Prothrombin Time Ratio 1.2 INR International Normalized Ratio 1.22 Activated Partial Thromboplast Time 29.8 Sodium Level 150 H Potassium Level 3.6 Chloride Level 104 Carbon Dioxide Level 32 H Anion Gap 18 H Blood Urea Nitrogen 36 H Creatinine 1.03 Glucose Level 137 Calcium Level 8.6 Phosphorus Level 4.5 Magnesium Level 2.5 Medications Medications Current Medications Ondansetron HCl (Zofran Tab) 4 mg Q6H PRN PO NAUSEA AND/OR VOMITING; Start 03/12 at 10:30 Aspirin (Aspirin) 81 mg DAILY PO Last administered on 08/19/16 08:20; Admin Dose 81 MG; Start 08/03/16 at 11:00 Nitroglycerin (Nitroglycerin (Sl Tab) 0.4 Mg) 1 tab Q5M PRN SL CHEST PAIN; Start 08/03/16 at 10:30 Carvedilol (Coreg) 3.125 mg BID PO Last administered on 08/19/16 08:21; Admin Dose 3.125 MG; Start 08/03/16 at 21:00 Zolpidem Tartrate (Ambien) 5 mg HS PRN PO INSOMNIA Last administered on 21:21; Admin Dose 5 MG; Start 08/03/16 at 21:00 Lorazepam (Ativan) 1 mg Q4 PRN IV ANXIETY Last administered on 08/05/16 14:46 ; Admin Dose 1 MG; Start 08/04/16 at 17:00 Diagnostic Test (Pha) 1 ea 1 ea Q4 XX Last administered on 08/19/16 05:41; Admin Dose 1 EA; Start 08/05/16 at 09:00 Norepinephrine/ Dextrose (Levophed/D5W) 500 ml @ 1.87 mls/hr TITRATE IV Last administered on 08/06/16 12:56; Admin Dose 30 MLS/HR; Start 08/05/16 at 13:00 Pantoprazole (Protonix Iv) 40 mg BID@06,18 IV Last administered on 08/19/16 05 :40; Admin Dose 40 MG; Start 08/05/16 at 18:00 Eye Lubricant (Akwa Oint) 1 applic TID BOTH EYES Last administered on 08:20; Admin Dose 1 APPLIC; Start 08/05/16 at 16:00 Lactulose (Enulose) 20 gm Q8 PO Last administered on 08/19/16 05:40; Admin Dose 20 GM; Start 08/09/16 at 10:00 Docusate Sodium (Colace Liquid Cup) 100 mg BID NGT Last administered on 08:20; Admin Dose 100 MG; Start 08/13/16 at 09:00 Acetaminophen 650 mg 650 mg Q8H PRN PO PAIN LEVEL 1-3 OR FEVER Last administered on 08/19/16 08:32; Admin Dose 650 MG; Start 08/16/16 at 12:30 Cefotaxime Sodium (Claforan 1gm/50 ml (Pmx)) 50 ml @ 100 mls/hr Q8 IVPB Last administered on 08/19/16 05:40; Admin Dose 100 MLS/HR; Start 08/16/16 at 14:00 Spironolactone (Aldactone) 25 mg DAILY@06 PO Last administered on 08/19/16 05: 41; Admin Dose 25 MG; Start 08/17/16 at 06:00 Lisinopril (Zestril) 2.5 mg DAILY PO Last administered on 08/17/16 08:59; Admin Dose 2.5 MG; Start 08/17/16 at 09:00 YOUSUF MILNER Aug 19, 2016 10:25
--- NOTE | 2016-08-19 10:50 | PN ---
Date/Time of Note Date/Time of Note DATE: 08/19/16 TIME: 10:44 Assessment/Plan VTE Prophylaxis VTE Prophylaxis Intervention: SCD's Lines/Catheters IV C[facility] Type [facility] PICC Line Central line still needed: Yes Urinary Cath still in place: Yes Reason Cath still needed: other (indicate) Assessment/Plan Chief Complaint/Hosp Course Chief Complaint/Hosp Course 1. Acute encephalopathy secondary to hypoglycemia and/or substance abuse-pt does not follow commands EEG suggests toxic metabolic encephalopathy, neuro consult appreciated CT head shows no significant findings, MRI with global hypertrophy and no evidence of anoxic brain injury Family conference held and family does not feel that patient would have wanted to be trached, we will continue to monitor neuro status on a daily basis` 2. Acute respiratory failure, now ventilator dependent, secondary to #1 and CHF exacerbation Pulmonology in the case, continue vent support CXR this AM is unchanged 3. Acute on chronic congestive heart failure exacerbation with an ejection fraction of 15% Cardiology on the case, continue diuresis 4. Chronic alcoholic with cirrhosis and coagulopathy 5. Chronic substance abuse with amphetamines and heroin. 6. Leukocytosis possibly secondary to pneumonia-resolved Continue antibiotics for now, 7. Congestive heart failure, cards consulted, follow the recommendations 7. Subclinical hypothyroidism. 8. Hypernatremia, improving status post D5W and free water through G-tube Prophylaxis: SCDs Prognosis: Guarded Medical management and prognosis was discussed with the family at the bedside Family meeting was done today , prognosis and further plan was discussed Family decided to proceed with PEG and trach placement Problems: Subjective 24 Hr Interval Summary Free Text/Dictation Family has decided to proceed with PEG and trach placement No acute changes in patient's condition Patient noted to open his eyes spontaneously although does not follow any commands nor track Patient continues to be vent dependent Exam/Review of Systems Vital Signs Vitals Vital Signs Date Time Temp Pulse Resp B/P Pulse Ox O2 Delivery O2 Flow Rate FiO2 08/19/16 10:00 93 19 91/64 98 Mechanical Ventilator 08/19/16 08:00 40 08/19/16 07:30 100.1 Intake and Output 08/18/16 08/18/16 08/19/16 14:59 22:59 06:59 Intake Total 490 ml 440 ml 490 ml Output Total 810 ml 520 ml 535 ml Balance -320 ml -80 ml -45 ml Exam General: The patient is intubated, NG tube in place HEENT: Atraumatic, normocephalic. The pupils are equal, sluggish Neck: Supple Chest: Normal expansion of the thorax during inspiration Lungs: Clear to auscultation bilaterally Heart: Normal S1-S2, Regular rhythm and rate. Abdomen: Soft , nontender, nondistended , bowel sounds are present. Extremities: Normal to inspection, no edema no cyanosis Neurologic: No meaningful neurologic examination finding, does not respond to pain or verbal stimuli Results Result Diagram: 08/19/1692008/19/1621 Results 24 hrs Laboratory Tests Test 08/18/16 12:26 08/18/16 17:51 08/18/16 20:04 08/19/16 01:52 Bedside Glucose 121 109 108 126 Test 08/19/16 05:38 08/19/16 08:47 08/19/16 09:21 Bedside Glucose 114 112 White Blood Count 13.7 H Red Blood Count 5.82 Hemoglobin 15.4 Hematocrit 48.3 Mean Corpuscular Volume 83.0 Mean Corpuscular Hemoglobin 26.5 L Mean Corpuscular Hemoglobin Concent 31.9 L Red Cell Distribution Width 21.2 H Platelet Count 310 Mean Platelet Volume 12.2 H Neutrophils % 66.5 Lymphocytes % 16.2 Monocytes % 11.9 H Eosinophils % 4.0 Basophils % 1.0 Nucleated Red Blood Cells % 0.0 Neutrophils # 9.1 H Lymphocytes # 2.2 Monocytes # 1.6 H Eosinophils # 0.6 H Basophils # 0.1 Nucleated Red Blood Cells # 0.0 Prothrombin Time 15.5 H Prothrombin Time Ratio 1.2 INR International Normalized Ratio 1.22 Activated Partial Thromboplast Time 29.8 Sodium Level 150 H Potassium Level 3.6 Chloride Level 104 Carbon Dioxide Level 32 H Anion Gap 18 H Blood Urea Nitrogen 36 H Creatinine 1.03 Glucose Level 137 Calcium Level 8.6 Phosphorus Level 4.5 Magnesium Level 2.5 Medications Medications Current Medications Ondansetron HCl (Zofran Tab) 4 mg Q6H PRN PO NAUSEA AND/OR VOMITING; Start 03/12 at 10:30 Aspirin (Aspirin) 81 mg DAILY PO Last administered on 08/19/16t 08:20; Admin Dose 81 MG; Start 08/03/16 at 11:00 Nitroglycerin (Nitroglycerin (Sl Tab) 0.4 Mg) 1 tab Q5M PRN SL CHEST PAIN; Start 08/03/16 at 10:30 Carvedilol (Coreg) 3.125 mg BID PO Last administered on 08/19/16 08:21; Admin Dose 3.125 MG; Start 08/03/16 at 21:00 Zolpidem Tartrate (Ambien) 5 mg HS PRN PO INSOMNIA Last administered on 21:21; Admin Dose 5 MG; Start 08/03/16 at 21:00 Lorazepam (Ativan) 1 mg Q4 PRN IV ANXIETY Last administered on 08/05/16 14:46 ; Admin Dose 1 MG; Start 08/04/16 at 17:00 Diagnostic Test (Pha) 1 ea 1 ea Q4 XX Last administered on 08/19/16 05:41; Admin Dose 1 EA; Start 08/05/16 at 09:00 Norepinephrine/ Dextrose (Levophed/D5W) 500 ml @ 1.87 mls/hr TITRATE IV Last administered on 08/06/16 12:56; Admin Dose 30 MLS/HR; Start 08/05/16 at 13:00 Pantoprazole (Protonix Iv) 40 mg BID@06,18 IV Last administered on 08/19/16 05 :40; Admin Dose 40 MG; Start 08/05/16 at 18:00 Eye Lubricant (Akwa Oint) 1 applic TID BOTH EYES Last administered on 08:20; Admin Dose 1 APPLIC; Start 08/05/16 at 16:00 Lactulose (Enulose) 20 gm Q8 PO Last administered on 08/19/16 05:40; Admin Dose 20 GM; Start 08/09/16 at 10:00 Docusate Sodium (Colace Liquid Cup) 100 mg BID NGT Last administered on 08:20; Admin Dose 100 MG; Start 08/13/16 at 09:00 Acetaminophen 650 mg 650 mg Q8H PRN PO PAIN LEVEL 1-3 OR FEVER Last administered on 08/19/16 08:32; Admin Dose 650 MG; Start 08/16/16 at 12:30 Cefotaxime Sodium (Claforan 1gm/50 ml (Pmx)) 50 ml @ 100 mls/hr Q8 IVPB Last administered on 08/19/16 05:40; Admin Dose 100 MLS/HR; Start 08/16/16 at 14:00 Spironolactone (Aldactone) 25 mg DAILY@06 PO Last administered on 08/19/16 05: 41; Admin Dose 25 MG; Start 08/17/16 at 06:00 Lisinopril (Zestril) 2.5 mg DAILY PO Last administered on 08/17/16 08:59; Admin Dose 2.5 MG; Start 08/17/16 at 09:00 JACEK HOLLEY MD Aug 19, 2016 10:50
--- NOTE | 2016-08-19 10:56 | CONS ---
DATE OF ADMISSION: 08/03/2016 DATE OF CONSULTATION: Thank you, Dr. Vergara for asking me to see this patient. HISTORY OF PRESENT ILLNESS: This is a 50-year-old male with a history of cardiomyopathy, ejection f raction of 15%, anxiety, substance abuse with methamphetamine and heroin abuse, cirrhosis, congestiv e heart failure, pulmonary hypertension. Patient was admitted, intubated and unable to come off the ventilator secondary to multiple other medical problems. PAST MEDICAL HISTORY: As above. ALLERGIES: NONE. SOCIAL HISTORY: No smoking, drinking or drug use. MEDICATION LIST: Reviewed. REVIEW OF SYSTEMS: Unable to be obtained. PHYSICAL EXAMINATION: VITAL SIGNS: Blood pressure is 91/64, pulse is 93, respirations 19, saturations 98% on 40% FIO2. HEENT: Normocephalic, atraumatic, PERRLA. NECK: Supple. The patient is orotracheally intubated. CARDIOVASCULAR: Regular rate and rhythm. Normal S1, S2. LUNGS: Clear. ABDOMEN: Soft. EXTREMITIES: Warm. LABORATORY VALUES: Significant for A white count of 13.7, hemoglobin 15.4. INR is 1.22. IMPRESSION: Respiratory failure. RECOMMENDATIONS: We will proceed with a tracheostomy. Discussed with the referring physicians. Dictated By: BETH ALEMAN/ARMANDO Conf#: [id number] DID#: [id number]
[2016-08-19] MEDS: DEXTROSE 5% 1,000 ML IV SCH (11:25)
--- NOTE | 2016-08-19 13:18 | CONS ---
Date/Time of Note Date/Time of Note DATE: 08/19/16 TIME: 13:15 Assessment/Plan Assessment/Plan Additional Assessment/Plan Dysphagia Order Nutrition consult to determine rate and type of G tube feed EGD + PEG, pt's breath advised of R/B/A of procedure and provides informed consent to procedures Monitor tube feed Q6hrs, hold for residuals greater 150 mL Cleanse site and change dressing daily Acute encephalopathy secondary to hypoglycemia and/or substance abuse EEG suggests toxic metabolic encephalopathy Neurology following Ventilator dependent acute respiratory failure Pulmonology following Acute on chronic heart failure Cardiology following History of chronic substance abuse with amphetamines and heroin. Further recommendations depend on clinical course Patient seen in collaboration with Dr. Chavez Consultation Date/Type/Reason Admit Date/Time Aug 03, 2016 at 14:46 Hx of Present Illness Mr.Luis Snell is a 50-year-old man that presented to the ED secondary to complaints of lower extremity weakness. During course of hospitalization, patient had [employer] intervention and was noted to have severe hypoglycemia. Patient has been in ICU intubated. Patient unable to be weaned off ventilator nor has his mentation returned to baseline. Family prefers decision for comfort care measures and would now like EGD plus PEG in addition to tracheostomy. At bedside patient's brother advised of risks/benefits/ alternatives to procedure and provides informed consent to proceed. Psychological: no complaints Past Medical History Medical History: other (cirrhosis) Past Surgical History Past Surgical Hx: cholecystectomy Social History Smoking Status: Current every day smoker Drug Use: cocaine, heroin Exam/Review of Systems Vital Signs Vitals Vital Signs Date Time Temp Pulse Resp B/P Pulse Ox O2 Delivery O2 Flow Rate FiO2 08/19/16 13:00 99 22 91/61 98 Mechanical Ventilator 08/19/16 12:00 98.9 08/19/16 08:00 40 Intake and Output 08/18/16 08/18/16 08/19/16 15:00 23:00 07:00 Intake Total 490 ml 490 ml 410 ml Output Total 850 ml 560 ml 455 ml Balance -360 ml -70 ml -45 ml Exam Constitutional: Eyes closed, nonverbal Psych: nl mood/affect Head: normocephalic Eyes: EOMI, nl conjunctiva, nl lids ENMT: nl external ears & nose, nl lips & teeth, nl nasal mucosa & septum Respiratory: Intubated Cardiovascular: regular rate and rhythm Gastrointestinal: soft, non-tender Musculoskeletal: nl extremities to inspection Neurological: Nonfocal Results Result Diagram: 08/19/16 0921 08/19/16 0921 Results 24 hrs Laboratory Tests Test 08/18/16 17:51 08/18/16 20:04 08/19/16 01:52 08/19/16 05:38 Bedside Glucose 109 108 126 114 Test 08/19/16 08:47 08/19/16 09:21 08/19/16 12:56 Bedside Glucose 112 127 White Blood Count 13.7 H Red Blood Count 5.82 Hemoglobin 15.4 Hematocrit 48.3 Mean Corpuscular Volume 83.0 Mean Corpuscular Hemoglobin 26.5 L Mean Corpuscular Hemoglobin Concent 31.9 L Red Cell Distribution Width 21.2 H Platelet Count 310 Mean Platelet Volume 12.2 H Neutrophils % 66.5 Lymphocytes % 16.2 Monocytes % 11.9 H Eosinophils % 4.0 Basophils % 1.0 Nucleated Red Blood Cells % 0.0 Neutrophils # 9.1 H Lymphocytes # 2.2 Monocytes # 1.6 H Eosinophils # 0.6 H Basophils # 0.1 Nucleated Red Blood Cells # 0.0 Prothrombin Time 15.5 H Prothrombin Time Ratio 1.2 INR International Normalized Ratio 1.22 Activated Partial Thromboplast Time 29.8 Sodium Level 150 H Potassium Level 3.6 Chloride Level 104 Carbon Dioxide Level 32 H Anion Gap 18 H Blood Urea Nitrogen 36 H Creatinine 1.03 Glucose Level 137 Calcium Level 8.6 Phosphorus Level 4.5 Magnesium Level 2.5 Medications Medications Current Medications Ondansetron HCl (Zofran Tab) 4 mg Q6H PRN PO NAUSEA AND/OR VOMITING; Start 03/12 at 10:30 Aspirin (Aspirin) 81 mg DAILY PO Last administered on 08/19/16 08:20; Admin Dose 81 MG; Start 08/03/16 at 11:00 Nitroglycerin (Nitroglycerin (Sl Tab) 0.4 Mg) 1 tab Q5M PRN SL CHEST PAIN; Start 08/03/16 at 10:30 Carvedilol (Coreg) 3.125 mg BID PO Last administered on 08/19/16 08:21; Admin Dose 3.125 MG; Start 08/03/16 at 21:00 Zolpidem Tartrate (Ambien) 5 mg HS PRN PO INSOMNIA Last administered on 21:21; Admin Dose 5 MG; Start 08/03/16 at 21:00 Lorazepam (Ativan) 1 mg Q4 PRN IV ANXIETY Last administered on 08/05/16 14:46 ; Admin Dose 1 MG; Start 08/04/16 at 17:00 Diagnostic Test (Pha) 1 ea 1 ea Q4 XX Last administered on 08/19/16 05:41; Admin Dose 1 EA; Start 08/05/16 at 09:00 Norepinephrine/ Dextrose (Levophed/D5W) 500 ml @ 1.87 mls/hr TITRATE IV Last administered on 08/06/16 12:56; Admin Dose 30 MLS/HR; Start 08/05/16 at 13:00 Pantoprazole (Protonix Iv) 40 mg BID@06,18 IV Last administered on 08/19/16 05 :40; Admin Dose 40 MG; Start 08/05/16 at 18:00 Eye Lubricant (Akwa Oint) 1 applic TID BOTH EYES Last administered on 12:59; Admin Dose 1 APPLIC; Start 08/05/16 at 16:00 Lactulose (Enulose) 20 gm Q8 PO Last administered on 08/19/16 05:40; Admin Dose 20 GM; Start 08/09/16 at 10:00 Docusate Sodium (Colace Liquid Cup) 100 mg BID NGT Last administered on 08:20; Admin Dose 100 MG; Start 08/13/16 at 09:00 Acetaminophen 650 mg 650 mg Q8H PRN PO PAIN LEVEL 1-3 OR FEVER Last administered on 08/19/16 08:32; Admin Dose 650 MG; Start 08/16/16 at 12:30 Cefotaxime Sodium (Claforan 1gm/50 ml (Pmx)) 50 ml @ 100 mls/hr Q8 IVPB Last administered on 08/19/16 05:40; Admin Dose 100 MLS/HR; Start 08/16/16 at 14:00 Spironolactone (Aldactone) 25 mg DAILY@06 PO Last administered on 08/19/16 05: 41; Admin Dose 25 MG; Start 08/17/16 at 06:00 Lisinopril 2.5 mg 2.5 mg DAILY PO Last administered on 08/17/16 08:59; Admin Dose 2.5 MG; Start 08/17/16 at 09:00 Dextrose (D5W) 1,000 ml @ 50 mls/hr Q20H IV Last administered on 08/19/16 11: 25; Admin Dose 50 MLS/HR; Start 08/19/16 at 11:00 LISA BEE Aug 19, 2016 13:18
--- NOTE | 2016-08-19 15:03 | PN ---
DATE: 08/19/2016 FOLLOWUP CARDIOLOGY NOTE SUBJECTIVE: On questioning, the patient is unresponsive. As per the nurse, the family had decided to continue him as full care. He offers no complaint as he is unresponsive to our stimuli. OBJECTIVE: VITAL SIGNS: Stable. Blood pressure is 107/69, heart rate of 93, respiratory rate 22. He is intub ated. NECK: JVP not raised. Carotid pulses with normal upstrokes. CHEST: Bilaterally symmetrical. HEART: S1, S2 are regular and a I to II/ systolic murmur is heard. LUNGS: Clear to auscultation anteriorly. ABDOMEN: Soft, nontender belly. EXTREMITIES: No pedal edema. Good femoral and pedal pulses. LABORATORIES: The sugar is 112 at 8:47 this morning. No other labs today. IMAGING: No new imaging. Telemetry has revealed that the patient had an run of ventricular tachycardia this morning at 2 or 3 a.m. IMPRESSION: 1. ventricular tachycardia. 2. Cardiomyopathy with an ejection fraction of 15%. 3. Congestive heart failure acute on chronic which is well-compensated at this stage. 4. Status post renal insufficiency. 5. Respiratory failure. 6. Encephalopathy. RECOMMENDATIONS: Will continue same treatment from cardiac standpoint, and most likely patient will need tracheostomy and PEG placement. Dictated By: MILTON PEDERSON MD, RA/ARMANDO Conf#: [id number] DID#: [id number]
[2016-08-20] VITALS (36 sets, daily range): BP systolic 87–125; BP diastolic 58–90; PULSE 93–103; RESP 13–38
[2016-08-20] MEDS: ACCU-CHEK XX SCH ×6 (01:21→21:27)
[2016-08-20 05:17] LABS: ADD SCAN DIFF NO
[2016-08-20 05:26] LABS: BASOPHIL # 0.1 10^3/ul (0.0-0.1); EOSINOPHILS # 0.5 10^3/ul (0.0-0.5); EOSINOPHILS % 3.7 % (0.0-7.0); HEMATOCRIT 47.1 % (42.0-52.0); HEMOGLOBIN 14.9 g/dl (14.0-18.0); LYMPHOCYTES # 1.7 10^3/ul (0.8-2.9); LYMPHOCYTES % 12.4 % (15.0-51.0); MEAN CORPUSCULAR HEMOGLOBIN 26.2 pg (29.0-33.0); MEAN CORPUSCULAR HGB CONC 31.6 g/dl (32.0-37.0); MEAN CORPUSCULAR VOLUME 82.9 fl (82.0-101.0); MEAN PLATELET VOLUME 12.4 fl (7.4-10.4); MONOCYTE # 1.4 10^3/ul (0.3-0.9); MONOCYTES % 10.6 % (0.0-11.0); NEUTROPHIL # 9.6 10^3/ul (1.6-7.5); NEUTROPHILS % 71.9 % (39.0-77.0); PLATELET COUNT 294 10^3/UL (140-415); RED BLOOD COUNT 5.68 10^6/ul (4.70-6.10); RED CELL DISTRIBUTION WIDTH 21.1 % (11.5-14.5); WHITE BLOOD COUNT 13.4 10^3/ul (4.8-10.8)
[2016-08-20 05:29] LABS: INR 1.23; PROTIME 15.6 Sec (12.2-14.2); PT RATIO 1.2
[2016-08-20 05:36] LABS: ALBUMIN 3.5 g/dl (3.3-4.9)
[2016-08-20 05:37] LABS: POTASSIUM 3.4 mmol/L (3.5-5.1)
[2016-08-20] MEDS: PANTOPRAZOLE 40 MG INJ IV SCH ×2 (05:38→17:44)
[2016-08-20] MEDS: LACTULOSE 30ML CUP PO SCH ×3 (05:38→21:28)
[2016-08-20] MEDS: CEFOTAXIME 1 GM/50 ML (PMX) 50 ML IVPB SCH ×3 (05:38→21:27)
[2016-08-20 05:39] LABS: BILIRUBIN,INDIRECT 0.6 mg/dl (0-1.1); BILIRUBIN,TOTAL 0.6 mg/dl (0.2-1.3); CREATININE 1.06 mg/dl (0.61-1.24)
[2016-08-20 05:40] LABS: ALBUMIN/GLOBULIN RATIO 0.77; CALCIUM 8.9 mg/dl (8.4-10.2); MAGNESIUM 2.6 mg/dl (1.7-2.5)
[2016-08-20] MEDS: SPIRONOLACTONE 25 MG TAB PO SCH (05:40)
[2016-08-20] MEDS: FUROSEMIDE 40 MG INJ IV SCH ×2 (05:40→17:44)
[2016-08-20] MEDS: DEXTROSE 5% 1,000 ML IV SCH ×2 (05:50→19:00)
[2016-08-20] MEDS: OCULAR LUBRICANT 3.5 GM OPH OINT BOTH EYES SCH ×3 (08:27→21:27)
[2016-08-20] MEDS: DOCUSATE SODIUM 10 MG/ML (10ML CUP) NGT SCH ×2 (08:40→21:26)
[2016-08-20] MEDS: LISINOPRIL 5 MG TAB PO SCH (08:40)
[2016-08-20] MEDS: ASPIRIN 81 MG TAB PO SCH (08:40)
[2016-08-20] MEDS: ACETAMINOPHEN 325 MG TAB PO PRN (08:48)
--- NOTE | 2016-08-20 10:12 | CONS ---
Date/Time of Note Date/Time of Note DATE: 08/20/16 TIME: 10:07 Assessment/Plan Assessment/Plan Chief Complaint/Hosp Course IMPRESSION: 1. Congestive heart failure exacerbation, systolic, acute on chronic 2. Cardiomyopathy with severely depressed left ventricular ejection fraction approximately 15%. 3. Abnormal electrocardiogram, assess for acute coronary syndrome.-negative troponin x 3 4. Hypotension, borderline.-off pressors currently 5. Lower extremity edema. 6. Possible lower extremity cellulitis. 7. Renal failure-improving 8. Substance abuse-ongoing prior to presentation for current admit 9. Coagulopathy 10. Resp failure s/p intubation 11.Hypoglycemia-? etiology liver failure 12.Encephalopathy-ongoing off sedation/unresponsive 14.Hyperglycemia Recc: -Tele -Continue coreg/zestril as tolerated only -Continue gentle lasix diuresis as tolerated only -Continue asa -Continue aldactone -Follow BS closely -Wean vent as tolerated -Ongoing family discussion about trach/code status -Continue lactulose and follow MS closely -Continue abx's and f/u cx data -FRee water for increased na Problems: Consultation Date/Type/Reason Admit Date/Time Aug 03, 2016 at 14:46 Initial Consult Date 08/03/2016 Type of Consultation: Cardiology Reason for Consultation Cardiomyopathy/CHF Referring Provider: JACEK HOLLEY MD Exam/Review of Systems Vital Signs Vitals Vital Signs Date Time Temp Pulse Resp B/P Pulse Ox O2 Delivery O2 Flow Rate FiO2 08/20/16 09:31 99 22 98 30 08/20/16 09:00 97/73 Mechanical Ventilator 08/20/16 08:00 100.8 Intake and Output 08/19/16 08/19/16 08/20/16 15:00 23:00 07:00 Intake Total 990 ml 790 ml 810 ml Output Total 1090 ml 955 ml 405 ml Balance -100 ml -165 ml 405 ml Exam Review of Systems: CONSTITUTIONAL: No fevers, chills. PULMONARY: intubated CARDIOVASCULAR: No chest pain/palpitations GASTROINTESTINAL: No nausea/vomiting. GENITOURINARY: No hematuria/dysuria. MUSCULOSKELETAL: No obvious myagias/arthalgias. PSYCHIATRIC: No documented depression. NEUROLOGIC: sedated Constitutional: other (nonresponsive) Psych: no complaints Head: normocephalic ENMT: mucosa pink and moist Neck: jvd (9 cm water), supple Respiratory: diminished breath sounds (at bases/B) Cardiovascular: regular rate and rhythm Gastrointestinal: non-tender, soft Musculoskeletal: muscle tone (normal) Extremities: edema (trace) Neurological: unresponsive Results Result Diagram: 08/20/16 0320 08/20/16 0320 Results 24 hrs Laboratory Tests Test 08/19/16 12:56 08/19/16 17:11 08/19/16 20:50 08/20/16 01:13 Bedside Glucose 127 119 123 134 Test 08/20/16 03:20 08/20/16 05:50 08/20/16 08:42 White Blood Count 13.4 H Red Blood Count 5.68 Hemoglobin 14.9 Hematocrit 47.1 Mean Corpuscular Volume 82.9 Mean Corpuscular Hemoglobin 26.2 L Mean Corpuscular Hemoglobin Concent 31.6 L Red Cell Distribution Width 21.1 H Platelet Count 294 Mean Platelet Volume 12.4 H Neutrophils % 71.9 Lymphocytes % 12.4 L Monocytes % 10.6 Eosinophils % 3.7 Basophils % 1.0 Nucleated Red Blood Cells % 0.0 Neutrophils # 9.6 H Lymphocytes # 1.7 Monocytes # 1.4 H Eosinophils # 0.5 Basophils # 0.1 Nucleated Red Blood Cells # 0.0 Prothrombin Time 15.6 H Prothrombin Time Ratio 1.2 INR International Normalized Ratio 1.23 Sodium Level 147 H Potassium Level 3.4 L Chloride Level 105 Carbon Dioxide Level 31 Anion Gap 14 Blood Urea Nitrogen 40 H Creatinine 1.06 Glucose Level 168 Calcium Level 8.9 Magnesium Level 2.6 H Total Bilirubin 0.6 Direct Bilirubin 0.00 Indirect Bilirubin 0.6 Aspartate Amino Transf (AST/SGOT) 73 H Alanine Aminotransferase (ALT/SGPT) 54 Alkaline Phosphatase 253 H Total Protein 8.0 Albumin 3.5 Globulin 4.50 H Albumin/Globulin Ratio 0.77 Bedside Glucose 128 130 Medications Medications Current Medications Ondansetron HCl (Zofran Tab) 4 mg Q6H PRN PO NAUSEA AND/OR VOMITING; Start 03/12 at 10:30 Aspirin (Aspirin) 81 mg DAILY PO Last administered on 08/20/16t 08:40; Admin Dose 81 MG; Start 08/03/16 at 11:00 Nitroglycerin (Nitroglycerin (Sl Tab) 0.4 Mg) 1 tab Q5M PRN SL CHEST PAIN; Start 08/03/16 at 10:30 Carvedilol (Coreg) 3.125 mg BID PO Last administered on 08/20/16 08:40; Admin Dose 3.125 MG; Start 08/03/16 at 21:00 Zolpidem Tartrate (Ambien) 5 mg HS PRN PO INSOMNIA Last administered on 21:21; Admin Dose 5 MG; Start 08/03/16 at 21:00 Lorazepam (Ativan) 1 mg Q4 PRN IV ANXIETY Last administered on 08/05/16 14:46 ; Admin Dose 1 MG; Start 08/04/16 at 17:00 Diagnostic Test (Pha) 1 ea 1 ea Q4 XX Last administered on 08/20/16 08:40; Admin Dose 1 EA; Start 08/05/16 at 09:00 Norepinephrine/ Dextrose (Levophed/D5W) 500 ml @ 1.87 mls/hr TITRATE IV Last administered on 08/06/16 12:56; Admin Dose 30 MLS/HR; Start 08/05/16 at 13:00 Pantoprazole (Protonix Iv) 40 mg BID@06,18 IV Last administered on 08/20/16 05 :38; Admin Dose 40 MG; Start 08/05/16 at 18:00 Eye Lubricant (Akwa Oint) 1 applic TID BOTH EYES Last administered on 08:27; Admin Dose 1 APPLIC; Start 08/05/16 at 16:00 Lactulose (Enulose) 20 gm Q8 PO Last administered on 08/20/16 05:38; Admin Dose 20 GM; Start 08/09/16 at 10:00 Docusate Sodium (Colace Liquid Cup) 100 mg BID NGT Last administered on 08:40; Admin Dose 100 MG; Start 08/13/16 at 09:00 Acetaminophen 650 mg 650 mg Q8H PRN PO PAIN LEVEL 1-3 OR FEVER Last administered on 08/20/16 08:48; Admin Dose 650 MG; Start 08/16/16 at 12:30 Cefotaxime Sodium (Claforan 1gm/50 ml (Pmx)) 50 ml @ 100 mls/hr Q8 IVPB Last administered on 08/20/16 05:38; Admin Dose 100 MLS/HR; Start 08/16/16 at 14:00 Spironolactone (Aldactone) 25 mg DAILY@06 PO Last administered on 08/20/16 05: 40; Admin Dose 25 MG; Start 08/17/16 at 06:00 Lisinopril 2.5 mg 2.5 mg DAILY PO Last administered on 08/20/16 08:40; Admin Dose 2.5 MG; Start 08/17/16 at 09:00 Dextrose (D5W) 1,000 ml @ 50 mls/hr Q20H IV Last administered on 08/19/16 11: 25; Admin Dose 50 MLS/HR; Start 08/19/16 at 11:00 DEANA ALBERTO Aug 20, 2016 10:11
[2016-08-20] MEDS ORDERED: POTASSIUM CHLORIDE (SR) 20 MEQ TAB PO STA (10:38)
--- NOTE | 2016-08-20 10:49 | PN ---
Date/Time of Note Date/Time of Note DATE: 08/20/16 TIME: 10:39 Assessment/Plan VTE Prophylaxis VTE Prophylaxis Intervention: SCD's Lines/Catheters IV C[facility] Type [facility] PICC Line Central line still needed: Yes Urinary Cath still in place: Yes Reason Cath still needed: other (indicate) Assessment/Plan Chief Complaint/Hosp Course Chief Complaint/Hosp Course 1. Acute encephalopathy secondary to hypoglycemia and/or substance abuse-pt does not follow commands EEG suggests toxic metabolic encephalopathy, neuro consult appreciated CT head shows no significant findings, MRI with global hypertrophy and no evidence of anoxic brain injury Family conference held and family has requested to proceed with PEG and trach placement, we will continue to monitor neuro status on a daily basis` 2. Acute respiratory failure, now ventilator dependent, secondary to #1 and CHF exacerbation Pulmonology in the case, continue vent support CXR this AM is unchanged 3. Acute on chronic congestive heart failure exacerbation with an ejection fraction of 15% Cardiology on the case, continue diuresis 4. Chronic alcoholic with cirrhosis and coagulopathy 5. Chronic substance abuse with amphetamines and heroin. 6. Leukocytosis possibly secondary to pneumonia-resolved Continue antibiotics for now, 7. Congestive heart failure, cards consulted, follow the recommendations 7. Subclinical hypothyroidism. 8. Hypernatremia, improving status post D5W and free water through G-tube Prophylaxis: SCDs Prognosis: Guarded Medical management and prognosis was discussed with the family at the bedside Family meeting was done today , prognosis and further plan was discussed Family decided to proceed with PEG and trach placement Problems: Subjective 24 Hr Interval Summary Free Text/Dictation No acute changes Patient has episodes which he opens his eyes and does not track or does not follow any commands Family has decided to proceed with PEG and trach placement Exam/Review of Systems Vital Signs Vitals Vital Signs Date Time Temp Pulse Resp B/P Pulse Ox O2 Delivery O2 Flow Rate FiO2 08/20/16 10:00 94 22 104/64 98 Mechanical Ventilator 08/20/16 09:31 30 08/20/16 08:00 100.8 Intake and Output 08/19/16 08/19/16 08/20/16 15:00 23:00 07:00 Intake Total 990 ml 790 ml 840 ml Output Total 1090 ml 955 ml 505 ml Balance -100 ml -165 ml 335 ml Exam General: The patient intubated, not sedated, Not in acute distress. HEENT: Atraumatic, normocephalic. The pupils are equal although sluggish Neck: Supple Chest: Normal expansion of the thorax during inspiration Lungs: Clear to auscultation bilaterally Heart: Normal S1-S2, Regular rhythm and rate. Abdomen: Soft , nontender, nondistended , bowel sounds are present. Extremities: Normal to inspection, no edema no cyanosis Neurologic: Awake, although no other meaningful neurologic examination finding, does not follow commands Results Result Diagram: 08/20/16 0320 08/20/16 0320 Results 24 hrs Laboratory Tests Test 08/19/16 12:56 08/19/16 17:11 08/19/16 20:50 08/20/16 01:13 Bedside Glucose 127 119 123 134 Test 08/20/16 03:20 08/20/16 05:50 08/20/16 08:42 White Blood Count 13.4 H Red Blood Count 5.68 Hemoglobin 14.9 Hematocrit 47.1 Mean Corpuscular Volume 82.9 Mean Corpuscular Hemoglobin 26.2 L Mean Corpuscular Hemoglobin Concent 31.6 L Red Cell Distribution Width 21.1 H Platelet Count 294 Mean Platelet Volume 12.4 H Neutrophils % 71.9 Lymphocytes % 12.4 L Monocytes % 10.6 Eosinophils % 3.7 Basophils % 1.0 Nucleated Red Blood Cells % 0.0 Neutrophils # 9.6 H Lymphocytes # 1.7 Monocytes # 1.4 H Eosinophils # 0.5 Basophils # 0.1 Nucleated Red Blood Cells # 0.0 Prothrombin Time 15.6 H Prothrombin Time Ratio 1.2 INR International Normalized Ratio 1.23 Sodium Level 147 H Potassium Level 3.4 L Chloride Level 105 Carbon Dioxide Level 31 Anion Gap 14 Blood Urea Nitrogen 40 H Creatinine 1.06 Glucose Level 168 Calcium Level 8.9 Magnesium Level 2.6 H Total Bilirubin 0.6 Direct Bilirubin 0.00 Indirect Bilirubin 0.6 Aspartate Amino Transf (AST/SGOT) 73 H Alanine Aminotransferase (ALT/SGPT) 54 Alkaline Phosphatase 253 H Total Protein 8.0 Albumin 3.5 Globulin 4.50 H Albumin/Globulin Ratio 0.77 Bedside Glucose 128 130 Medications Medications Current Medications Ondansetron HCl (Zofran Tab) 4 mg Q6H PRN PO NAUSEA AND/OR VOMITING; Start 03/12 at 10:30 Aspirin (Aspirin) 81 mg DAILY PO Last administered on 08/20/16 08:40; Admin Dose 81 MG; Start 08/03/16 at 11:00 Nitroglycerin (Nitroglycerin (Sl Tab) 0.4 Mg) 1 tab Q5M PRN SL CHEST PAIN; Start 08/03/16 at 10:30 Zolpidem Tartrate (Ambien) 5 mg HS PRN PO INSOMNIA Last administered on 21:21; Admin Dose 5 MG; Start 08/03/16 at 21:00 Lorazepam (Ativan) 1 mg Q4 PRN IV ANXIETY Last administered on 08/05/16 14:46 ; Admin Dose 1 MG; Start 08/04/16 at 17:00 Diagnostic Test (Pha) 1 ea 1 ea Q4 XX Last administered on 08/20/16 08:40; Admin Dose 1 EA; Start 08/05/16 at 09:00 Norepinephrine/ Dextrose (Levophed/D5W) 500 ml @ 1.87 mls/hr TITRATE IV Last administered on 08/06/16 12:56; Admin Dose 30 MLS/HR; Start 08/05/16 at 13:00 Pantoprazole (Protonix Iv) 40 mg BID@06,18 IV Last administered on 08/20/16 05 :38; Admin Dose 40 MG; Start 08/05/16 at 18:00 Eye Lubricant (Akwa Oint) 1 applic TID BOTH EYES Last administered on 08:27; Admin Dose 1 APPLIC; Start 08/05/16 at 16:00 Lactulose (Enulose) 20 gm Q8 PO Last administered on 08/20/16 05:38; Admin Dose 20 GM; Start 08/09/16 at 10:00 Docusate Sodium (Colace Liquid Cup) 100 mg BID NGT Last administered on 08:40; Admin Dose 100 MG; Start 08/13/16 at 09:00 Acetaminophen 650 mg 650 mg Q8H PRN PO PAIN LEVEL 1-3 OR FEVER Last administered on 08/20/16 08:48; Admin Dose 650 MG; Start 08/16/16 at 12:30 Cefotaxime Sodium (Claforan 1gm/50 ml (Pmx)) 50 ml @ 100 mls/hr Q8 IVPB Last administered on 08/20/16 05:38; Admin Dose 100 MLS/HR; Start 08/16/16 at 14:00 Spironolactone (Aldactone) 25 mg DAILY@06 PO Last administered on 08/20/16 05: 40; Admin Dose 25 MG; Start 08/17/16 at 06:00 Lisinopril 2.5 mg 2.5 mg DAILY PO Last administered on 08/20/16 08:40; Admin Dose 2.5 MG; Start 08/17/16 at 09:00 Dextrose (D5W) 1,000 ml @ 50 mls/hr Q20H IV Last administered on 08/19/16 11: 25; Admin Dose 50 MLS/HR; Start 08/19/16 at 11:00 Carvedilol (Coreg) 1.5625 mg BID PO ; Start 08/20/16 at 21:00 JACEK HOLLEY MD Aug 20, 2016 10:49
[2016-08-20] MEDS: POTASSIUM CHLORIDE 20 MEQ POWDER FOR ORAL SOLN NGT ONE ×2 (11:24→12:02)
--- NOTE | 2016-08-20 11:27 | CONS ---
Date/Time of Note Date/Time of Note DATE: 08/20/16 TIME: 11:25 Consult Date/Type/Reason Admit Date/Time Aug 03, 2016 at 14:46 Initial Consult Date 08/10/16 Type of Consultation: pulmonary/intensive care Ordering Provider: JACEK HOLLEY MD Subjective Patient planus remains intubated orally on mechanical ventilation Neurologically unchanged remains somnolent grimaces to painful stimuli Currently not requiring vasopressor support Patient scheduled for tracheostomy and PEG tube placement Objective Vital Signs Date Time Temp Pulse Resp B/P Pulse Ox O2 Delivery O2 Flow Rate FiO2 08/20/16 11:00 94 22 106/67 98 Mechanical Ventilator 08/20/16 09:31 30 08/20/16 08:00 100.8 Intake and Output 08/19/16 08/19/16 08/20/16 15:00 23:00 07:00 Intake Total 990 ml 790 ml 840 ml Output Total 1090 ml 955 ml 505 ml Balance -100 ml -165 ml 335 ml Exam PHYSICAL EXAMINATION GENERAL: Chronically ill-appearing gentleman orally intubated on mechanical ventilation, VITAL SIGNS: see below. HEENT: Pupils equal, round, and reactive to light. CARDIAC: S1, S2, no added sounds or murmurs CHEST: Diminished air entry bilaterally. ABDOMEN: Mildly distended. Bowel sounds present no guarding or rebound EXTREMITIES: No cyanosis, clubbing edema +2 NEUROLOGIC: Unable to assess patient not following commands marked encephalopathy Results/Medications Result Diagram: 08/20/16 0320 08/20/16 0320 Results 24 hrs Laboratory Tests Test 08/19/16 12:56 08/19/16 17:11 08/19/16 20:50 08/20/16 01:13 Bedside Glucose 127 119 123 134 Test 08/20/16 03:20 08/20/16 05:50 08/20/16 08:42 White Blood Count 13.4 H Red Blood Count 5.68 Hemoglobin 14.9 Hematocrit 47.1 Mean Corpuscular Volume 82.9 Mean Corpuscular Hemoglobin 26.2 L Mean Corpuscular Hemoglobin Concent 31.6 L Red Cell Distribution Width 21.1 H Platelet Count 294 Mean Platelet Volume 12.4 H Neutrophils % 71.9 Lymphocytes % 12.4 L Monocytes % 10.6 Eosinophils % 3.7 Basophils % 1.0 Nucleated Red Blood Cells % 0.0 Neutrophils # 9.6 H Lymphocytes # 1.7 Monocytes # 1.4 H Eosinophils # 0.5 Basophils # 0.1 Nucleated Red Blood Cells # 0.0 Prothrombin Time 15.6 H Prothrombin Time Ratio 1.2 INR International Normalized Ratio 1.23 Sodium Level 147 H Potassium Level 3.4 L Chloride Level 105 Carbon Dioxide Level 31 Anion Gap 14 Blood Urea Nitrogen 40 H Creatinine 1.06 Glucose Level 168 Calcium Level 8.9 Magnesium Level 2.6 H Total Bilirubin 0.6 Direct Bilirubin 0.00 Indirect Bilirubin 0.6 Aspartate Amino Transf (AST/SGOT) 73 H Alanine Aminotransferase (ALT/SGPT) 54 Alkaline Phosphatase 253 H Total Protein 8.0 Albumin 3.5 Globulin 4.50 H Albumin/Globulin Ratio 0.77 Bedside Glucose 128 130 Medications Current Medications Ondansetron HCl (Zofran Tab) 4 mg Q6H PRN PO NAUSEA AND/OR VOMITING; Start 03/12 at 10:30 Aspirin (Aspirin) 81 mg DAILY PO Last administered on 08/20/16 08:40; Admin Dose 81 MG; Start 08/03/16 at 11:00 Nitroglycerin (Nitroglycerin (Sl Tab) 0.4 Mg) 1 tab Q5M PRN SL CHEST PAIN; Start 08/03/16 at 10:30 Zolpidem Tartrate (Ambien) 5 mg HS PRN PO INSOMNIA Last administered on 21:21; Admin Dose 5 MG; Start 08/03/16 at 21:00 Lorazepam (Ativan) 1 mg Q4 PRN IV ANXIETY Last administered on 08/05/16 14:46 ; Admin Dose 1 MG; Start 08/04/16 at 17:00 Diagnostic Test (Pha) 1 ea 1 ea Q4 XX Last administered on 08/20/16 08:40; Admin Dose 1 EA; Start 08/05/16 at 09:00 Norepinephrine/ Dextrose (Levophed/D5W) 500 ml @ 1.87 mls/hr TITRATE IV Last administered on 08/06/16 12:56; Admin Dose 30 MLS/HR; Start 08/05/16 at 13:00 Pantoprazole (Protonix Iv) 40 mg BID@06,18 IV Last administered on 08/20/16 05 :38; Admin Dose 40 MG; Start 08/05/16 at 18:00 Eye Lubricant (Akwa Oint) 1 applic TID BOTH EYES Last administered on 08:27; Admin Dose 1 APPLIC; Start 08/05/16 at 16:00 Lactulose (Enulose) 20 gm Q8 PO Last administered on 08/20/16 05:38; Admin Dose 20 GM; Start 08/09/16 at 10:00 Docusate Sodium (Colace Liquid Cup) 100 mg BID NGT Last administered on 08:40; Admin Dose 100 MG; Start 08/13/16 at 09:00 Acetaminophen 650 mg 650 mg Q8H PRN PO PAIN LEVEL 1-3 OR FEVER Last administered on 08/20/16 08:48; Admin Dose 650 MG; Start 08/16/16 at 12:30 Cefotaxime Sodium (Claforan 1gm/50 ml (Pmx)) 50 ml @ 100 mls/hr Q8 IVPB Last administered on 08/20/16 05:38; Admin Dose 100 MLS/HR; Start 08/16/16 at 14:00 Spironolactone (Aldactone) 25 mg DAILY@06 PO Last administered on 08/20/16 05: 40; Admin Dose 25 MG; Start 08/17/16 at 06:00 Lisinopril 2.5 mg 2.5 mg DAILY PO Last administered on 08/20/16 08:40; Admin Dose 2.5 MG; Start 08/17/16 at 09:00 Dextrose (D5W) 1,000 ml @ 50 mls/hr Q20H IV Last administered on 08/19/16 11: 25; Admin Dose 50 MLS/HR; Start 08/19/16 at 11:00 Carvedilol (Coreg) 1.5625 mg BID PO ; Start 08/20/16 at 21:00 Assessment/Plan Chief Complaint/Hosp Course IMPRESSION AND PLAN: 1. Hypoxemic respiratory failure. 2. Likely aspiration pneumonia. 3. Congestive cardiac failure. 4. Cardiomyopathy with significantly reduced ejection fraction. 5. History of polysubstance abuse. 6. Encephalopathy, likely toxic metabolic. PLAN: 1. Continue mechanical ventilation. 2. Continue vent support. 3. Currently patient is not amenable to mechanical ventilation given neurological status Overall prognosis is very poor. Family still considering tracheostomy and PEG tube versus comfort care Problems: [facility]ARRIS [facility] Aug 20, 2016 11:27
[2016-08-20] MEDS ORDERED: LIDOCAINE 1%/EPI 30 ML INJ ONE (13:35)
[2016-08-20] MEDS ORDERED: MIDAZOLAM 1 MG/ML 2 ML INJ IV ONE (14:00)
[2016-08-20] MEDS ORDERED: LIDOCAINE 1%/EPI (MDV) 20 ML INJ INJ ONE (14:08)
--- NOTE | 2016-08-20 15:13 | OPR ---
DATE OF OPERATION: 08/20/2016 PREOPERATIVE DIAGNOSIS: Respiratory failure. POSTOPERATIVE DIAGNOSIS: Respiratory failure. OPERATION PERFORMED: Tracheostomy. SURGEON: Beth Cespedes MD ANESTHESIA: General. CONSENT: Risks, benefits, complications, alternative therapies explained to the patient and the nando garciay, consent obtained. OPERATIVE TECHNIQUE: The patient was placed in supine position, prepped and draped in usual sterile fashion. Timeout was called and I started. DESCRIPTION OF PROCEDURE: I made a 2 cm incision 1 fingerbreadth superior to the sternal notch. Inc ision was taken down to the subcutaneous tissue which was then opened using Metzenbaum scissors. Ac cess was gained into the trachea. Guidewire was advanced through without any difficulties. Subcuta neous tissues were dilated using progressively larger dilators. Endotracheal tube removed. An 8 cuf fed tracheostomy tube advanced into the trachea, secured to the skin using 4-0 nylon sutures and a t alex tie. Patient tolerated procedure well. Dictated By: BETH ALEMAN/ARMANDO Conf#: [id number] DID#: [id number]
--- NOTE | 2016-08-20 18:26 | OPR ---
Date/Time of Note Date/Time of Note DATE: 08/20/16 TIME: 18:25 Operative Report Preoperative Diagnosis Resp failure Postoperative Diagnosis same Operation Performed tracheostomy Surgeon: BETH LAM MD Anesthesia: general Estimated Blood Loss: none Complications: None Pt Condition Post Procedure: critical Disposition: other BETH LAM MD Aug 20, 2016 18:26
[2016-08-20] MEDS ORDERED: CEFAZOLIN 1 GM/50 ML (PMX) 50 ML IVPB ONE (18:54)
[2016-08-20] MEDS ORDERED: PROPOFOL 20 ML ONE (18:55)
[2016-08-20] MEDS ORDERED: MIDAZOLAM 1 MG/ML 2 ML INJ ONE (18:56)
[2016-08-20] MEDS ORDERED: FENTAnyl 50 MCG/ML VIAL ONE ×2 (18:56→19:18)
[2016-08-21] VITALS (35 sets, daily range): BP systolic 86–128; BP diastolic 55–79; PULSE 85–103; RESP 9–25
[2016-08-21] MEDS: ACETAMINOPHEN 650MG/20.3ML CUP NGT PRN ×2 (00:18→09:51)
[2016-08-21] MEDS: ACCU-CHEK XX SCH ×5 (01:57→16:22)
[2016-08-21] MEDS: DEXTROSE 5% 1,000 ML IV SCH ×2 (02:08→17:53)
[2016-08-21 05:08] LABS: ADD SCAN DIFF NO
[2016-08-21 05:12] LABS: ABNORMAL IP MESSAGE 1; BASOPHIL # 0.1 10^3/ul (0.0-0.1); BASOPHILS % 0.9 % (0.0-2.0); EOSINOPHILS # 0.4 10^3/ul (0.0-0.5); HEMOGLOBIN 14.7 g/dl (14.0-18.0); LYMPHOCYTES # 2.4 10^3/ul (0.8-2.9); LYMPHOCYTES % 17.4 % (15.0-51.0); MEAN CORPUSCULAR HEMOGLOBIN 25.9 pg (29.0-33.0); MEAN CORPUSCULAR HGB CONC 31.3 g/dl (32.0-37.0); MEAN CORPUSCULAR VOLUME 82.7 fl (82.0-101.0); MEAN PLATELET VOLUME 12.4 fl (7.4-10.4); MONOCYTE # 1.6 10^3/ul (0.3-0.9); MONOCYTES % 11.4 % (0.0-11.0); NEUTROPHIL # 9.3 10^3/ul (1.6-7.5); NEUTROPHILS % 67.1 % (39.0-77.0); PLATELET COUNT 302 10^3/UL (140-415); RED BLOOD COUNT 5.68 10^6/ul (4.70-6.10); RED CELL DISTRIBUTION WIDTH 20.5 % (11.5-14.5); WHITE BLOOD COUNT 13.8 10^3/ul (4.8-10.8)
[2016-08-21] MEDS: SPIRONOLACTONE 25 MG TAB PO SCH (05:14)
[2016-08-21] MEDS: FUROSEMIDE 40 MG INJ IV SCH ×2 (05:14→17:53)
[2016-08-21] MEDS: CEFOTAXIME 1 GM/50 ML (PMX) 50 ML IVPB SCH ×2 (05:14→13:33)
[2016-08-21] MEDS: LACTULOSE 30ML CUP PO SCH ×2 (05:14→13:33)
[2016-08-21] MEDS: PANTOPRAZOLE 40 MG INJ IV SCH ×2 (05:17→17:53)
[2016-08-21 07:21] LABS: POTASSIUM 3.1 mmol/L (3.5-5.1)
[2016-08-21 07:23] LABS: CREATININE 1.19 mg/dl (0.61-1.24)
[2016-08-21 07:24] LABS: CALCIUM 8.7 mg/dl (8.4-10.2); MAGNESIUM 2.6 mg/dl (1.7-2.5)
--- NOTE | 2016-08-21 08:40 | CONS ---
Date/Time of Note Date/Time of Note DATE: 08/21/16 TIME: 08:37 Assessment/Plan Assessment/Plan Additional Assessment/Plan 1. Congestive heart failure exacerbation, systolic, acute on chronic- better fluid status, con't to keep euvolemic 2. Cardiomyopathy with severely depressed left ventricular ejection fraction approximately 15%- Med Rx now. 3. Abnormal electrocardiogram, assess for acute coronary syndrome.-negative troponin x 3 4. Hypotension, borderline.-off pressors currentl - improved, con't supportive Rx. 5. Lower extremity edema 6. Possible lower extremity cellulitis. 7. Renal failure-improving - renal team follows 8. Substance abuse-ongoing prior to presentation for current admit 9. Coagulopathy - no active bleeding 10. Resp failure s/p intubation 11.Hypoglycemia-? etiology liver failure 12.Encephalopathy-ongoing off sedation/unresponsive 14.Hyperglycemia Consultation Date/Type/Reason Admit Date/Time Aug 03, 2016 at 14:46 Initial Consult Date 08/05/16 Type of Consultation: pulmonary/intensive care Referring Provider: JACEK HOLLEY MD 24 HR Interval Summary Free Text/Dictation N acute change - BP stable - trach/PEG now - awaiting dispo plan ROS: No fever, no chills, no nausea, no vomiting, no diarrhea/constipation No recent weight changes No chest pain, no PND, no orthopnea No dizziness, blurred vision No thirst, no heat or cold intolerance (per nurse) Exam/Review of Systems Vital Signs Vitals Vital Signs Date Time Temp Pulse Resp B/P Pulse Ox O2 Delivery O2 Flow Rate FiO2 08/21/16 07:27 101 22 98 30 08/21/16 06:00 118/73 Mechanical Ventilator 08/21/16 04:00 99.9 Intake and Output 08/20/16 08/20/16 08/21/16 15:00 23:00 07:00 Intake Total 680 ml 450 ml 400 ml Output Total 790 ml 755 ml 455 ml Balance -110 ml -305 ml -55 ml Exam General: WN/WD/NAD, AOx 0 HEENT: Unicetric/atraumatic/EOMI (does not follow commands) NECK: JVD elevated, no thyromegaly, trach Lymph: no lymphadenopathy HEART: regular with no S3, II/ systolic murmur at apex LUNGS: Coarse sounds ABD: soft, NT, ND, +BS,PEG : Intact Neuro: non focal SKIN: chronic changes EXT: trace edema Results Result Diagram: 08/21/16 0400 08/21/16 0400 Results 24 hrs Laboratory Tests Test 08/20/16 08:42 08/20/16 13:21 08/20/16 17:43 08/20/16 21:04 Bedside Glucose 130 118 114 142 Test 08/21/16 00:47 08/21/16 04:00 08/21/16 05:15 Bedside Glucose 154 117 White Blood Count 13.8 H Red Blood Count 5.68 Hemoglobin 14.7 Hematocrit 47.0 Mean Corpuscular Volume 82.7 Mean Corpuscular Hemoglobin 25.9 L Mean Corpuscular Hemoglobin Concent 31.3 L Red Cell Distribution Width 20.5 H Platelet Count 302 Mean Platelet Volume 12.4 H Neutrophils % 67.1 Lymphocytes % 17.4 Monocytes % 11.4 H Eosinophils % 3.0 Basophils % 0.9 Nucleated Red Blood Cells % 0.0 Neutrophils # 9.3 H Lymphocytes # 2.4 Monocytes # 1.6 H Eosinophils # 0.4 Basophils # 0.1 Nucleated Red Blood Cells # 0.0 Sodium Level 144 Potassium Level 3.1 L Chloride Level 102 Carbon Dioxide Level 28 Anion Gap 17 H Blood Urea Nitrogen 45 H Creatinine 1.19 Glucose Level 122 # Calcium Level 8.7 Magnesium Level 2.6 H Medications Medications Current Medications Ondansetron HCl (Zofran Tab) 4 mg Q6H PRN PO NAUSEA AND/OR VOMITING; Start 03/12 at 10:30 Aspirin (Aspirin) 81 mg DAILY PO Last administered on 08/20/16 08:40; Admin Dose 81 MG; Start 08/03/16 at 11:00 Nitroglycerin (Nitroglycerin (Sl Tab) 0.4 Mg) 1 tab Q5M PRN SL CHEST PAIN; Start 08/03/16 at 10:30 Zolpidem Tartrate (Ambien) 5 mg HS PRN PO INSOMNIA Last administered on 21:21; Admin Dose 5 MG; Start 08/03/16 at 21:00 Lorazepam (Ativan) 1 mg Q4 PRN IV ANXIETY Last administered on 08/05/16 14:46 ; Admin Dose 1 MG; Start 08/04/16 at 17:00 Diagnostic Test (Pha) 1 ea 1 ea Q4 XX Last administered on 08/21/16 05:17; Admin Dose 1 EA; Start 08/05/16 at 09:00 Norepinephrine/ Dextrose (Levophed/D5W) 500 ml @ 1.87 mls/hr TITRATE IV Last administered on 08/06/16 12:56; Admin Dose 30 MLS/HR; Start 08/05/16 at 13:00 Pantoprazole (Protonix Iv) 40 mg BID@06,18 IV Last administered on 08/21/16 05 :17; Admin Dose 40 MG; Start 08/05/16 at 18:00 Eye Lubricant (Akwa Oint) 1 applic TID BOTH EYES Last administered on 21:27; Admin Dose 1 APPLIC; Start 08/05/16 at 16:00 Lactulose (Enulose) 20 gm Q8 PO Last administered on 08/21/16 05:14; Admin Dose 20 GM; Start 08/09/16 at 10:00 Docusate Sodium 100 mg 100 mg BID NGT Last administered on 08/20/16 21:26; Admin Dose 100 MG; Start 08/13/16 at 09:00 Cefotaxime Sodium (Claforan 1gm/50 ml (Pmx)) 50 ml @ 100 mls/hr Q8 IVPB Last administered on 08/21/16 05:14; Admin Dose 100 MLS/HR; Start 08/16/16 at 14:00 Spironolactone (Aldactone) 25 mg DAILY@06 PO Last administered on 08/21/16 05: 14; Admin Dose 25 MG; Start 08/17/16 at 06:00 Lisinopril 2.5 mg 2.5 mg DAILY PO Last administered on 08/20/16 08:40; Admin Dose 2.5 MG; Start 08/17/16 at 09:00 Dextrose (D5W) 1,000 ml @ 50 mls/hr Q20H IV Last administered on 08/20/16 19: 00; Admin Dose 50 MLS/HR; Start 08/19/16 at 11:00 Carvedilol (Coreg) 1.5625 mg BID PO Last administered on 08/20/16 21:26; Admin Dose 1.5625 MG; Start 08/20/16 at 21:00 Acetaminophen (Tylenol Liquid) 650 mg Q8 PRN NGT PAIN AND OR ELEVATED TEMP Last administered on 08/21/16t 00:18; Admin Dose 650 MG; Start 08/20/16 at 12:00 ABDIFATAH JONES MD Aug 21, 2016 08:40
[2016-08-21] MEDS: DOCUSATE SODIUM 10 MG/ML (10ML CUP) NGT SCH (09:30)
[2016-08-21] MEDS: OCULAR LUBRICANT 3.5 GM OPH OINT BOTH EYES SCH ×2 (09:30→13:34)
[2016-08-21] MEDS: ASPIRIN 81 MG TAB PO SCH (09:30)
[2016-08-21] MEDS: LISINOPRIL 5 MG TAB PO SCH (09:31)
--- NOTE | 2016-08-21 11:27 | CONS ---
Date/Time of Note Date/Time of Note DATE: 08/21/16 TIME: 11:26 Consult Date/Type/Reason Admit Date/Time Aug 03, 2016 at 14:46 Initial Consult Date 08/10/16 Type of Consultation: pulmonary/intensive care Ordering Provider: JACEK HOLLEY MD Subjective Patient remains stable following tracheostomy and PEG tube placement Neurologically no changes Objective Vital Signs Date Time Temp Pulse Resp B/P Pulse Ox O2 Delivery O2 Flow Rate FiO2 08/21/16 10:58 95 22 98 30 08/21/16 10:00 100/72 Mechanical Ventilator 08/21/16 08:00 100.5 Intake and Output 08/20/16 08/20/16 08/21/16 15:00 23:00 07:00 Intake Total 680 ml 450 ml 430 ml Output Total 790 ml 755 ml 580 ml Balance -110 ml -305 ml -150 ml Exam PHYSICAL EXAMINATION GENERAL: Chronically ill-appearing gentleman tracheostomy and mechanical ventilation VITAL SIGNS: see below. HEENT: Pupils equal, round, and reactive to light. CARDIAC: S1, S2, no added sounds or murmurs CHEST: Diminished air entry bilaterally. ABDOMEN: Mildly distended. Bowel sounds present no guarding or rebound G-tube in place EXTREMITIES: No cyanosis, clubbing edema +2 NEUROLOGIC: Unable to assess patient not following commands marked encephalopathy Results/Medications Result Diagram: 08/21/16 0400 08/21/16 0400 Results 24 hrs Laboratory Tests Test 08/20/16 13:21 08/20/16 17:43 08/20/16 21:04 08/21/16 00:47 Bedside Glucose 118 114 142 154 Test 08/21/16 04:00 08/21/16 05:15 08/21/16 09:32 White Blood Count 13.8 H Red Blood Count 5.68 Hemoglobin 14.7 Hematocrit 47.0 Mean Corpuscular Volume 82.7 Mean Corpuscular Hemoglobin 25.9 L Mean Corpuscular Hemoglobin Concent 31.3 L Red Cell Distribution Width 20.5 H Platelet Count 302 Mean Platelet Volume 12.4 H Neutrophils % 67.1 Lymphocytes % 17.4 Monocytes % 11.4 H Eosinophils % 3.0 Basophils % 0.9 Nucleated Red Blood Cells % 0.0 Neutrophils # 9.3 H Lymphocytes # 2.4 Monocytes # 1.6 H Eosinophils # 0.4 Basophils # 0.1 Nucleated Red Blood Cells # 0.0 Sodium Level 144 Potassium Level 3.1 L Chloride Level 102 Carbon Dioxide Level 28 Anion Gap 17 H Blood Urea Nitrogen 45 H Creatinine 1.19 Glucose Level 122 # Calcium Level 8.7 Magnesium Level 2.6 H Bedside Glucose 117 120 Medications Current Medications Ondansetron HCl (Zofran Tab) 4 mg Q6H PRN PO NAUSEA AND/OR VOMITING; Start 03/12 at 10:30 Aspirin (Aspirin) 81 mg DAILY PO Last administered on 08/21/16 09:30; Admin Dose 81 MG; Start 08/03/16 at 11:00 Nitroglycerin (Nitroglycerin (Sl Tab) 0.4 Mg) 1 tab Q5M PRN SL CHEST PAIN; Start 08/03/16 at 10:30 Zolpidem Tartrate (Ambien) 5 mg HS PRN PO INSOMNIA Last administered on 21:21; Admin Dose 5 MG; Start 08/03/16 at 21:00 Lorazepam (Ativan) 1 mg Q4 PRN IV ANXIETY Last administered on 08/05/16 14:46 ; Admin Dose 1 MG; Start 08/04/16 at 17:00 Diagnostic Test (Pha) 1 ea 1 ea Q4 XX Last administered on 08/21/16 09:31; Admin Dose 1 EA; Start 08/05/16 at 09:00 Norepinephrine/ Dextrose (Levophed/D5W) 500 ml @ 1.87 mls/hr TITRATE IV Last administered on 08/06/16 12:56; Admin Dose 30 MLS/HR; Start 08/05/16 at 13:00 Pantoprazole (Protonix Iv) 40 mg BID@06,18 IV Last administered on 08/21/16 05 :17; Admin Dose 40 MG; Start 08/05/16 at 18:00 Eye Lubricant (Akwa Oint) 1 applic TID BOTH EYES Last administered on 09:30; Admin Dose 1 APPLIC; Start 08/05/16 at 16:00 Lactulose (Enulose) 20 gm Q8 PO Last administered on 08/21/16 05:14; Admin Dose 20 GM; Start 08/09/16 at 10:00 Docusate Sodium 100 mg 100 mg BID NGT Last administered on 08/21/16 09:30; Admin Dose 100 MG; Start 08/13/16 at 09:00 Cefotaxime Sodium (Claforan 1gm/50 ml (Pmx)) 50 ml @ 100 mls/hr Q8 IVPB Last administered on 08/21/16 05:14; Admin Dose 100 MLS/HR; Start 08/16/16 at 14:00 Spironolactone (Aldactone) 25 mg DAILY@06 PO Last administered on 08/21/16 05: 14; Admin Dose 25 MG; Start 08/17/16 at 06:00 Lisinopril 2.5 mg 2.5 mg DAILY PO Last administered on 08/21/16 09:31; Admin Dose 2.5 MG; Start 08/17/16 at 09:00 Dextrose (D5W) 1,000 ml @ 50 mls/hr Q20H IV Last administered on 08/20/16 19: 00; Admin Dose 50 MLS/HR; Start 08/19/16 at 11:00 Carvedilol (Coreg) 1.5625 mg BID PO Last administered on 08/21/16 09:30; Admin Dose 1.5625 MG; Start 08/20/16 at 21:00 Acetaminophen (Tylenol Liquid) 650 mg Q8 PRN NGT PAIN AND OR ELEVATED TEMP Last administered on 08/21/16 09:51; Admin Dose 650 MG; Start 08/20/16 at 12:00 Assessment/Plan Chief Complaint/Hosp Course IMPRESSION AND PLAN: 1. Hypoxemic respiratory failure. 2. Likely aspiration pneumonia. 3. Congestive cardiac failure. 4. Cardiomyopathy with significantly reduced ejection fraction. 5. History of polysubstance abuse. 6. Encephalopathy, likely toxic metabolic. PLAN: 1. Continue mechanical ventilation. 2. Continue vent support. 3. Continue to feeding as tolerated 4. DVT and GI prophylaxis Disposition [facility] transfer or telemetry transfer Problems: POLO HARRIS MD, [facility] Aug 21, 2016 11:27
--- NOTE | 2016-08-21 13:37 | PDOCDIS ---
Discharge Instructions CONDITION Patient Condition: Fair HOME CARE INSTRUCTIONS: Special Diet: Fibersource NG tube feeding, residual check rationel ACTIVITY: Activity Restrictions: Special Program JACEK HOLLEY MD Aug 21, 2016 13:37
--- NOTE | 2016-08-21 13:41 | PN ---
Date/Time of Note Date/Time of Note DATE: 08/21/16 TIME: 13:38 Assessment/Plan VTE Prophylaxis VTE Prophylaxis Intervention: SCD's Lines/Catheters IV Catheter Type (from Nrs): PICC Line Central line still needed: Yes Urinary Cath still in place: Yes Reason Cath still needed: other (indicate) Assessment/Plan Chief Complaint/Hosp Course Chief Complaint/Hosp Course 1. Acute encephalopathy secondary to hypoglycemia and/or substance abuse-pt does not follow commands EEG suggests toxic metabolic encephalopathy, neuro consult appreciated CT head shows no significant findings, MRI with global hypertrophy and no evidence of anoxic brain injury Family conference held and family has requested to proceed with PEG and trach placement, we will continue to monitor neuro status on a daily basis` 2. Acute respiratory failure, now ventilator dependent, secondary to #1 and CHF exacerbation Pulmonology in the case, continue vent support Status post trach placement on 08/20/2016 3. Acute on chronic congestive heart failure exacerbation with an ejection fraction of 15% Cardiology on the case, continue diuresis 4. Chronic alcoholic with cirrhosis and coagulopathy 5. Chronic substance abuse with amphetamines and heroin. 6. Leukocytosis possibly secondary to pneumonia-resolved Continue antibiotics for now, 7. Congestive heart failure, cards consulted, follow the recommendations 7. Subclinical hypothyroidism. 8. Hypernatremia, improving status post D5W and free water through G-tube Prophylaxis: SCDs Prognosis: Guarded Medical management and prognosis was discussed with the family at the bedside Plan to transfer to [facility] when accepted Problems: Subjective 24 Hr Interval Summary Free Text/Dictation Status post PEG and trach placement Patient seems more awake than usual Does not respond to any pain or verbal stimuli Exam/Review of Systems Vital Signs Vitals Vital Signs Date Time Temp Pulse Resp B/P Pulse Ox O2 Delivery O2 Flow Rate FiO2 08/21/16 13:04 97 22 85 30 08/21/16 10:00 100/72 Mechanical Ventilator 08/21/16 08:00 100.5 Intake and Output 08/20/16 08/20/16 08/21/16 15:00 23:00 07:00 Intake Total 680 ml 450 ml 430 ml Output Total 790 ml 755 ml 580 ml Balance -110 ml -305 ml -150 ml Exam General: The patient is Not in acute distress. HEENT: Atraumatic, normocephalic. The pupils are equal and round . Neck: Supple, trach in place Chest: Normal expansion of the thorax during inspiration Lungs: Clear to auscultation bilaterally Heart: Normal S1-S2, Regular rhythm and rate. Abdomen: Soft , nontender, nondistended , bowel sounds are present. PEG tube in place Extremities: Normal to inspection, no edema no cyanosis Neurologic: Awake, although no response to verbal or pain stimuli Results Result Diagram: 08/21/16 0400 08/21/16 0400 Results 24 hrs Laboratory Tests Test 08/20/16 17:43 08/20/16 21:04 08/21/16 00:47 08/21/16 04:00 Bedside Glucose 114 142 154 White Blood Count 13.8 H Red Blood Count 5.68 Hemoglobin 14.7 Hematocrit 47.0 Mean Corpuscular Volume 82.7 Mean Corpuscular Hemoglobin 25.9 L Mean Corpuscular Hemoglobin Concent 31.3 L Red Cell Distribution Width 20.5 H Platelet Count 302 Mean Platelet Volume 12.4 H Neutrophils % 67.1 Lymphocytes % 17.4 Monocytes % 11.4 H Eosinophils % 3.0 Basophils % 0.9 Nucleated Red Blood Cells % 0.0 Neutrophils # 9.3 H Lymphocytes # 2.4 Monocytes # 1.6 H Eosinophils # 0.4 Basophils # 0.1 Nucleated Red Blood Cells # 0.0 Sodium Level 144 Potassium Level 3.1 L Chloride Level 102 Carbon Dioxide Level 28 Anion Gap 17 H Blood Urea Nitrogen 45 H Creatinine 1.19 Glucose Level 122 # Calcium Level 8.7 Magnesium Level 2.6 H Test 08/21/16 05:15 08/21/16 09:32 08/21/16 12:10 Bedside Glucose 117 120 125 Medications Medications Current Medications Ondansetron HCl (Zofran Tab) 4 mg Q6H PRN PO NAUSEA AND/OR VOMITING; Start 03/12 at 10:30 Aspirin (Aspirin) 81 mg DAILY PO Last administered on 08/21/16 09:30; Admin Dose 81 MG; Start 08/03/16 at 11:00 Nitroglycerin (Nitroglycerin (Sl Tab) 0.4 Mg) 1 tab Q5M PRN SL CHEST PAIN; Start 08/03/16 at 10:30 Zolpidem Tartrate (Ambien) 5 mg HS PRN PO INSOMNIA Last administered on 21:21; Admin Dose 5 MG; Start 08/03/16 at 21:00 Lorazepam (Ativan) 1 mg Q4 PRN IV ANXIETY Last administered on 08/05/16 14:46 ; Admin Dose 1 MG; Start 08/04/16 at 17:00 Diagnostic Test (Pha) 1 ea 1 ea Q4 XX Last administered on 08/21/16 13:25; Admin Dose 1 EA; Start 08/05/16 at 09:00 Norepinephrine/ Dextrose (Levophed/D5W) 500 ml @ 1.87 mls/hr TITRATE IV Last administered on 08/06/16 12:56; Admin Dose 30 MLS/HR; Start 08/05/16 at 13:00 Pantoprazole (Protonix Iv) 40 mg BID@06,18 IV Last administered on 08/21/16 05 :17; Admin Dose 40 MG; Start 08/05/16 at 18:00 Eye Lubricant (Akwa Oint) 1 applic TID BOTH EYES Last administered on 13:34; Admin Dose 1 APPLIC; Start 08/05/16 at 16:00 Lactulose (Enulose) 20 gm Q8 PO Last administered on 08/21/16 13:33; Admin Dose 20 GM; Start 08/09/16 at 10:00 Docusate Sodium 100 mg 100 mg BID NGT Last administered on 08/21/16 09:30; Admin Dose 100 MG; Start 08/13/16 at 09:00 Cefotaxime Sodium (Claforan 1gm/50 ml (Pmx)) 50 ml @ 100 mls/hr Q8 IVPB Last administered on 08/21/16 13:33; Admin Dose 100 MLS/HR; Start 08/16/16 at 14:00 Spironolactone (Aldactone) 25 mg DAILY@06 PO Last administered on 08/21/16 05: 14; Admin Dose 25 MG; Start 08/17/16 at 06:00 Lisinopril 2.5 mg 2.5 mg DAILY PO Last administered on 08/21/16 09:31; Admin Dose 2.5 MG; Start 08/17/16 at 09:00 Dextrose (D5W) 1,000 ml @ 50 mls/hr Q20H IV Last administered on 08/20/16 19: 00; Admin Dose 50 MLS/HR; Start 08/19/16 at 11:00 Carvedilol (Coreg) 1.5625 mg BID PO Last administered on 08/21/16 09:30; Admin Dose 1.5625 MG; Start 08/20/16 at 21:00 Acetaminophen (Tylenol Liquid) 650 mg Q8 PRN NGT PAIN AND OR ELEVATED TEMP Last administered on 08/21/16 09:51; Admin Dose 650 MG; Start 08/20/16 at 12:00 JACEK HOLLEY MD Aug 21, 2016 13:41
--- NOTE | 2016-08-21 13:57 | PN ---
Date/Time of Note Date/Time of Note DATE: 08/21/16 TIME: 13:44 Assessment/Plan VTE Prophylaxis VTE Prophylaxis Intervention: SCD's Lines/Catheters IV Catheter Type (from Nrs): PICC Line Central line still needed: Yes Urinary Cath still in place: Yes Reason Cath still needed: urinary retention Assessment/Plan Assessment/Plan Assessment * 08/21/2016 EGD/ PEG placement * Hypoxemic respiratory failure * Likely aspiration pneumonia. * Congestive heart failure * Cardiomyopathy with ejection fraction.15 * History of polysubstance abuse * Encephalopathy * S/P tracheostomy ventilator dependent Plan * continue present management Subjective 24 Hr Interval Summary Free Text/Dictation * course reviewed with nurse * patient seen and examined,family at bedside * Tolerating tube feeding ,minimal residuals * S/P EGD/PEG 08/20/2016 uneventful PEG FR #20 * PEG dressing dry,no bleeding Exam/Review of Systems Vital Signs Vitals Vital Signs Date Time Temp Pulse Resp B/P Pulse Ox O2 Delivery O2 Flow Rate FiO2 08/21/16 13:04 97 22 85 30 08/21/16 10:00 100/72 Mechanical Ventilator 08/21/16 08:00 100.5 Intake and Output 08/20/16 08/20/16 08/21/16 15:00 23:00 07:00 Intake Total 680 ml 450 ml 430 ml Output Total 790 ml 755 ml 580 ml Balance -110 ml -305 ml -150 ml Exam Constitutional: Eyes closed, nonverbal Respiratory: trach to vent,harsh breath sounds Cardiovascular: regular rate and rhythm Gastrointestinal: soft, non-tender,g tube intact, Musculoskeletal: nl extremities to inspection Neurological: Nonfoca Results Result Diagram: 08/21/16 0400 08/21/16 0400 Results 24 hrs Laboratory Tests Test 08/20/16 17:43 08/20/16 21:04 08/21/16 00:47 08/21/16 04:00 Bedside Glucose 114 142 154 White Blood Count 13.8 H Red Blood Count 5.68 Hemoglobin 14.7 Hematocrit 47.0 Mean Corpuscular Volume 82.7 Mean Corpuscular Hemoglobin 25.9 L Mean Corpuscular Hemoglobin Concent 31.3 L Red Cell Distribution Width 20.5 H Platelet Count 302 Mean Platelet Volume 12.4 H Neutrophils % 67.1 Lymphocytes % 17.4 Monocytes % 11.4 H Eosinophils % 3.0 Basophils % 0.9 Nucleated Red Blood Cells % 0.0 Neutrophils # 9.3 H Lymphocytes # 2.4 Monocytes # 1.6 H Eosinophils # 0.4 Basophils # 0.1 Nucleated Red Blood Cells # 0.0 Sodium Level 144 Potassium Level 3.1 L Chloride Level 102 Carbon Dioxide Level 28 Anion Gap 17 H Blood Urea Nitrogen 45 H Creatinine 1.19 Glucose Level 122 # Calcium Level 8.7 Magnesium Level 2.6 H Test 08/21/16 05:15 08/21/16 09:32 08/21/16 12:10 Bedside Glucose 117 120 125 Medications Medications Current Medications Ondansetron HCl (Zofran Tab) 4 mg Q6H PRN PO NAUSEA AND/OR VOMITING; Start 03/12 at 10:30 Aspirin (Aspirin) 81 mg DAILY PO Last administered on 08/21/16 09:30; Admin Dose 81 MG; Start 08/03/16 at 11:00 Nitroglycerin (Nitroglycerin (Sl Tab) 0.4 Mg) 1 tab Q5M PRN SL CHEST PAIN; Start 08/03/16 at 10:30 Zolpidem Tartrate (Ambien) 5 mg HS PRN PO INSOMNIA Last administered on 21:21; Admin Dose 5 MG; Start 08/03/16 at 21:00 Lorazepam (Ativan) 1 mg Q4 PRN IV ANXIETY Last administered on 08/05/16 14:46 ; Admin Dose 1 MG; Start 08/04/16 at 17:00 Diagnostic Test (Pha) 1 ea 1 ea Q4 XX Last administered on 08/21/16 13:25; Admin Dose 1 EA; Start 08/05/16 at 09:00 Norepinephrine/ Dextrose (Levophed/D5W) 500 ml @ 1.87 mls/hr TITRATE IV Last administered on 08/06/16 12:56; Admin Dose 30 MLS/HR; Start 08/05/16 at 13:00 Pantoprazole (Protonix Iv) 40 mg BID@06,18 IV Last administered on 08/21/16 05 :17; Admin Dose 40 MG; Start 08/05/16 at 18:00 Eye Lubricant (Akwa Oint) 1 applic TID BOTH EYES Last administered on 13:34; Admin Dose 1 APPLIC; Start 08/05/16 at 16:00 Lactulose (Enulose) 20 gm Q8 PO Last administered on 08/21/16 13:33; Admin Dose 20 GM; Start 08/09/16 at 10:00 Docusate Sodium 100 mg 100 mg BID NGT Last administered on 08/21/16 09:30; Admin Dose 100 MG; Start 08/13/16 at 09:00 Cefotaxime Sodium (Claforan 1gm/50 ml (Pmx)) 50 ml @ 100 mls/hr Q8 IVPB Last administered on 08/21/16 13:33; Admin Dose 100 MLS/HR; Start 08/16/16 at 14:00 Spironolactone (Aldactone) 25 mg DAILY@06 PO Last administered on 08/21/16 05: 14; Admin Dose 25 MG; Start 08/17/16 at 06:00 Lisinopril 2.5 mg 2.5 mg DAILY PO Last administered on 08/21/16 09:31; Admin Dose 2.5 MG; Start 08/17/16 at 09:00 Dextrose (D5W) 1,000 ml @ 50 mls/hr Q20H IV Last administered on 08/20/16 19: 00; Admin Dose 50 MLS/HR; Start 08/19/16 at 11:00 Carvedilol (Coreg) 1.5625 mg BID PO Last administered on 08/21/16 09:30; Admin Dose 1.5625 MG; Start 08/20/16 at 21:00 Acetaminophen (Tylenol Liquid) 650 mg Q8 PRN NGT PAIN AND OR ELEVATED TEMP Last administered on 08/21/16 09:51; Admin Dose 650 MG; Start 08/20/16 at 12:00 SPENCER COY MD Aug 21, 2016 13:57
[2016-08-21] MEDS ORDERED: POTASSIUM CHLORIDE 30 MEQ in DEXTROSE 5% 250 ML IVPB ONE (17:30)
--- NOTE | 2016-08-21 18:01 | PN ---
Date/Time of Note Date/Time of Note DATE: 08/21/16 TIME: 18:00 Assessment/Plan Lines/Catheters IV Catheter Type (from Nrsg): PICC Line Morales in Place (from Nrsg): Yes Assessment/Plan Chief Complaint/Hosp Course IMPRESSION: Respiratory failure. SP Tracheostomy RECOMMENDATIONS: Vent support, trach care Problems: Subjective 24 Hr Interval Summary Constitutional: improved Pain Control: mild Exam/Review of Systems Vital Signs Vitals Vital Signs Date Time Temp Pulse Resp B/P Pulse Ox O2 Delivery O2 Flow Rate FiO2 08/21/16 17:16 98 22 95 30 08/21/16 15:30 96/58 Mechanical Ventilator 08/21/16 12:00 100.5 Intake and Output 08/20/16 08/20/16 08/21/16 15:00 23:00 07:00 Intake Total 680 ml 450 ml 430 ml Output Total 790 ml 755 ml 580 ml Balance -110 ml -305 ml -150 ml Exam Neck: non-tender, supple Respiratory: clear to auscultation, normal air movement Cardiovascular: nl pulses, regular rate and rhythm Gastrointestinal: nl liver, spleen, non-tender, soft Results Result Diagram: 08/21/16 0400 08/21/16 0400 BETH LAM MD Aug 21, 2016 18:01
--- NOTE | 2016-08-21 18:34 | DS ---
DATE OF ADMISSION: 08/03/2016 DATE OF DISCHARGE: 08/21/2016 CONSULTANTS: 1. Dr. Abdirizak Richard. 2. Dr. Guzman Cox. 3. Dr. Ivan Ron. 4. Dr. Valdivia. 5. Dr. Simeon. 5. Dr. Kar Cespedes. PROCEDURES: 1. PEG tube placement. 2. Trach placement. 3. EEG with abnormal study with background slowing which could reflect presence of encephalopathy, possible toxic metabolic etiology. DISCHARGE DIAGNOSES: 1. Acute encephalopathy secondary to hypoglycemia versus substance abuse. The EEG suggested toxic metabolic encephalopathy. Neurology was consulted. CT of the head showed no significant finding. MRI with global ____ with no evidence of anoxic brain injury. 2. Acute respiratory failure secondary to #1 versus congestive heart failure. 3. Acute chronic congestive heart failure with ejection fraction of 15%. 4. Chronic alcohol use. 5. Alcoholic cirrhosis. 6. Alcoholic cirrhosis with coagulopathy. 7. Chronic substance abuse with methamphetamine and heroin use. 8. Leukocytosis secondary to pneumonia. 9. Pneumonia. 10. Hypernatremia 11. Subclinical hyperthyroidism. 12. History of noncompliance with medication. MEDICATIONS: On day of discharge: 1. Tylenol. 2. Aspirin. 3. Coreg. 4. Cefotaxime. 5. Colace. 6. Lasix. 7. Lactulose. 8. Lisinopril. 9. Lorazepam. 10. Nitroglycerin. 11. ____ 12. Zofran 13. Protonix. 14. Aldactone. ALLERGIES: NO KNOWN DRUG ALLERGIES. HOSPITAL COURSE: This is an unfortunate 50-year-old gentleman with past medical history of cardiomy opathy, mixed congestive heart failure, heroin and methamphetamine use, anxiety, polysubstance abuse , cirrhosis and pulmonary hypertension who presented to [facility] secondary to jordan ving abdominal distention, worsening shortness of breath and lower extremity edema. The patient's c hest x-ray revealed moderate cardiomegaly, mild basal segment atelectasis. 1. EKG shows sinus tachycardia with ventricular rate of 105, left axis deviation, nonspecific ST-T wave abnormality with single PVCs. The patient was treated with diuresis with Lasix. He was admitt ed to telemetry floor where he was continued on diuresis and was seen and evaluated by assistant finance director and bell spinner sousaphones. The patient was found to have altered mental status post admission. 2. He was transferred to ICU secondary to having hyperglycemia. He was treated with hypoglycemia p rotocol. He was intubated and was found to have encephalopathy, likely secondary to cirrhosis, ence phalopathy versus hypoglycemia. Patient was continued to be managed in the course of the ICU where he started to open his eyes, although he was still unresponsive to pain and verbal stimuli. He was placed on broad spectrum IV antibiotics secondary to having positive blood culture and respiratory c ulture. He was at the beginning placed on pressors secondary to severe hypotension and sepsis and h e was weaned off the pressors and eventually his blood pressure became normalized. There were sever al family meetings with both brothers and [id number] regarding the mode of treatment and in the b eginning, the family decided to proceed with terminal extubation. Although on Saturday08/18/2016, th ey decided to proceed with PEG and trachea and on 08/20/2016, the patient obtained a PEG and trach a nd at this time, the patient has been accepted at [facility] for further management. CONDITION AT TIME OF DISCHARGE: Fair. LABORATORY: WBC 13.8, hemoglobin 14.1, hematocrit 47, platelets 202. Sodium 144, potassium 3.1, ch loride 102, bicarbonate 28, BUN 45, creatinine 1.19, glucose 122, calcium 8.7, magnesium 2.6. His p otassium has been repleted prior to transfer. Dictated By: JACEK HOLLEY MD PN/NTS Conf#: [id number] DID#: [id number]
--- NOTE | 2016-08-21 19:29 | GILP ---
DATE OF PROCEDURE: 08/20/2016 DATE: 08/20/2016. PROCEDURE: Esophagogastroduodenoscopy with percutaneous endoscopic gastrostomy tube placement. PREMEDICATION: Monitored anesthesia care by anesthesiologist. SURGEON: Spencer Chavez MD INSTRUMENT USED: Olympus panendoscope. FINDINGS: Esophagus, stomach and pylorus and duodenum and appears unremarkable with no evidence of duodenitis, ulcer or mouth. TECHNIQUE: After informed consent, with the patient and/or family members understanding the procedur e, its indications, potential risks and complications, including but not limited to: allergic reacti on, bleeding, perforation, infection or leakage, and after all pertinent questions were answered to the patient and/or family members satisfaction, the patient and/or family member signed witnessed in formed consent. Following this, premedication was administered slowly IV push, under careful cardiovascular and resp iratory monitoring with pulse oximetry, blood pressure and hall monitor. Once the sedative effect was achieved the patient was place in the supine position, the panendoscope was introduced and advanced under visual guidance. Careful examination of the upper gastrointestinal tract, on insertion as well as withdrawal of the i nstrument disclosed the following findings: ESOPHAGUS: The mucosa of the entire esophagus appears within normal limits. There is no evidence of esophagitis, varices, neoplasm or stricture. STOMACH: Upon entrance to the stomach air was insufflated, the gastric hua distended normally. Th e mucosa of the fundus, body and antrum of the stomach was carefully examined both head-on and on re troflexion, and shows no abnormalities. There is no evidence of gastritis, ulcers or neoplasm. PYLORUS: The pylorus appears patent and within normal limits, with no evidence of gastric outlet ob struction. DUODENUM: The duodenal mucosa was carefully examined in the duodenal bulb as well as the second por tion of the duodenum and appears unremarkable with no evidence of duodenitis, ulcer or neoplasm. The instrument was then brought back to the stomach and the anterior wall mid-body was identified by transillumination and "finger indentation", this area was then marked in the anterior wall of the a bdomen, it was cleansed with Betadine and infiltrated with Xylocaine 1%. Following this a trocar nee dle was introduced into the gastric lumen under visual control with the endoscope, once in the gastr ic lumen a guide wire was advanced and secured with a polypectomy snare, at this point the endoscope was withdrawn bringing the guide wire out through the patients mouth. Following this a gastrostomy tube was introduced over the guide wire, with the Sacks-Vinne technique without difficulty, a small incision was performed in the skin to allow easy passage of the G-tube, once the position of the gas trostomy tube was confirmed, the external stopper and connectors were installed, and a clean dressin g applied. GASTROTOMY TUBE USED: Kazakh 20 gastrostomy tube. The patient tolerated the procedure well and was transferred out of the endoscopy suite awake, and i n good condition to continue recovery under observation, feedings will started in the next 12-24h an d gastrostomy care will be instituted. IMPRESSION: Uneventful percutaneous endoscopic gastrostomy tube placement, with placement of Kazakh 20 gastrostomy tube with no incident or complication. PLAN: Feedings will be started tomorrow morning. Dictated By: SPENCER MALIN Conf#: [id number] DID#: [id number] CC: Fax Copy to;*EndCC*
== END 2016-08-21 19:31 | disposition other institution (70) | DRG 4 ==
LOC: E/R 07:05 → MS4 14:46 → ICU 08-05 10:51
PROVIDERS: ADMIT Family Medicine; ATTEND Family Medicine
PROC: 02HV33Z Insertion of Infusion Device into Superior Vena Cava, Percutaneous Approach (ICD-10-PCS; 2016-08-03)
PROC: 5A1955Z Respiratory Ventilation, Greater than 96 Consecutive Hours (ICD-10-PCS; 2016-08-05)
PROC: 0BH17EZ Insertion of Endotracheal Airway into Trachea, Via Natural or Artificial Opening (ICD-10-PCS; 2016-08-05)
PROC: 30233K1 Transfusion of Nonautologous Frozen Plasma into Peripheral Vein, Percutaneous Approach (ICD-10-PCS; 2016-08-05)
PROC: 0DH63UZ Insertion of Feeding Device into Stomach, Percutaneous Approach (ICD-10-PCS; 2016-08-20)
PROC: 0B113F4 Bypass Trachea to Cutaneous with Tracheostomy Device, Percutaneous Approach (ICD-10-PCS; principal; 2016-08-20 14:00)
DX: A41.9 Sepsis, unspecified organism (principal); J69.0 Pneumonitis due to inhalation of food and vomit; I50.23 Acute on chronic systolic (congestive) heart failure; G92 Toxic encephalopathy; I47.2 Ventricular tachycardia; R18.8 Other ascites; J96.00 Acute respiratory failure, unspecified whether with hypoxia or hypercapnia; N17.9 Acute kidney failure, unspecified; E87.0 Hyperosmolality and hypernatremia; I24.9 Acute ischemic heart disease, unspecified; I42.9 Cardiomyopathy, unspecified; D68.9 Coagulation defect, unspecified; L03.116 Cellulitis of left lower limb; L03.115 Cellulitis of right lower limb; K92.2 Gastrointestinal hemorrhage, unspecified; E87.2 Acidosis; I95.9 Hypotension, unspecified; T43.625A Adverse effect of amphetamines, initial encounter; I25.5 Ischemic cardiomyopathy; K70.30 Alcoholic cirrhosis of liver without ascites; F15.10 Other stimulant abuse, uncomplicated; F11.10 Opioid abuse, uncomplicated; F41.9 Anxiety disorder, unspecified; F10.20 Alcohol dependence, uncomplicated; E03.9 Hypothyroidism, unspecified; E78.5 Hyperlipidemia, unspecified; E16.0 Drug-induced hypoglycemia without coma; E87.5 Hyperkalemia; E02 Subclinical iodine-deficiency hypothyroidism; R60.0 Localized edema; Z91.14 Patient's other noncompliance with medication regimen
CPT/HCPCS: 31500; 36430; 36569; 36600; 70450; 70551; 71010; 74000; 76604; 76705; 76937; 80048; 80053; 80061; 80202; 82140; 82550; 82553; 82803; 82947; 82962; 83605; 83690; 83735; 84100; 84132; 84439; 84443; 84481; 84484; 85025; 85049; 85610; 85670; 85730; 86704; 86709; 86803; 86850; 86900; 86901; 87040; 87070; 87081; 87086; 87340; 89220; 92950; 93005; 94002; 94003; 94770; 96374; 96375; J1940; C9113; J0690; J0692; J0698; J1642; J1885; J2060; J2250; J2997; J3010; J3370; J3475; J3480; J7030; J7040; J7042; J7050; J7060; J7070; P9059